=== PATIENT | female | born 1985 | race Caucasian/White ===

== ENCOUNTER 2018-11-08 02:02 | Emergency (ER) | payer OTHER, BC ==
[~2018-11-08] VITALS: Ht 152.4 cm; Wt 64.4 kg
[2018-11-08 02:11] VITALS: BP 127/94
--- NOTE | 2018-11-08 02:20 | NUR ---
PATIENT PRESENTS TO ED WITH C/O DIFFUSED ABD PAIN THAT RADIATES TO THE BACK X 5-6 DAYS WITH N/V/D. +CHILLS, NO FEVER. PT ALSO REPORTS HEADACHE, AND Hx: BRAIN CYST, ULCERS, AND COLITIS. SKIN IS PINK/WARM/DRY; AAOX4 WITH EVEN AND STEADY GAIT; LUNGS CLEAR BL; HR EVEN AND REGULAR; NO CP, SOB, OR COUGH AT THIS TIME; PATIENT STATES PAIN OF 8/10 AT THIS TIME; VSS; PATIENT POSITIONED FOR COMFORT; HOB ELEVATED; BEDRAILS UP X2; BED DOWN. ER MD MADE AWARE OF PT STATUS.
[2018-11-08] MEDS ORDERED: ONDANSETRON 4 MG/2 ML VIAL IVP ONE (02:35)
[2018-11-08] MEDS ORDERED: NACL 0.9% 1,000 ML IV ONE (02:35)
[2018-11-08] MEDS ORDERED: MORPHINE SULFATE 4 MG/ML SYR IVP ONE (02:35)
[2018-11-08 02:57] LABS: APPEARANCE,URINE CLEAR (CLEAR); BILIRUBIN,URINE NEGATIVE (NEGATIVE); BLOOD, URINE NEGATIVE (NEGATIVE); COLOR,URINE YELLOW (YELLOW); LEUKOCYTE ESTERASE ,URINE NEGATIVE (NEGATIVE); NITRITE, URINE NEGATIVE (NEGATIVE); UGLUCOSE NEGATIVE (NEGATIVE)
[2018-11-08 02:58] LABS: BASOPHILS % (AUTO) 0.1 % (0.0-2.0); EOSINOPHILS # (AUTO) 0.2 K/uL (0-0.4); EOSINOPHILS % (AUTO) 3.8 % (0.0-4.0); HEMATOCRIT 27.4 % (36-48); HEMOGLOBIN 8.7 g/dL (12.0-16.0); LYMPHOCYTES # (AUTO) 2.8 K/uL (2.5-16.5); MEAN CORPUSCULAR HEMOGLOBIN 24 pg (27-31); MEAN CORPUSCULAR HGB CONC 32 g/dL (33-37); MEAN CORPUSCULAR VOLUME 76.3 fL (80-94); MONOCYTES # (AUTO) 0.4 K/uL (0.8-1.0); MONOCYTES % (AUTO) 6.7 % (1.7-9.3); NEUTROPHILS # (AUTO) 2.7 K/uL (1.8-7.7); NEUTROPHILS % (AUTO) 44.4 % (42.2-75.2); PLATELET COUNT (AUTO) 443 K/uL (140-450); RED BLOOD CELL COUNT(AUTO) 3.59 MIL/uL (4.20-5.40); WHITE BLOOD COUNT (AUTO) 6.2 K/uL (4.8-10.8)
[2018-11-08 03:09] LABS: ANION GAP 12.5 (8-16); CARBON DIOXIDE 23.8 mmol/L (21-32); CREATININE 0.6 mg/dL (0.6-1.3); POTASSIUM 3.3 mmol/L (3.5-5.1)
[2018-11-08] MEDS ORDERED: POTASSIUM CHLORIDE 10 MEQ TABER PO ONE (03:15)
--- NOTE | 2018-11-08 03:15 | NUR ---
PATIENT BROUGHT BACK FROM CT AND IS NOW RESTING IN BED.
[2018-11-08 03:16] LABS: ALBUMIN 3.4 g/dL (3.4-5.0); TOTAL BILIRUBIN 0.2 mg/dL (0.0-1.0)
[2018-11-08 04:00] VITALS: BP 110/69
--- NOTE | 2018-11-08 04:00 | NUR ---
Patient discharged with v/s stable. Written and verbal after care instructions given and explained. Patient alert, oriented and verbalized understanding of instructions. Ambulatory with steady gait. All questions addressed prior to discharge. ID band removed. Patient advised to follow up with PMD. Rx of ZOFRAN 4MG, AND FERROUS SULFATE given. Patient educated on indication of medication including possible reaction and side effects. Opportunity to ask questions provided and answered.
== END 2018-11-08 04:00 | disposition home or self-care (01) ==
LOC: MED 02:02
DX: R19.7 Diarrhea, unspecified (principal); R11.2 Nausea with vomiting, unspecified; R10.84 Generalized abdominal pain; K59.00 Constipation, unspecified; E87.6 Hypokalemia; D64.9 Anemia, unspecified; Z90.49 Acquired absence of other specified parts of digestive tract; Z98.890 Other specified postprocedural states; Z88.8 Allergy status to other drugs, medicaments and biological substances; Z91.013 Allergy to seafood
CPT/HCPCS: 36415; 74176; 80053; 81003; 85025; 96361; 96374; 96375; 99284; J2270; J2405; J7030

== ENCOUNTER 2019-02-12 21:28 | Emergency (ER) | payer OTHER, BC ==
[~2019-02-12] VITALS: Ht 152.4 cm; Wt 64.0 kg
[2019-02-12 21:35] VITALS: BP 113/87
--- NOTE | 2019-02-12 21:45 | NUR ---
AMBULATED TO BED WITH FAMILY
--- NOTE | 2019-02-12 22:04 | NUR ---
ERMD AT BEDSIDE EVALUATING PATIENT.
--- NOTE | 2019-02-12 22:05 | NUR ---
34 Y/O FEMALE BIB SELF C/ODIFFUSE ABD PAIN RADIATING TO LOWER ABD, X1 DAY. REPORTS DIARRHEA X1 WEEK. A/OX4 FOLLOWS COMMANDS. BREATHING UNLABORE AND SYMMETRICAL. GI: STOMACH ROUND; BOWEL SOUNDS ACTIVE ON FOUR QUADRANTS. PATIENT STATES SHE HAS N/V; AND NOTICED CHANGES IN APPETITE. ERMD MADE AWARE OF STATUS. SIDE RAILSX1. HX BRAIN CYST, COLITIS, GASTRIC ULCER RX PEPCID, IRON, ANTI-DIARRHEA MED
[2019-02-12] MEDS ORDERED: NACL 0.9% 1,000 ML IV SCH (22:08)
[2019-02-12] MEDS ORDERED: ONDANSETRON 4 MG/2 ML VIAL IVP ONE (22:10)
[2019-02-12] MEDS ORDERED: MORPHINE SULFATE 2 MG/ML SYR IVP ONE (22:10)
[2019-02-12 22:49] LABS: HEMATOCRIT 29.8 % (36-48); HEMOGLOBIN 9.3 g/dL (12.0-16.0); MEAN CORPUSCULAR HEMOGLOBIN 24 pg (27-31); MEAN CORPUSCULAR HGB CONC 31 g/dL (33-37); MEAN CORPUSCULAR VOLUME 77.5 fL (80-94); PLATELET COUNT (AUTO) 313 K/uL (140-450); RED BLOOD CELL COUNT(AUTO) 3.85 MIL/uL (4.20-5.40); RED CELL DISTRIBUTION WIDTH 20.3 % (11.6-13.7); WHITE BLOOD COUNT (AUTO) 8.1 K/uL (4.8-10.8)
--- NOTE | 2019-02-12 22:50 | NUR ---
PT TAKEN TO CT VIA WC
[2019-02-12 22:55] LABS: APPEARANCE,URINE CLEAR (CLEAR); BILIRUBIN,URINE NEGATIVE (NEGATIVE); BLOOD, URINE NEGATIVE (NEGATIVE); COLOR,URINE YELLOW (YELLOW); LEUKOCYTE ESTERASE ,URINE NEGATIVE (NEGATIVE); NITRITE, URINE NEGATIVE (NEGATIVE); PH,URINE 5.5 (5.0-9.0); UGLUCOSE NEGATIVE (NEGATIVE)
[2019-02-12 23:04] LABS: ALBUMIN 3.7 g/dL (3.4-5.0); ANION GAP 12.1 (8-16); CARBON DIOXIDE 27.8 mmol/L (21-32); CREATININE 0.6 mg/dL (0.6-1.3); EOSINOPHILS % (MANUAL) 5 % (0-4); LYMPHOCYTES % (MANUAL) 27 % (20-46); MONOCYTES % (MANUAL) 6 % (5-12); TOTAL BILIRUBIN 0.2 mg/dL (0.0-1.0)
--- NOTE | 2019-02-12 23:05 | NUR ---
PT RETURNED FROM CT
[2019-02-12 23:08] LABS: POTASSIUM 2.9 mmol/L (3.5-5.1)
[2019-02-12 23:12] LABS: RBC,URINE 0-5 /HPF (0-5); WBC,URINE 0-5 /HPF (0-5)
[2019-02-12] MEDS ORDERED: POTASSIUM CHLORIDE 10 MEQ TABER PO ONE (23:15)
[2019-02-12 23:17] LABS: PROTHROMBIN TIME 9.2 secs (10.8-13.4)
--- NOTE | 2019-02-13 00:56 | NUR ---
PATIENT IS IN NO DISTRESS AND IS SLEEPING. WILL CONTINUE TO MONITOR.
[2019-02-13] MEDS ORDERED: MORPHINE SULFATE 2 MG/ML SYR IVP ONE ×2 (01:10→05:25)
[2019-02-13] MEDS ORDERED: metroNIDAZOLE 500 MG/NS PREMIX 100 ML IV ONE (01:40)
--- NOTE | 2019-02-13 02:58 | NUR ---
PATIENT IS IN NO DISTRESS AT THIS TIME AND IS SLEEPING. VSS. WILL CONTINUE TO MONITOR.
--- NOTE | 2019-02-13 04:08 | NUR ---
PATIENT IS IN NO DISTRESS AT THIS TIME AND IS SLEEPING AT THIS TIME. VSS.
--- NOTE | 2019-02-13 05:05 | NUR ---
ETA FOR FOR [facility] IS 1 HR.
--- NOTE | 2019-02-13 05:19 | NUR ---
REPORT GIVEN TO JULISA SALEEM FROM [facility].
--- NOTE | 2019-02-13 06:39 | NUR ---
NEW ETA FOR TRANSFER PER [facility], 3- TO 45 MINUTES. ER MD MADE AWARE OF STATUS.
--- NOTE | 2019-02-13 06:39 | NUR ---
VSS. PATIENT RATES PAIN OF 6/10. 2MG OF MORPHINE GIVEN PER DOCTOR'S ORDERS.
--- NOTE | 2019-02-13 07:07 | NUR ---
[facility] at bedside for transfer.
[2019-02-13 07:10] VITALS: BP 106/61
--- NOTE | 2019-02-13 07:10 | NUR ---
Patient to be transferred to [facility] . Is being transferred due to INSURANCE. Receiving facility has accepting physician and available space. ER physician has signed transfer form. Patient or responsible republican has agreed to transfer and signed form. Patient belongings inventoried and will be sent with patient. Copy of nursing notes, lab reports, EKG, Physicians Orders and X-rays to be sent with patient. Report called to STIVEN at receiving facility. ambulance service has been called for transfer. ETA is 0710.
== END 2019-02-13 07:10 | disposition short-term general hospital (02) ==
LOC: MED 21:28
DX: K83.8 Other specified diseases of biliary tract (principal); E87.6 Hypokalemia; R19.7 Diarrhea, unspecified; K21.9 Gastro-esophageal reflux disease without esophagitis; Z90.49 Acquired absence of other specified parts of digestive tract; Z98.890 Other specified postprocedural states; Z88.8 Allergy status to other drugs, medicaments and biological substances; Z88.6 Allergy status to analgesic agent; Z91.013 Allergy to seafood
CPT/HCPCS: 36415; 71045; 74176; 80053; 81001; 81025; 83605; 85025; 85610; 85730; 87040; 87086; 96361; 96365; 96375; 96376; 99285; J2270; J2405; J3490; J7030; Q0092

== ENCOUNTER 2019-02-27 06:43 | Emergency (ER) | payer OTHER, BC ==
[~2019-02-27] VITALS: Ht 152.4 cm; Wt 63.5 kg
[2019-02-27 06:45] VITALS: BP 127/85
--- NOTE | 2019-02-27 06:45 | NUR ---
to bed # 07 ambulatory
--- NOTE | 2019-02-27 07:12 | NUR ---
RECEIVED REPORT FROM JULISA WANG. ASSUMED CARE OF PATIENT.
--- NOTE | 2019-02-27 07:15 | NUR ---
34 Y/O FEMALE PRESENTS TO ED, C/O ABDOMINAL PAIN 02/10 X5 DAYS. PT STATES PAIN RADIATES TO FLANK. ABDOMEN IS SOFT AND TENDER; PAIN ON PALPATION. BS ACTIVE X4 QUADRANTS. PT C/O OF N/V/D. LAST EPISODE OF DIARRHEA WAS DURING ADMISSION. LAST EPISODE OF VOMITING WAS 1 HR OFFICE SUPPORT ASSISTANT. PT TAKES NORCO 5 FOR PAIN BUT INEFFECTIVE. PT UNABLE TO TOLERATE FOOD OR FLUIDS. PT VSS. ERMD AWARE. WILL CONTINUE TO MONITOR.
--- NOTE | 2019-02-27 07:30 | NUR ---
Dr. Caba evaluating patient at bedside.
[2019-02-27] MEDS ORDERED: NACL 0.9% 1,000 ML IV SCH (07:35)
[2019-02-27] MEDS ORDERED: GLYCOPYRROLATE 0.2 MG/ML VIAL IV ONE (07:35)
[2019-02-27] MEDS ORDERED: ONDANSETRON 4 MG/2 ML VIAL IVP ONE (07:35)
[2019-02-27] MEDS ORDERED: MORPHINE SULFATE 2 MG/ML SYR IVP ONE (07:35)
[2019-02-27] MEDS ORDERED: METOCLOPRAMIDE 10 MG/2 ML INJ VIAL IVP ONE (07:35)
[2019-02-27 08:02] LABS: BASOPHILS % (AUTO) 0.4 % (0.0-2.0); EOSINOPHILS # (AUTO) 0.4 K/uL (0-0.4); EOSINOPHILS % (AUTO) 3.3 % (0.0-4.0); HEMATOCRIT 31.2 % (36-48); HEMOGLOBIN 9.6 g/dL (12.0-16.0); LYMPHOCYTES # (AUTO) 0.8 K/uL (2.5-16.5); MEAN CORPUSCULAR HEMOGLOBIN 24 pg (27-31); MEAN CORPUSCULAR HGB CONC 31 g/dL (33-37); MEAN CORPUSCULAR VOLUME 76.8 fL (80-94); MONOCYTES # (AUTO) 0.5 K/uL (0.8-1.0); MONOCYTES % (AUTO) 4.8 % (1.7-9.3); PLATELET COUNT (AUTO) 524 K/uL (140-450); RED BLOOD CELL COUNT(AUTO) 4.06 MIL/uL (4.20-5.40); RED CELL DISTRIBUTION WIDTH 20.6 % (11.6-13.7); WHITE BLOOD COUNT (AUTO) 10.7 K/uL (4.8-10.8)
[2019-02-27 08:07] LABS: BILIRUBIN,URINE 1+ (NEGATIVE); BLOOD, URINE NEGATIVE (NEGATIVE); COLOR,URINE YELLOW (YELLOW); LEUKOCYTE ESTERASE ,URINE NEGATIVE (NEGATIVE); NITRITE, URINE NEGATIVE (NEGATIVE); PH,URINE 6.5 (5.0-9.0); UGLUCOSE NEGATIVE (NEGATIVE)
--- NOTE | 2019-02-27 08:11 | NUR ---
TURN DOWN WORKER AT BEDSIDE, PREPARING ORAL CONTRAST.
--- NOTE | 2019-02-27 08:13 | NUR ---
RADAR REPAIRER HAS INSTRUCTED TO DRINK MUCH OF ORAL CONTRAST POSSIBLE OVER THE NEXT 2 HOURS. WILL REMIND/ENCOURAGE PATIENT TO DRINK THE ORAL CONTRAST AT BEDSIDE.
[2019-02-27 08:16] LABS: ALBUMIN 3.2 g/dL (3.4-5.0); AMYLASE 85 U/L (25-115); ASPARTATE AMINOTRANSFERASE 21 U/L (15-37); CARBON DIOXIDE 27.7 mmol/L (21-32); CHLORIDE 102 mmol/L (98-107); CREATININE 0.5 mg/dL (0.6-1.3); GFR ARICAN-AMERICAN 183 mL/min (>90); GLUCOSE 111 mg/dL (74-106); LIPASE 72 U/L (73-393); MAGNESIUM 1.8 mg/dL (1.8-2.4); POTASSIUM 3.7 mmol/L (3.5-5.1); SODIUM SERUM 139 mmol/L (136-145); TOTAL BILIRUBIN 0.3 mg/dL (0.0-1.0); UREA NITROGEN, BLOOD 15 mg/dL (7-18)
--- NOTE | 2019-02-27 08:30 | NUR ---
PT STATES SHE WILL TRY TO DRINK MUCH ORAL CONTRAST POSSIBLE.
[2019-02-27 08:34] LABS: ACETONE, SERUM NEGATIVE (NEGATIVE)
[2019-02-27 08:35] LABS: APPEARANCE,URINE SLIGHTLY HAZY (CLEAR); RBC,URINE 0-5 /HPF (0-5); WBC,URINE NONE SEEN /HPF (0-5)
--- NOTE | 2019-02-27 08:36 | NUR ---
PT DRINKING THE ORAL CONTRAST AND HAS BEEN TOLERATING WELL.
[2019-02-27 08:42] LABS: LYMPHOCYTES % (AUTO) 7.5 % (20.5-51.1)
--- NOTE | 2019-02-27 08:42 | NUR ---
INFORMED GROUP ACCOUNT DIRECTOR MAO THAT PT DRANK MORE THAN HALF OF ORAL CONTRAST AND TOLERATING WELL. PER GROUP ACCOUNT DIRECTOR, PATIENT SHOULD DRINK THE REMAINING CONTRAST AT 0930. INSTRUCTED PT TO DO THIS; PT VERBALIZED UNDERSTANDING.
--- NOTE | 2019-02-27 09:26 | NUR ---
PATIENT INSTRUCTED TO DRINK THE REST OF THE ORAL CONTRAST NOW.
--- NOTE | 2019-02-27 10:02 | NUR ---
CALLED CT 4X TO NOTIFY THEM THAT PT READY TO GO TO CT SCAN BUT NO ANSWER.
--- NOTE | 2019-02-27 10:12 | NUR ---
NOTIFIED CT THAT PT READY TO GO FOR CT SCAN.
--- NOTE | 2019-02-27 10:41 | NUR ---
PER LAB REQUEST, PT PROVIDED NEW URINE SAMPLE. NOTIFIED SCHOOL COUNSELLOR TO COME CHEMICAL APPLICATOR SAMPLE.
--- NOTE | 2019-02-27 10:42 | NUR ---
PT TAKEN FOR CT SCAN.
--- NOTE | 2019-02-27 10:51 | NUR ---
PT BACK FROM CT SCAN.
[2019-02-27 11:14] LABS: BARBITURATE, URINE NEG. ng/ml (NEG <=200); BENZODIAZEPINE, URINE POS. ng/mL (NEG <=200); CANNABINOID, URINE NEG. ng/mL (NEG <=50); COCAINE, URINE NEG. ng/mL (NEG <=300); OPIATE, URINE POS. ng/mL (NEG <=2000); PHENCYCLIDINE SCREEN,URINE NEG. ng/mL (NEG <=25)
--- NOTE | 2019-02-27 11:16 | NUR ---
Dr. Caba re-evaluating patient at bedside.
[2019-02-27] MEDS ORDERED: LORazepam 2 MG/ML VIAL IVP ONE (11:20)
--- NOTE | 2019-02-27 12:37 | NUR ---
Patient discharged with v/s stable. Written and verbal after care instructions given and explained. Patient alert, oriented and verbalized understanding of instructions. Ambulatory with steady gait. All questions addressed prior to discharge. ID band removed. Patient advised to follow up with PMD. Rx of LIBRAX given. Patient educated on indication of medication including possible reaction and side effects. Opportunity to ask questions provided and answered.
[2019-02-27 12:38] VITALS: BP 102/53
== END 2019-02-27 12:37 | disposition home or self-care (01) ==
LOC: MED 06:43
DX: E86.0 Dehydration (principal); R19.7 Diarrhea, unspecified; R11.2 Nausea with vomiting, unspecified; R10.84 Generalized abdominal pain; K21.9 Gastro-esophageal reflux disease without esophagitis; Z90.89 Acquired absence of other organs; Z90.49 Acquired absence of other specified parts of digestive tract; Z98.890 Other specified postprocedural states; Z91.013 Allergy to seafood; Z88.6 Allergy status to analgesic agent; Z88.8 Allergy status to other drugs, medicaments and biological substances
CPT/HCPCS: 36415; 74176; 80053; 80305; 81001; 81025; 82009; 82150; 83690; 83735; 85025; 85610; 96361; 96374; 96375; 99284; J2060; J2270; J2405; J2765; J3490; J7030

== ENCOUNTER 2019-03-06 19:32 | Emergency (ER) | payer OTHER, BC ==
[~2019-03-06] VITALS: Ht 152.4 cm; Wt 63.0 kg
[2019-03-06 19:36] VITALS: BP 119/64
--- NOTE | 2019-03-06 19:43 | NUR ---
PT AMBULATED TO BED 12
--- NOTE | 2019-03-06 20:01 | NUR ---
34 Y/O FEMALE PRESENTS TO ED, C/O ABDOMINAL PAIN THAT RADIATES TO THE FLANK. PT HAS BEEN INTERMITTENT FOR THE PAST MONTH BUT WORSENED PAST COUPLE OF DAYS. PAIN IS 9/10. TOOK NORCO 5 THIS MORNING BUT INEFFECTIVE. PT C/O N/V. ABLE TO TOLERATE FLUIDS AND FOOD. BUT STABLE. ERMD AWARE. WILL CONTINUE TO MONITOR.
--- NOTE | 2019-03-06 21:08 | NUR ---
Dr. Howard examining patient.
[2019-03-06] MEDS ORDERED: MORPHINE SULFATE 4 MG/ML SYR IVP ONE (21:10)
--- NOTE | 2019-03-06 21:30 | NUR ---
PT TAKEN TO CT
--- NOTE | 2019-03-06 21:39 | NUR ---
PT RETURN TO BED 12
[2019-03-06 21:42] LABS: BASOPHILS % (AUTO) 0.3 % (0.0-2.0); EOSINOPHILS # (AUTO) 1.2 K/uL (0-0.4); EOSINOPHILS % (AUTO) 10.5 % (0.0-4.0); HEMATOCRIT 27.5 % (36-48); HEMOGLOBIN 8.5 g/dL (12.0-16.0); LYMPHOCYTES # (AUTO) 2.9 K/uL (2.5-16.5); LYMPHOCYTES % (AUTO) 24.7 % (20.5-51.1); MEAN CORPUSCULAR HEMOGLOBIN 24 pg (27-31); MEAN CORPUSCULAR HGB CONC 31 g/dL (33-37); MEAN CORPUSCULAR VOLUME 76.8 fL (80-94); MONOCYTES # (AUTO) 0.7 K/uL (0.8-1.0); MONOCYTES % (AUTO) 6.1 % (1.7-9.3); NEUTROPHILS # (AUTO) 6.8 K/uL (1.8-7.7); NEUTROPHILS % (AUTO) 58.4 % (42.2-75.2); PLATELET COUNT (AUTO) 444 K/uL (140-450); RED BLOOD CELL COUNT(AUTO) 3.59 MIL/uL (4.20-5.40); RED CELL DISTRIBUTION WIDTH 21.2 % (11.6-13.7); WHITE BLOOD COUNT (AUTO) 11.6 K/uL (4.8-10.8)
[2019-03-06 21:47] LABS: APPEARANCE,URINE HAZY (CLEAR); BILIRUBIN,URINE NEGATIVE (NEGATIVE); BLOOD, URINE NEGATIVE (NEGATIVE); COLOR,URINE YELLOW (YELLOW); LEUKOCYTE ESTERASE ,URINE TRACE (NEGATIVE); NITRITE, URINE NEGATIVE (NEGATIVE); PH,URINE 7.5 (5.0-9.0); UGLUCOSE NEGATIVE (NEGATIVE)
[2019-03-06 21:57] LABS: RBC,URINE NONE SEEN /HPF (0-5); WBC,URINE 0-5 /HPF (0-5)
[2019-03-06 23:38] LABS: POTASSIUM 3.7 mmol/L (3.5-5.1)
[2019-03-06 23:39] LABS: ANION GAP 9.3 (8-16); CARBON DIOXIDE 30.4 mmol/L (21-32); CREATININE 0.9 mg/dL (0.6-1.3); TOTAL BILIRUBIN 0.2 mg/dL (0.0-1.0)
[2019-03-06 23:40] LABS: ALBUMIN 3.2 g/dL (3.4-5.0)
[2019-03-06] MEDS ORDERED: LEVOFLOXACIN 500 MG/D5W PREMIX 100 ML IV ONE (23:50)
[2019-03-06] MEDS ORDERED: NACL 0.9% 1,000 ML IV ONE (23:50)
[2019-03-07 00:50] VITALS: BP 119/64
--- NOTE | 2019-03-07 00:50 | NUR ---
PT DISCHARGED PROVIDED WITH PAPERWORK. RX CIPROFLOXACIN. EDUCATED PT REGARDING MEDICATION AND S/E. EDUCATED PT REGARDING D/C DIAGNOSIS AND INSTRUCTIONS. PT VERBALIZED UNDERSTANDING OF TEACHING. TOLD PT TO FOLLOW UP WITH PCP AND WHEN TO RETURN TO ED. PT VSS. ALL QUESTIONS ANSWERED.
== END 2019-03-07 00:50 | disposition home or self-care (01) ==
LOC: MED 19:32
DX: K52.9 Noninfective gastroenteritis and colitis, unspecified (principal); K21.9 Gastro-esophageal reflux disease without esophagitis; Z90.49 Acquired absence of other specified parts of digestive tract; Z98.890 Other specified postprocedural states; Z88.8 Allergy status to other drugs, medicaments and biological substances
CPT/HCPCS: 36415; 74176; 80053; 81001; 81025; 82150; 83690; 85025; 87040; 96365; 96375; 99284; J1956; J2270; J7030

== ENCOUNTER 2019-03-12 15:30 | Emergency (ER) | payer OTHER, BC ==
[~2019-03-12] VITALS: Ht 152.4 cm; Wt 59.9 kg
[2019-03-12 15:36] VITALS: BP 106/73
[2019-03-12] MEDS: NACL 0.9% 1,000 ML IV SCH (16:17)
[2019-03-12] MEDS: ONDANSETRON 4 MG/2 ML VIAL IVP ONE (16:17)
[2019-03-12 16:28] LABS: BASOPHILS % (AUTO) 0.2 % (0.0-2.0); EOSINOPHILS # (AUTO) 0.3 K/uL (0-0.4); EOSINOPHILS % (AUTO) 3.8 % (0.0-4.0); HEMATOCRIT 26.2 % (36-48); HEMOGLOBIN 8.2 g/dL (12.0-16.0); LYMPHOCYTES # (AUTO) 0.5 K/uL (2.5-16.5); MEAN CORPUSCULAR HEMOGLOBIN 24 pg (27-31); MEAN CORPUSCULAR HGB CONC 31 g/dL (33-37); MEAN CORPUSCULAR VOLUME 77.1 fL (80-94); MONOCYTES # (AUTO) 0.5 K/uL (0.8-1.0); MONOCYTES % (AUTO) 6.7 % (1.7-9.3); NEUTROPHILS # (AUTO) 6.3 K/uL (1.8-7.7); NEUTROPHILS % (AUTO) 82.3 % (42.2-75.2); PLATELET COUNT (AUTO) 448 K/uL (140-450); RED CELL DISTRIBUTION WIDTH 20.9 % (11.6-13.7); WHITE BLOOD COUNT (AUTO) 7.6 K/uL (4.8-10.8)
[2019-03-12 16:32] LABS: ANION GAP 15.1 (8-16); CARBON DIOXIDE 24.7 mmol/L (21-32); CREATININE 0.6 mg/dL (0.6-1.3); POTASSIUM 3.8 mmol/L (3.5-5.1)
[2019-03-12 16:38] LABS: ALBUMIN 2.7 g/dL (3.4-5.0); TOTAL BILIRUBIN 0.2 mg/dL (0.0-1.0)
[2019-03-12] MEDS: IBUPROFEN 600 MG TAB PO ONE (17:30)
[2019-03-12] MEDS: MORPHINE SULFATE 4 MG/ML SYR IVP ONE ×2 (17:45→19:15)
[2019-03-12] MEDS: metroNIDAZOLE 500 MG/NS PREMIX 100 ML IV ONE (17:54)
[2019-03-12] MEDS ORDERED: MORPHINE SULFATE 4 MG/ML SYR IVP ONE (17:55)
[2019-03-12] MEDS ORDERED: FAMO-90 PO (18:11)
[2019-03-12] MEDS ORDERED: FERR325E14 PO (18:11)
[2019-03-12] MEDS ORDERED: ALPR0.5T2 PO (18:11)
[2019-03-12] MEDS ORDERED: BACL10TA4 PO (18:23)
[2019-03-12] MEDS ORDERED: FLUO10CA21 PO (18:23)
[2019-03-12] MEDS: LEVOFLOXACIN 500 MG/D5W PREMIX 100 ML IV ONE (19:11)
[2019-03-12 19:29] VITALS: BP 92/47
== END 2019-03-12 19:29 | disposition short-term general hospital (02) ==
LOC: MED 15:30
DX: A09 Infectious gastroenteritis and colitis, unspecified (principal); K21.9 Gastro-esophageal reflux disease without esophagitis; Z86.73 Personal history of transient ischemic attack (TIA), and cerebral infarction without residual deficits; Z90.49 Acquired absence of other specified parts of digestive tract; Z98.51 Tubal ligation status; Z79.899 Other long term (current) drug therapy; Z88.8 Allergy status to other drugs, medicaments and biological substances; Z88.6 Allergy status to analgesic agent; Z91.013 Allergy to seafood
CPT/HCPCS: 36415; 80053; 81002; 81025; 83690; 85025; 87040; 96361; 96365; 96367; 96375; 96376; 99285; J1956; J2270; J2405; J3490; J7030; 99283

== ENCOUNTER 2019-03-19 19:30 | Emergency (ER) | payer OTHER, BC ==
[~2019-03-19] VITALS: Ht 154.9 cm; Wt 61.2 kg
[~2019-03-19 19:30] MED LIST: ALPR0.5T2 PO; BACL10TA4 PO; FAMO-90 PO; FERR325E14 PO; FLUO10CA21 PO
[2019-03-19 19:47] VITALS: BP_SYST 108; BP_SYST 129; BP_DIAS 68; BP_DIAS 83
--- NOTE | 2019-03-19 20:05 | NUR ---
PT TAKEN TO BED 5
--- NOTE | 2019-03-19 20:13 | NUR ---
PT C/O ABD PAIN, N/V/D, CHILLS X6 WEEKS. PT DENIES BLOOD IN VOMITING/DIARRHEA. PT LEANING OVER BED GUARDING ABD. ABD SOFT, ROUND, TENDER TO PALPATION. BOWEL SOUNDS PRESENT THROUGHOUT. DENIES CHEST PAIN. RR EVEN AND UNLABORED. PT REPOSITIONING FREQUENTLY FOR COMFORT. 10/10 ABD PAIN. VSS. MEDHX: COLITIS ALLERGIES: IV CONTRAST, MYLANTA, TORADOL
--- NOTE | 2019-03-19 20:31 | NUR ---
Dr. Cooper examining patient.
[2019-03-19] MEDS ORDERED: NACL 0.9% 1,000 ML IV ONE (20:45)
[2019-03-19] MEDS ORDERED: MORPHINE SULFATE 2 MG/ML SYR IVP ONE (20:45)
[2019-03-19] MEDS ORDERED: ONDANSETRON 4 MG/2 ML VIAL IVP ONE (20:45)
--- NOTE | 2019-03-19 21:08 | NUR ---
LAB AT BEDSIDE.
--- NOTE | 2019-03-19 21:24 | NUR ---
PT TO CT VIA WHEELCHAIR.
--- NOTE | 2019-03-19 21:38 | NUR ---
PT RETURN FROM CT
[2019-03-19 21:39] LABS: BASOPHILS % (AUTO) 0.4 % (0.0-2.0); EOSINOPHILS # (AUTO) 0.8 K/uL (0-0.4); EOSINOPHILS % (AUTO) 9.6 % (0.0-4.0); HEMATOCRIT 35.6 % (36-48); HEMOGLOBIN 11.4 g/dL (12.0-16.0); LYMPHOCYTES # (AUTO) 1.5 K/uL (2.5-16.5); LYMPHOCYTES % (AUTO) 18.6 % (20.5-51.1); MEAN CORPUSCULAR HEMOGLOBIN 25 pg (27-31); MEAN CORPUSCULAR HGB CONC 32 g/dL (33-37); MEAN CORPUSCULAR VOLUME 79.4 fL (80-94); MONOCYTES # (AUTO) 0.4 K/uL (0.8-1.0); MONOCYTES % (AUTO) 4.8 % (1.7-9.3); NEUTROPHILS # (AUTO) 5.4 K/uL (1.8-7.7); NEUTROPHILS % (AUTO) 66.6 % (42.2-75.2); PLATELET COUNT (AUTO) 654 K/uL (140-450); RED BLOOD CELL COUNT(AUTO) 4.49 MIL/uL (4.20-5.40); RED CELL DISTRIBUTION WIDTH 19.4 % (11.6-13.7); WHITE BLOOD COUNT (AUTO) 8.1 K/uL (4.8-10.8)
--- NOTE | 2019-03-19 21:39 | NUR ---
PT STATES NO RELIEF OF PAIN. DR JACKMAN MADE AWARE. VSS, WILL CONTINUE TO MONITOR.
[2019-03-19 21:50] LABS: ANION GAP 10.5 (8-16); CARBON DIOXIDE 30.3 mmol/L (21-32); CREATININE 0.6 mg/dL (0.6-1.3); POTASSIUM 3.8 mmol/L (3.5-5.1)
[2019-03-19] MEDS ORDERED: fentaNYL 0.05 MG/ML VIAL IVP ONE (21:50)
[2019-03-19 21:52] LABS: BARBITURATE, URINE NEG. ng/ml (NEG <=200); BENZODIAZEPINE, URINE POS. ng/mL (NEG <=200); CANNABINOID, URINE NEG. ng/mL (NEG <=50); COCAINE, URINE NEG. ng/mL (NEG <=300); OPIATE, URINE POS. ng/mL (NEG <=2000); PHENCYCLIDINE SCREEN,URINE NEG. ng/mL (NEG <=25)
[2019-03-19 21:55] LABS: ALBUMIN 3.4 g/dL (3.4-5.0); TOTAL BILIRUBIN 0.2 mg/dL (0.0-1.0)
--- NOTE | 2019-03-19 22:03 | NUR ---
PT STATES RELIEF OF PAIN AT THIS TIME. PAIN WENT FROM 10/10 TO 3/10. PT RESTING IN BED IN COMFORTABLE POSITION. BED LOCKED AND IN LOW POSITION. VSS. WILL CONTINUE TO MONITOR.
[2019-03-19] MEDS ORDERED: HALOPERIDOL IM 5 MG/ML VIAL IM ONE (23:20)
[2019-03-19 23:47] VITALS: BP 111/59
--- NOTE | 2019-03-19 23:47 | NUR ---
Patient discharged with v/s stable. Written and verbal after care instructions given and explained. Patient alert, oriented and verbalized understanding of instructions. Ambulatory with steady gait. All questions addressed prior to discharge. ID band removed. Patient advised to follow up with PMD. Rx of ZOFRAN ODT given. Patient educated on indication of medication including possible reaction and side effects. Opportunity to ask questions provided and answered. PT STATES HER IS DRIVING HER HOME.
== END 2019-03-19 23:47 | disposition home or self-care (01) ==
LOC: MED 19:30
DX: R10.9 Unspecified abdominal pain (principal); G43.A0 Cyclical vomiting, in migraine, not intractable; K21.9 Gastro-esophageal reflux disease without esophagitis; R11.10 Vomiting, unspecified; Z86.73 Personal history of transient ischemic attack (TIA), and cerebral infarction without residual deficits; Z90.49 Acquired absence of other specified parts of digestive tract; Z98.890 Other specified postprocedural states; Z88.8 Allergy status to other drugs, medicaments and biological substances
CPT/HCPCS: 36415; 74176; 80053; 80305; 81002; 81025; 85025; 96361; 96372; 96374; 96375; 99284; J1630; J2270; J2405; J3010; J7030

== ENCOUNTER 2019-04-03 07:32 | Emergency (ER) | payer OTHER, BC ==
[~2019-04-03] VITALS: Ht 152.4 cm; Wt 63.5 kg
[2019-04-03 07:36] VITALS: BP 104/40
--- NOTE | 2019-04-03 07:39 | NUR ---
PT AMBULATED TO ER BED 07
--- NOTE | 2019-04-03 07:47 | NUR ---
LUQ PAIN RADIATING TO BREAST AND BACK WITH N/V/D X 4 DAY. SKIN IS PINK/WARM/DRY; AAOX4 WITH EVEN AND STEADY GAIT; LUNGS CLEAR BL; HR EVEN AND REGULAR; PT DENIES ANY FEVER, SOB, OR COUGH AT THIS TIME; PATIENT STATES PAIN OF 8/10 AT THIS TIME; VSS; PATIENT POSITIONED FOR COMFORT; HOB ELEVATED; BEDRAILS UP X2; BED DOWN. ER MD MADE AWARE OF PT STATUS. FAMILY AT BEDSIDE.
[2019-04-03] MEDS ORDERED: MORPHINE SULFATE 4 MG/ML SYR IVP ONE ×3 (07:55→11:25)
[2019-04-03] MEDS ORDERED: ONDANSETRON 4 MG/2 ML VIAL IVP ONE (07:55)
[2019-04-03] MEDS ORDERED: NACL 0.9% 1,000 ML IV ONE (07:55)
[2019-04-03] MEDS ORDERED: PANTOPRAZOLE 40 MG INJ VIAL IVP ONE (08:00)
[2019-04-03 08:16] LABS: BASOPHILS % (AUTO) 0.2 % (0.0-2.0); EOSINOPHILS # (AUTO) 0.7 K/uL (0-0.4); EOSINOPHILS % (AUTO) 7.5 % (0.0-4.0); HEMATOCRIT 27.3 % (36-48); HEMOGLOBIN 8.6 g/dL (12.0-16.0); LYMPHOCYTES # (AUTO) 1.8 K/uL (2.5-16.5); LYMPHOCYTES % (AUTO) 20.9 % (20.5-51.1); MEAN CORPUSCULAR HEMOGLOBIN 25 pg (27-31); MEAN CORPUSCULAR HGB CONC 32 g/dL (33-37); MEAN CORPUSCULAR VOLUME 79.7 fL (80-94); MONOCYTES # (AUTO) 0.7 K/uL (0.8-1.0); MONOCYTES % (AUTO) 7.6 % (1.7-9.3); NEUTROPHILS # (AUTO) 5.5 K/uL (1.8-7.7); NEUTROPHILS % (AUTO) 63.8 % (42.2-75.2); PLATELET COUNT (AUTO) 464 K/uL (140-450); RED BLOOD CELL COUNT(AUTO) 3.42 MIL/uL (4.20-5.40); RED CELL DISTRIBUTION WIDTH 18.9 % (11.6-13.7); WHITE BLOOD COUNT (AUTO) 8.6 K/uL (4.8-10.8)
--- NOTE | 2019-04-03 08:26 | NUR ---
PT LEFT FOR X-RAY VIA WHEELCHAIR PER TECH.
[2019-04-03 08:30] LABS: ANION GAP 15.7 (8-16); CREATININE 0.5 mg/dL (0.6-1.3); POTASSIUM 3.7 mmol/L (3.5-5.1)
[2019-04-03 08:34] LABS: APPEARANCE,URINE HAZY (CLEAR); BILIRUBIN,URINE 1+ (NEGATIVE); BLOOD, URINE NEGATIVE (NEGATIVE); COLOR,URINE YELLOW (YELLOW); LEUKOCYTE ESTERASE ,URINE NEGATIVE (NEGATIVE); NITRITE, URINE NEGATIVE (NEGATIVE); PH,URINE 5.5 (5.0-9.0); UGLUCOSE NEGATIVE (NEGATIVE)
[2019-04-03 08:37] LABS: ALBUMIN 2.9 g/dL (3.4-5.0); TOTAL BILIRUBIN 0.3 mg/dL (0.0-1.0)
[2019-04-03 09:24] LABS: RBC,URINE 0-5 /HPF (0-5); WBC,URINE 0-5 /HPF (0-5)
--- NOTE | 2019-04-03 12:11 | NUR ---
PT STATED PAIN RELIEVED AFTER THE THIRD TIME MORPHINE GIVEN.
--- NOTE | 2019-04-03 13:11 | NUR ---
[facility] AT BEDSIDE FOR TRANSFER.
--- NOTE | 2019-04-03 13:11 | NUR ---
NOTIFIED PT BP 90/59, MAP 68. PT DOES NOT HAVE ANY SYMPTOMS OR DISCOMFORT. MIKAELA BARRERA WAS PLANNING TO ORDER SOME FLUID. TRANSPORTATION ARRIVED TO UNIT.
--- NOTE | 2019-04-03 13:25 | NUR ---
PT LEFT UNIT IN STABLE CONDITION. PT AWAKE, ALERT. NO SOB. ABLE TO AMBULATE. REPORT GIVEN TO JAMAL JOHNSON. PT WILL GO TO ROOM 2150. Addendum: 04/03/19 at 1339 by PAT PT DENIES PAIN UPON TRANSFERRING.
[2019-04-03 13:30] VITALS: BP 90/56
== END 2019-04-03 13:25 | disposition short-term general hospital (02) ==
LOC: MED 07:32
DX: K92.2 Gastrointestinal hemorrhage, unspecified (principal); R11.2 Nausea with vomiting, unspecified; K21.9 Gastro-esophageal reflux disease without esophagitis; Z86.73 Personal history of transient ischemic attack (TIA), and cerebral infarction without residual deficits; Z79.899 Other long term (current) drug therapy; Z88.8 Allergy status to other drugs, medicaments and biological substances; Z88.6 Allergy status to analgesic agent; Z91.013 Allergy to seafood
CPT/HCPCS: 36415; 74022; 80053; 81001; 81025; 83690; 84484; 85025; 86886; 86900; 86901; 96361; 96374; 96375; 96376; 99285; C9113; J2270; J2405; J7030

== ENCOUNTER 2019-04-13 20:35 | Emergency (ER) | payer OTHER, BC ==
[~2019-04-13] VITALS: Ht 152.4 cm; Wt 59.6 kg
[2019-04-13 20:38] VITALS: BP 112/67
--- NOTE | 2019-04-13 20:50 | NUR ---
AMBULATES TO BED 09 IN SLOW, STEADY GAIT IN UPRIGHT POSITION. GUARDING LEFT SIDE ABD. URINE SAMPLE COLLECTED.
--- NOTE | 2019-04-13 21:07 | NUR ---
34 YEAR OLD FEMALE COMPLAINS OF SHARP UPPER ABDOMINAL PAIN 8/10 THAT RADIATES TO LEFT FLANK. PATIENT STATES NAUSEA, VOMITTING, AND DIARRHEA X 7 DAYS. BOWEL SOUNDS ACTIVE X4, NONTENDER. PATIENT STATES APPETITE CHANGES, LOST WEIGHT OVER DAYS. BED IN LOWEST POSITION, LOCKED, BED RAIL UPX1.
[2019-04-13] MEDS ORDERED: MORPHINE SULFATE 4 MG/ML SYR IM ONE ×2 (21:15→22:10)
[2019-04-13] MEDS ORDERED: ONDANSETRON 4 MG ODT PO ONE (21:15)
[2019-04-13 22:40] VITALS: BP 100/57
--- NOTE | 2019-04-13 22:40 | NUR ---
Patient discharged with v/s stable. Written and verbal after care instructions given and explained. Patient alert, oriented and verbalized understanding of instructions. Ambulatory with steady gait. All questions addressed prior to discharge. ID band removed. Patient advised to follow up with PMD. Rx of CIPRO, IMODIUM, ZOFRAN given. Patient educated on indication of medication including possible reaction and side effects. Opportunity to ask questions provided and answered.
== END 2019-04-13 22:40 | disposition home or self-care (01) ==
LOC: MED 20:35
DX: R10.9 Unspecified abdominal pain (principal); R11.2 Nausea with vomiting, unspecified; R19.7 Diarrhea, unspecified; K21.9 Gastro-esophageal reflux disease without esophagitis; Z79.899 Other long term (current) drug therapy; Z91.013 Allergy to seafood; Z88.1 Allergy status to other antibiotic agents; Z88.8 Allergy status to other drugs, medicaments and biological substances; Z90.49 Acquired absence of other specified parts of digestive tract; Z98.890 Other specified postprocedural states
CPT/HCPCS: 81002; 81025; 96372; 99283; J2270; Q0162

== ENCOUNTER 2019-04-14 22:56 | Emergency (ER) | payer OTHER, BC ==
[~2019-04-14] VITALS: Ht 152.4 cm; Wt 59.9 kg
[2019-04-14 23:33] VITALS: BP 129/73
--- NOTE | 2019-04-14 23:41 | NUR ---
PT AMBULATED TO LOBBY. PROVIDED WITH URINE SPECIMEN CUP AND PT UNABLE TO PROVIDE SAMPLE AT THIS TIME.
--- NOTE | 2019-04-15 00:29 | NUR ---
PT AMBULATED TO ER BED 9
--- NOTE | 2019-04-15 00:50 | NUR ---
34 YEAR OLD FEMALE COMPLAINS OF SHARP ABDOMINAL PAIN (02/10) THAT RADIATES TO THE BACK FOR THE PAST 6 DAYS. PATIENT GUARDING ABDOMEN. PATIENT STATES NAUSEA, VOMITTING, AND DIARRHEA X 6 DAYS. BOWEL SOUNDS ACTIVE X4. PATIENT ALERT AND ORIENTED, BREATHING EVEN AND UNLABORED. BED IN LOWEST POSITION, LOCKED, BED RAIL UPX1.
[2019-04-15] MEDS ORDERED: MORPHINE SULFATE 4 MG/ML SYR IM ONE (01:45)
[2019-04-15] MEDS ORDERED: diphenhydrAMINE 12.5 MG/5 ML UDC PO ONE (01:45)
--- NOTE | 2019-04-15 02:11 | NUR ---
MEDICATED WITH 4 MG IM MORPHINE AND 25 MG PO BENADRYL FOR 10/10 ABD PAIN. WILL REASSESS IN 30 MINS.
--- NOTE | 2019-04-15 02:40 | NUR ---
PT STATES HER PAIN IS UNCHANGED. REPORTS 10/10 PAIN. PT IS SITTING UP IN BED. SKIN PINK, WARM, DRY. BREATHING EVEN, UNLABORED. NO S/SX ACUTE PAIN VA DISTRESS AT THIS TIME.
--- NOTE | 2019-04-15 03:00 | NUR ---
DR. BERNABE MADE AWARE. PER ERMD, PT NEEDS TO FOLLOW UP WITH PMD FOR FURTHER EVAL AND PAIN MANAGEMENT.
[2019-04-15 03:05] VITALS: BP 124/76
--- NOTE | 2019-04-15 03:05 | NUR ---
Patient discharged with v/s stable. Pt states pain unrelieved. Dr informed pt to f/u with primary care provider and GI DR. Written and verbal after care instructions given and explained. Patient verbalized understanding. Ambulatory with steady gait. All questions addressed prior to discharge.
== END 2019-04-15 03:02 | disposition home or self-care (01) ==
LOC: MED 22:56
DX: R10.10 Upper abdominal pain, unspecified (principal); K21.9 Gastro-esophageal reflux disease without esophagitis; Z86.73 Personal history of transient ischemic attack (TIA), and cerebral infarction without residual deficits; Z79.899 Other long term (current) drug therapy; Z88.8 Allergy status to other drugs, medicaments and biological substances; Z91.013 Allergy to seafood
CPT/HCPCS: 81002; 81025; 96372; 99283; J2270; Q0163

== ENCOUNTER 2019-04-18 18:10 | Emergency (ER) | payer OTHER, BC ==
[~2019-04-18] VITALS: Ht 149.9 cm; Wt 73.9 kg
--- NOTE | 2019-04-18 18:10 | NUR ---
AMBULATES TO BED 07 WITH STEADY GAIT.
[2019-04-18 18:13] VITALS: BP 110/80
--- NOTE | 2019-04-18 18:31 | NUR ---
34 YO F BIB SELF PRESENTS TO ED C/O PERSISTENT NVD AND 9/10 EPIGASTRIC PAIN X 2 WEEKS. PT HAS BEEN SEEN HERE SEVERAL TIMES THIS WEEK FOR SIMILAR COMPLAINT. DENIES N/V AT THIS TIME, REPORTS PAIN. ABD SOFT, PLIABLE, NON-TENDER. BOWEL SOUNDS ACTIVE + 4. SKIN PINK, WARM, DRY. BREATHING EVEN, UNLABORED. APPEARS TO BE UNCOMFORTABLE. RUBBING ABD.
[2019-04-18] MEDS ORDERED: NACL 0.9% 1,000 ML IV ONE (18:40)
[2019-04-18] MEDS ORDERED: HALOPERIDOL IM 5 MG/ML VIAL IVP ONE (18:40)
[2019-04-18 19:05] LABS: BASOPHILS % (AUTO) 0.3 % (0.0-2.0); EOSINOPHILS # (AUTO) 0.3 K/uL (0-0.4); EOSINOPHILS % (AUTO) 4.1 % (0.0-4.0); HEMATOCRIT 28.4 % (36-48); HEMOGLOBIN 8.8 g/dL (12.0-16.0); LYMPHOCYTES # (AUTO) 1.3 K/uL (2.5-16.5); LYMPHOCYTES % (AUTO) 18.3 % (20.5-51.1); MEAN CORPUSCULAR HEMOGLOBIN 25 pg (27-31); MEAN CORPUSCULAR HGB CONC 31 g/dL (33-37); MEAN CORPUSCULAR VOLUME 80.1 fL (80-94); MONOCYTES # (AUTO) 0.5 K/uL (0.8-1.0); MONOCYTES % (AUTO) 7.7 % (1.7-9.3); NEUTROPHILS # (AUTO) 4.8 K/uL (1.8-7.7); NEUTROPHILS % (AUTO) 69.6 % (42.2-75.2); PLATELET COUNT (AUTO) 482 K/uL (140-450); RED BLOOD CELL COUNT(AUTO) 3.54 MIL/uL (4.20-5.40); RED CELL DISTRIBUTION WIDTH 17.8 % (11.6-13.7); WHITE BLOOD COUNT (AUTO) 6.9 K/uL (4.8-10.8)
--- NOTE | 2019-04-18 19:05 | NUR ---
MEDICATED WITH 5 MG IVP HALDOL FOR 9/10 ABD PAIN. WILL REASSESS.
--- NOTE | 2019-04-18 19:25 | NUR ---
REPORTS MINIMAL PAIN RELIEF; 11/10. PT STATES "IT STILL HURTS. I CAN STILL FEEL IT". VSS. DR. BERNABE MADE AWARE. PT INFORMED THAT ALL TESTS CAME BACK NORMAL WITHOUT CHANGE AND THAT SHE NEEDS TO FOLLOW UP WITH PMD AND GI SPECIALIST. PT VERBALIZES UNDERSTANDING.
[2019-04-18 19:44] LABS: CARBON DIOXIDE 28.9 mmol/L (21-32)
[2019-04-18 19:45] LABS: ANION GAP 13.5 (8-16); CREATININE 0.5 mg/dL (0.6-1.3); POTASSIUM 3.4 mmol/L (3.5-5.1)
[2019-04-18 19:49] LABS: TOTAL BILIRUBIN 0.2 mg/dL (0.0-1.0)
[2019-04-18 19:50] LABS: ALBUMIN 3.5 g/dL (3.4-5.0)
[2019-04-18 20:53] VITALS: BP 102/64
--- NOTE | 2019-04-18 20:53 | NUR ---
Discharge paper given to pt. Pt states relief with 6/10 tollerable pain. Written and verbal after care instructions given and explained. Patient alert, oriented and verbalized understanding of instructions. Ambulatory with steady gait. All questions addressed prior to discharge. ID band removed. Patient advised to follow up with PMD and when to return to ER. Rx of Percogesic given. Patient educated on indication of medication including possible reaction and side effects. Opportunity to ask questions provided and answered.
== END 2019-04-18 20:53 | disposition home or self-care (01) ==
LOC: MED 18:10
DX: K58.9 Irritable bowel syndrome, unspecified (principal); K21.9 Gastro-esophageal reflux disease without esophagitis; F41.9 Anxiety disorder, unspecified; Z86.73 Personal history of transient ischemic attack (TIA), and cerebral infarction without residual deficits; Z90.49 Acquired absence of other specified parts of digestive tract; Z98.890 Other specified postprocedural states; Z79.899 Other long term (current) drug therapy; Z88.8 Allergy status to other drugs, medicaments and biological substances; Z91.013 Allergy to seafood
CPT/HCPCS: 36415; 80053; 81002; 81025; 85025; 96361; 96374; 99283; J1630

== ENCOUNTER 2019-05-06 19:20 | Emergency (ER) | payer OTHER, BC ==
[~2019-05-06] VITALS: Ht 152.4 cm; Wt 61.2 kg
[2019-05-06 19:43] VITALS: BP 120/62
--- NOTE | 2019-05-06 19:46 | NUR ---
TO LOBBY A/W BED AMBULATORY
--- NOTE | 2019-05-06 20:00 | NUR ---
34/F PRESENTS TO ED, C/O INTERMITTENT VOMITING X5 DAYS, DENIES BLOOD IN EMESIS. REPORTS LOWER ABD PAIN RADIATING TO LOWER BACK, X4 DAYS. REPORTS DIARRHEA WHICH STARTED YESTERDAY. DENIES FEVER, REPORTS CHILLS. DENIES DYSURIA. PT AWAKE AND ALERT, SKIN NORMAL COLOR WARM AND DRY, RR EVEN AND UNLABORED. HX GASTRIC ULCER, GERD, "BRAIN CYST," CHOLECYSTECTOMY, APPENDECTOMY, HERNIA, DEPRESSION RX XANAX, BACLOFEN, FLUOXETINE, PANTOPRAZOLE, REMERON, SULCRAFATE
[2019-05-06] MEDS ORDERED: ACETAMINOPHEN EXTRA STRENGTH 500 MG TAB PO ONE (20:50)
[2019-05-06] MEDS ORDERED: DICYCLOMINE 20 MG/2 ML VIAL IM ONE (20:50)
[2019-05-06] MEDS ORDERED: ONDANSETRON 4 MG ODT PO ONE (20:50)
[2019-05-06 21:17] VITALS: BP 111/69
--- NOTE | 2019-05-06 21:17 | NUR ---
Patient discharged with v/s stable. Written and verbal after care instructions given and explained. Patient alert, oriented and verbalized understanding of instructions. Ambulatory with steady gait. All questions addressed prior to discharge. ID band removed. Patient advised to follow up with PMD. Rx of ZOFRAN, IBUPROFEN, KEFLEX given. Patient educated on indication of medication including possible reaction and side effects. Opportunity to ask questions provided and answered.
== END 2019-05-06 21:17 | disposition home or self-care (01) ==
LOC: MED 19:20
DX: N39.0 Urinary tract infection, site not specified (principal); A08.4 Viral intestinal infection, unspecified; K21.9 Gastro-esophageal reflux disease without esophagitis; Z90.49 Acquired absence of other specified parts of digestive tract; Z98.890 Other specified postprocedural states; Z79.899 Other long term (current) drug therapy; Z88.8 Allergy status to other drugs, medicaments and biological substances; Z91.013 Allergy to seafood
CPT/HCPCS: 81002; 81025; 96372; 99283; J0500; Q0162

== ENCOUNTER 2019-05-29 17:53 | Emergency (ER) | payer OTHER, BC ==
[~2019-05-29] VITALS: Ht 152.4 cm; Wt 61.2 kg
[2019-05-29 18:18] VITALS: BP 120/76
--- NOTE | 2019-05-29 18:23 | NUR ---
WAIT AT LOBBY.
--- NOTE | 2019-05-29 20:04 | NUR ---
pt ambulated to chair c
--- NOTE | 2019-05-29 20:22 | NUR ---
PATIENT PRESENTS TO ED WITH ABDOMINAL PAIN X 5 DAYS. PT DESCRIBES PAIN SHARP, 10/10 RADIATING TO LOWER BACK. ALSO WITH N/V/D; NO URINARY SYMPTOMS. LBM: 05/29/2019. LMP: 05/18/2019. ABDOMEN TENDER, WITH ACTIVE BOWEL SOUNDS ON ALL QUADRANTS. VSS; PATIENT SITTING ON CHAIR. ER MD MADE AWARE OF PT STATUS.
--- NOTE | 2019-05-29 20:39 | NUR ---
PA WALLACE WITH PT
[2019-05-29] MEDS ORDERED: MORPHINE SULFATE 4 MG/ML SYR IVP ONE ×2 (20:45→22:45)
[2019-05-29] MEDS ORDERED: NACL 0.9% 1,000 ML IV ONE (20:45)
[2019-05-29] MEDS ORDERED: ONDANSETRON 4 MG/2 ML VIAL IVP ONE (20:45)
--- NOTE | 2019-05-29 21:34 | NUR ---
LAB AT [facility].
[2019-05-29 21:52] LABS: BASOPHILS % (AUTO) 0.1 % (0.0-2.0); EOSINOPHILS # (AUTO) 0.5 K/uL (0-0.4); EOSINOPHILS % (AUTO) 5.2 % (0.0-4.0); HEMATOCRIT 28.5 % (36-48); HEMOGLOBIN 8.5 g/dL (12.0-16.0); LYMPHOCYTES # (AUTO) 1.7 K/uL (2.5-16.5); LYMPHOCYTES % (AUTO) 18.7 % (20.5-51.1); MEAN CORPUSCULAR HEMOGLOBIN 22 pg (27-31); MEAN CORPUSCULAR HGB CONC 30 g/dL (33-37); MEAN CORPUSCULAR VOLUME 73.5 fL (80-94); MONOCYTES # (AUTO) 0.6 K/uL (0.8-1.0); MONOCYTES % (AUTO) 6.3 % (1.7-9.3); NEUTROPHILS # (AUTO) 6.2 K/uL (1.8-7.7); NEUTROPHILS % (AUTO) 69.7 % (42.2-75.2); PLATELET COUNT (AUTO) 702 K/uL (140-450); RED BLOOD CELL COUNT(AUTO) 3.88 MIL/uL (4.20-5.40); RED CELL DISTRIBUTION WIDTH 18.5 % (11.6-13.7)
[2019-05-29 22:29] LABS: APPEARANCE,URINE SL CLOUDY (CLEAR); BILIRUBIN,URINE NEGATIVE (NEGATIVE); BLOOD, URINE NEGATIVE (NEGATIVE); COLOR,URINE YELLOW (YELLOW); LEUKOCYTE ESTERASE ,URINE 1+ (NEGATIVE); NITRITE, URINE NEGATIVE (NEGATIVE); UGLUCOSE NEGATIVE (NEGATIVE)
--- NOTE | 2019-05-29 22:30 | NUR ---
PATIENT RECEIVED FROM YUSRA EGAN. PATIENT STATES SHE HAS PAIN 8/10 IN ABDOMEN, DR NIELSEN MADE AWARE.
[2019-05-29 22:31] LABS: ANION GAP 12.2 (8-16); CARBON DIOXIDE 28.6 mmol/L (21-32); CREATININE 0.5 mg/dL (0.6-1.3); POTASSIUM 3.8 mmol/L (3.5-5.1)
[2019-05-29 22:36] LABS: ALBUMIN 3.6 g/dL (3.4-5.0); TOTAL BILIRUBIN 0.2 mg/dL (0.0-1.0)
[2019-05-29 23:49] LABS: RBC,URINE 0-5 /HPF (0-5)
[2019-05-29] MEDS ORDERED: cefTRIAXone 1,000 MG VIAL ONE (23:55)
[2019-05-29] MEDS ORDERED: LIDOCAINE MPF 1% 5 ML ONE (23:55)
[2019-05-29] MEDS ORDERED: LACTULOSE 20 GM/30 ML UDC PO ONE (23:55)
[2019-05-29] MEDS ORDERED: cefTRIAXone 1,000 MG in LIDOCAINE MPF 1% 2.1 ML IM ONE (23:55)
[2019-05-30 00:26] VITALS: BP 101/55
--- NOTE | 2019-05-30 00:27 | NUR ---
Patient discharged with v/s stable. Written and verbal after care instructions given and explained. Patient alert, oriented and verbalized understanding of instructions. Ambulatory with steady gait. All questions addressed prior to discharge. ID band removed. Patient advised to follow up with PMD. Rx of MIRALAX, CIPRO given. Patient educated on indication of medication including possible reaction and side effects. Opportunity to ask questions provided and answered.
== END 2019-05-30 00:27 | disposition home or self-care (01) ==
LOC: MED 17:53
DX: K59.00 Constipation, unspecified (principal); N39.0 Urinary tract infection, site not specified; K21.9 Gastro-esophageal reflux disease without esophagitis; Z86.73 Personal history of transient ischemic attack (TIA), and cerebral infarction without residual deficits; Z90.49 Acquired absence of other specified parts of digestive tract; Z79.899 Other long term (current) drug therapy; Z88.8 Allergy status to other drugs, medicaments and biological substances; Z88.6 Allergy status to analgesic agent; Z91.013 Allergy to seafood
CPT/HCPCS: 36415; 74176; 80053; 81001; 81025; 83690; 84703; 85025; 87086; 96372; 96374; 96375; 96376; 99284; J0696; J2001; J2270; J2405; J7030

== ENCOUNTER 2019-05-31 15:47 | Emergency (ER) | payer OTHER, BC ==
[~2019-05-31] VITALS: Ht 152.4 cm; Wt 61.2 kg
--- NOTE | 2019-05-31 15:55 | NUR ---
[facility]OR[facility] RE[facility] ALS TO ER BED 04
[2019-05-31 16:21] VITALS: BP 116/76
--- NOTE | 2019-05-31 16:26 | NUR ---
34 Y/O F BIB AMBULANCE FOR ABDOMINAL PAIN, N/V DIARRHEA X 2 DAYS. PT HAS AN IV RT HAND 20 G PLACED BY AMBULANCE, GIVEN ZOFRAN 4 MG FOR NAUSEA. PT ON MONITOR, VS STABLE. PT RESTING COMFORTABLY.
[2019-05-31] MEDS ORDERED: MORPHINE SULFATE 2 MG/ML SYR IVP ONE ×2 (16:45→18:55)
[2019-05-31] MEDS ORDERED: NACL 0.9% 1,000 ML IV ONE (16:45)
[2019-05-31] MEDS ORDERED: ONDANSETRON 4 MG/2 ML VIAL IVP ONE (16:45)
--- NOTE | 2019-05-31 16:49 | NUR ---
Patient taken to XRAY via wheelchair by tech.
--- NOTE | 2019-05-31 16:57 | NUR ---
PT T X-RAY BY WHEELCHAIR.
--- NOTE | 2019-05-31 17:03 | NUR ---
PT RETURNED BY WHEELCHAIR FROM X-RAY.
--- NOTE | 2019-05-31 17:25 | NUR ---
PT RESTING COMFORTABLY, VSS, AT BEDSIDE.
--- NOTE | 2019-05-31 17:25 | NUR ---
EMT AT BEDSIDE PERFORMING EKG.
[2019-05-31 17:26] LABS: BARBITURATE, URINE NEG. ng/ml (NEG <=200); BENZODIAZEPINE, URINE POS. ng/mL (NEG <=200); CANNABINOID, URINE NEG. ng/mL (NEG <=50); COCAINE, URINE NEG. ng/mL (NEG <=300); OPIATE, URINE POS. ng/mL (NEG <=2000); PHENCYCLIDINE SCREEN,URINE NEG. ng/mL (NEG <=25)
[2019-05-31 17:45] LABS: BASOPHILS # (AUTO) 0.1 K/uL (0.00-0.22); BASOPHILS % (AUTO) 0.8 % (0.0-2.0); EOSINOPHILS # (AUTO) 0.2 K/uL (0-0.4); EOSINOPHILS % (AUTO) 1.9 % (0.0-4.0); HEMOGLOBIN 7.5 g/dL (12.0-16.0); LYMPHOCYTES # (AUTO) 1.3 K/uL (2.5-16.5); LYMPHOCYTES % (AUTO) 13.5 % (20.5-51.1); MEAN CORPUSCULAR HEMOGLOBIN 22 pg (27-31); MEAN CORPUSCULAR HGB CONC 30 g/dL (33-37); MONOCYTES # (AUTO) 0.6 K/uL (0.8-1.0); MONOCYTES % (AUTO) 6.2 % (1.7-9.3); NEUTROPHILS # (AUTO) 7.4 K/uL (1.8-7.7); NEUTROPHILS % (AUTO) 77.6 % (42.2-75.2); PLATELET COUNT (AUTO) 643 K/uL (140-450); RED BLOOD CELL COUNT(AUTO) 3.42 MIL/uL (4.20-5.40); RED CELL DISTRIBUTION WIDTH 18.2 % (11.6-13.7); WHITE BLOOD COUNT (AUTO) 9.5 K/uL (4.8-10.8)
--- NOTE | 2019-05-31 17:49 | NUR ---
ULTRASOUND AT BEDSIDE PERFORMING ORDERED TEST.
[2019-05-31 18:25] LABS: ALBUMIN 3.5 g/dL (3.4-5.0); ANION GAP 13.5 (8-16); ASPARTATE AMINOTRANSFERASE 9 U/L (15-37); CARBON DIOXIDE 25.9 mmol/L (21-32); CHLORIDE 102 mmol/L (98-107); CREATININE 0.6 mg/dL (0.6-1.3); GFR ARICAN-AMERICAN 148 mL/min (>90); GLUCOSE 85 mg/dL (74-106); POTASSIUM 3.4 mmol/L (3.5-5.1); SODIUM SERUM 138 mmol/L (136-145); TOTAL BILIRUBIN 0.2 mg/dL (0.0-1.0); UREA NITROGEN, BLOOD 12 mg/dL (7-18)
[2019-05-31 18:28] LABS: ACETAMINOPHEN < 0.5 ug/ml (10-30); SALICYLATE < 2.8 mg/dL (2.8-20.0)
--- NOTE | 2019-05-31 19:15 | NUR ---
REPORT GIVEN TO JULISA MARIN FOR CHANGE OF SHIFT.
--- NOTE | 2019-05-31 19:16 | NUR ---
RECEIVED REPORT FROM JULISA EDUARDO. TRANSFER OF CARE AT THIS TIME. PT RESTING QUIETLY IN BED PLAYING ON PHONE. BREATHING EVEN, UNLABORED. VSS.
--- NOTE | 2019-05-31 19:22 | NUR ---
MEDICATED WITH 2 MG IVP MORPHINE FOR 8/10 ABD PAIN. WILL REASSESS.
--- NOTE | 2019-05-31 19:40 | NUR ---
PT REPORTS PAIN RELIEF; 5/10. RESTING ON SIDE WITH EYES CLOSED. VSS.
--- NOTE | 2019-05-31 20:00 | NUR ---
TRANSFER CONSENT FORM FOR TRANSPORT TO [facility] SIGNED.
--- NOTE | 2019-05-31 20:14 | NUR ---
Note megha in EDM - 05/31/19 at 2134 by [facility] AT BEDSIDE FOR TRANSPORT. REPORT GIVEN TO PETER DOMINGUEZ. PT AMBULATES TO [facility] WITH SLOW, STEADY GAIT.
--- NOTE | 2019-05-31 20:27 | NUR ---
Patient to be transferred to [facility]. Is being transferred due to insuarance request. Receiving facility has accepting physician and available space. ER physician has signed transfer form. Patient or responsible constitution party has agreed to transfer and signed form. Patient belongings inventoried and will be sent with patient. Copy of nursing notes, lab reports, EKG, Physicians Orders and X-rays to be sent with patient. Report called to JULISA Asencio at receiving facility. [facility] ambulance service has been called for transfer. ETA is 2100.
[2019-05-31 21:14] VITALS: BP 110/53
--- NOTE | 2019-05-31 21:14 | NUR ---
[facility] AT BEDSIDE FOR TRANSPORT. REPORT GIVEN TO PETER DOMINGUEZ. PT AMBULATES TO [facility] WITH SLOW, STEADY GAIT. Addendum: 05/31/19 at 2135 by [facility] VSS AT TIME OF TRANSFER.
--- NOTE | 2019-05-31 21:30 | NUR ---
PT LEAVES FACILITY ON [facility].
--- NOTE | 2019-06-01 11:39 | NUR ---
Late entry. Confirmed with RN that 0.9 NS IV completed at 1820
== END 2019-05-31 21:14 | disposition short-term general hospital (02) ==
LOC: MED 15:47
DX: R10.9 Unspecified abdominal pain (principal); D64.9 Anemia, unspecified; Z86.73 Personal history of transient ischemic attack (TIA), and cerebral infarction without residual deficits; K21.9 Gastro-esophageal reflux disease without esophagitis; K29.70 Gastritis, unspecified, without bleeding; Z91.013 Allergy to seafood; Z88.1 Allergy status to other antibiotic agents; Z88.8 Allergy status to other drugs, medicaments and biological substances; Z88.6 Allergy status to analgesic agent; Z91.09 Other allergy status, other than to drugs and biological substances; Z98.890 Other specified postprocedural states
CPT/HCPCS: 36415; 74022; 76700; 80053; 80305; 81002; 81025; 85025; 93005; 96361; 96374; 96375; 96376; 99285; G0480; G0482; J2270; J2405; J7030; Q0092

== ENCOUNTER 2019-09-12 00:50 | Emergency (ER) | payer OTHER, BC ==
[~2019-09-12] VITALS: Ht 154.9 cm; Wt 65.8 kg
--- NOTE | 2019-09-12 00:50 | NUR ---
BIBA TO BED 11
[2019-09-12 00:52] VITALS: BP 121/70
--- NOTE | 2019-09-12 01:06 | NUR ---
PATIENT PRESENTS TO ED WITH RLQ, RUQ ABD PAIN . PT STATES PAIN X 3 DAYS . DENIES DIARRHEA, +N/V; SKIN IS PINK/WARM/DRY; AAOX4 WITH EVEN AND STEADY GAIT; LUNGS CLEAR BL; HR EVEN AND REGULAR; PT DENIES ANY FEVER, CP, SOB, OR COUGH AT THIS TIME; PATIENT STATES PAIN OF 0/10 AT THIS TIME; VSS; PATIENT POSITIONED FOR COMFORT; HOB ELEVATED; BEDRAILS UP X2; BED DOWN. ER MD MADE AWARE OF PT STATUS.
--- NOTE | 2019-09-12 01:06 | NUR ---
DR CORRAL AT BEDSIDE EVALUATING PATIENT.
[2019-09-12] MEDS ORDERED: ONDANSETRON 4 MG/2 ML VIAL IVP ONE (01:15)
[2019-09-12] MEDS ORDERED: KETOROLAC 30 MG/ML VIAL IVP ONE (01:15)
[2019-09-12] MEDS ORDERED: DICYCLOMINE 10 MG CAP PO ONE (01:15)
[2019-09-12 01:26] LABS: BASOPHILS % (AUTO) 0.2 % (0.0-2.0); EOSINOPHILS # (AUTO) 0.2 K/uL (0-0.4); EOSINOPHILS % (AUTO) 2.8 % (0.0-4.0); HEMATOCRIT 27.8 % (36-48); HEMOGLOBIN 8.5 g/dL (12.0-16.0); LYMPHOCYTES # (AUTO) 2.4 K/uL (2.5-16.5); LYMPHOCYTES % (AUTO) 43.3 % (20.5-51.1); MEAN CORPUSCULAR HEMOGLOBIN 24 pg (27-31); MEAN CORPUSCULAR HGB CONC 31 g/dL (33-37); MEAN CORPUSCULAR VOLUME 76.8 fL (80-94); MONOCYTES # (AUTO) 0.6 K/uL (0.8-1.0); NEUTROPHILS # (AUTO) 2.4 K/uL (1.8-7.7); NEUTROPHILS % (AUTO) 43.7 % (42.2-75.2); PLATELET COUNT (AUTO) 335 K/uL (140-450); RED BLOOD CELL COUNT(AUTO) 3.62 MIL/uL (4.20-5.40); RED CELL DISTRIBUTION WIDTH 18.8 % (11.6-13.7); WHITE BLOOD COUNT (AUTO) 5.6 K/uL (4.8-10.8)
[2019-09-12 01:27] LABS: APPEARANCE,URINE CLOUDY (CLEAR); BILIRUBIN,URINE NEGATIVE (NEGATIVE); BLOOD, URINE 3+ (NEGATIVE); COLOR,URINE RED (YELLOW); LEUKOCYTE ESTERASE ,URINE TRACE (NEGATIVE); NITRITE, URINE NEGATIVE (NEGATIVE); PH,URINE 6.5 (5.0-9.0); UGLUCOSE NEGATIVE (NEGATIVE)
[2019-09-12 01:42] LABS: ALBUMIN 3.8 g/dL (3.4-5.0); AMYLASE 46 U/L (25-115); ANION GAP 13.3 (8-16); ASPARTATE AMINOTRANSFERASE 6 U/L (15-37); CARBON DIOXIDE 29.2 mmol/L (21-32); CHLORIDE 106 mmol/L (98-107); CREATININE 0.8 mg/dL (0.6-1.3); GFR ARICAN-AMERICAN 106 mL/min (>90); GLUCOSE 96 mg/dL (74-106); LIPASE 164 U/L (73-393); POTASSIUM 3.5 mmol/L (3.5-5.1); SODIUM SERUM 145 mmol/L (136-145); TOTAL BILIRUBIN 0.1 mg/dL (0.0-1.0); UREA NITROGEN, BLOOD 10 mg/dL (7-18)
--- NOTE | 2019-09-12 01:42 | NUR ---
PT STATING THAT SHE IS ALLERGIC TO TORADOL. INFORMED MD. STATES SHE WILL NOT BE RECEIVING NARCOTIC PAIN MEDICATION AT THIS TIME. PT MADE AWARE.
[2019-09-12 01:43] LABS: ACETAMINOPHEN < 0.5 ug/ml (10-30); SALICYLATE < 2.8 mg/dL (2.8-20.0)
[2019-09-12 01:46] LABS: BARBITURATE, URINE NEGATIVE ng/ml (NEG <=200); BENZODIAZEPINE, URINE POSITIVE ng/mL (NEG <=200); CANNABINOID, URINE NEGATIVE ng/mL (NEG <=50); COCAINE, URINE NEGATIVE ng/mL (NEG <=300); OPIATE, URINE NEGATIVE ng/mL (NEG <=2000); PHENCYCLIDINE SCREEN,URINE NEGATIVE ng/mL (NEG <=25)
[2019-09-12 01:47] LABS: RBC,URINE TOO NUMEROUS TO COUN /HPF (0-5)
--- NOTE | 2019-09-12 02:45 | NUR ---
PT DISCHARGED WITH VSS. WRISTBAND REMOVED AND SHREDDED. PT DID NOT AGREE WITH THE PRESCRIPTION AND DID NOT TAKE IT. PT AMBULATED OUT OF THE HOSPITAL WITH STEADY GAIT.
--- NOTE | 2019-09-12 03:11 | NUR ---
Marlen cleveland in ED - 09/12/19 at 0315 by [facility] PT DISCHARGED WITH VSS. WRISTBAND REMOVED AND SHREDDED. PT DID NOT AGREE WITH THE PRESCRIPTION AND DID NOT TAKE IT. PT AMBULATED OUT OF THE HOSPITAL WITH STEADY GAIT.
[2019-09-12 03:14] VITALS: BP 121/70
== END 2019-09-12 02:45 | disposition home or self-care (01) ==
LOC: MED 00:50
DX: N39.0 Urinary tract infection, site not specified (principal); R11.2 Nausea with vomiting, unspecified; K21.9 Gastro-esophageal reflux disease without esophagitis; Z88.8 Allergy status to other drugs, medicaments and biological substances; Z88.1 Allergy status to other antibiotic agents; Z91.013 Allergy to seafood; Z86.73 Personal history of transient ischemic attack (TIA), and cerebral infarction without residual deficits
CPT/HCPCS: 36415; 80053; 80305; 81001; 81025; 82150; 83690; 85025; 87086; 96374; 99283; G0480; G0482; J1885; J2405

== ENCOUNTER 2019-09-12 19:59 | Emergency (ER) | payer OTHER, BC ==
[~2019-09-12] VITALS: Ht 154.9 cm; Wt 65.8 kg
--- NOTE | 2019-09-12 20:03 | NUR ---
PT TAKEN BED 4
[2019-09-12 20:10] VITALS: BP 119/62
--- NOTE | 2019-09-12 20:17 | NUR ---
34 Y/O FEMALE PRESENTS TO THE ER, AFTER ELOPING THIS AM AT 0300 WITH SAME C/O ABDOMINAL PAIN. PT STATES SHE HAS HAD EPIGASTRIC PAIN THAT RADIATES TO BACK X 1 WEEK. HYPOACTIVE BOWEL SOUNDS IN X 4 QUADRANTS, ABDOMIN IS SOFT, AND ROUND. NON TTP. VOMITING X 2 WEEKS, DIARRHEA X 1 WEEK. DENIES SOB, COUGH R/R EQUAL AND UNLABORED. AFREBRILE. LMP 09/07/19. PMH: CHOLECYSECTOMY; TUBAL LIGATION; APPENDECTOMY ALLERGIES: IV CONTRAST; MYLANTA
--- NOTE | 2019-09-12 20:17 | NUR ---
Dr. Perez examining patient.
[2019-09-12] MEDS ORDERED: DICYCLOMINE 10 MG CAP PO ONE (20:20)
[2019-09-12] MEDS ORDERED: DIPHENOXYLATE /ATROPINE 2.5 MG TAB PO ONE (20:20)
[2019-09-12] MEDS ORDERED: FAMOTIDINE 20 MG TAB PO ONE (20:20)
[2019-09-12] MEDS ORDERED: ONDANSETRON 4 MG ODT PO ONE (20:20)
--- NOTE | 2019-09-12 20:54 | NUR ---
Patient discharged with v/s stable. Written and verbal after care instructions given and explained. Patient verbalized understanding. Ambulatory with steady gait. All questions addressed prior to discharge. Advised to follow up with PMD.
[2019-09-12 20:57] VITALS: BP 119/62
== END 2019-09-12 20:54 | disposition home or self-care (01) ==
LOC: MED 19:59
DX: R10.84 Generalized abdominal pain (principal); G89.29 Other chronic pain; N39.0 Urinary tract infection, site not specified; D50.9 Iron deficiency anemia, unspecified; D53.9 Nutritional anemia, unspecified; K21.9 Gastro-esophageal reflux disease without esophagitis; Z86.73 Personal history of transient ischemic attack (TIA), and cerebral infarction without residual deficits; Z79.899 Other long term (current) drug therapy; Z88.8 Allergy status to other drugs, medicaments and biological substances; Z91.013 Allergy to seafood
CPT/HCPCS: 81025; 99284; Q0162

== ENCOUNTER 2019-09-30 | Emergency (ER) | payer OTHER, BC ==
[~2019-09-30] VITALS: Ht 160 cm; Wt 63.5 kg
--- NOTE | 2019-09-30 00:03 | NUR ---
PT BIBA TO BED 06.
[2019-09-30 00:25] VITALS: BP 138/82
--- NOTE | 2019-09-30 00:30 | NUR ---
PT BIBA FROM HOME FOR C/C OF LLQ ABD PAIN AND VOMITING X3 DAYS WITH GOLDBERG. PT PRESENTS VERY LETHARGIC AND WEAK. PER [facility] PTS GLUCOSE WAS 119 IN ROUTE, AND WAS NEGATIVE FOR STROKE SYMPTOMS. PT WAS POSITIVE FOR ORTHOSTAIC HYPOTENSION. PT IS VERY SLUGGISH IN FOLLOWING COMMANDS. UPPER AND LOWER EXTREMETIES ARE 1 IN STRENGTH. 3MM PERRLA PRESENT WITH BRISK REACTION. UNABLE TO VERBALIZE WHAT PAIN LEVEL SHE IS EXPERIENCING. PT PLACED ON TERMITE TREATER. BED LOCKED AND IN LOWEST POSITION. SIDE RAILS X2. ALLERGIES IN CHART MED HX: ULCERS NO RX
--- NOTE | 2019-09-30 00:57 | NUR ---
PT TAKEN TO RR VIA WHEELCHAIR BY EMT
--- NOTE | 2019-09-30 01:06 | NUR ---
DR NIELSEN AT BEDSIDE EVALUATING PT
[2019-09-30] MEDS ORDERED: ONDANSETRON 4 MG/2 ML VIAL IVP ONE (01:10)
[2019-09-30] MEDS ORDERED: MORPHINE SULFATE 4 MG/ML SYR IVP ONE (01:10)
[2019-09-30] MEDS ORDERED: NACL 0.9% 1,000 ML IV ONE (01:10)
--- NOTE | 2019-09-30 01:20 | NUR ---
COVERING PRIMARY RN FOR LUNCH RELIEF -- MEDICATED ORDERED FOR PAIN. WILL REASSESS FOR EFFICACY.
[2019-09-30 01:22] LABS: EOSINOPHILS % (AUTO) 0.1 % (0.0-4.0); MONOCYTES # (AUTO) 0.5 K/uL (0.8-1.0); MONOCYTES % (AUTO) 8.5 % (1.7-9.3); NEUTROPHILS # (AUTO) 3.3 K/uL (1.8-7.7); PLATELET COUNT (AUTO) 420 K/uL (140-450); WHITE BLOOD COUNT (AUTO) 5.8 K/uL (4.8-10.8)
[2019-09-30 01:23] LABS: APPEARANCE,URINE SL CLOUDY (CLEAR); BILIRUBIN,URINE NEGATIVE (NEGATIVE); BLOOD, URINE NEGATIVE (NEGATIVE); COLOR,URINE YELLOW (YELLOW); LEUKOCYTE ESTERASE ,URINE NEGATIVE (NEGATIVE); NITRITE, URINE NEGATIVE (NEGATIVE); UGLUCOSE NEGATIVE (NEGATIVE)
[2019-09-30 01:26] LABS: BASOPHILS % (AUTO) 0.5 % (0.0-2.0); HEMATOCRIT 28.3 % (36-48); LYMPHOCYTES # (AUTO) 1.9 K/uL (2.5-16.5); LYMPHOCYTES % (AUTO) 33.3 % (20.5-51.1); MEAN CORPUSCULAR HEMOGLOBIN 23 pg (27-31); MEAN CORPUSCULAR HGB CONC 32 g/dL (33-37); MEAN CORPUSCULAR VOLUME 73.1 fL (80-94); NEUTROPHILS % (AUTO) 57.6 % (42.2-75.2); RED BLOOD CELL COUNT(AUTO) 3.87 MIL/uL (4.20-5.40); RED CELL DISTRIBUTION WIDTH 20.3 % (11.6-13.7)
[2019-09-30 01:36] LABS: ALBUMIN 4.5 g/dL (3.4-5.0); CREATININE 0.6 mg/dL (0.6-1.3); TOTAL BILIRUBIN 0.4 mg/dL (0.0-1.0)
--- NOTE | 2019-09-30 01:40 | NUR ---
XR AT BEDSIDE.
[2019-09-30 01:54] LABS: BARBITURATE, URINE NEGATIVE ng/ml (NEG <=200); BENZODIAZEPINE, URINE POSITIVE ng/mL (NEG <=200); CANNABINOID, URINE NEGATIVE ng/mL (NEG <=50); COCAINE, URINE NEGATIVE ng/mL (NEG <=300); OPIATE, URINE NEGATIVE ng/mL (NEG <=2000); PHENCYCLIDINE SCREEN,URINE NEGATIVE ng/mL (NEG <=25)
--- NOTE | 2019-09-30 02:12 | NUR ---
PT RESTING COMFORTABLY IN BED. EQUAL CHEST RISE AND FALL. PT STATES HER PAIN HAS DECREASED FROM 10/10 TO 5/10.
--- NOTE | 2019-09-30 02:18 | NUR ---
US AT BEDSIDE
[2019-09-30 03:15] VITALS: BP 128/79
== END 2019-09-30 03:15 | disposition home or self-care (01) ==
LOC: MED
DX: R10.31 Right lower quadrant pain (principal); R52 Pain, unspecified; R11.10 Vomiting, unspecified; K21.9 Gastro-esophageal reflux disease without esophagitis; F41.9 Anxiety disorder, unspecified; F32.9 Major depressive disorder, single episode, unspecified; Z90.49 Acquired absence of other specified parts of digestive tract; Z86.73 Personal history of transient ischemic attack (TIA), and cerebral infarction without residual deficits; Z88.8 Allergy status to other drugs, medicaments and biological substances
CPT/HCPCS: 36415; 71045; 76856; 80053; 80305; 81003; 83690; 85025; 93005; 96361; 96374; 96375; 99285; J2270; J2405; J7030; Q0092

== ENCOUNTER 2019-10-17 21:13 | Emergency (ER) | payer OTHER, MEDICAID ==
[~2019-10-17] VITALS: Ht 154.9 cm; Wt 63.0 kg
[2019-10-17 21:49] VITALS: BP 128/73
--- NOTE | 2019-10-17 21:56 | NUR ---
PT AMBULATED TO BED 02 WITH STEADY GAIT.
--- NOTE | 2019-10-17 22:25 | NUR ---
PT C/O ABD PAIN, FLANK PAIN AND BODY ACHES. ALSO STATES SHES HAD N/V/D X 2-3 DAYS. ABD PAIN IS TO LOWER ABD AREA. AFEBRILE, DENIES PAIN WITH URINATION, NO SOB, NO COUGH. PT HAS HX OF ULCER. RATES PAIN 9/ ALLERGIES - MYLANTA, TORADOL, IV CONTRAST
[2019-10-17] MEDS ORDERED: NACL 0.9% 1,000 ML IV ONE (22:40)
[2019-10-17] MEDS ORDERED: MORPHINE SULFATE 2 MG/ML SYR IVP ONE (22:40)
[2019-10-17] MEDS ORDERED: ONDANSETRON 4 MG/2 ML VIAL IVP ONE (22:40)
--- NOTE | 2019-10-17 22:45 | NUR ---
PT TAKEN TO X-RAY
--- NOTE | 2019-10-17 23:10 | NUR ---
IV LINE STARTED AND LABS DRAWN. LAB HERE TO CLINICAL ESTHETICIAN TUBES
[2019-10-17 23:21] LABS: BASOPHILS % (AUTO) 0.4 % (0.0-2.0); EOSINOPHILS # (AUTO) 0.1 K/uL (0-0.4); HEMATOCRIT 26.6 % (36-48); RED CELL DISTRIBUTION WIDTH 20.1 % (11.6-13.7); WHITE BLOOD COUNT (AUTO) 6.3 K/uL (4.8-10.8)
[2019-10-17 23:30] LABS: EOSINOPHILS % (AUTO) 1.4 % (0.0-4.0); LYMPHOCYTES # (AUTO) 2.5 K/uL (2.5-16.5); MEAN CORPUSCULAR HEMOGLOBIN 21 pg (27-31); MEAN CORPUSCULAR HGB CONC 30 g/dL (33-37); MEAN CORPUSCULAR VOLUME 71.3 fL (80-94); MONOCYTES # (AUTO) 0.5 K/uL (0.8-1.0); MONOCYTES % (AUTO) 8.2 % (1.7-9.3); NEUTROPHILS # (AUTO) 3.2 K/uL (1.8-7.7); PLATELET COUNT (AUTO) 378 K/uL (140-450); RED BLOOD CELL COUNT(AUTO) 3.73 MIL/uL (4.20-5.40)
[2019-10-17 23:41] LABS: ALBUMIN 4.1 g/dL (3.4-5.0); ANION GAP 14.9 (8-16); CARBON DIOXIDE 26.6 mmol/L (21-32); CREATININE 0.6 mg/dL (0.6-1.3); POTASSIUM 3.5 mmol/L (3.5-5.1); TOTAL BILIRUBIN 0.2 mg/dL (0.0-1.0)
--- NOTE | 2019-10-17 23:53 | NUR ---
PT RESTING COMFORTABLY AT THIS TIME, DENIES ANY PAIN OR NAUSEA
--- NOTE | 2019-10-18 00:15 | NUR ---
PT FOR D/C PER DR ALEC WHITE. PT HL D/C
--- NOTE | 2019-10-18 00:16 | NUR ---
Patient discharged with v/s stable. Written and verbal after care instructions given and explained. Patient alert, oriented and verbalized understanding of instructions. Ambulatory with steady gait. All questions addressed prior to discharge. ID band removed. Patient advised to follow up with PMD. Rx of TRAMADOL, MINERAL OIL, MIRALAX, ZOFRAN given. Patient educated on indication of medication including possible reaction and side effects. Opportunity to ask questions provided and answered.
[2019-10-18 00:26] VITALS: BP 104/60
== END 2019-10-18 00:13 | disposition home or self-care (01) ==
LOC: MED 21:13
DX: K59.00 Constipation, unspecified (principal); R10.13 Epigastric pain; R11.0 Nausea; R51 Headache; K21.9 Gastro-esophageal reflux disease without esophagitis; Z79.899 Other long term (current) drug therapy; Z90.49 Acquired absence of other specified parts of digestive tract; Z88.8 Allergy status to other drugs, medicaments and biological substances; Z88.2 Allergy status to sulfonamides; Z91.013 Allergy to seafood
CPT/HCPCS: 36415; 74022; 80053; 81002; 81025; 83690; 85025; 96361; 96374; 96375; 99284; J2270; J2405; J7030

== ENCOUNTER 2019-12-03 01:01 | Emergency (ER) | payer OTHER, MEDICAID ==
[~2019-12-03] VITALS: Ht 152.4 cm; Wt 72.6 kg
[2019-12-03 01:10] VITALS: BP 120/75
--- NOTE | 2019-12-03 01:10 | NUR ---
34 Y/O FEMALE BIBA BLS C/O ANXIETY STARTED TO FLARE UP 45 MINS AGO WHEN DAUGHTERS ARRIVED HOME INTOXICATED; PT ALSO REPORTS LRQ PAIN THAT RADIATES TO RIGHT FLANK X 3 DAYS;HEADACHE; PMH: STOMACH ULCERS/BRAIN CYSTS/OVARIAN CYSTS/ANXIETY ALLERGIES: TORADOL/MYLANTA/IV CONTRAST
--- NOTE | 2019-12-03 01:19 | NUR ---
PT CHATO COPPOLAS
[2019-12-03 02:44] VITALS: BP 120/75
== END 2019-12-03 02:44 | disposition home or self-care (01) ==
LOC: EDUNIT# 01:01 → MED 01:01
DX: F41.9 Anxiety disorder, unspecified (principal); E61.2 Magnesium deficiency; Z88.8 Allergy status to other drugs, medicaments and biological substances; Z88.6 Allergy status to analgesic agent; Z91.09 Other allergy status, other than to drugs and biological substances
CPT/HCPCS: 99283

== ENCOUNTER 2019-12-03 20:12 | Emergency (ER) | payer OTHER, MEDICAID, SELFPAY ==
[~2019-12-03] VITALS: Ht 154.9 cm; Wt 68.0 kg
[2019-12-03 20:30] VITALS: BP 99/76
--- NOTE | 2019-12-03 20:33 | NUR ---
DR. BERNABE IN [facility] FOR EVALUATION.
--- NOTE | 2019-12-03 20:40 | NUR ---
COVID SWAB COLLECTED AND SENT TO LAB.
[2019-12-03 21:20] VITALS: BP 99/76
--- NOTE | 2019-12-03 21:20 | NUR ---
Patient discharged with v/s stable. Written and verbal after care instructions given and explained. Patient alert, oriented and verbalized understanding of instructions. Ambulatory with steady gait. All questions addressed prior to discharge. ID band removed. Patient advised to follow up with PMD. Rx of ACETAMINOPHEN & ZOFRAN given. Patient educated on indication of medication including possible reaction and side effects. Opportunity to ask questions provided and answered.
== END 2019-12-03 21:20 | disposition home or self-care (01) ==
LOC: MED 20:12
DX: M79.10 Myalgia, unspecified site (principal); E61.2 Magnesium deficiency; I63.9 Cerebral infarction, unspecified; K21.9 Gastro-esophageal reflux disease without esophagitis; Z20.828 Contact with and (suspected) exposure to other viral communicable diseases; Z88.8 Allergy status to other drugs, medicaments and biological substances; Z88.6 Allergy status to analgesic agent; Z91.013 Allergy to seafood; Z91.09 Other allergy status, other than to drugs and biological substances; Z79.899 Other long term (current) drug therapy; Z90.49 Acquired absence of other specified parts of digestive tract
CPT/HCPCS: 99283; U0003

== ENCOUNTER 2019-12-12 13:55 | Emergency (ER) | payer OTHER, MEDICAID, SELFPAY ==
[~2019-12-12] VITALS: Ht 152.4 cm; Wt 68.0 kg
--- NOTE | 2019-12-12 13:55 | NUR ---
Patient BIBA BLS, transferred to bed 4. RN evaluating patient at bedside.
[2019-12-12 14:02] VITALS: BP 120/80
--- NOTE | 2019-12-12 14:30 | NUR ---
dr ocampo at bedside evaluating pt.
[2019-12-12] MEDS ORDERED: ACETAMINOPHEN 325 MG TAB PO ONE (14:40)
--- NOTE | 2019-12-12 14:49 | NUR ---
called spoke to eleazar .
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
[2019-12-12 15:05] VITALS: BP 120/80
== END 2019-12-12 15:07 | disposition home or self-care (01) ==
LOC: MED 13:55
DX: S00.83XA Contusion of other part of head, initial encounter (principal); S40.021A Contusion of right upper arm, initial encounter; S80.01XA Contusion of right knee, initial encounter; S40.022A Contusion of left upper arm, initial encounter; Z98.890 Other specified postprocedural states; K21.9 Gastro-esophageal reflux disease without esophagitis; Z90.49 Acquired absence of other specified parts of digestive tract; Z79.899 Other long term (current) drug therapy; Z88.8 Allergy status to other drugs, medicaments and biological substances; Z88.2 Allergy status to sulfonamides; Z91.013 Allergy to seafood; Y04.0XXA Assault by unarmed brawl or fight, initial encounter; Y92.89 Other specified places as the place of occurrence of the external cause; Y93.89 Activity, other specified; Y99.8 Other external cause status
CPT/HCPCS: 99283

== ENCOUNTER 2019-12-13 18:54 | Emergency (ER) | payer OTHER, MEDICAID, SELFPAY ==
[~2019-12-13] VITALS: Ht 154.9 cm; Wt 63.5 kg
[2019-12-13 19:14] VITALS: BP 120/72
[2019-12-13] MEDS ORDERED: ONDANSETRON 4 MG ODT PO ONE (19:25)
--- NOTE | 2019-12-13 19:25 | NUR ---
PT AMBULATED TO BED 9 WITH STEADY GAIT. PT PROVIDED UA AND AT BEDSIDE.
--- NOTE | 2019-12-13 19:30 | NUR ---
34 Y/O F PRESENTS TO ED C/O LOWER ABD PAIN RADIATING TO LOWER BACK 11/10 X 1 WEEK. PT ALSO ADMITS TO NAUSEA AND VOMITING, PT VOMITED 5X TODAY. ABD [id number]. PT ALSO C/O MINIMAL BLOODY DISCHARGE. AIRWAY INTACT, PT ABLE TO AMBULATE WITH STEADY GAIT. BED LOCKED AND IN LOWEST POSITION, SIDE RAIL UP X1. WILL CONTINUE TO MONITOR. MHX: ANEMIA, GASTRIC ULCER ALLERGIES: SEE ALLERGY CHART.
--- NOTE | 2019-12-13 19:34 | NUR ---
DR. BALTAZAR AT BEDSIDE EVALUATING PT.
[2019-12-13] MEDS ORDERED: MORPHINE SULFATE 4 MG/ML SYR IM ONE (19:35)
[2019-12-13 20:53] VITALS: BP 120/72
--- NOTE | 2019-12-13 20:54 | NUR ---
Patient discharged with v/s stable. Written and verbal after care instructions given and explained. Patient alert, oriented and verbalized understanding of instructions. Ambulatory with steady gait. All questions addressed prior to discharge. ID band removed. Patient advised to follow up with PMD. Rx of ZOFRAN, CIPRO, AND NORCO given. Patient educated on indication of medication including possible reaction and side effects. Opportunity to ask questions provided and answered.
== END 2019-12-13 20:53 | disposition home or self-care (01) ==
LOC: MED 18:54
DX: N39.0 Urinary tract infection, site not specified (principal); R11.2 Nausea with vomiting, unspecified; R19.7 Diarrhea, unspecified; K21.9 Gastro-esophageal reflux disease without esophagitis; Z90.49 Acquired absence of other specified parts of digestive tract; Z98.890 Other specified postprocedural states; Z86.73 Personal history of transient ischemic attack (TIA), and cerebral infarction without residual deficits; Z79.899 Other long term (current) drug therapy; Z88.8 Allergy status to other drugs, medicaments and biological substances; Z91.018 Allergy to other foods
CPT/HCPCS: 81002; 81025; 96372; 99283; J2270; Q0162

== ENCOUNTER 2020-03-20 02:30 | Emergency (ER) | payer OTHER, MEDICAID, SELFPAY ==
[~2020-03-20] VITALS: Ht 154.9 cm; Wt 65.3 kg
[2020-03-20 02:35] VITALS: BP 118/76
--- NOTE | 2020-03-20 02:35 | NUR ---
to bed # 12 ambulatory
--- NOTE | 2020-03-20 02:46 | NUR ---
PT IN RESTROOM PROVIDING UA SAMPLE.
--- NOTE | 2020-03-20 02:50 | NUR ---
35 Y/O FEMALE BIB SELF FOR C/O "SHARP" LOWER ABD PAIN 9/10 RADIATING TO THE BACK AND SECONDARY COMPLAINTS OF FLU LIKE SYMPTOMS BODYACHES, CHILLS, N/D/V X 3 DAYS. LUNG SOUNDS WERE CLEAR BILATERALY THROUGHOUT A&P. HER ABDOMEN WAS ROUND SOFT AND NON-DISTENDED. BOWEL SOUNDS WERE ACTIVE X 4 QUADRANTS. PT WAS PLACED ON PACKAGING ASSOCIATE. BED LOCKED AND IN LOWEST POSITION. PMHX: GASTRIC ULCER, & ANEMIA ALLERGIES: MYLANTA, TORADOL, IV CONTRAST, SHELLFISH
--- NOTE | 2020-03-20 02:54 | NUR ---
ANETA CORRALES AT BEDSIDE EVALUATING PT.
[2020-03-20] MEDS ORDERED: LIDOCAINE VISCOUS 2% 20 ML UDC PO ONE (03:00)
[2020-03-20] MEDS ORDERED: MORPHINE SULFATE 4 MG/ML SYR IVP ONE (03:00)
[2020-03-20] MEDS ORDERED: NACL 0.9% 1,000 ML IV SCH (03:00)
[2020-03-20] MEDS ORDERED: ONDANSETRON 4 MG/2 ML VIAL IVP ONE (03:00)
[2020-03-20] MEDS ORDERED: DICYCLOMINE 10 MG CAP PO ONE (03:00)
--- NOTE | 2020-03-20 03:12 | NUR ---
LABS AND UA COLLECTED BY INSURANCE ASSOCIATE MARIANA.
[2020-03-20 03:17] LABS: EOSINOPHILS # (AUTO) 0.2 K/uL (0-0.4)
[2020-03-20 03:19] LABS: BILIRUBIN,URINE 1+ (NEGATIVE); BLOOD, URINE 3+ (NEGATIVE); LEUKOCYTE ESTERASE ,URINE NEGATIVE (NEGATIVE); NITRITE, URINE NEGATIVE (NEGATIVE); PH,URINE 6.5 (5.0-9.0); UGLUCOSE NEGATIVE (NEGATIVE)
[2020-03-20 03:21] LABS: BASOPHILS % (AUTO) 0.5 % (0.0-2.0); HEMATOCRIT 25.8 % (36-48); HEMOGLOBIN 7.7 g/dL (12.0-16.0); LYMPHOCYTES # (AUTO) 2.3 K/uL (2.5-16.5); LYMPHOCYTES % (AUTO) 38.1 % (20.5-51.1); MEAN CORPUSCULAR HEMOGLOBIN 20 pg (27-31); MEAN CORPUSCULAR HGB CONC 30 g/dL (33-37); MEAN CORPUSCULAR VOLUME 68.3 fL (80-94); MONOCYTES # (AUTO) 0.4 K/uL (0.8-1.0); MONOCYTES % (AUTO) 7.2 % (1.7-9.3); NEUTROPHILS # (AUTO) 3.1 K/uL (1.8-7.7); NEUTROPHILS % (AUTO) 51.2 % (42.2-75.2); PLATELET COUNT (AUTO) 438 K/uL (140-450); RED BLOOD CELL COUNT(AUTO) 3.78 MIL/uL (4.20-5.40); RED CELL DISTRIBUTION WIDTH 19.4 % (11.6-13.7); WHITE BLOOD COUNT (AUTO) 6.1 K/uL (4.8-10.8)
[2020-03-20 03:30] LABS: ANION GAP 12.7 (8-16); CARBON DIOXIDE 25.8 mmol/L (21-32); CREATININE 0.5 mg/dL (0.6-1.3); POTASSIUM 3.5 mmol/L (3.5-5.1)
--- NOTE | 2020-03-20 03:40 | NUR ---
NOVEL PCR SWAB COLLECTED AND INFLUENZA A & B, SENT TO LABS AT THIS TIME.
--- NOTE | 2020-03-20 03:46 | NUR ---
PT TAKEN TO CT VIA W/C. PT WEARING A MASK.
[2020-03-20 03:49] LABS: TOTAL BILIRUBIN 0.1 mg/dL (0.0-1.0)
[2020-03-20 04:14] LABS: APPEARANCE,URINE BLOODY (CLEAR); COLOR,URINE BLOODY (YELLOW)
[2020-03-20 04:17] LABS: RBC,URINE TOO NUMEROUS TO COUN /HPF (0-5); WBC,URINE 0-5 /HPF (0-5)
[2020-03-20] MEDS ORDERED: fentaNYL citrate 0.05 MG/ML VIAL IVP ONE (04:45)
[2020-03-20] MEDS ORDERED: PROCHLORPERAZINE 10 MG/2 ML VIAL IVP ONE (04:45)
[2020-03-20] MEDS ORDERED: PANTOPRAZOLE 40 MG INJ VIAL IVP ONE (04:45)
--- NOTE | 2020-03-20 05:20 | NUR ---
LABS COLLECTED AND SHEEBA ANTIGEN COLLECTED, SENT TO LAB.
[2020-03-20 05:27] LABS: BARBITURATE, URINE NEGATIVE ng/ml (NEG <=200); BENZODIAZEPINE, URINE POSITIVE ng/mL (NEG <=200); CANNABINOID, URINE NEGATIVE ng/mL (NEG <=50); COCAINE, URINE NEGATIVE ng/mL (NEG <=300); PHENCYCLIDINE SCREEN,URINE NEGATIVE ng/mL (NEG <=25)
[2020-03-20 05:28] LABS: OPIATE, URINE POSITIVE ng/mL (NEG <=2000)
--- NOTE | 2020-03-20 05:41 | NUR ---
Patient appears to be resting comfortably in bed. Vital Signs within normal limits. Respirations even and unlabored. Denies having any pain at this time. Bed locked and in lowest position. Continues on cardiac rehab nurse.
--- NOTE | 2020-03-20 06:39 | NUR ---
EMERGENCY CONTACT: FAY () CALLED [phone] PER PT REQUEST TO UPDATE HER ON HER STATUS. DID NOT ANSWER AND UNABLE TO LEAVE VOICEMAIL.
--- NOTE | 2020-03-20 06:59 | NUR ---
PT AMBULATED TO THE BATHROOM WITH STEADY GAIT.
--- NOTE | 2020-03-20 07:10 | NUR ---
ENDORSED PT STATUS TO VICKY EGAN FOR CONTINUITY OF CARE.
--- NOTE | 2020-03-20 07:23 | NUR ---
Hemoglobin 7.0--critical value received from lab. Dr Sanchez made aware
--- NOTE | 2020-03-20 07:34 | NUR ---
REPORT BECERRA TO JULISA ZHU AT [facility].
--- NOTE | 2020-03-20 07:48 | NUR ---
PETER PICKED UP PT TO TX TO [facility]
[2020-03-20 07:49] VITALS: BP 118/76
--- NOTE | 2020-03-20 07:50 | NUR ---
Patient to be transferred to [facility]. Is being transferred due to INSURANCE REQUEST. Receiving facility has accepting physician and available space. ER physician has signed transfer form. Patient or responsible democrat has agreed to transfer and signed form. Patient belongings inventoried and will be sent with patient. Copy of nursing notes, lab reports, EKG, Physicians Orders and X-rays to be sent with patient. Report called to JULISA ZHU at receiving facility. [facility] ambulance service has been called for transfer.
== END 2020-03-20 07:50 | disposition short-term general hospital (02) ==
LOC: MED 02:30
DX: K92.2 Gastrointestinal hemorrhage, unspecified (principal); D64.9 Anemia, unspecified; R11.2 Nausea with vomiting, unspecified; K21.9 Gastro-esophageal reflux disease without esophagitis; Z90.49 Acquired absence of other specified parts of digestive tract; Z86.73 Personal history of transient ischemic attack (TIA), and cerebral infarction without residual deficits; Z79.899 Other long term (current) drug therapy; Z88.8 Allergy status to other drugs, medicaments and biological substances; Z91.013 Allergy to seafood
CPT/HCPCS: 36415; 74176; 80053; 80305; 81001; 81025; 83690; 85018; 85025; 86886; 86900; 86901; 87426; 87804; 96361; 96374; 96375; 99285; C9113; J0780; J2270; J2405; J3010; J7030; U0003

== ENCOUNTER 2020-03-30 01:15 | Emergency (ER) | payer OTHER, MEDICAID, SELFPAY ==
[~2020-03-30] VITALS: Ht 154.9 cm; Wt 56.7 kg
[2020-03-30 01:29] VITALS: BP 117/76
--- NOTE | 2020-03-30 01:29 | NUR ---
PT AMBULATED TO BED 8 WITH STEADY GAIT.
--- NOTE | 2020-03-30 01:30 | NUR ---
PATIENT PRESENTS TO ED VIA [facility] WITH C/O GENERAL WEAKNESS AND BODY PAIN X 5DAYS . DENIES N/V/D; SKIN IS PINK/WARM/DRY; AAOX4 WITH EVEN AND STEADY GAIT; LUNGS CLEAR BL; HR EVEN AND REGULAR; PT DENIES ANY FEVER, CP, SOB, OR COUGH AT THIS TIME; PATIENT STATES PAIN OF 8/10 AT THIS TIME; VSS; PATIENT POSITIONED FOR COMFORT; HOB ELEVATED; BEDRAILS UP X2; BED DOWN. ER MD MADE AWARE OF PT STATUS.
--- NOTE | 2020-03-30 01:35 | NUR ---
AMBULATED TO BR FOR UA
--- NOTE | 2020-03-30 02:40 | NUR ---
DR. RIVERA AT BEDSIDE FOR EXAM
[2020-03-30] MEDS ORDERED: ONDANSETRON 4 MG/2 ML VIAL IVP ONE (02:45)
[2020-03-30] MEDS ORDERED: ACETAMINOPHEN EXTRA STRENGTH 500 MG TAB PO ONE (02:45)
[2020-03-30] MEDS ORDERED: NACL 0.9% 1,000 ML IV ONE (02:45)
--- NOTE | 2020-03-30 02:50 | NUR ---
LAB AT BEDSIDE.
--- NOTE | 2020-03-30 02:56 | NUR ---
FLU & SHEEBA COVID SWAB COLLECTED BY JULISA FU AND HANDED TO MARIANA RECYCLE WORKER .
[2020-03-30 03:04] LABS: BASOPHILS % (AUTO) 0.6 % (0.0-2.0); EOSINOPHILS # (AUTO) 0.1 K/uL (0-0.4); EOSINOPHILS % (AUTO) 1.9 % (0.0-4.0); HEMATOCRIT 29.9 % (36-48); HEMOGLOBIN 9.2 g/dL (12.0-16.0); LYMPHOCYTES # (AUTO) 2.5 K/uL (2.5-16.5); LYMPHOCYTES % (AUTO) 41.1 % (20.5-51.1); MEAN CORPUSCULAR HEMOGLOBIN 22 pg (27-31); MEAN CORPUSCULAR HGB CONC 31 g/dL (33-37); MEAN CORPUSCULAR VOLUME 71.3 fL (80-94); MONOCYTES # (AUTO) 0.5 K/uL (0.8-1.0); MONOCYTES % (AUTO) 7.8 % (1.7-9.3); NEUTROPHILS % (AUTO) 48.6 % (42.2-75.2); PLATELET COUNT (AUTO) 445 K/uL (140-450); RED BLOOD CELL COUNT(AUTO) 4.19 MIL/uL (4.20-5.40); RED CELL DISTRIBUTION WIDTH 22.8 % (11.6-13.7); WHITE BLOOD COUNT (AUTO) 6.2 K/uL (4.8-10.8)
--- NOTE | 2020-03-30 03:04 | NUR ---
RT AC 18g IV initiated. flushable and patent. tolerated well.
[2020-03-30 03:18] LABS: ALBUMIN 4.3 g/dL (3.4-5.0); ANION GAP 13.9 (8-16); CREATININE 0.7 mg/dL (0.6-1.3); POTASSIUM 3.9 mmol/L (3.5-5.1); TOTAL BILIRUBIN 0.1 mg/dL (0.0-1.0)
--- NOTE | 2020-03-30 04:00 | NUR ---
IS RESTLESS ASKING FOR MORE PAIN MEDICATIONS. WILL NOT STAY IN ROOM. ENCOURAGED TO STAY IN ROOM. "I TOOK 2 NORCO BEFORE I CAME HERE AND THEY DIDNT WORK. I WANT SOMETHING STRONGER IN THE IV". DR. RIVERA AWARE
[2020-03-30 04:16] VITALS: BP 118/72
--- NOTE | 2020-03-30 04:16 | NUR ---
Patient discharged with v/s stable. Written and verbal after care instructions given and explained. Patient verbalized understanding. Ambulatory with steady gait. All questions addressed prior to discharge. Advised to follow up with PMD. Armband removed.
--- NOTE | 2020-04-02 05:53 | NUR ---
late entry---- s/w primary nurse, end times as follow; NS [id number]
== END 2020-03-30 04:16 | disposition home or self-care (01) ==
LOC: MED 01:15
DX: M79.10 Myalgia, unspecified site (principal); K21.9 Gastro-esophageal reflux disease without esophagitis; Z91.09 Other allergy status, other than to drugs and biological substances; Z88.6 Allergy status to analgesic agent; Z88.8 Allergy status to other drugs, medicaments and biological substances; Z71.6 Tobacco abuse counseling; Z79.899 Other long term (current) drug therapy; Z91.013 Allergy to seafood; Z20.828 Contact with and (suspected) exposure to other viral communicable diseases
CPT/HCPCS: 36415; 80053; 81002; 81025; 84702; 85025; 87426; 87804; 96361; 96374; 99283; J2405; J7030

== ENCOUNTER 2020-04-10 02:28 | Emergency (ER) | payer OTHER, MEDICAID, SELFPAY ==
[~2020-04-10] VITALS: Ht 154.9 cm; Wt 65.8 kg
[2020-04-10 02:30] VITALS: BP 125/81
--- NOTE | 2020-04-10 02:33 | NUR ---
PT CHATO BLS. TAKEN TO BED 2
--- NOTE | 2020-04-10 02:40 | NUR ---
35 Y/O FEMALE BIBA C/O 12/11 SHARP ABD PAIN WITH N/V AND DARK BLOODY DIARRHEA X 2 DAYS. ABD IS TENDER TO PALPATION, BOWEL SOUNDS HYPERACTIVEX4 QUADRANTS. NO VISIBLE MASSES TO THE ABD NOTED. PT DENIES TRAUMA OR INJURY TO THE AREA. PT CONNECTED TO THE PLANT ENGINEERING MANAGER. SAO2@97% ROOM AIR. BED IS LOCKED AND IN LOWEST POSITION. WILL CONTINUE TO MONITOR. PMH:STOMACH ULCERS, ANEMIA ALLX:MYLANTA, TORADOL, IV CONTRAST ---SEE PTS CHART
--- NOTE | 2020-04-10 03:10 | NUR ---
TIFFANIE PERAZA AT BEDSIDE FOR MED EVAL
[2020-04-10] MEDS ORDERED: NACL 0.9% 1,000 ML IV ONE (03:15)
[2020-04-10] MEDS ORDERED: METOCLOPRAMIDE 10 MG/2 ML INJ VIAL IVP ONE (03:15)
[2020-04-10] MEDS ORDERED: FAMOTIDINE 20 MG TAB PO ONE (03:15)
[2020-04-10] MEDS ORDERED: MORPHINE SULFATE 4 MG/ML SYR IVP ONE (03:15)
--- NOTE | 2020-04-10 03:30 | NUR ---
LAB AT BEDSIDE
[2020-04-10 03:38] LABS: BASOPHILS # (AUTO) 0.1 K/uL (0.00-0.22); BASOPHILS % (AUTO) 1.4 % (0.0-2.0); EOSINOPHILS # (AUTO) 0.1 K/uL (0-0.4); EOSINOPHILS % (AUTO) 2.4 % (0.0-4.0); HEMATOCRIT 29.5 % (36-48); LYMPHOCYTES # (AUTO) 2.6 K/uL (2.5-16.5); LYMPHOCYTES % (AUTO) 44.2 % (20.5-51.1); MEAN CORPUSCULAR HEMOGLOBIN 22 pg (27-31); MEAN CORPUSCULAR HGB CONC 31 g/dL (33-37); MEAN CORPUSCULAR VOLUME 71.9 fL (80-94); MONOCYTES # (AUTO) 0.5 K/uL (0.8-1.0); MONOCYTES % (AUTO) 8.1 % (1.7-9.3); NEUTROPHILS # (AUTO) 2.6 K/uL (1.8-7.7); NEUTROPHILS % (AUTO) 43.9 % (42.2-75.2); PLATELET COUNT (AUTO) 387 K/uL (140-450)
[2020-04-10 03:48] LABS: CARBON DIOXIDE 27.9 mmol/L (21-32); CREATININE 0.7 mg/dL (0.6-1.3); POTASSIUM 3.9 mmol/L (3.5-5.1)
[2020-04-10 03:59] LABS: ALBUMIN 4.3 g/dL (3.4-5.0); TOTAL BILIRUBIN 0.1 mg/dL (0.0-1.0)
--- NOTE | 2020-04-10 04:23 | NUR ---
PT STATES PAIN IS GONE. PT RESTING COMFORTABLY AT THIS TIME.
[2020-04-10 04:43] VITALS: BP 101/66
--- NOTE | 2020-04-10 04:44 | NUR ---
Patient discharged with v/s stable. Written and verbal after care instructions given and explained. Patient alert, oriented and verbalized understanding of instructions. Ambulatory with steady gait. All questions addressed prior to discharge. ID band removed. Patient advised to follow up with PMD. Rx of ZOFRAN AND REGLAN given. Patient educated on indication of medication including possible reaction and side effects. Opportunity to ask questions provided and answered.
== END 2020-04-10 04:44 | disposition home or self-care (01) ==
LOC: MED 02:28
DX: R10.13 Epigastric pain (principal); R11.2 Nausea with vomiting, unspecified; K21.9 Gastro-esophageal reflux disease without esophagitis; Z79.899 Other long term (current) drug therapy; Z88.8 Allergy status to other drugs, medicaments and biological substances; Z91.013 Allergy to seafood
CPT/HCPCS: 36415; 80053; 81025; 83690; 85025; 96361; 96374; 96375; 99284; J2270; J2765; J7030

== ENCOUNTER 2020-04-12 03:13 | Emergency (ER) | payer OTHER, MEDICAID, SELFPAY ==
[~2020-04-12] VITALS: Ht 152.4 cm; Wt 65.8 kg
[2020-04-12 03:22] VITALS: BP 109/60
--- NOTE | 2020-04-12 03:25 | NUR ---
TO LOBBY A/W BED AMBULATORY
--- NOTE | 2020-04-12 04:40 | NUR ---
seen and examined by obi with orders and carried out.
--- NOTE | 2020-04-12 05:10 | NUR ---
medicated as per ermds order, patient tolerated well.
[2020-04-12] MEDS: MORPHINE SULFATE 4 MG/ML SYR IM ONE (05:18)
[2020-04-12] MEDS: ONDANSETRON 4 MG/2 ML VIAL IM ONE (05:20)
--- NOTE | 2020-04-12 05:30 | NUR ---
Blood for labwork drawn from left hand . Patient tolerated well.
--- NOTE | 2020-04-12 05:45 | NUR ---
35 YO F BIB SELF WITH C/C OF 10/10 ABD PAIN RADIATING TO BACK. + OF N/V/D X2WKS. DENIED SOB, FEVER AND COUGH. PT SEEMED ANXIOUS DURING INTERVIEW, MOVING AROUND AND SHAKING LEG. UNABLE TO FULLY ANSWER QUESTIONS. PAIN TO ABD WHEN TOUCHED. HX: GASTRIC ULCERS RX: DENIES ALLERG: ALUMIN HYDROXIDE, CALCIUM CARBONATE, TORADOL, MAGNESIUM, SHELLFISH
[2020-04-12 06:33] LABS: HEMOGLOBIN 9.7 g/dL (12.0-16.0); MEAN CORPUSCULAR HEMOGLOBIN 22 pg (27-31); RED BLOOD CELL COUNT(AUTO) 4.36 MIL/uL (4.20-5.40); WHITE BLOOD COUNT (AUTO) 6.2 K/uL (4.8-10.8)
[2020-04-12 06:34] LABS: PLATELET COUNT (AUTO) 419 K/uL (140-450)
[2020-04-12 06:38] LABS: HEMATOCRIT 31.9 % (36-48); MEAN CORPUSCULAR HGB CONC 30 g/dL (33-37)
[2020-04-12 06:39] LABS: BASOPHILS % (AUTO) 0.4 % (0.0-2.0); EOSINOPHILS # (AUTO) 0.2 K/uL (0-0.4); EOSINOPHILS % (AUTO) 3.6 % (0.0-4.0); LYMPHOCYTES # (AUTO) 2.3 K/uL (2.5-16.5); LYMPHOCYTES % (AUTO) 36.4 % (20.5-51.1); MONOCYTES # (AUTO) 0.4 K/uL (0.8-1.0); MONOCYTES % (AUTO) 6.9 % (1.7-9.3); NEUTROPHILS # (AUTO) 3.3 K/uL (1.8-7.7); NEUTROPHILS % (AUTO) 52.7 % (42.2-75.2); RED CELL DISTRIBUTION WIDTH 23.3 % (11.6-13.7)
[2020-04-12 06:44] LABS: ANION GAP 11.7 (8-16); CARBON DIOXIDE 26.8 mmol/L (21-32); CREATININE 0.7 mg/dL (0.6-1.3); POTASSIUM 3.5 mmol/L (3.5-5.1)
[2020-04-12 06:45] LABS: TOTAL BILIRUBIN 0.3 mg/dL (0.0-1.0)
[2020-04-12 06:46] LABS: ALBUMIN 4.8 g/dL (3.4-5.0)
--- NOTE | 2020-04-12 07:05 | NUR ---
PT TAKEN TO CT VIA W/C.
--- NOTE | 2020-04-12 07:20 | NUR ---
PT BACK FROM CT, IN BED LOCKED IN LOWEST POSITION, SIDE RAILS X2.
[2020-04-12 07:29] LABS: APPEARANCE,URINE HAZY (CLEAR); BILIRUBIN,URINE NEGATIVE (NEGATIVE); BLOOD, URINE 3+ (NEGATIVE); COLOR,URINE RED (YELLOW); NITRITE, URINE POSITIVE (NEGATIVE); UGLUCOSE NEGATIVE (NEGATIVE)
--- NOTE | 2020-04-12 07:30 | NUR ---
REPORT GIVEN TO JULISA COOK. TRANSFER OF CARE AT THIS TIME.
--- NOTE | 2020-04-12 07:31 | NUR ---
REPORT RECEIVED FROM JULISA VELÁSQUEZ. TRANSFER OF CARE AT THIS TIME.
--- NOTE | 2020-04-12 07:40 | NUR ---
Pt is anxious, refusing to sit in [place], requesting pain medication. Dr. Kwon made aware.
[2020-04-12] MEDS: PANTOPRAZOLE 40 MG INJ VIAL IVP ONE (08:42)
[2020-04-12] MEDS: ONDANSETRON 4 MG ODT PO ONE (08:43)
[2020-04-12] MEDS: ACETAMINOPHEN EXTRA STRENGTH 500 MG TAB PO ONE (08:43)
[2020-04-12 08:52] VITALS: BP 128/74
--- NOTE | 2020-04-12 08:52 | NUR ---
Patient does not wish to proceed with medical care recommended by Dr. Kwon. Patient given information related to possible complications, up to and including , which could occur as a result of leaving hospital at this time. Patient verbalizes understanding of risks involved leaving against medical advice. Patient has signed AMA form.
[2020-04-12 09:13] LABS: RBC,URINE TOO NUMEROUS TO COUN /HPF (0-5)
[2020-04-12 09:14] LABS: LEUKOCYTE ESTERASE ,URINE 1+ (NEGATIVE)
== END 2020-04-12 08:52 | disposition left against medical advice (07) ==
LOC: MED 03:13
DX: R10.9 Unspecified abdominal pain (principal); K21.9 Gastro-esophageal reflux disease without esophagitis; Z88.1 Allergy status to other antibiotic agents; Z88.6 Allergy status to analgesic agent; Z88.9 Allergy status to unspecified drugs, medicaments and biological substances; Z91.013 Allergy to seafood; Z79.899 Other long term (current) drug therapy
CPT/HCPCS: 36415; 74176; 80053; 81001; 81025; 84702; 85025; 87086; 96372; 96374; 99284; C9113; J2270; J2405; Q0162

== ENCOUNTER 2020-04-19 02:44 | Emergency (ER) | payer OTHER, MEDICAID, SELFPAY ==
[~2020-04-19] VITALS: Ht 152.4 cm; Wt 65.8 kg
[2020-04-19 02:50] VITALS: BP 125/85
--- NOTE | 2020-04-19 02:53 | NUR ---
TO LOBBY A/W BED AMBULATORY
[2020-04-19] MEDS ORDERED: ONDANSETRON 4 MG ODT PO ONE (03:40)
[2020-04-19] MEDS ORDERED: MORPHINE SULFATE 4 MG/ML SYR IM ONE (03:40)
--- NOTE | 2020-04-19 03:40 | NUR ---
SEEN AND EXAMINED BY TIFFANIE WITH ORDERS AND CARRIED OUT
--- NOTE | 2020-04-19 03:55 | NUR ---
MEDICATED PER ERMDS ORDER, TOLERATED WELL
--- NOTE | 2020-04-19 03:56 | NUR ---
RESULTS BACK AND NOTED BY ERMD AND FOR D/C
[2020-04-19 04:30] VITALS: BP 125/85
--- NOTE | 2020-04-19 04:30 | NUR ---
Patient discharged with v/s stable. Written and verbal after care instructions given and explained. Patient alert, oriented and verbalized understanding of instructions. Ambulatory with steady gait. All questions addressed prior to discharge. ID band removed. Patient advised to follow up with PMD. Rx of NORCO,ZOFRAN,CIPRO given. Patient educated on indication of medication including possible reaction and side effects. Opportunity to ask questions provided and answered.
== END 2020-04-19 04:30 | disposition home or self-care (01) ==
LOC: MED 02:44
DX: R10.13 Epigastric pain (principal); R11.2 Nausea with vomiting, unspecified; R19.7 Diarrhea, unspecified; K21.9 Gastro-esophageal reflux disease without esophagitis; Z79.899 Other long term (current) drug therapy; Z90.49 Acquired absence of other specified parts of digestive tract; Z98.890 Other specified postprocedural states; Z91.013 Allergy to seafood; Z88.8 Allergy status to other drugs, medicaments and biological substances
CPT/HCPCS: 81002; 81025; 96372; 99283; J2270; Q0162

== ENCOUNTER 2020-04-22 02:45 | Emergency (ER) | payer OTHER, MEDICAID, SELFPAY ==
[~2020-04-22] VITALS: Ht 154.9 cm; Wt 65.8 kg
[2020-04-22 02:50] VITALS: BP 121/77
--- NOTE | 2020-04-22 02:53 | NUR ---
TO LOBBY A/W CHATO BAXTER
--- NOTE | 2020-04-22 03:50 | NUR ---
SEEN AND EXAMINED BY TIFFANIE WITH ORDERS, CARRIED OUT.
[2020-04-22] MEDS ORDERED: ONDANSETRON 4 MG ODT PO ONE (03:55)
--- NOTE | 2020-04-22 04:02 | NUR ---
MEDICATED PER ERMDS ORDER , TOLERATED WELL.
--- NOTE | 2020-04-22 04:20 | NUR ---
Blood for labwork drawn from [facility] . Patient tolerated WELL
[2020-04-22 04:46] LABS: EOSINOPHILS # (AUTO) 0.2 K/uL (0-0.4); MEAN CORPUSCULAR HGB CONC 31 g/dL (33-37); MONOCYTES # (AUTO) 0.3 K/uL (0.8-1.0); MONOCYTES % (AUTO) 3.6 % (1.7-9.3)
[2020-04-22 04:47] LABS: APPEARANCE,URINE CLEAR (CLEAR); BILIRUBIN,URINE NEGATIVE (NEGATIVE); BLOOD, URINE 1+ (NEGATIVE); COLOR,URINE YELLOW (YELLOW); LEUKOCYTE ESTERASE ,URINE NEGATIVE (NEGATIVE); NITRITE, URINE NEGATIVE (NEGATIVE); PH,URINE 5.5 (5.0-9.0); UGLUCOSE NEGATIVE (NEGATIVE)
[2020-04-22 04:52] LABS: BASOPHILS % (AUTO) 0.3 % (0.0-2.0); EOSINOPHILS % (AUTO) 2.4 % (0.0-4.0); HEMATOCRIT 34.4 % (36-48); HEMOGLOBIN 10.5 g/dL (12.0-16.0); LYMPHOCYTES # (AUTO) 2.6 K/uL (2.5-16.5); LYMPHOCYTES % (AUTO) 31.1 % (20.5-51.1); MEAN CORPUSCULAR HEMOGLOBIN 22 pg (27-31); NEUTROPHILS # (AUTO) 5.3 K/uL (1.8-7.7); NEUTROPHILS % (AUTO) 62.6 % (42.2-75.2); PLATELET COUNT (AUTO) 516 K/uL (140-450); WHITE BLOOD COUNT (AUTO) 8.4 K/uL (4.8-10.8)
[2020-04-22 05:01] LABS: ALBUMIN 5.4 g/dL (3.4-5.0); ANION GAP 15.2 (8-16); CARBON DIOXIDE 27.3 mmol/L (21-32); CREATININE 0.7 mg/dL (0.6-1.3); POTASSIUM 3.5 mmol/L (3.5-5.1); TOTAL BILIRUBIN 0.3 mg/dL (0.0-1.0)
[2020-04-22 05:15] LABS: RBC,URINE 0-5 /HPF (0-5); WBC,URINE 0-5 /HPF (0-5)
[2020-04-22] MEDS ORDERED: MORPHINE SULFATE 4 MG/ML SYR IVP ONE (05:20)
[2020-04-22] MEDS ORDERED: NACL 0.9% 1,000 ML IV ONE (05:55)
--- NOTE | 2020-04-22 06:20 | NUR ---
ALL RESULTS BACK AND NOTED BY ERMD AND FOR D/C
[2020-04-22 06:30] VITALS: BP 128/79
--- NOTE | 2020-04-22 06:30 | NUR ---
Patient discharged with v/s stable. Written and verbal after care instructions given and explained. Patient alert, oriented and verbalized understanding of instructions. Ambulatory with steady gait. All questions addressed prior to discharge. ID band removed. Patient advised to follow up with PMD. Rx of ZOFRAN 4MG given. Patient educated on indication of medication including possible reaction and side effects. Opportunity to ask questions provided and answered.
== END 2020-04-22 06:30 | disposition home or self-care (01) ==
LOC: MED 02:45
DX: R10.9 Unspecified abdominal pain (principal); G89.29 Other chronic pain; R11.2 Nausea with vomiting, unspecified; R19.7 Diarrhea, unspecified; K21.9 Gastro-esophageal reflux disease without esophagitis; Z79.899 Other long term (current) drug therapy; Z88.8 Allergy status to other drugs, medicaments and biological substances; Z88.6 Allergy status to analgesic agent; Z91.013 Allergy to seafood; Z91.041 Radiographic dye allergy status
CPT/HCPCS: 36415; 80053; 81001; 83690; 84702; 85025; 96361; 96374; 99283; J2270; J7030; Q0162

== ENCOUNTER 2020-04-27 06:33 | Emergency (ER) | payer OTHER, MEDICAID, SELFPAY ==
[~2020-04-27] VITALS: Ht 154.9 cm; Wt 68.0 kg
[2020-04-27 06:35] VITALS: BP 142/70
--- NOTE | 2020-04-27 06:37 | NUR ---
TO LOBBY A/W BED AMBULATORY
[2020-04-27] MEDS ORDERED: DICYCLOMINE HCL LIQUID 10 MG/5 ML UDC PO ONE (07:50)
[2020-04-27] MEDS ORDERED: ONDANSETRON 4 MG/2 ML VIAL IVP ONE (07:50)
[2020-04-27] MEDS ORDERED: LIDOCAINE VISCOUS 2% 20 ML UDC PO ONE (07:50)
[2020-04-27] MEDS ORDERED: NACL 0.9% 1,000 ML IV SCH (07:50)
[2020-04-27] MEDS ORDERED: MORPHINE SULFATE 4 MG/ML SYR IVP ONE (08:10)
[2020-04-27 09:00] LABS: BASOPHILS % (AUTO) 0.2 % (0.0-2.0); EOSINOPHILS # (AUTO) 0.3 K/uL (0-0.4); EOSINOPHILS % (AUTO) 4.7 % (0.0-4.0); HEMATOCRIT 31.4 % (36-48); HEMOGLOBIN 9.7 g/dL (12.0-16.0); LYMPHOCYTES # (AUTO) 2.4 K/uL (2.5-16.5); MEAN CORPUSCULAR HEMOGLOBIN 22 pg (27-31); MEAN CORPUSCULAR HGB CONC 31 g/dL (33-37); MEAN CORPUSCULAR VOLUME 72.6 fL (80-94); MONOCYTES # (AUTO) 0.5 K/uL (0.8-1.0); MONOCYTES % (AUTO) 8.5 % (1.7-9.3); NEUTROPHILS # (AUTO) 2.6 K/uL (1.8-7.7); NEUTROPHILS % (AUTO) 44.6 % (42.2-75.2); PLATELET COUNT (AUTO) 396 K/uL (140-450); RED BLOOD CELL COUNT(AUTO) 4.32 MIL/uL (4.20-5.40); RED CELL DISTRIBUTION WIDTH 23.7 % (11.6-13.7); WHITE BLOOD COUNT (AUTO) 5.8 K/uL (4.8-10.8)
[2020-04-27 09:38] LABS: ALBUMIN 5.1 g/dL (3.4-5.0); ANION GAP 15.7 (8-16); CARBON DIOXIDE 26.6 mmol/L (21-32); CREATININE 0.6 mg/dL (0.6-1.3); POTASSIUM 3.3 mmol/L (3.5-5.1); TOTAL BILIRUBIN 0.4 mg/dL (0.0-1.0)
--- NOTE | 2020-04-27 09:54 | NUR ---
IV discontinued, 2x2 gauze placed to IV site. Bleeding controlled.
[2020-04-27 09:55] VITALS: BP 142/70
== END 2020-04-27 09:55 | disposition home or self-care (01) ==
LOC: MED 06:33
DX: G89.29 Other chronic pain (principal); R10.9 Unspecified abdominal pain; R11.2 Nausea with vomiting, unspecified; K21.9 Gastro-esophageal reflux disease without esophagitis; Z88.8 Allergy status to other drugs, medicaments and biological substances; Z91.013 Allergy to seafood; Z88.6 Allergy status to analgesic agent; Z98.890 Other specified postprocedural states; Z79.899 Other long term (current) drug therapy
CPT/HCPCS: 36415; 80053; 81002; 81025; 83690; 85025; 96361; 96374; 96375; 99284; J2270; J2405; J7030; Q0163

== ENCOUNTER 2020-04-29 01:50 | Emergency (ER) | payer OTHER, MEDICAID ==
[~2020-04-29] VITALS: Ht 154.9 cm; Wt 68.0 kg
[2020-04-29 01:50] VITALS: BP 126/88
--- NOTE | 2020-04-29 01:53 | NUR ---
TO LOBBY A/W BED AMBULATORY
--- NOTE | 2020-04-29 02:30 | NUR ---
SEEN AND EXAMINED BY TIFFANIE WITH ORDERS AND CARRIED OUT
--- NOTE | 2020-04-29 02:35 | NUR ---
MEDICATED PER ERMDS ORDER, TOLERATED WELL.
[2020-04-29] MEDS ORDERED: ACETAMINOPHEN EXTRA STRENGTH 500 MG TAB PO SCH (02:40)
[2020-04-29 03:05] LABS: BASOPHILS % (AUTO) 0.6 % (0.0-2.0); EOSINOPHILS # (AUTO) 0.3 K/uL (0-0.4); EOSINOPHILS % (AUTO) 4.7 % (0.0-4.0); HEMATOCRIT 31.2 % (36-48); HEMOGLOBIN 9.6 g/dL (12.0-16.0); LYMPHOCYTES # (AUTO) 2.1 K/uL (2.5-16.5); LYMPHOCYTES % (AUTO) 36.6 % (20.5-51.1); MEAN CORPUSCULAR HEMOGLOBIN 23 pg (27-31); MEAN CORPUSCULAR HGB CONC 31 g/dL (33-37); MEAN CORPUSCULAR VOLUME 73.9 fL (80-94); MONOCYTES # (AUTO) 0.3 K/uL (0.8-1.0); MONOCYTES % (AUTO) 6.1 % (1.7-9.3); NEUTROPHILS # (AUTO) 2.9 K/uL (1.8-7.7); PLATELET COUNT (AUTO) 393 K/uL (140-450); RED BLOOD CELL COUNT(AUTO) 4.22 MIL/uL (4.20-5.40); RED CELL DISTRIBUTION WIDTH 23.8 % (11.6-13.7); WHITE BLOOD COUNT (AUTO) 5.7 K/uL (4.8-10.8)
[2020-04-29 03:28] LABS: ALBUMIN 4.7 g/dL (3.4-5.0); ANION GAP 14.9 (8-16); CREATININE 0.6 mg/dL (0.6-1.3); POTASSIUM 3.9 mmol/L (3.5-5.1); TOTAL BILIRUBIN 0.2 mg/dL (0.0-1.0)
[2020-04-29] MEDS ORDERED: SUCRALFATE 1 GM TAB PO STA (05:13)
[2020-04-29] MEDS ORDERED: FAMOTIDINE 20 MG TAB PO STA (05:13)
[2020-04-29] MEDS ORDERED: MORPHINE TAB ER 15 MG TABER PO STA (05:13)
[2020-04-29 05:25] VITALS: BP 126/88
== END 2020-04-29 05:32 | disposition home or self-care (01) ==
LOC: MED 01:50
DX: G89.29 Other chronic pain (principal); R10.12 Left upper quadrant pain; K21.9 Gastro-esophageal reflux disease without esophagitis; Z90.49 Acquired absence of other specified parts of digestive tract; Z98.890 Other specified postprocedural states; Z79.899 Other long term (current) drug therapy; Z88.8 Allergy status to other drugs, medicaments and biological substances; Z91.013 Allergy to seafood
CPT/HCPCS: 36415; 80053; 82150; 83690; 84703; 85025; 99284

== ENCOUNTER 2020-05-03 03:25 | Emergency (ER) | payer OTHER, MEDICAID ==
[~2020-05-03] VITALS: Ht 154.9 cm; Wt 60.3 kg
[2020-05-03 03:31] VITALS: BP 115/63
--- NOTE | 2020-05-03 03:31 | NUR ---
ERMD in triage for medical evaluation.
[2020-05-03 03:36] VITALS: BP 115/63
--- NOTE | 2020-05-03 03:36 | NUR ---
Patient discharged by Dr. Howard with v/s stable. Written and verbal after care instructions given and explained by Dr. Howard. Patient alert, oriented and verbalized understanding of instructions. Ambulatory with steady gait. All questions addressed prior to discharge. ID band removed. Patient advised to follow up with PMD. Rx of Zofran given. Patient educated on indication of medication including possible reaction and side effects. Opportunity to ask questions provided and answered.
--- NOTE | 2020-05-03 03:48 | NUR ---
Note undone in EDM - 05/03/20 at 0349 by CAROL Patient discharged by Dr. Howard with v/s stable. Written and verbal after care instructions given and explained by Dr. Hwoard. Patient alert, oriented and verbalized understanding of instructions. Ambulatory with steady gait. All questions addressed prior to discharge. ID band removed. Patient advised to follow up with PMD. Rx of Zofran given. Patient educated on indication of medication including possible reaction and side effects. Opportunity to ask questions provided and answered.
== END 2020-05-03 03:36 | disposition home or self-care (01) ==
LOC: MED 03:25
DX: R11.2 Nausea with vomiting, unspecified (principal); F41.9 Anxiety disorder, unspecified; R10.9 Unspecified abdominal pain; K21.9 Gastro-esophageal reflux disease without esophagitis; Z88.8 Allergy status to other drugs, medicaments and biological substances; Z91.013 Allergy to seafood; Z79.899 Other long term (current) drug therapy
CPT/HCPCS: 99283

== ENCOUNTER 2020-05-07 04:29 | Emergency (ER) | payer OTHER, MEDICAID ==
[~2020-05-07] VITALS: Ht 154.9 cm; Wt 68.0 kg
[2020-05-07 04:30] VITALS: BP 148/94
--- NOTE | 2020-05-07 04:32 | NUR ---
PT TO LOBBY TO A/W EVALUATION
--- NOTE | 2020-05-07 06:00 | NUR ---
SEEN AND EXAMINED BY TIFFANIE WITH ORDERS AND CARRIED OUT,
[2020-05-07] MEDS ORDERED: MORPHINE SULFATE 4 MG/ML SYR IM ONE (06:05)
[2020-05-07] MEDS ORDERED: ONDANSETRON 4 MG ODT PO ONE (06:05)
--- NOTE | 2020-05-07 06:05 | NUR ---
MEDICATED PER ERMDS ORDER, TOLERATED WELL.
[2020-05-07 06:39] LABS: BASOPHILS % (AUTO) 0.5 % (0.0-2.0); EOSINOPHILS # (AUTO) 0.2 K/uL (0-0.4); EOSINOPHILS % (AUTO) 3.5 % (0.0-4.0); HEMATOCRIT 28.7 % (36-48); LYMPHOCYTES # (AUTO) 2.4 K/uL (2.5-16.5); LYMPHOCYTES % (AUTO) 46.3 % (20.5-51.1); MEAN CORPUSCULAR HEMOGLOBIN 23 pg (27-31); MEAN CORPUSCULAR HGB CONC 31 g/dL (33-37); MEAN CORPUSCULAR VOLUME 74.3 fL (80-94); MONOCYTES # (AUTO) 0.4 K/uL (0.8-1.0); MONOCYTES % (AUTO) 8.2 % (1.7-9.3); NEUTROPHILS # (AUTO) 2.1 K/uL (1.8-7.7); NEUTROPHILS % (AUTO) 41.5 % (42.2-75.2); PLATELET COUNT (AUTO) 324 K/uL (140-450); RED BLOOD CELL COUNT(AUTO) 3.87 MIL/uL (4.20-5.40); RED CELL DISTRIBUTION WIDTH 23.9 % (11.6-13.7); WHITE BLOOD COUNT (AUTO) 5.1 K/uL (4.8-10.8)
[2020-05-07 07:31] VITALS: BP 148/94
--- NOTE | 2020-05-07 07:33 | NUR ---
Patient discharged with v/s stable. Written and verbal after care instructions given and explained. Patient alert, oriented and verbalized understanding of instructions. Ambulatory with steady gait. All questions addressed prior to discharge. ID band removed. Patient advised to follow up with PMD. Rx of Zofran 8mg and [place] 5mg-325mg given. Patient educated on indication of medication including possible reaction and side effects. Opportunity to ask questions provided and answered.
== END 2020-05-07 07:33 | disposition home or self-care (01) ==
LOC: MED 04:29
DX: R10.9 Unspecified abdominal pain (principal); R11.2 Nausea with vomiting, unspecified; K92.1 Melena; K21.9 Gastro-esophageal reflux disease without esophagitis; Z90.49 Acquired absence of other specified parts of digestive tract; Z98.890 Other specified postprocedural states; Z79.899 Other long term (current) drug therapy; Z88.8 Allergy status to other drugs, medicaments and biological substances; Z91.013 Allergy to seafood
CPT/HCPCS: 36415; 81002; 81025; 85025; 96372; 99283; J2270; Q0162

== ENCOUNTER 2020-05-10 23:14 | Emergency (ER) | payer OTHER, MEDICAID ==
[~2020-05-10] VITALS: Ht 152.4 cm; Wt 68.0 kg
[2020-05-10 23:15] VITALS: BP 109/72
--- NOTE | 2020-05-10 23:17 | NUR ---
TO LOBBY A/W BED AMBULATORY
--- NOTE | 2020-05-10 23:20 | NUR ---
PT AMBULATED TO [facility] WITH STEADY GAIT.
--- NOTE | 2020-05-10 23:25 | NUR ---
35 Y/O FEMALE BIB SELF FOR C/O RADIATING "SHARP" LLQ ABD PAIN STATES IT RADIATES TO THE BACK. REPORTS PAIN STARTED THIS MORNING AT 0800. VERBALIZES HAVING NAUSEA AND VOMITING NO EPISODES OF EMESIS AT THIS TIME. ABD WAS ROUND SOFT AND NON-TENDER TO TOUCH. REPORTS NO CHANGES IN BM. PMHX: BRAIN CYST, APPENDIX & GALLBLADDER SURGERIES, HERNIA AND TUBE LIGATION. ALLX: TORADOL, IV CONTRAST & MYLANTA.
--- NOTE | 2020-05-10 23:50 | NUR ---
PT BEING EVALUATED BY ANETA CORRALES.
[2020-05-10] MEDS ORDERED: NACL 0.9% 1,000 ML IV ONE (23:55)
[2020-05-10] MEDS ORDERED: MORPHINE SULFATE 2 MG/ML SYR IVP ONE (23:55)
[2020-05-10] MEDS ORDERED: ONDANSETRON 4 MG/2 ML VIAL IVP ONE (23:55)
--- NOTE | 2020-05-10 23:55 | NUR ---
22 G IV SITE ESTABLISHED TO R AC SITE WAS PATENT, FLUSHED WITH 10 ML OF 0.9% NS. NO SWELLING, REDNESS OR DISCOMFORT NOTED. BLOOD WAS COLLECTED THROUGH SITE.
[2020-05-11] MEDS ORDERED: MORPHINE SULFATE 2 MG/ML SYR ONE (00:01)
[2020-05-11] MEDS ORDERED: ONDANSETRON 4 MG/2 ML VIAL ONE (00:01)
[2020-05-11 00:32] LABS: APPEARANCE,URINE CLEAR (CLEAR); BILIRUBIN,URINE NEGATIVE (NEGATIVE); BLOOD, URINE NEGATIVE (NEGATIVE); COLOR,URINE YELLOW (YELLOW); LEUKOCYTE ESTERASE ,URINE NEGATIVE (NEGATIVE); NITRITE, URINE NEGATIVE (NEGATIVE); UGLUCOSE NEGATIVE (NEGATIVE)
[2020-05-11 00:46] LABS: BASOPHILS % (AUTO) 0.5 % (0.0-2.0); EOSINOPHILS # (AUTO) 0.2 K/uL (0-0.4); EOSINOPHILS % (AUTO) 6.2 % (0.0-4.0); HEMATOCRIT 23.9 % (36-48); HEMOGLOBIN 7.5 g/dL (12.0-16.0); LYMPHOCYTES # (AUTO) 1.5 K/uL (2.5-16.5); LYMPHOCYTES % (AUTO) 39.4 % (20.5-51.1); MEAN CORPUSCULAR HEMOGLOBIN 23 pg (27-31); MEAN CORPUSCULAR HGB CONC 31 g/dL (33-37); MEAN CORPUSCULAR VOLUME 74.2 fL (80-94); MONOCYTES # (AUTO) 0.3 K/uL (0.8-1.0); MONOCYTES % (AUTO) 6.6 % (1.7-9.3); NEUTROPHILS # (AUTO) 1.8 K/uL (1.8-7.7); NEUTROPHILS % (AUTO) 47.3 % (42.2-75.2); PLATELET COUNT (AUTO) 321 K/uL (140-450); RED BLOOD CELL COUNT(AUTO) 3.23 MIL/uL (4.20-5.40); WHITE BLOOD COUNT (AUTO) 3.9 K/uL (4.8-10.8)
--- NOTE | 2020-05-11 01:10 | NUR ---
PT AMBULATED TO BATHROOM WITH STEADY GAIT.
--- NOTE | 2020-05-11 01:30 | NUR ---
IN SERVICE EDUCATOR WITH PT FOR BLOOD DRAW.
--- NOTE | 2020-05-11 01:36 | NUR ---
ANETA CORRALES EVALUATING PT.
[2020-05-11 01:43] LABS: BASOPHILS % (AUTO) 0.6 % (0.0-2.0); EOSINOPHILS # (AUTO) 0.3 K/uL (0-0.4); EOSINOPHILS % (AUTO) 5.1 % (0.0-4.0); HEMOGLOBIN 8.2 g/dL (12.0-16.0); LYMPHOCYTES # (AUTO) 2.1 K/uL (2.5-16.5); LYMPHOCYTES % (AUTO) 36.2 % (20.5-51.1); MEAN CORPUSCULAR HEMOGLOBIN 23 pg (27-31); MEAN CORPUSCULAR HGB CONC 31 g/dL (33-37); MEAN CORPUSCULAR VOLUME 75.4 fL (80-94); MONOCYTES # (AUTO) 0.3 K/uL (0.8-1.0); MONOCYTES % (AUTO) 5.8 % (1.7-9.3); NEUTROPHILS # (AUTO) 3.1 K/uL (1.8-7.7); NEUTROPHILS % (AUTO) 52.3 % (42.2-75.2); PLATELET COUNT (AUTO) 366 K/uL (140-450); RED BLOOD CELL COUNT(AUTO) 3.58 MIL/uL (4.20-5.40); RED CELL DISTRIBUTION WIDTH 22.6 % (11.6-13.7); WHITE BLOOD COUNT (AUTO) 5.9 K/uL (4.8-10.8)
--- NOTE | 2020-05-11 02:18 | NUR ---
PT AMBULATED TO BATHROOM WITH STEADY GAIT.
--- NOTE | 2020-05-11 02:29 | NUR ---
PER DR. RENE D/C CT SCAN FOR PT.
[2020-05-11 02:49] LABS: ALBUMIN 4.4 g/dL (3.4-5.0); CARBON DIOXIDE 24.8 mmol/L (21-32); CREATININE 0.8 mg/dL (0.6-1.3); POTASSIUM 3.8 mmol/L (3.5-5.1); TOTAL BILIRUBIN 0.2 mg/dL (0.0-1.0)
[2020-05-11] MEDS: SUCRALFATE 1 GM TAB PO SCH ×2 (02:54→04:04)
[2020-05-11] MEDS ORDERED: MORPHINE SULFATE 2 MG/ML SYR IVP SCH (02:55)
--- NOTE | 2020-05-11 03:18 | NUR ---
PT AMBULATED TO THE BATHROOM WITH STEADY GAIT.
--- NOTE | 2020-05-11 03:57 | NUR ---
IV removed, catheter intact and site benign. Applied folded 4x4 gauze and tape to stop bleeding.
--- NOTE | 2020-05-11 03:57 | NUR ---
Patient discharged with v/s stable. Written and verbal after care instructions given and explained. Patient verbalized understanding. Ambulatory with steady gait. All questions addressed prior to discharge. Advised to follow up with PMD. Provided pt with copies of lab test and procedures done in ER visit.
[2020-05-11 04:02] VITALS: BP 106/78
== END 2020-05-11 03:57 | disposition home or self-care (01) ==
LOC: MED 23:14
DX: G89.29 Other chronic pain (principal); R10.9 Unspecified abdominal pain; K21.9 Gastro-esophageal reflux disease without esophagitis; Z88.8 Allergy status to other drugs, medicaments and biological substances; Z91.013 Allergy to seafood; Z98.51 Tubal ligation status
CPT/HCPCS: 36415; 80053; 81003; 82150; 83690; 84703; 85025; 96361; 96374; 96375; 96376; 99284; J2270; J2405

== ENCOUNTER 2020-05-20 07:04 | Emergency (ER) | payer OTHER, MEDICAID ==
[~2020-05-20] VITALS: Ht 154.9 cm; Wt 61.2 kg
[2020-05-20 07:16] VITALS: BP 128/72
--- NOTE | 2020-05-20 07:18 | NUR ---
TO LOBBY A/W BED AMBULATORY
[2020-05-20] MEDS ORDERED: diphenhydrAMINE 50 MG/ML VIAL IVP ONE (08:10)
[2020-05-20] MEDS ORDERED: NACL 0.9% 500 ML IV ONE (08:10)
[2020-05-20] MEDS ORDERED: ONDANSETRON 4 MG/2 ML VIAL IVP ONE (08:10)
--- NOTE | 2020-05-20 08:20 | NUR ---
Patient to bed 12. RN evaluating patient at bedside.
[2020-05-20 08:36] LABS: BASOPHILS % (AUTO) 0.4 % (0.0-2.0); EOSINOPHILS # (AUTO) 0.2 K/uL (0-0.4); EOSINOPHILS % (AUTO) 3.9 % (0.0-4.0); HEMATOCRIT 27.2 % (36-48); HEMOGLOBIN 8.2 g/dL (12.0-16.0); LYMPHOCYTES # (AUTO) 2.9 K/uL (2.5-16.5); MEAN CORPUSCULAR HEMOGLOBIN 23 pg (27-31); MEAN CORPUSCULAR HGB CONC 30 g/dL (33-37); MEAN CORPUSCULAR VOLUME 74.6 fL (80-94); MONOCYTES # (AUTO) 0.5 K/uL (0.8-1.0); MONOCYTES % (AUTO) 9.2 % (1.7-9.3); PLATELET COUNT (AUTO) 531 K/uL (140-450); RED BLOOD CELL COUNT(AUTO) 3.64 MIL/uL (4.20-5.40); RED CELL DISTRIBUTION WIDTH 22.4 % (11.6-13.7); WHITE BLOOD COUNT (AUTO) 5.7 K/uL (4.8-10.8)
--- NOTE | 2020-05-20 08:37 | NUR ---
Patient returned from CT scan. RN re-evaluating the patient at bedside.
[2020-05-20 09:02] LABS: ANION GAP 14.9 (8-16); CARBON DIOXIDE 24.2 mmol/L (21-32); CREATININE 0.7 mg/dL (0.6-1.3); POTASSIUM 3.1 mmol/L (3.5-5.1)
[2020-05-20 09:11] LABS: ALBUMIN 4.5 g/dL (3.4-5.0); TOTAL BILIRUBIN 0.7 mg/dL (0.0-1.0)
--- NOTE | 2020-05-20 09:19 | NUR ---
35 Y/O FEMALE BIB SELF C/O ABD PAIN X1 MONTH. PATIENT EXPERIENCING N/V/D X3 DAYS, NONE PRESENT AT THIS MOMENT. PAIN IS 9/10, PERIUMBILICAL ABD PAIN RADIATING TO BACK. PAIN IS SHARP IN CHARACTER. BOWEL SOUNDS ARE NORMOACTIVE IN ALL QUADRANTS, NO BLOATING NOTED AT THIS TIME. RESP EVEN AND UNLABORED, DENIES ANY COVID-LIKE SYMPTOMS. PMH: BRAIN CYST, ANEMIA AND ANXIETY
[2020-05-20] MEDS ORDERED: POTASSIUM CHLORIDE 10 MEQ TABER PO ONE (09:20)
[2020-05-20 10:10] VITALS: BP 132/69
[2020-05-20 10:13] LABS: LYMPHOCYTES % (AUTO) 51.4 % (20.5-51.1); NEUTROPHILS % (AUTO) 35.1 % (42.2-75.2)
--- NOTE | 2020-05-21 08:48 | NUR ---
LATE ENTRY -- NORMAL SLAINE INFUSION COMPELTED AT 0910 05/20/20
== END 2020-05-20 10:11 | disposition home or self-care (01) ==
LOC: MED 07:04
DX: R10.9 Unspecified abdominal pain (principal); R11.2 Nausea with vomiting, unspecified; D64.9 Anemia, unspecified; R19.7 Diarrhea, unspecified; K21.9 Gastro-esophageal reflux disease without esophagitis; Z88.8 Allergy status to other drugs, medicaments and biological substances; Z91.013 Allergy to seafood; Z88.2 Allergy status to sulfonamides; Z79.899 Other long term (current) drug therapy
CPT/HCPCS: 36415; 74176; 80053; 81002; 81025; 83690; 85025; 96361; 96374; 96375; 99284; J1200; J2405; J7030

== ENCOUNTER 2020-06-01 06:45 | Emergency (ER) | payer OTHER, MEDICAID ==
[~2020-06-01] VITALS: Ht 154.9 cm; Wt 54.4 kg
[2020-06-01 06:57] VITALS: BP 114/87
--- NOTE | 2020-06-01 06:57 | NUR ---
TO BED # 11 AMBULATORY
--- NOTE | 2020-06-01 07:12 | NUR ---
REPORT GIVEN TO DAJUAN EGAN FOR CONTINUITY OF CARE
[2020-06-01 07:50] VITALS: BP 116/85
--- NOTE | 2020-06-01 07:53 | NUR ---
cleared for d/c by Dr Olivera; d/c with prescription & instructions on Abdominal Pain; pt fully understands all materials given re c/c; has no further questions; aox4; VSS; ambulatory with steady gait; no signs of acute distress.
== END 2020-06-01 07:48 | disposition home or self-care (01) ==
LOC: MED 06:45
DX: G89.29 Other chronic pain (principal); R10.9 Unspecified abdominal pain; R11.2 Nausea with vomiting, unspecified; K21.9 Gastro-esophageal reflux disease without esophagitis; Z98.890 Other specified postprocedural states; Z88.8 Allergy status to other drugs, medicaments and biological substances; Z91.013 Allergy to seafood; Z88.2 Allergy status to sulfonamides; Z79.899 Other long term (current) drug therapy
CPT/HCPCS: 81002; 81025; 99283

== ENCOUNTER 2020-06-05 19:38 | Inpatient (IN) | payer OTHER, MEDICAID, SELFPAY ==
[~2020-06-05] VITALS: Ht 154.9 cm; Wt 59.0 kg
[2020-06-05 19:52] VITALS: BP 138/70
--- NOTE | 2020-06-05 21:30 | NUR ---
35 YR OLD FEMALE FOUND IN SEMI-FOWLERS IN BED FOR CC OF ABD PAIN. PT IS AOX4. PT STATES ABD PAIN IN UMBILICAL REGION AND LEFT FLANK 8/10 THAT STARTED APPROXIMATELY 5-6 DAYS AGO. PT STATES NAUSEA, STATES VOMIT WITH NOBLOOD, STATES BROWN/YELLOW DIARRHEA, AND STATES DIZZINESS. PT STATES DIFFICULTY TO URINATE. HISTORY- BRAIN CYST, ANEMIA, LOW POTASSIUM ALLERGIES- IV CONTRAST, IODINE, AND TORADOL
[2020-06-05] MEDS ORDERED: ONDANSETRON 4 MG/2 ML VIAL IVP ONE (22:15)
[2020-06-05] MEDS ORDERED: NACL 0.9% 1,000 ML IV SCH (22:15)
--- NOTE | 2020-06-05 22:25 | NUR ---
20G IV ESTABLISHED IN RT A/C , BLOOD LABS DRAWN FROM IV AND HANDED TO DEE PASTEURISER OPERATOR. IV FLUSHED W/ 10 CC NS . IV PATENT , NO PAIN , REDNESS OR SWELLING NOTED AT IV SITE.
[2020-06-05 22:26] LABS: APPEARANCE,URINE CLEAR (CLEAR); BILIRUBIN,URINE NEGATIVE (NEGATIVE); BLOOD, URINE NEGATIVE (NEGATIVE); COLOR,URINE YELLOW (YELLOW); LEUKOCYTE ESTERASE ,URINE NEGATIVE (NEGATIVE); NITRITE, URINE NEGATIVE (NEGATIVE); PH,URINE 6.5 (5.0-9.0); UGLUCOSE NEGATIVE (NEGATIVE)
--- NOTE | 2020-06-05 22:28 | NUR ---
PT C/O OF 02/10 ABD PAIN - ERMD MADE AWARE.
[2020-06-05] MEDS ORDERED: MORPHINE SULFATE 4 MG/ML SYR IVP ONE (22:30)
--- NOTE | 2020-06-05 22:46 | NUR ---
ULTRASOUND AT BEDSIDE.
[2020-06-05 22:49] LABS: BASOPHILS % (AUTO) 0.6 % (0.0-2.0); EOSINOPHILS % (AUTO) 1.5 % (0.0-4.0); HEMATOCRIT 27.6 % (36-48); HEMOGLOBIN 8.3 g/dL (12.0-16.0); LYMPHOCYTES # (AUTO) 1.5 K/uL (2.5-16.5); LYMPHOCYTES % (AUTO) 46.8 % (20.5-51.1); MEAN CORPUSCULAR HEMOGLOBIN 22 pg (27-31); MEAN CORPUSCULAR HGB CONC 30 g/dL (33-37); MEAN CORPUSCULAR VOLUME 74.1 fL (80-94); MONOCYTES # (AUTO) 0.2 K/uL (0.8-1.0); MONOCYTES % (AUTO) 7.5 % (1.7-9.3); NEUTROPHILS # (AUTO) 1.4 K/uL (1.8-7.7); NEUTROPHILS % (AUTO) 43.6 % (42.2-75.2); PLATELET COUNT (AUTO) 437 K/uL (140-450); RED BLOOD CELL COUNT(AUTO) 3.72 MIL/uL (4.20-5.40); RED CELL DISTRIBUTION WIDTH 19.4 % (11.6-13.7); WHITE BLOOD COUNT (AUTO) 3.2 K/uL (4.8-10.8)
[2020-06-05 23:14] LABS: ALBUMIN 4.7 g/dL (3.4-5.0); CARBON DIOXIDE 25.4 mmol/L (21-32); CREATININE 0.7 mg/dL (0.6-1.3); POTASSIUM 3.4 mmol/L (3.5-5.1); TOTAL BILIRUBIN 0.3 mg/dL (0.0-1.0)
--- NOTE | 2020-06-05 23:20 | NUR ---
PT TAKEN BY INSIDE SALES EXECUTIVE TO CT VIA W/C.
--- NOTE | 2020-06-05 23:22 | NUR ---
FLU AND COVID SHEEBA SWABS COLLECTED AND WALKED TO LAB.
--- NOTE | 2020-06-05 23:26 | NUR ---
PT FOUND AWAKE LYING ON LEFT SIDE IN BED. PT STATES 8/10 ABD PAIN. PT DENIES OTHER MEDICAL COMPLAINTS. BED LOCKED IN LOWEST POSITION WITH 2 SIDE RAILS UP FOR SAFETY. WILL CONTINUE TO MONITOR.
--- NOTE | 2020-06-05 23:26 | NUR ---
PT RETURN FROM RADIOLOGY
[2020-06-06] MEDS ORDERED: HYDROmorphone PFS 2 MG/ML SYR IVP ONE (00:20)
[2020-06-06] MEDS ORDERED: DICYCLOMINE 10 MG CAP PO ONE (00:20)
--- NOTE | 2020-06-06 00:42 | NUR ---
Female Taker Off [employer]rying [employer] accompanied female patient for Rectal Exam performed by TIFFANIE Sánchez.
[2020-06-06] MEDS ORDERED: FAMO-90 PO (00:52)
--- NOTE | 2020-06-06 01:08 | NUR ---
PT WAS PROVIDED A PILLOW.
--- NOTE | 2020-06-06 01:26 | NUR ---
SPOKE TO PT INSURANCE TO UPDATE PT STATUS.
--- NOTE | 2020-06-06 03:37 | NUR ---
NOVEL SWAB COLLECTED AND WALKED TO LAB.
[2020-06-06] MEDS ORDERED: ONDANSETRON 4 MG/2 ML VIAL IVP ONE (03:50)
--- NOTE | 2020-06-06 04:20 | NUR ---
SPOKE TO DR LEDESMA FOR PRN PAIN ORDER. PER DR LEDESMA, RECEIVED ORDER FOR TRAMADOL 50 MG Q4 PRN.
[2020-06-06] MEDS: traMADol 50 MG TAB PO PRN (04:34)
--- NOTE | 2020-06-06 05:22 | NUR ---
PT FOUND AWAKE SITTING ON BED. PT STATES 10/10 ABD PAIN AND HEADACHE 6/10. PT DENIES OTHER MEDICAL COMPLAINTS. BED LOCKED IN LOWEST POSITION WITH 2 SIDE RAILS UP FOR SAFETY.
--- NOTE | 2020-06-06 07:10 | NUR ---
TRANSFER OF CARE REPORT PROVIDED TO DAJUAN EGAN.
--- NOTE | 2020-06-06 08:25 | NUR ---
Patient will be admitted to care of Dr Ronquillo. Admited to M/S. Will go to room 124-A. Belongings list completed. Report to Valerie EGAN.
[2020-06-06 08:50] VITALS: BP 99/62
--- NOTE | 2020-06-06 09:49 | NUR ---
PATIENT HAS BEEN SCREENED AND CATEGORIZED HIGH NUTRITION RISK. PATIENT WILL BE SEEN WITHIN 1-2 DAYS OF ADMISSION. 06/06/20-06/07/[address]
[2020-06-06] MEDS ORDERED: IBUPROFEN 400 MG TAB PO PRN (10:15)
[2020-06-06] MEDS ORDERED: POTASSIUM CHLORIDE 10 MEQ TABER PO PRN (10:15)
[2020-06-06] MEDS ORDERED: ACETAMINOPHEN 325 MG TAB PO PRN (10:15)
[2020-06-06] MEDS ORDERED: HYDROcodone/APAP 5/325 MG 1 TAB TAB PO PRN (10:15)
[2020-06-06] MEDS ORDERED: ONDANSETRON 4 MG/2 ML VIAL IVP PRN (10:15)
[2020-06-06] MEDS ORDERED: KCL 20 MEQ/WATER INJ PREMIX 200 ML IV PRN (10:15)
[2020-06-06] MEDS ORDERED: MAGNESIUM OXIDE 400 MG TAB PO PRN (10:15)
[2020-06-06] MEDS ORDERED: MAG SULF 2000 MG/WATER PREMIX 50 ML IV PRN (10:15)
[2020-06-06] MEDS: MORPHINE SULFATE 2 MG/ML SYR IVP PRN ×3 (11:08→22:57)
--- NOTE | 2020-06-06 11:08 | NUR ---
MORPHINE GIVEN FOR ABD/FLANK PAIN 02/10. EDUCATION PROVIDED REGARDING NON PHARMACOLOGICAL PAIN MANAGEMENT SUCH POSITION CHANGE, RELAXATION TECHNIQUE. VERBALIZED UNDERSTANDING. PROVIDED 2 WARM BLANKET. SAFETY MEASURES IN PLACE, WILL CONTINUE TO MONITOR.
--- NOTE | 2020-06-06 14:41 | NUR ---
06/06/20 RD INITIAL ASSESSMENT COMPLETED PLEASE REFER TO NUTRITION ASSESSMENT UNDER CARE ACTIVITY FOR ESTIMATED NUTRITIONAL NEEDS. 1. CONTINUE REGULAR DIET TOLERATED 2. ENCOURAGE PO INTAKE OVER 75% 3. RD TO FOLLOW-UP 3-5 DAYS, MODERATE RISK NADREI AREVALO, RD
[2020-06-06 16:00] VITALS: BP 93/55
--- NOTE | 2020-06-06 16:21 | NUR ---
SOCIAL WORK NOTE: SW WAS UNABLE TO MEET PATIENT AT BEDSIDE. CASSANDRA CONTACTED EMERGENCY CONTACT [facility]I [facility] AND WAS UNABLE TO LEFT VM TO COMPLETE ASSESSMENT. CASSANDRA WILL FOLLOW UP.
--- NOTE | 2020-06-06 17:29 | NUR ---
MORPHINE GIVEN FOR ABD PAIN 01/11. BP CHECKED 102/69. SAFETY MEASURES IN PLACE, CALL LIGHT WITHIN REACH. WILL CONTINUE TO MONITOR.
--- NOTE | 2020-06-06 19:38 | NUR ---
ENDORSED PATIENT TO LAUNDRY WORKER RN FOR CONTINUITY OF CARE. PATIENT IN STABLE CONDITION.
--- NOTE | 2020-06-06 19:39 | NUR ---
RECD. RESTING IN BED, AWAKE, A/OX4. RESPIRATION EVEN AND UNLABORED. IV SALINE LOCK AT THE RIGHT AC G20. PATENT AND INTACT. AMBULATORY TO THE BATHROOM. MEDICATIONS AND CARE FOR THE SHIFT DISCUSSED. VERBALIZED UNDERSTANDING. DENIES PAIN 0/10.
--- NOTE | 2020-06-06 21:30 | NUR ---
INFORMED , VOLUNTEER SERVICES COORDINATOR FOR DR. TRINH. NORCO AND TRAMADOL NOT WORKING FOR ABDOMINAL PAIN PER PATIENT. REQUESTING MORPHINE TO BE CHANGED TO EVERY 4 HOURS. MD AGREED.
[2020-06-06] MEDS: NACL 0.9% 1,000 ML IV SCH (22:23)
[2020-06-06] MEDS: LORazepam 1 MG TAB PO PRN (22:24)
[2020-06-06] MEDS: ZOLPIDEM 5 MG TAB PO PRN (22:24)
--- NOTE | 2020-06-06 22:24 | NUR ---
WITH ANXIETY, UNABLE TO SLEEP. MEDICATED WITH ATIVAN PO AND AMBIEN PER MD ORDER.
[2020-06-06 22:55] VITALS: BP 114/57
--- NOTE | 2020-06-07 00:24 | NUR ---
Patient's Plan of Care was discussed and reviewed with BIOPROCESSING MANUFACTURING TECHNICIAN: MICHAEL MOSES
--- NOTE | 2020-06-07 00:30 | NUR ---
SLEEPING COMFORTABLY IN BED.
--- NOTE | 2020-06-07 02:00 | NUR ---
IN BED, STILL COMFORTABLY SLEEPING.
[2020-06-07 04:00] VITALS: BP 124/77
[2020-06-07] MEDS: MORPHINE SULFATE 2 MG/ML SYR IVP PRN ×5 (05:30→22:31)
--- NOTE | 2020-06-07 05:30 | NUR ---
COMPLAINT OF PAIN MEDICATION ATTENDED PROMPTLY, MEDICATED PER MD ORDER.
[2020-06-07 06:07] LABS: BASOPHILS % (AUTO) 0.5 % (0.0-2.0); EOSINOPHILS # (AUTO) 0.1 K/uL (0-0.4); HEMATOCRIT 24.3 % (36-48); HEMOGLOBIN 7.3 g/dL (12.0-16.0); LYMPHOCYTES # (AUTO) 2.1 K/uL (2.5-16.5); LYMPHOCYTES % (AUTO) 48.2 % (20.5-51.1); MEAN CORPUSCULAR HEMOGLOBIN 22 pg (27-31); MEAN CORPUSCULAR HGB CONC 30 g/dL (33-37); MEAN CORPUSCULAR VOLUME 74.2 fL (80-94); MONOCYTES # (AUTO) 0.4 K/uL (0.8-1.0); NEUTROPHILS # (AUTO) 1.7 K/uL (1.8-7.7); NEUTROPHILS % (AUTO) 39.3 % (42.2-75.2); PLATELET COUNT (AUTO) 373 K/uL (140-450); RED BLOOD CELL COUNT(AUTO) 3.27 MIL/uL (4.20-5.40); RED CELL DISTRIBUTION WIDTH 19.3 % (11.6-13.7); WHITE BLOOD COUNT (AUTO) 4.3 K/uL (4.8-10.8)
[2020-06-07 06:31] LABS: ALBUMIN 4.1 g/dL (3.4-5.0); ANION GAP 14.1 (8-16); CREATININE 0.7 mg/dL (0.6-1.3); POTASSIUM 3.9 mmol/L (3.5-5.1); TOTAL BILIRUBIN 0.3 mg/dL (0.0-1.0)
[2020-06-07 06:33] LABS: CHOL/HDL RATIO 5.4 (1-4.5); PHOSPHORUS 3.1 mg/dL (2.5-4.9)
[2020-06-07 07:19] LABS: CARBON DIOXIDE 26.3 mmol/L (21-32)
--- NOTE | 2020-06-07 07:20 | NUR ---
CONDITION REMAIN STABLE. ENDORSED TO AM SHIFT NURSE FOR CONTINUITY OF CARE.
--- NOTE | 2020-06-07 07:22 | NUR ---
RECEIVED PATIENT FROM NIGHT NURSE. PATIENT AWAKE AND ALERT. PATIENT AMBULATED TO THE BATHROOM WITHOUT ASSIST. RESP EVEN AND UNLABORED ON ROOM AIR. NO NOTED DISTRESS AT THIS TIME. RAC 20G INFUSING NS 75ML/HR. PLAN OF CARE DISCUSSED, PATIENT VERBALIZED UNDERSTANDING. CALL LIGHT WITHIN REACH. WILL CONTINUE TO MONITOR.
[2020-06-07 08:00] VITALS: BP 116/67
[2020-06-07] MEDS: DOCUSATE SODIUM 100 MG GELCAP PO SCH (08:16)
[2020-06-07] MEDS: ENOXAPARIN 40 MG/0.4 ML SYR SUBQ SCH (08:16)
--- NOTE | 2020-06-07 08:35 | NUR ---
PATIENT IN BED AWAKE AND ALERT. RESP EVEN AND UNLABORED ON ROOM AIR. C/O PAIN TO ABD. NO REPORTS OF DIARRHEA. DENIED OF NAUSEA OR VOMITING. WILL MEDICATE APPROPRIATELY. PATIENT ABLE TO FOLLOW COMMANDS AND MAKE NEEDS KNOWN. RAC 20G INFUSING NS 75ML/HR. PLAN OF CARE DISCUSSED, PATIENT VERBALIZED UNDERSTANDING. MORNING ROUTINE MEDICATIONS GIVEN, PATIENT TOLERATED WELL. CALL LIGHT WITHIN REACH. WILL CONTINUE TO MONITOR.
--- NOTE | 2020-06-07 11:10 | NUR ---
PATIENT IN BED SLEEPING, CHEST NOTED RISING. NO ACUTE S/S DISTRESS. WILL CONTINUE TO MONITOR.
[2020-06-07] MEDS: NACL 0.9% 1,000 ML IV SCH ×2 (11:29→21:50)
--- NOTE | 2020-06-07 14:00 | NUR ---
PATIENT IN BED AWAKE AND ALERT. RESP EVEN AND UNLABORED ON ROOM AIR. C/O PAIN TO ABD AND WAS GIVEN MORPHINE PRN ORDERED. NO REPORTS OF DIARRHEA OR N/V AT THIS TIME. PATIENT ABLE TO MAKE NEEDS KNOWN. CALL LIGHT WITHIN REACH. WILL CONTINUE TO MONITOR.
[2020-06-07] MEDS ORDERED: FLU VACCINE QS2020-21 0.5 ML SYR IMVAC PRN (15:55)
[2020-06-07 16:00] VITALS: BP 104/64
--- NOTE | 2020-06-07 16:51 | NUR ---
PATIENT IN BED SLEEPING, CHEST NOTED RISING. CALL LIGHT WITHIN REACH. WILL CONTINUE TO MONITOR.
--- NOTE | 2020-06-07 18:23 | NUR ---
MORPHINE GIVEN FOR C/O PAIN TO ABD ON 01/11. FLU VACC GIVEN TO LEFT DELTOID PER PATIENT REQUEST. PATIENT AWAKE AND ALERT. ABLE TO MAKE NEEDS KNOWN AND FOLLOW COMMANDS. NO RESP DISTRESS AT THIS TIME. CALL LIGHT WITHIN REACH. WILL CONTINUE TO MONITOR.
--- NOTE | 2020-06-07 19:20 | NUR ---
PATIENT SITTING BY BEDSIDE AWAKE AND ALERT. RESP EVEN AND UNLABORED ON ROOM AIR. ENDORSED PATIENT TO NIGHT NURSE.
[2020-06-07 20:00] VITALS: BP 117/64
[2020-06-07] MEDS: LORazepam 1 MG TAB PO PRN (20:33)
--- NOTE | 2020-06-07 22:31 | NUR ---
C/O ABDL. PAIN . - WILL MEDICATE . WILL CONT. TO MONITOR STILL FOR STOOL OB .
[2020-06-07] MEDS: ZOLPIDEM 5 MG TAB PO PRN (23:50)
--- NOTE | 2020-06-07 23:50 | NUR ---
C/O SLEEPLESSNESS . BP 110 /71 , ID [id number] , RR 20 , O2 SAT 100 % AMBIEN 5 MG /TAB GIVEN ORDERED .
--- NOTE | 2020-06-08 03:00 | NUR ---
C/O ABDL . PAIN - ABD. SOFT . NO VOMITING . - WILL MEDICATE . WILL CONT. TO MONITOR
[2020-06-08] MEDS: MORPHINE SULFATE 2 MG/ML SYR IVP PRN ×2 (03:16→08:06)
[2020-06-08 05:52] LABS: BASOPHILS % (AUTO) 0.4 % (0.0-2.0); EOSINOPHILS # (AUTO) 0.3 K/uL (0-0.4); EOSINOPHILS % (AUTO) 4.9 % (0.0-4.0); HEMATOCRIT 27.5 % (36-48); HEMOGLOBIN 8.3 g/dL (12.0-16.0); LYMPHOCYTES % (AUTO) 29.4 % (20.5-51.1); MEAN CORPUSCULAR HEMOGLOBIN 22 pg (27-31); MEAN CORPUSCULAR HGB CONC 30 g/dL (33-37); MEAN CORPUSCULAR VOLUME 73.8 fL (80-94); MONOCYTES # (AUTO) 0.4 K/uL (0.8-1.0); MONOCYTES % (AUTO) 5.6 % (1.7-9.3); NEUTROPHILS # (AUTO) 4.1 K/uL (1.8-7.7); NEUTROPHILS % (AUTO) 59.7 % (42.2-75.2); PLATELET COUNT (AUTO) 402 K/uL (140-450); RED BLOOD CELL COUNT(AUTO) 3.72 MIL/uL (4.20-5.40); RED CELL DISTRIBUTION WIDTH 19.5 % (11.6-13.7); WHITE BLOOD COUNT (AUTO) 6.8 K/uL (4.8-10.8)
[2020-06-08 06:02] LABS: ALBUMIN 4.7 g/dL (3.4-5.0); ANION GAP 12.9 (8-16); CARBON DIOXIDE 26.4 mmol/L (21-32); CREATININE 0.6 mg/dL (0.6-1.3); POTASSIUM 3.3 mmol/L (3.5-5.1); TOTAL BILIRUBIN 0.5 mg/dL (0.0-1.0)
[2020-06-08 06:17] LABS: PHOSPHORUS 2.9 mg/dL (2.5-4.9)
--- NOTE | 2020-06-08 07:09 | NUR ---
ENDORSED - PT - STABLE .
--- NOTE | 2020-06-08 07:15 | NUR ---
RECEIVED REPORT FROM NIGHTSHIFT NURSE. PT RESTING IN BED. ABLE TO MAKE NEEDS KNOWN. RESPIRATIONS EVEN AND UNLABORED WITH NO SOB OR RESPIRATORY DISTRESS. SKIN WARM AND DRY TO TOUCH. IV SITE IN R WRIST 24G IS CLEAN, DRY, AND INTACT. SAFETY MEASURES IN PLACE. WILL CONTINUE TO MONITOR
[2020-06-08] MEDS: ENOXAPARIN 40 MG/0.4 ML SYR SUBQ SCH (07:58)
[2020-06-08] MEDS: DOCUSATE SODIUM 100 MG GELCAP PO SCH (07:59)
[2020-06-08 08:00] VITALS: BP 104/62
[2020-06-08] MEDS: traMADol 50 MG TAB PO PRN (08:00)
--- NOTE | 2020-06-08 08:14 | NUR ---
PT COMPLAINED OF SEVERE PAIN. OBTAINED ULTRAM FOR PATIENT FOR PAIN BUT PT SAID SHE DOES NOT WANT PO PAIN MEDICATION. EDUCATED PT THAT SHE MIGHT BE DISCHARGED HOME AND THAT SHE WON'T BE ABLE TO HAVE IV MORPHINE. PT STILL REFUSED PO ULTRAM AND INSISTED SHE HAVE MORPHINE. ADMINISTERED PRN MORPHINE PRESCRIBED PER MD ORDER. PT LOW POTASSIUM. PRN POTASSIUM ADMINISTERED PRESCRIBED PER MD ORDER. MEDICATION EDUCATION PERFORMED. PT VERBALIZED UNDERSTANDING. SAFETY MEASURES IN PLACE. WILL CONTINUE TO MONITOR
--- NOTE | 2020-06-08 10:05 | NUR ---
PT RESTING IN BED. ABLE TO MAKE NEEDS KNOWN. RESPIRATIONS EVEN AND UNLABORED WITH NO SOB OR RESPIRATORY DISTRESS. SKIN WARM AND DRY TO TOUCH. SAFETY MEASURES IN PLACE. WILL CONTINUE TO MONITOR
[2020-06-08 11:19] VITALS: BP 104/62
--- NOTE | 2020-06-08 11:30 | NUR ---
PT AWARE OF DISCHARGE. PT SAID THAT HER GETS OFF WORK AT 5P AND WILL BE THE ONE TO PICK HER UP. CALLED JASVIR [phone] AND LINE IS DISCONNECTED. NOTIFIED PT AND SHE SAID THAT SHE WILL CALL HER . SAFETY MEASURES IN PLACE. WILL CONTINUE TO MONITOR
--- NOTE | 2020-06-08 11:42 | NUR ---
DHARA PAL: RECEIVED A PHONE CALL FROM CADY ADEN FROM [facility] SHE ASKED THAT WE FAX HER AN ORDER FOR HOME HEALTH FOR HOME SAFETY EVAL AND MEDICATION FOLLOW Addendum: 06/08/20 at 1158 by Greta Lema CM DHARA PAL: FAXED ORDER FOR HOME HEALTH TO [facility]. PER CADY ADEN [phone] SHE WILL ARRANGE HOME HEALTH FOR THIS PATIENT.
[2020-06-08] MEDS: NACL 0.9% 1,000 ML IV SCH (13:38)
--- NOTE | 2020-06-08 13:38 | NUR ---
ADMINISTERED SCHED MED PRESCRIBED PER MD ORDER. PT TOLERATED WELL. MEDICATION EDUCATION PERFORMED. PT VERBALIZED UNDERSTANDING. SAFETY MEASURES IN PLACE. WILL CONTINUE TO MONITOR
--- NOTE | 2020-06-08 14:50 | NUR ---
SOCIAL WORK NOTE: SW WAS UNABLE TO MEET PATIENT AT BEDSIDE. SW CONTACTED KWESI US [phone] TO COMPLETE ASSESSMENT. SW LEFT AND WILL FOLLOW UP.
[2020-06-08 16:00] VITALS: BP 105/65
--- NOTE | 2020-06-08 17:19 | NUR ---
PT STATED THAT WOULD BE HERE AT 1700. IS NOT HERE. TRIED CALLING ON PHONE NUMBER LISTED ON FACE SHEET [phone] AND NUMBER IS NOT IN SERVICE. OBTAINED PHONE NUMBER FROM SCHOLARSHIP COUNSELOR. JASVIR [phone] AND HE SAID HE WILL BE HERE AROUND 1830. SAFETY MEASURES IN PLACE. WILL CONTINUE TO MONITOR
--- NOTE | 2020-06-08 18:00 | NUR ---
WENT OVER DISCHARGE INSTRUCTIONS WITH PATIENT. PT SIGNED APPROPRIATE DOCUMENTS. INSTRUCTED PT TO VISIT ED FOR ANY SIGNS OF DISTRESS. PT VERBALIZED UNDERSTANDING. REMOVED INTACT IV CANNULA, ALLERGY BAND, AND BLOOD BANK ID. PT CHANGED INTO HER OWN CLOTHES AND GATHERED HER OWN BELONGINGS. PT STABLE TO GO HOME
== END 2020-06-08 18:00 | disposition home health service (06) | DRG 866 ==
LOC: MED 19:38 → MMU 06-06 03:08 → MTU 06-06 08:07
PROVIDERS: ADMIT Internal Medicine; ATTEND Internal Medicine
DX: B34.9 Viral infection, unspecified (principal); K92.0 Hematemesis; K21.9 Gastro-esophageal reflux disease without esophagitis; D64.9 Anemia, unspecified; Z20.822 Contact with and (suspected) exposure to COVID-19; Z88.8 Allergy status to other drugs, medicaments and biological substances; Z91.013 Allergy to seafood; Z79.899 Other long term (current) drug therapy; Z23 Encounter for immunization
CPT/HCPCS: 36415; 71045; 76856; 80053; 81003; 82150; 82728; 83036; 83540; 83690; 83735; 84100; 84443; 84703; 85025; 85651; 86140; 86886; 86900; 86901; 87081; 87804; 96361; 96374; 96375; 96376; 99285; J1170; J1650; J2270; J2405; J7030; J7060; U0003

== ENCOUNTER 2020-06-27 01:09 | Emergency (ER) | payer OTHER, MEDICAID ==
[~2020-06-27] VITALS: Ht 154.9 cm; Wt 59.9 kg
[2020-06-27 01:13] VITALS: BP 99/71
--- NOTE | 2020-06-27 01:19 | NUR ---
Pt ambulated to ER bed 3 w/ steady gait.
--- NOTE | 2020-06-27 01:20 | NUR ---
Pt provided w/ urine specimen cup. Pt ambulated to restroom w/ steady gait.
[2020-06-27] MEDS ORDERED: MORPHINE SULFATE 4 MG/ML SYR IVP ONE (01:45)
[2020-06-27] MEDS ORDERED: ONDANSETRON 4 MG/2 ML VIAL IVP ONE (01:45)
[2020-06-27] MEDS ORDERED: NACL 0.9% 1,000 ML IV SCH (01:45)
--- NOTE | 2020-06-27 01:50 | NUR ---
PT COMING IN WITH C/O ABD PAIN, N/V/D, NO APPETITE, INABILITY TO KEEP SOLIDS OR LIQUIDS DOWN, STATING SHE HAS LOST 30 LBS IN 1 MONTH. PAIN IS DIFFUSE TO ABD AND RADIATES INTO LOWER BACK, 10/10, ACHING/SHARP PAIN. PT HAVING WEAKNESS, LIGHTHEADEDNESS, AND DIZZINESS. DENIES SOB, AFEBRILE, SKIN WARM AND DRY. PT PLACED IN GOWN, BED IN LOWEST POSITION AND SIDERAIL UP X 1. SEE ALLERGY LIST HX - BRAIN CYST, ANEMIA
[2020-06-27 01:55] LABS: APPEARANCE,URINE CLEAR (CLEAR); BILIRUBIN,URINE NEGATIVE (NEGATIVE); BLOOD, URINE NEGATIVE (NEGATIVE); COLOR,URINE YELLOW (YELLOW); LEUKOCYTE ESTERASE ,URINE NEGATIVE (NEGATIVE); NITRITE, URINE NEGATIVE (NEGATIVE); PH,URINE 5.5 (5.0-9.0); UGLUCOSE NEGATIVE (NEGATIVE)
--- NOTE | 2020-06-27 01:57 | NUR ---
IV ESTABLISHED, LABS DRAWN AND GIVEN TO MARIANA IN LAB ALONG WITH UA COLLECTED EARLIER. PT MEDICATED ORDERED
[2020-06-27 02:00] LABS: BASOPHILS # (AUTO) 0.1 K/uL (0.00-0.22); BASOPHILS % (AUTO) 1.4 % (0.0-2.0); EOSINOPHILS # (AUTO) 0.8 K/uL (0-0.4); EOSINOPHILS % (AUTO) 10.8 % (0.0-4.0); HEMATOCRIT 24.9 % (36-48); HEMOGLOBIN 7.3 g/dL (12.0-16.0); LYMPHOCYTES # (AUTO) 2.1 K/uL (2.5-16.5); LYMPHOCYTES % (AUTO) 29.7 % (20.5-51.1); MEAN CORPUSCULAR HEMOGLOBIN 22 pg (27-31); MEAN CORPUSCULAR HGB CONC 30 g/dL (33-37); MEAN CORPUSCULAR VOLUME 72.9 fL (80-94); MONOCYTES # (AUTO) 0.3 K/uL (0.8-1.0); MONOCYTES % (AUTO) 4.5 % (1.7-9.3); NEUTROPHILS # (AUTO) 3.7 K/uL (1.8-7.7); NEUTROPHILS % (AUTO) 53.6 % (42.2-75.2); PLATELET COUNT (AUTO) 640 K/uL (140-450); RED BLOOD CELL COUNT(AUTO) 3.41 MIL/uL (4.20-5.40); RED CELL DISTRIBUTION WIDTH 18.2 % (11.6-13.7); WHITE BLOOD COUNT (AUTO) 6.9 K/uL (4.8-10.8)
--- NOTE | 2020-06-27 02:12 | NUR ---
PT STATES PAIN NOW 5/10. RESTING MORE COMFORTABLY.
[2020-06-27 02:13] LABS: ALBUMIN 3.9 g/dL (3.4-5.0); ANION GAP 11.8 (8-16); CARBON DIOXIDE 27.9 mmol/L (21-32); CREATININE 0.7 mg/dL (0.6-1.3); POTASSIUM 3.7 mmol/L (3.5-5.1); TOTAL BILIRUBIN 0.2 mg/dL (0.0-1.0)
[2020-06-27 02:41] VITALS: BP 99/71
--- NOTE | 2020-06-27 02:42 | NUR ---
Patient discharged with v/s stable. Written and verbal after care instructions given and explained. Patient alert, oriented and verbalized understanding of instructions. Ambulatory with steady gait. All questions addressed prior to discharge. ID band removed. Patient advised to follow up with PMD. Rx of PHENERGAN given. Patient educated on indication of medication including possible reaction and side effects. Opportunity to ask questions provided and answered.
== END 2020-06-27 02:41 | disposition home or self-care (01) ==
LOC: MED 01:09
DX: R10.13 Epigastric pain (principal); R11.2 Nausea with vomiting, unspecified; R19.7 Diarrhea, unspecified; K21.9 Gastro-esophageal reflux disease without esophagitis; Z90.49 Acquired absence of other specified parts of digestive tract; Z88.8 Allergy status to other drugs, medicaments and biological substances; Z91.013 Allergy to seafood; Z88.2 Allergy status to sulfonamides
CPT/HCPCS: 36415; 80053; 81003; 81025; 83690; 85025; 96361; 96374; 96375; 99284; J2270; J2405

== ENCOUNTER 2020-07-27 17:11 | Emergency (ER) | payer OTHER, MEDICAID ==
[~2020-07-27] VITALS: Ht 154.9 cm; Wt 61.7 kg
[2020-07-27 17:17] VITALS: BP 113/86
--- NOTE | 2020-07-27 17:33 | NUR ---
PT AMBULATED TO BED 01.
--- NOTE | 2020-07-27 17:38 | NUR ---
DR BOBO AT BEDSIDE
--- NOTE | 2020-07-27 17:39 | NUR ---
Rectal exam performed per DR. BOBO with FEMALE PIPE FITTER AMMONIA JOEY EGAN at bedside during procedure. Patient tolerated well.
--- NOTE | 2020-07-27 17:45 | NUR ---
35 Y/O FEMALE C/O RECTAL BLEEDING WITH PAIN 8/10 PAIN DESCRIBES PRESSURE X7DAYS. PT C/O ABD AND LOWER BACK PAIN THAT IS SHARP AND NONRADIATING. +N WITHOUT VOMITING OR DIARRHEA. PT STATES SHE WAS DISCHARGED [id number] AGO FROM [facility] AFTER RECEIVING BLOOD TRANSFUSION. PT STATED SHE WAS TOLD THAT SHE HAD BLOOD IN HER STOOL, HER GASTRIC ULCERS WERE BLEEDING, AND BLOOD LEVELS WERE LOW. ABD IS FLAT, SOFT, AND TENDER ON PALPATION WITH ACTIVE BOWEL SOUNDS X4 QUADS. PT STATED LBM IN HOSPITAL WITH BLACK STOOL. PT STATES "IT FEELS THE SAME WAY AFTER I HAD MY SURGERIES". PT AOX4, BREATHING EVEN AND UNLABORED, SKIN WARM AND DRY. BED IN LOWEST POSITION, LOCKED, BED RAIL UPX1. PMH: GASTRITIS, BRAIN CYSTS (2009) SX: APPENDIX AND GALLBLADDER REMOVED, HERNIA REPAIR, AND TUBES TIED ALLERGIES: MYLANTA, TORADOL
--- NOTE | 2020-07-27 18:12 | NUR ---
LAB AT BEDSIDE
[2020-07-27 18:25] LABS: BASOPHILS % (AUTO) 0.4 % (0.0-2.0); HEMATOCRIT 29.7 % (36-48); LYMPHOCYTES # (AUTO) 0.5 K/uL (2.5-16.5); LYMPHOCYTES % (AUTO) 10.5 % (20.5-51.1); MEAN CORPUSCULAR HEMOGLOBIN 22 pg (27-31); MEAN CORPUSCULAR HGB CONC 31 g/dL (33-37); MEAN CORPUSCULAR VOLUME 71.5 fL (80-94); MONOCYTES # (AUTO) 0.1 K/uL (0.8-1.0); NEUTROPHILS # (AUTO) 4.4 K/uL (1.8-7.7); NEUTROPHILS % (AUTO) 87.1 % (42.2-75.2); PLATELET COUNT (AUTO) 445 K/uL (140-450); RED BLOOD CELL COUNT(AUTO) 4.15 MIL/uL (4.20-5.40); RED CELL DISTRIBUTION WIDTH 19.3 % (11.6-13.7)
--- NOTE | 2020-07-27 19:11 | NUR ---
REPORT GIVEN TO SARA EGAN. TRANSFER OF CARE AT THIS TIME.
--- NOTE | 2020-07-27 19:12 | NUR ---
RECEIVED REPORT FROM JULISA BURGESS FOR CONTINUITY OF CARE
[2020-07-27 19:20] VITALS: BP 113/86
== END 2020-07-27 19:20 | disposition home or self-care (01) ==
LOC: MED 17:11
DX: K92.1 Melena (principal); D64.9 Anemia, unspecified; G93.0 Cerebral cysts; Z90.49 Acquired absence of other specified parts of digestive tract
CPT/HCPCS: 36415; 81002; 81025; 85025; 99283

== ENCOUNTER 2020-12-01 06:17 | Emergency (ER) | payer OTHER, MEDICAID ==
[~2020-12-01] VITALS: Ht 154.9 cm; Wt 61.2 kg
[2020-12-01 06:19] VITALS: BP 115/57
--- NOTE | 2020-12-01 06:24 | NUR ---
BIBA TO TRIAGE. TO LOBBY FOLLOWING TRIAGE
[2020-12-01] MEDS ORDERED: PANTOPRAZOLE 40 MG TABEC PO ONE (07:00)
[2020-12-01] MEDS ORDERED: METOCLOPRAMIDE 10 MG TAB PO ONE (07:00)
[2020-12-01] MEDS ORDERED: ONDANSETRON 4 MG ODT PO ONE (07:00)
--- NOTE | 2020-12-01 07:18 | NUR ---
PT MEDICATED AND AMBULATED TO LOBBY WITH EVEN AND STEADY GAIT.
--- NOTE | 2020-12-01 09:04 | NUR ---
PT LEFT/ELOPED FACILITY WITHOUT DISCHARGE INSTRUCTIONS.
== END 2020-12-01 09:00 | disposition left against medical advice (07) ==
LOC: MED 06:17
DX: R10.13 Epigastric pain (principal); Z88.2 Allergy status to sulfonamides
CPT/HCPCS: 81025; 99284; J8597; Q0162

== ENCOUNTER 2021-11-14 16:47 | Emergency (ER) | payer OTHER, MEDICAID ==
[~2021-11-14] VITALS: Ht 152.4 cm; Wt 50.8 kg
[2021-11-14 17:28] VITALS: BP 105/59
[2021-11-14 18:37] LABS: HEMATOCRIT 35.4 % (36-48); HEMOGLOBIN 10.9 g/dL (12.0-16.0); MEAN CORPUSCULAR HEMOGLOBIN 23 pg (27-31); MEAN CORPUSCULAR HGB CONC 31 g/dL (33-37); MEAN CORPUSCULAR VOLUME 73.8 fL (80-94); PLATELET COUNT (AUTO) 448 K/uL (140-450); RED CELL DISTRIBUTION WIDTH 23.1 % (11.6-13.7); WHITE BLOOD COUNT (AUTO) 11.2 K/uL (4.8-10.8)
[2021-11-14 19:05] LABS: PLATELET COUNT,MANUAL 448 K/uL (150-450)
[2021-11-14 19:06] LABS: BASOPHILS % (AUTO) 0.3 % (0.0-2.0); EOSINOPHILS # (AUTO) 0.2 K/uL (0-0.4); EOSINOPHILS % (AUTO) 1.7 % (0.0-4.0); LYMPHOCYTES # (AUTO) 0.8 K/uL (2.5-16.5); LYMPHOCYTES % (AUTO) 7.3 % (20.5-51.1); LYMPHOCYTES % (MANUAL) 9 % (20-46); MONOCYTES # (AUTO) 0.4 K/uL (0.8-1.0); MONOCYTES % (AUTO) 3.5 % (1.7-9.3); NEUTROPHILS # (AUTO) 9.7 K/uL (1.8-7.7); NEUTROPHILS % (AUTO) 87.2 % (42.2-75.2)
[2021-11-14 19:07] LABS: EOSINOPHILS % (MANUAL) 2 % (0-4); MONOCYTES % (MANUAL) 3 % (5-12)
[2021-11-14] MEDS: NACL 0.9% 1,000 ML IV SCH (19:10)
[2021-11-14 19:15] LABS: APPEARANCE,URINE CLEAR (CLEAR); BILIRUBIN,URINE 1+ (NEGATIVE); BLOOD, URINE NEGATIVE (NEGATIVE); COLOR,URINE BROWN (YELLOW); LEUKOCYTE ESTERASE ,URINE 1+ (NEGATIVE); NITRITE, URINE NEGATIVE (NEGATIVE); UGLUCOSE TRACE (NEGATIVE)
[2021-11-14 19:16] LABS: ALBUMIN 3.1 g/dL (3.4-5.0); ANION GAP 8.5 (8-16); CARBON DIOXIDE 37.2 mmol/L (21-32); CREATININE 0.9 mg/dL (0.6-1.3); TOTAL BILIRUBIN 0.5 mg/dL (0.0-1.0)
[2021-11-14 19:20] LABS: POTASSIUM 2.7 mmol/L (3.5-5.1)
--- NOTE | 2021-11-14 19:30 | NUR ---
RECIEVED REPORT FROM FANTA.
--- NOTE | 2021-11-14 19:31 | NUR ---
36YR OLD FEMALE BIB SELF FOR VOMITNG ABD PAIN X2 WEEKS 10/10 PAIN. CRAMPING PAIN TO ABD PAIN. DENIES ANY DIAHRREA, CP OR SOB. A&OX4, SKIN INTACT, VITALS WNL, AND STEADY GAIT.
[2021-11-14 19:32] LABS: RBC,URINE 0-5 /HPF (0-5); WBC,URINE 0-5 /HPF (0-5)
[2021-11-14 19:33] LABS: OTHER CASTS, URINE None Seen /LPF (None Seen)
[2021-11-14] MEDS ORDERED: diphenhydrAMINE 50 MG/ML VIAL ONE (19:46)
[2021-11-14] MEDS ORDERED: METOCLOPRAMIDE 10 MG/2 ML INJ VIAL ONE (19:46)
[2021-11-14] MEDS: POTASSIUM CHLORIDE 10 MEQ TABER PO ONE (19:52)
[2021-11-14] MEDS: METOCLOPRAMIDE 10 MG/2 ML INJ VIAL IVP ONE (19:53)
[2021-11-14] MEDS: diphenhydrAMINE 50 MG/ML VIAL IVP ONE (19:54)
--- NOTE | 2021-11-14 19:55 | NUR ---
PT RESTING IN BED. GAVE BENADRYL, REGLAN AND POTASSIUM. PT COMPLAINING OF SOME PAIN; NOTIFIES ERMD. ALL PT NEEDS MEET AT THIS TIME
[2021-11-14] MEDS ORDERED: ACET-8386 PO (20:30)
[2021-11-14] MEDS ORDERED: METO-486 PO (20:30)
[2021-11-14] MEDS: MORPHINE SULFATE 4 MG/ML SYR IVP ONE (20:30)
--- NOTE | 2021-11-14 20:38 | NUR ---
GAVE PT MORPHINE FOR PTS PAIN. ALL NEEDS MEET AT THIS TIME.
[2021-11-14 21:16] VITALS: BP 105/59
--- NOTE | 2021-11-14 21:16 | NUR ---
Patient discharged with v/s stable. Written and verbal after care instructions given and explained. Patient alert, oriented and verbalized understanding of instructions. Ambulatory with steady gait. All questions addressed prior to discharge. ID band removed. Patient advised to follow up with PMD. Rx of REGLAN AND HYDROCODON-ACETAMINOPHEN 5-325 given. Patient educated on indication of medication including possible reaction and side effects. Opportunity to ask questions provided and answered.
== END 2021-11-14 21:03 | disposition home or self-care (01) ==
LOC: MED 16:47
DX: R10.9 Unspecified abdominal pain (principal); R11.2 Nausea with vomiting, unspecified; Z90.49 Acquired absence of other specified parts of digestive tract; Z98.890 Other specified postprocedural states
CPT/HCPCS: 36415; 80053; 81001; 81025; 83690; 85025; 87086; 96361; 96374; 96375; 99284; J1200; J2270; J2765; J7030

== ENCOUNTER 2021-11-20 22:25 | Emergency (ER) | payer OTHER, MEDICAID ==
[~2021-11-20] VITALS: Ht 154.9 cm; Wt 46.9 kg
[~2021-11-20 22:25] MED LIST changes: +ACET-8386 PO; +METO-486 PO
[2021-11-20 22:33] VITALS: BP 98/74
--- NOTE | 2021-11-20 22:33 | NUR ---
TO BED VIA WHEELCHAIR
--- NOTE | 2021-11-20 22:41 | NUR ---
Patient BIB by family from home. C/O vomiting x months. Patient reported, had nausea, vomiting since October, Hx Ulcer. A/O, x4, nausea, vomiting and abdominal pain.
--- NOTE | 2021-11-20 23:23 | NUR ---
DR. STOVALL AT BEDSIDE EXAMINING PT.
[2021-11-20] MEDS ORDERED: HALOPERIDOL IM 5 MG/ML VIAL IM ONE (23:30)
[2021-11-20 23:47] LABS: HEMATOCRIT 28.4 % (36-48); HEMOGLOBIN 8.8 g/dL (12.0-16.0); MEAN CORPUSCULAR HEMOGLOBIN 24 pg (27-31); MEAN CORPUSCULAR HGB CONC 31 g/dL (33-37); MEAN CORPUSCULAR VOLUME 75.7 fL (80-94); PLATELET COUNT (AUTO) 724 K/uL (140-450); RED BLOOD CELL COUNT(AUTO) 3.76 MIL/uL (4.20-5.40); RED CELL DISTRIBUTION WIDTH 23.6 % (11.6-13.7)
[2021-11-20 23:48] LABS: BASOPHILS % (AUTO) 0.4 % (0.0-2.0); LYMPHOCYTES # (AUTO) 1.4 K/uL (2.5-16.5); LYMPHOCYTES % (AUTO) 23.6 % (20.5-51.1); MONOCYTES # (AUTO) 0.6 K/uL (0.8-1.0); MONOCYTES % (AUTO) 9.5 % (1.7-9.3); NEUTROPHILS % (AUTO) 66.5 % (42.2-75.2)
[2021-11-21 00:22] LABS: BARBITURATE, URINE NEGATIVE ng/ml (NEG <=200)
[2021-11-21 00:23] LABS: BENZODIAZEPINE, URINE POSITIVE ng/mL (NEG <=200); CANNABINOID, URINE NEGATIVE ng/mL (NEG <=50); COCAINE, URINE NEGATIVE ng/mL (NEG <=300); OPIATE, URINE POSITIVE ng/mL (NEG <=2000); PHENCYCLIDINE SCREEN,URINE NEGATIVE ng/mL (NEG <=25)
[2021-11-21 00:33] LABS: ANION GAP 9.3 (8-16); POTASSIUM 2.3 mmol/L (3.5-5.1); TOTAL BILIRUBIN 0.4 mg/dL (0.0-1.0)
[2021-11-21 00:34] LABS: ALBUMIN 3.2 g/dL (3.4-5.0)
[2021-11-21] MEDS ORDERED: POTASSIUM CHL 20MEQ/D5-NS 1,000 ML IV ONE (00:40)
--- NOTE | 2021-11-21 00:45 | NUR ---
COVID-19 swabs collected and sent to lab.
[2021-11-21] MEDS ORDERED: MORPHINE SULFATE 4 MG/ML SYR ONE (00:48)
[2021-11-21] MEDS ORDERED: ONDANSETRON 4 MG/2 ML VIAL ONE (00:48)
[2021-11-21] MEDS ORDERED: MORPHINE SULFATE 4 MG/ML SYR IVP ONE ×2 (00:50→05:20)
[2021-11-21] MEDS ORDERED: ONDANSETRON 4 MG/2 ML VIAL IVP ONE ×2 (00:50→03:25)
[2021-11-21] MEDS ORDERED: CLON1TAB PO (01:41)
--- NOTE | 2021-11-21 01:41 | NUR ---
Med-Rec reviewed.
--- NOTE | 2021-11-21 02:04 | NUR ---
Patient appears to be resting comfortably in bed. Vital Signs within normal limits. Respirations even and unlabored.
[2021-11-21] MEDS ORDERED: PANTOPRAZOLE 40 MG INJ VIAL IVP SCH (02:45)
--- NOTE | 2021-11-21 03:14 | NUR ---
Patient reported, nausea- Dr. Townsend notified.
[2021-11-21] MEDS ORDERED: KCL 20 MEQ/WATER INJ PREMIX 200 ML IV SCH (03:25)
--- NOTE | 2021-11-21 05:12 | NUR ---
Patient reported, abdominal pain, Dr. Townsend notified.
--- NOTE | 2021-11-21 06:21 | NUR ---
Patient to be transferred to [facility]. Is being transferred due to insurance. Receiving facility has accepting physician and available space. ER physician has signed transfer form. Patient or responsible democrat has agreed to transfer and signed form. Patient belongings inventoried and will be sent with patient. Copy of nursing notes, lab reports, EKG, Physicians Orders and X-rays to be sent with patient. Report called to JULISA Rico at receiving facility. S ambulance service has been called for transfer. ETA is 40 minutes.
--- NOTE | 2021-11-21 07:17 | NUR ---
RECIEVED REPORT FROM MAY
--- NOTE | 2021-11-21 07:23 | NUR ---
[facility] AT BEDSIDE REPORT GIVEN.
[2021-11-21 07:28] VITALS: BP 106/67
== END 2021-11-21 07:23 | disposition short-term general hospital (02) ==
LOC: MED 22:25
DX: E87.3 Alkalosis (principal); Z20.822 Contact with and (suspected) exposure to COVID-19; R11.10 Vomiting, unspecified; D50.9 Iron deficiency anemia, unspecified; R10.13 Epigastric pain; E87.6 Hypokalemia; E87.8 Other disorders of electrolyte and fluid balance, not elsewhere classified; Z88.8 Allergy status to other drugs, medicaments and biological substances; Z91.013 Allergy to seafood; Z79.899 Other long term (current) drug therapy; Z90.49 Acquired absence of other specified parts of digestive tract; Z98.890 Other specified postprocedural states
CPT/HCPCS: 36415; 71045; 80053; 80305; 81025; 83690; 85025; 87426; 96365; 96366; 96372; 96375; 96376; 99285; C9113; J2270; J2405; Q0092; 96374

== ENCOUNTER 2021-12-03 18:27 | Emergency (ER) | payer OTHER, MEDICAID ==
[~2021-12-03] VITALS: Ht 157.5 cm; Wt 47.2 kg
[~2021-12-03 18:27] MED LIST changes: -ALPR0.5T2 PO; -BACL10TA4 PO; +CLON1TAB PO; -FERR325E14 PO; -FLUO10CA21 PO
[2021-12-03 18:42] VITALS: BP 123/92
--- NOTE | 2021-12-03 21:05 | NUR ---
Dr. Jeronimo examining patient.
[2021-12-03] MEDS ORDERED: NACL 0.9% 1,000 ML IV SCH (21:40)
[2021-12-03] MEDS ORDERED: MORPHINE SULFATE 4 MG/ML SYR IVP ONE (21:40)
[2021-12-03] MEDS ORDERED: ONDANSETRON 4 MG/2 ML VIAL IVP ONE (21:40)
--- NOTE | 2021-12-03 21:59 | NUR ---
LAB WITH PATIENT
--- NOTE | 2021-12-03 22:04 | NUR ---
Blood for labwork drawn from right arm per automotive shop foreman. Patient tolerated well.
--- NOTE | 2021-12-03 22:15 | NUR ---
Patient ambulated to bed 9.
[2021-12-03 22:25] LABS: BASOPHILS % (AUTO) 0.3 % (0.0-2.0); EOSINOPHILS # (AUTO) 0.2 K/uL (0-0.4); EOSINOPHILS % (AUTO) 2.4 % (0.0-4.0); HEMATOCRIT 41.5 % (36-48); HEMOGLOBIN 13.2 g/dL (12.0-16.0); LYMPHOCYTES # (AUTO) 1.2 K/uL (2.5-16.5); LYMPHOCYTES % (AUTO) 16.1 % (20.5-51.1); MEAN CORPUSCULAR HEMOGLOBIN 27 pg (27-31); MEAN CORPUSCULAR HGB CONC 32 g/dL (33-37); MEAN CORPUSCULAR VOLUME 83.8 fL (80-94); MONOCYTES # (AUTO) 0.4 K/uL (0.8-1.0); MONOCYTES % (AUTO) 5.8 % (1.7-9.3); NEUTROPHILS # (AUTO) 5.6 K/uL (1.8-7.7); NEUTROPHILS % (AUTO) 75.4 % (42.2-75.2); PLATELET COUNT (AUTO) 534 K/uL (140-450); RED BLOOD CELL COUNT(AUTO) 4.95 MIL/uL (4.20-5.40); RED CELL DISTRIBUTION WIDTH 19.6 % (11.6-13.7); WHITE BLOOD COUNT (AUTO) 7.5 K/uL (4.8-10.8)
[2021-12-03 22:42] LABS: ALBUMIN 3.1 g/dL (3.4-5.0); ANION GAP 14.7 (8-16); CARBON DIOXIDE 26.5 mmol/L (21-32); CREATININE 0.6 mg/dL (0.6-1.3); POTASSIUM 4.2 mmol/L (3.5-5.1); TOTAL BILIRUBIN 0.3 mg/dL (0.0-1.0)
--- NOTE | 2021-12-03 23:24 | NUR ---
36 YO F BIB SELF WITH C/C OF 02/10 ABD PAIN (PRIOR TO BEING MEDICATED) X4DAYS. REPORTS N/V. PT HAD AN ABD SURGERY FOR A RUPTURED ULCER ON THE 11/24. PT HAS A VERTICAL SURGICAL INCISION WITH 17 STABLES, SITE APPEARS CLEAN AND INTACT. PT WAS INSTRUCTED BY PCPTO RETURN TO ER IF N/V CONTINUED. ALLERGY:MYLANTA, TORADOL, ADN IV CONTRAST Addendum: 12/03/21 at 5510 by [facility] LAST BM:11/30
[2021-12-03 23:26] LABS: PROTHROMBIN TIME 35.6 secs (10.8-13.4)
--- NOTE | 2021-12-04 00:09 | NUR ---
URINE COLLECTED AND TAKEN TO LAB.
[2021-12-04 00:27] LABS: APPEARANCE,URINE CLEAR (CLEAR); BILIRUBIN,URINE NEGATIVE (NEGATIVE); BLOOD, URINE NEGATIVE (NEGATIVE); COLOR,URINE YELLOW (YELLOW); LEUKOCYTE ESTERASE ,URINE NEGATIVE (NEGATIVE); NITRITE, URINE NEGATIVE (NEGATIVE); PH,URINE 6.5 (5.0-9.0); UGLUCOSE NEGATIVE (NEGATIVE)
--- NOTE | 2021-12-04 02:11 | NUR ---
pt reports 9/10 abd pain. obi boswell gave verbal order to give morphine 4mg im for pain.
[2021-12-04] MEDS ORDERED: MORPHINE SULFATE 4 MG/ML SYR IM ONE (02:15)
[2021-12-04] MEDS ORDERED: MORPHINE SULFATE 4 MG/ML SYR ONE (02:17)
[2021-12-04] MEDS ORDERED: PANT40EC PO (03:05)
--- NOTE | 2021-12-04 03:08 | NUR ---
Patient called for a ride home.
[2021-12-04 03:12] VITALS: BP 110/73
--- NOTE | 2021-12-04 03:12 | NUR ---
Patient discharged with v/s stable. Written and verbal after care instructions given and explained. Patient alert, oriented and verbalized understanding of instructions. Ambulatory with steady gait. All questions addressed prior to discharge. ID band removed. Patient advised to follow up with PMD. Rx of Protonix given. Patient educated on indication of medication including possible reaction and side effects. Opportunity to ask questions provided and answered.
== END 2021-12-04 03:12 | disposition home or self-care (01) ==
LOC: MED 18:27
DX: R10.84 Generalized abdominal pain (principal); Z90.49 Acquired absence of other specified parts of digestive tract; Z98.890 Other specified postprocedural states; Z91.013 Allergy to seafood; Z79.1 Long term (current) use of non-steroidal anti-inflammatories (NSAID)
CPT/HCPCS: 36415; 74176; 80053; 81003; 81025; 83690; 85025; 85610; 85730; 96361; 96372; 96374; 96375; 99285; J2270; J2405; J7030; 81002

== ENCOUNTER 2021-12-04 22:43 | Emergency (ER) | payer OTHER, MEDICAID ==
[~2021-12-04] VITALS: Ht 154.9 cm; Wt 59.0 kg
[~2021-12-04 22:43] MED LIST changes: +PANT40EC PO
[2021-12-04 22:45] VITALS: BP 104/89
--- NOTE | 2021-12-04 22:45 | NUR ---
to bed ambulatory
--- NOTE | 2021-12-04 23:02 | NUR ---
Pt walked in c/o nausea and abdominal pain. Pt reports having surgery to correct a gastric ulcer at [facility] on 11/24/21. Pt was seen here today for the same and Rx'd Protonix. Pt states she has nausea medicine at home and neither were helping.
--- NOTE | 2021-12-04 23:22 | NUR ---
Marlen cleveland in [facility] - 12/04/21 at [address] Olivera examining patient.
--- NOTE | 2021-12-04 23:22 | NUR ---
ermd examining pt
[2021-12-04] MEDS ORDERED: ONDANSETRON 4 MG/2 ML VIAL IVP ONE (23:30)
[2021-12-04] MEDS ORDERED: NACL 0.9% 1,000 ML IV SCH (23:30)
[2021-12-04] MEDS ORDERED: MORPHINE SULFATE 4 MG/ML SYR IVP ONE (23:30)
[2021-12-04 23:43] LABS: BASOPHILS % (AUTO) 0.6 % (0.0-2.0); EOSINOPHILS # (AUTO) 0.2 K/uL (0-0.4); EOSINOPHILS % (AUTO) 3.4 % (0.0-4.0); HEMATOCRIT 39.6 % (36-48); HEMOGLOBIN 12.9 g/dL (12.0-16.0); LYMPHOCYTES # (AUTO) 1.3 K/uL (2.5-16.5); LYMPHOCYTES % (AUTO) 22.2 % (20.5-51.1); MEAN CORPUSCULAR HEMOGLOBIN 27 pg (27-31); MEAN CORPUSCULAR HGB CONC 33 g/dL (33-37); MEAN CORPUSCULAR VOLUME 82.1 fL (80-94); MONOCYTES # (AUTO) 0.3 K/uL (0.8-1.0); MONOCYTES % (AUTO) 5.3 % (1.7-9.3); NEUTROPHILS % (AUTO) 68.5 % (42.2-75.2); PLATELET COUNT (AUTO) 499 K/uL (140-450); RED BLOOD CELL COUNT(AUTO) 4.83 MIL/uL (4.20-5.40); RED CELL DISTRIBUTION WIDTH 19.5 % (11.6-13.7); WHITE BLOOD COUNT (AUTO) 5.8 K/uL (4.8-10.8)
[2021-12-04 23:56] LABS: ANION GAP 12.9 (8-16); CARBON DIOXIDE 27.9 mmol/L (21-32); CREATININE 0.7 mg/dL (0.6-1.3); POTASSIUM 3.8 mmol/L (3.5-5.1); TOTAL BILIRUBIN 0.3 mg/dL (0.0-1.0)
[2021-12-05] MEDS ORDERED: fentaNYL citrate 0.05 MG/ML VIAL IVP ONE ×2 (00:55→03:45)
--- NOTE | 2021-12-05 01:05 | NUR ---
Pt ambulated to the restroom with a steady gait.
--- NOTE | 2021-12-05 02:28 | NUR ---
Patient appears to be resting comfortably in bed. VSS. Respirations even and unlabored.
--- NOTE | 2021-12-05 03:40 | NUR ---
Dr. Olivera examining patient.
--- NOTE | 2021-12-05 05:00 | NUR ---
Patient appears to be resting comfortably in bed. VSS. Respirations even and unlabored, NAD.
--- NOTE | 2021-12-05 05:50 | NUR ---
Pt swabbed for Covid 19 ad sent to lab
--- NOTE | 2021-12-05 07:21 | NUR ---
report given to Winifred EGAN
--- NOTE | 2021-12-05 07:30 | NUR ---
RECIEVED REPORT FROM JULISA PLASCENCIA
[2021-12-05] MEDS ORDERED: MORPHINE SULFATE 2 MG/ML SYR IVP STA (07:31)
[2021-12-05] MEDS ORDERED: FAMOTIDINE 20 MG/2 ML VIAL IVP ONE (07:35)
--- NOTE | 2021-12-05 10:40 | NUR ---
PT ASKED IF SHE COULD HAVE SOMETHING FOR PAIN. INFORMED PT I WOULD ASK ALL PT NEEDS MEET AT THIS TIME.
[2021-12-05] MEDS ORDERED: DICYCLOMINE 20 MG/2 ML VIAL IM ONE (10:45)
[2021-12-05 14:40] VITALS: BP 99/62
== END 2021-12-05 14:40 | disposition home or self-care (01) ==
LOC: MED 22:43
DX: R10.9 Unspecified abdominal pain (principal); Z20.822 Contact with and (suspected) exposure to COVID-19; Z91.013 Allergy to seafood; Z79.1 Long term (current) use of non-steroidal anti-inflammatories (NSAID); Z90.49 Acquired absence of other specified parts of digestive tract; Z98.890 Other specified postprocedural states
CPT/HCPCS: 36415; 74176; 80053; 81002; 81025; 83690; 85025; 87426; 96372; 96374; 96375; 96376; 99285; J0500; J2270; J2405; J3010; J3490; J7030

== ENCOUNTER 2021-12-12 23:20 | Emergency (ER) | payer OTHER, MEDICAID ==
[~2021-12-12] VITALS: Ht 154.9 cm; Wt 59.0 kg
[~2021-12-12 23:20] MED LIST changes: -FAMO-90 PO; -METO-486 PO
[2021-12-12 23:44] VITALS: BP 128/77
--- NOTE | 2021-12-13 03:52 | NUR ---
PT TAKEN TO BED 5
--- NOTE | 2021-12-13 04:11 | NUR ---
36 Y/O F BIB SELF FOR ABDOMNINAL PAIN R/T STOMACH ULCER SURGERY ON THE 11/24/21 SINCE THEN AFTER EATING PT THROWS UP. BACK PAIN ON RT SIDE. PT STATES PAIN WITH NO RELIEF. PT STATES SHE HAD BEEN THROWING UP AND HASNT BEEN ABLE TO HOLD ANYTHING . PT HAS HAD FEVER , NAUSEA ,VOMITING. HX: GALLBLADDER, APPENDIX REMOVAL, HERNIA REPAIR
--- NOTE | 2021-12-13 04:13 | NUR ---
Dr. Amaral examining patient.
[2021-12-13] MEDS ORDERED: diphenhydrAMINE 50 MG/ML VIAL IVP ONE (04:20)
[2021-12-13] MEDS ORDERED: NACL 0.9% 1,000 ML IV ONE (04:20)
[2021-12-13] MEDS ORDERED: HALOPERIDOL IM 5 MG/ML VIAL IM ONE (04:20)
[2021-12-13] MEDS ORDERED: MAG-27 PO (04:55)
[2021-12-13 06:30] VITALS: BP 130/78
--- NOTE | 2021-12-13 06:30 | NUR ---
Patient discharged with v/s stable. Written and verbal after care instructions given and explained. Patient alert, oriented and verbalized understanding of instructions. Ambulatory with steady gait. All questions addressed prior to discharge. ID band removed. Patient advised to follow up with PMD. Rx of MYLANTA given. Opportunity to ask questions provided and answered.
== END 2021-12-13 06:30 | disposition home or self-care (01) ==
LOC: MED 23:20
DX: R11.2 Nausea with vomiting, unspecified (principal); Z91.013 Allergy to seafood; Z79.1 Long term (current) use of non-steroidal anti-inflammatories (NSAID); Z90.49 Acquired absence of other specified parts of digestive tract
CPT/HCPCS: 96361; 96372; 96374; 99285; J1200; J1630; J7030

== ENCOUNTER 2022-01-07 23:19 | Emergency (ER) | payer OTHER, MEDICAID ==
[~2022-01-07] VITALS: Ht 154.9 cm; Wt 59.0 kg
[~2022-01-07 23:19] MED LIST changes: +MAG-27 PO
[2022-01-08 00:32] VITALS: BP 110/69
--- NOTE | 2022-01-08 04:15 | NUR ---
PT CALLED TO BED, NO ANSWER, LWBS
--- NOTE | 2022-01-08 06:03 | NUR ---
PT WAS MOVED TO BED 05
--- NOTE | 2022-01-08 06:38 | NUR ---
36YR OLD FEMALE BIB SELF C/O ABD PAIN V/D. PT STATES ABD PAIN HAS BEEN SINCE OCTOBER. VOMITING AND DIARRHEA STARTED A WEEK AGO. PT IS A&OX4 SKIN WARM AND DRY AND INTACT. RESP EVEN AND UNLABORED. NO DISTRESS NOTED. BED RAILS DOWN X2 BED POSITION AT LOWEST LEVEL. NKDA ULCERS OF THE STOMACH
--- NOTE | 2022-01-08 06:38 | NUR ---
DR LOVE AT BEDSIDE
[2022-01-08] MEDS ORDERED: diphenhydrAMINE 50 MG/ML VIAL IM ONE (06:45)
[2022-01-08] MEDS ORDERED: MORPHINE SULFATE 4 MG/ML SYR IM ONE (06:45)
[2022-01-08] MEDS ORDERED: PROCHLORPERAZINE 10 MG/2 ML VIAL IM ONE (06:45)
[2022-01-08] MEDS ORDERED: PROM25TA27 PO (07:08)
[2022-01-08] MEDS ORDERED: CIPR500T4 PO (07:08)
[2022-01-08] MEDS ORDERED: LOPE-289 PO (07:08)
== END 2022-01-08 07:16 | disposition home or self-care (01) ==
LOC: MED 23:19
DX: R10.13 Epigastric pain (principal); R11.2 Nausea with vomiting, unspecified; R19.7 Diarrhea, unspecified; Z90.49 Acquired absence of other specified parts of digestive tract; Z98.890 Other specified postprocedural states; Z79.899 Other long term (current) drug therapy; Z91.013 Allergy to seafood; Z88.8 Allergy status to other drugs, medicaments and biological substances
CPT/HCPCS: 96372; 99284; J0780; J1200; J2270

== ENCOUNTER 2022-05-01 20:35 | Inpatient (IN) | payer OTHER, MEDICAID ==
[~2022-05-01] VITALS: Ht 154.9 cm; Wt 54.4 kg
[~2022-05-01 20:35] MED LIST changes: -ACET-8386 PO; +ACET-8905 PO; +CIPR500T4 PO; +LOPE-289 PO; +PROM25TA27 PO
[2022-05-01 21:14] VITALS: BP 111/60
--- NOTE | 2022-05-01 21:18 | NUR ---
TO LOBBY A/W BED AMBULATORY
--- NOTE | 2022-05-01 21:52 | NUR ---
URINE COLLECTED AND SENT TO LAB, RECEIVED BY LYNDA.
[2022-05-01 22:01] LABS: APPEARANCE,URINE CLEAR (CLEAR); BILIRUBIN,URINE NEGATIVE (NEGATIVE); BLOOD, URINE NEGATIVE (NEGATIVE); COLOR,URINE YELLOW (YELLOW); LEUKOCYTE ESTERASE ,URINE NEGATIVE (NEGATIVE); NITRITE, URINE NEGATIVE (NEGATIVE); UGLUCOSE NEGATIVE (NEGATIVE)
--- NOTE | 2022-05-01 23:47 | NUR ---
PT TAKEN TO BED 9
--- NOTE | 2022-05-02 00:08 | NUR ---
Pt bib self for bloody stool. pt is pale, has generalized body weakness, sob when walking long distances. Per pt this has been going on for months but per patient feels different. patient looks pale and jaundiced like. pt has had poor appetite and lost 50lbs in the last couple of months. pain of 10/10. denies any n/v and denies any c/p.
[2022-05-02] MEDS ORDERED: NACL 0.9% 1,000 ML IV ONE (01:10)
[2022-05-02] MEDS ORDERED: MORPHINE SULFATE 4 MG/ML SYR IVP ONE (01:10)
[2022-05-02] MEDS ORDERED: ONDANSETRON 4 MG/2 ML VIAL IVP ONE (01:10)
[2022-05-02 01:20] LABS: BASOPHILS % (AUTO) 0.3 % (0.0-2.0); EOSINOPHILS % (AUTO) 0.5 % (0.0-4.0); LYMPHOCYTES # (AUTO) 2.3 K/uL (2.5-16.5); MEAN CORPUSCULAR HEMOGLOBIN 16 pg (27-31); MEAN CORPUSCULAR HGB CONC 27 g/dL (33-37); MEAN CORPUSCULAR VOLUME 59.7 fL (80-94); MONOCYTES # (AUTO) 0.6 K/uL (0.8-1.0); MONOCYTES % (AUTO) 7.3 % (1.7-9.3); NEUTROPHILS # (AUTO) 5.4 K/uL (1.8-7.7); NEUTROPHILS % (AUTO) 63.9 % (42.2-75.2); PLATELET COUNT (AUTO) 565 K/uL (140-450); RED CELL DISTRIBUTION WIDTH 19.7 % (11.6-13.7); WHITE BLOOD COUNT (AUTO) 8.4 K/uL (4.8-10.8)
[2022-05-02 01:21] LABS: ANION GAP 10.6 (8-16); CARBON DIOXIDE 31.1 mmol/L (21-32); CREATININE 0.6 mg/dL (0.6-1.3); POTASSIUM 3.7 mmol/L (3.5-5.1)
[2022-05-02 01:24] LABS: HEMATOCRIT 14.9 % (36-48)
[2022-05-02 01:27] LABS: ALBUMIN 2.9 g/dL (3.4-5.0); TOTAL BILIRUBIN 0.2 mg/dL (0.0-1.0)
--- NOTE | 2022-05-02 01:47 | NUR ---
Dr. Amaral examining patient.
[2022-05-02] MEDS ORDERED: PANTOPRAZOLE 40 MG INJ VIAL IVP ONE (02:20)
--- NOTE | 2022-05-02 02:29 | NUR ---
attempted to call . is not answering.
[2022-05-02] MEDS: PANTOPRAZOLE 80 MG in NACL 0.9% 100 ML IVP SCH ×3 (02:40→23:06)
[2022-05-02] MEDS ORDERED: OMEP20EC11 PO (03:04)
[2022-05-02] MEDS ORDERED: FAMO-90 PO (03:04)
--- NOTE | 2022-05-02 03:09 | NUR ---
Dr. Amaral examining patient.
--- NOTE | 2022-05-02 03:48 | NUR ---
ER MD notified of burning abdominal pain- will provide medication per MD
[2022-05-02] MEDS ORDERED: DICYCLOMINE HCL LIQUID 20 MG, ALUMINUM HYD/MAG/SIMETHICONE 30 ML, LIDOCAINE VISCOUS 2% ... PO ONE ×3 (03:50)
[2022-05-02] MEDS ORDERED: DICYCLOMINE HCL LIQUID 10 MG/5 ML UDC ONE (04:03)
[2022-05-02] MEDS ORDERED: ALUMINUM HYD/MAG/SIMETHICONE 30 ML UDC ONE (04:03)
--- NOTE | 2022-05-02 05:00 | NUR ---
Consent signed per Aidee Ruggiero agreeing to administration of blood. Blood has been type and crossmatched. Blood sent from blood bank. Information on unit of blood checked against patient wristband at bedside by two nurses. All information matches. Patient or responsible republican informed of potential complications associated with blood transfusion. Informed of possible transfusion reaction symptoms. Aware of need to notify nurse at once of itching, shortness of breath, flushing, feeling of impending doom, or other symptoms not previously present. Vital signs taken within 5 minutes prior to initiation of transfusion. RN will remain with patient for first 15 minutes of transfusion at which time vital signs will be re-assessed.
--- NOTE | 2022-05-02 05:57 | NUR ---
02:58- attempted to call for patient for updates. 02:59- attempted to call mother for patient and able to update family member per patient's request.
[2022-05-02] MEDS ORDERED: POTASSIUM CHLORIDE 10 MEQ TABER PO PRN (06:55)
[2022-05-02] MEDS ORDERED: ONDANSETRON 4 MG/2 ML VIAL IVP PRN (06:55)
[2022-05-02] MEDS ORDERED: MAGNESIUM OXIDE 400 MG TAB PO PRN (06:55)
[2022-05-02] MEDS ORDERED: ACETAMINOPHEN 325 MG TAB PO PRN (06:55)
[2022-05-02] MEDS ORDERED: HYDROcodone/APAP 5/325 MG 1 TAB TAB PO PRN (06:55)
[2022-05-02] MEDS ORDERED: MAG SULF 2000 MG/WATER PREMIX 50 ML IV PRN (06:55)
[2022-05-02] MEDS ORDERED: KCL 20 MEQ/WATER INJ PREMIX 200 ML IV PRN (06:55)
--- NOTE | 2022-05-02 07:11 | NUR ---
PT RECEIVED, CARE ASSUMED. PT LAYING IN BED BED CALM, RELAXED. INTRODUCED MYSELF. UPDATED ALL TESTS AND PROCEDURES. WILL CONTINUE TO MONITOR
--- NOTE | 2022-05-02 07:13 | NUR ---
Pt report given to Soto EGAN. Transfer of care at this time.
--- NOTE | 2022-05-02 08:49 | NUR ---
STARTED PRBC TRANSFUSION. V/S WNL. WILL CONTINUE TO MONITOR
[2022-05-02] MEDS: NACL 0.9% 1,000 ML IV SCH ×2 (08:53→22:07)
[2022-05-02] MEDS: MORPHINE SULFATE 4 MG/ML SYR IVP PRN ×4 (08:53→22:55)
--- NOTE | 2022-05-02 09:04 | NUR ---
TRANSFUSION RUNNING WELL. NO SIGNS OF REACTION. WILL CONTINUE TO MONITOR
--- NOTE | 2022-05-02 11:50 | NUR ---
BLOOD TRANSFUSION FINISHED. NO ADVERESE REACTION. V/S STABLE.
--- NOTE | 2022-05-02 15:00 | NUR ---
3RD PRBC FINISHED. NO ADVERSE REACTIONS NOTED. V/S NOTED. WILL CONTINUE TO MONITOR
--- NOTE | 2022-05-02 16:01 | NUR ---
PATIENT HAS BEEN SCREENED AND CATEGORIZED MODERATE NUTRITION RISK. PATIENT WILL BE SEEN WITHIN 3-5 DAYS OF ADMISSION. REVIEWED BY JOAQUÍN YU RD
--- NOTE | 2022-05-02 17:50 | NUR ---
PT C/O ABDO PAIN 5/10. NO SIGNS OF BLEEDING. WILL MEDICATED PRN PAIN MEDS
--- NOTE | 2022-05-02 19:54 | NUR ---
Assisted patient to restroom.
--- NOTE | 2022-05-02 20:05 | NUR ---
Dr. Vega examining patient.
--- NOTE | 2022-05-02 20:08 | NUR ---
Dr. Vega at bedside placing in and out NG tube for patient to check for GI bleeding. No bleeding was noted from the NG tube. Bile was present. Pt tolerated procedure well. No s/s distress.
--- NOTE | 2022-05-02 20:19 | NUR ---
Dr. Vega recommended - started Full liquid diet and no upper GI bleeding, recommended to send home. if her vital sign stable and patient can discharge home.
--- NOTE | 2022-05-02 20:51 | NUR ---
Provided orange juice as request.
[2022-05-02] MEDS: clonazePAM 0.5 MG TAB PO SCH (21:14)
--- NOTE | 2022-05-02 22:08 | NUR ---
Paged Dr. James regarding Dr. Simms recommendation. Awaiting response.
--- NOTE | 2022-05-02 22:25 | NUR ---
Spoke with Dr. James to relay Dr. Davenport recommendations of the patient being okay to discharge due to no bleeding found when NG tube was placed. Per Dr. James, patient will stay overnight due to c/o abdominal pain, vomiting, and low HgB levels. Repeat CBC in AM and received orders for occult stool.
--- NOTE | 2022-05-02 22:55 | NUR ---
Pt c/o 9/10 abdominal pain. Morphine given as per ordered. Tolerated well.
--- NOTE | 2022-05-02 23:10 | NUR ---
Pt assisted to restroom. Gait steady.
--- NOTE | 2022-05-03 00:32 | NUR ---
Pt appears to be resting comfortably at this time. VSS
[2022-05-03] MEDS: MORPHINE SULFATE 4 MG/ML SYR IVP PRN ×2 (04:08→09:29)
--- NOTE | 2022-05-03 04:08 | NUR ---
Pt c/o / abd pain. Morphine given as ordered. Pt tolerated well
--- NOTE | 2022-05-03 05:07 | NUR ---
Pt left wrist 20g IV noted infiltrated, with mild swelling and removed. No c/o pain. 22g IV placed on right arm, flushes well, blood return. Pt tolerated well.
--- NOTE | 2022-05-03 06:00 | NUR ---
Pt resting comfortably. No s/s discomfort.
[2022-05-03 06:30] LABS: BASOPHILS % (AUTO) 0.3 % (0.0-2.0); EOSINOPHILS # (AUTO) 0.1 K/uL (0-0.4); EOSINOPHILS % (AUTO) 1.4 % (0.0-4.0); HEMATOCRIT 24.7 % (36-48); HEMOGLOBIN 7.6 g/dL (12.0-16.0); LYMPHOCYTES # (AUTO) 2.2 K/uL (2.5-16.5); LYMPHOCYTES % (AUTO) 33.7 % (20.5-51.1); MEAN CORPUSCULAR HEMOGLOBIN 22 pg (27-31); MEAN CORPUSCULAR HGB CONC 31 g/dL (33-37); MEAN CORPUSCULAR VOLUME 72.4 fL (80-94); MONOCYTES # (AUTO) 0.6 K/uL (0.8-1.0); MONOCYTES % (AUTO) 9.4 % (1.7-9.3); NEUTROPHILS # (AUTO) 3.6 K/uL (1.8-7.7); NEUTROPHILS % (AUTO) 55.2 % (42.2-75.2); PLATELET COUNT (AUTO) 372 K/uL (140-450); RED CELL DISTRIBUTION WIDTH 27.2 % (11.6-13.7); WHITE BLOOD COUNT (AUTO) 6.6 K/uL (4.8-10.8)
[2022-05-03 06:57] LABS: ALBUMIN 2.2 g/dL (3.4-5.0); ANION GAP 9.9 (8-16); CREATININE 0.4 mg/dL (0.6-1.3); MAGNESIUM 1.9 mg/dL (1.8-2.4); POTASSIUM 3.9 mmol/L (3.5-5.1); TOTAL BILIRUBIN 0.5 mg/dL (0.0-1.0)
--- NOTE | 2022-05-03 07:21 | NUR ---
Report given for transfer of care to Josemanuel EGAN
--- NOTE | 2022-05-03 07:24 | NUR ---
Report recieved from JULISA Zaldivar for transfer of care.
--- NOTE | 2022-05-03 07:24 | NUR ---
PT TRANSFERRED TO BED 8
[2022-05-03] MEDS: NACL 0.9% 1,000 ML IV SCH (08:07)
--- NOTE | 2022-05-03 08:22 | NUR ---
Patient was offered breakfast tray. Patient is sitting up eating breakfast.
[2022-05-03] MEDS: PANTOPRAZOLE 80 MG in NACL 0.9% 100 ML IVP SCH (08:28)
[2022-05-03] MEDS: clonazePAM 0.5 MG TAB PO SCH (09:07)
--- NOTE | 2022-05-03 09:51 | NUR ---
Dr. James, admitting doctor, admitting doctor, evaluating patient at bedside.
--- NOTE | 2022-05-03 11:50 | NUR ---
Offered patient lunch tray. Left tray at bedside, patient is asleep.
--- NOTE | 2022-05-03 12:45 | NUR ---
SPOKE TO DR KILLIAN INFORMED OF PT LABS AND CONDITION, PER STATED TO DC FROM GI AND THAT HE WILL CALL DR CORBETT FOR PT DC. STATED THAT HE WOULD SCOPE PT OUTPATIENT
[2022-05-03] MEDS ORDERED: SUCR1TAB35 PO (13:35)
[2022-05-03 14:23] VITALS: BP 103/69
[2022-05-03 14:50] VITALS: BP 103/69
--- NOTE | 2022-05-03 14:50 | NUR ---
Patient discharged with v/s stable. Written and verbal after care instructions given. Patient verbalized understanding. Ambulatory with steady gait. All questions addressed prior to discharge. Advised to follow up with PMD. Patient was discharged by Dr. James, admitting doctor.
--- NOTE | 2022-05-03 15:09 | NUR ---
Marlen cleveland in ED - 05/03/[address] Olivera evaluating patient at bedside.
== END 2022-05-03 14:50 | disposition home or self-care (01) | DRG 378 ==
LOC: MED 20:35 → MTU 05-02 07:00
PROVIDERS: ADMIT Hospitalist; ATTEND Hospitalist
PROC: 30233N1 Transfusion of Nonautologous Red Blood Cells into Peripheral Vein, Percutaneous Approach (ICD-10-PCS; principal; 2022-05-02)
PROC: 0D9670Z Drainage of Stomach with Drainage Device, Via Natural or Artificial Opening (ICD-10-PCS; 2022-05-02)
DX: K25.4 Chronic or unspecified gastric ulcer with hemorrhage (principal); D62 Acute posthemorrhagic anemia; Z20.822 Contact with and (suspected) exposure to COVID-19; Z88.8 Allergy status to other drugs, medicaments and biological substances; Z91.013 Allergy to seafood; Z79.899 Other long term (current) drug therapy
CPT/HCPCS: 36415; 36430; 80053; 81003; 83690; 83735; 85025; 86886; 86900; 86901; 86920; 96361; 96374; 96375; 99291; C9113; J2270; J2405; J7030; P9016

== ENCOUNTER 2022-08-15 02:11 | Inpatient (IN) | payer OTHER ==
[~2022-08-15] VITALS: Ht 152.4 cm; Wt 45.4 kg
[~2022-08-15 02:11] MED LIST changes: -CIPR500T4 PO; +FAMO-90 PO; +SUCR1TAB35 PO
[2022-08-15 02:31] VITALS: BP 92/59
--- NOTE | 2022-08-15 02:42 | NUR ---
LABS BEING DRAWN
[2022-08-15 02:57] LABS: APPEARANCE,URINE CLEAR (CLEAR); BILIRUBIN,URINE NEGATIVE (NEGATIVE); BLOOD, URINE NEGATIVE (NEGATIVE); COLOR,URINE YELLOW (YELLOW); LEUKOCYTE ESTERASE ,URINE 1+ (NEGATIVE); NITRITE, URINE NEGATIVE (NEGATIVE); PH,URINE >=9.0 (5.0-9.0); UGLUCOSE NEGATIVE (NEGATIVE)
[2022-08-15 03:14] LABS: RBC,URINE 0-5 /HPF (0-5)
[2022-08-15 03:28] LABS: BASOPHILS % (AUTO) 0.8 % (0.0-2.0); EOSINOPHILS # (AUTO) 0.1 K/uL (0-0.4); EOSINOPHILS % (AUTO) 1.7 % (0.0-4.0); LYMPHOCYTES # (AUTO) 1.6 K/uL (2.5-16.5); LYMPHOCYTES % (AUTO) 50.6 % (20.5-51.1); MEAN CORPUSCULAR HEMOGLOBIN 17 pg (27-31); MEAN CORPUSCULAR HGB CONC 27 g/dL (33-37); MEAN CORPUSCULAR VOLUME 62.3 fL (80-94); MONOCYTES # (AUTO) 0.2 K/uL (0.8-1.0); MONOCYTES % (AUTO) 7.9 % (1.7-9.3); NEUTROPHILS # (AUTO) 1.2 K/uL (1.8-7.7); PLATELET COUNT (AUTO) 377 K/uL (140-450); RED BLOOD CELL COUNT(AUTO) 2.56 MIL/uL (4.20-5.40); RED CELL DISTRIBUTION WIDTH 23.4 % (11.6-13.7); WHITE BLOOD COUNT (AUTO) 3.1 K/uL (4.8-10.8)
[2022-08-15 03:30] LABS: HEMATOCRIT 15.9 % (36-48); HEMOGLOBIN 4.3 g/dL (12.0-16.0)
[2022-08-15 03:47] LABS: ALBUMIN 2.4 g/dL (3.4-5.0); ANION GAP 12.9 (8-16); CARBON DIOXIDE 25.2 mmol/L (21-32); CREATININE 0.8 mg/dL (0.6-1.3); POTASSIUM 3.1 mmol/L (3.5-5.1); TOTAL BILIRUBIN 0.1 mg/dL (0.0-1.0)
[2022-08-15] MEDS ORDERED: PANTOPRAZOLE 80 MG in NACL 0.9% 100 ML IVP SCH (03:55)
[2022-08-15] MEDS ORDERED: PANTOPRAZOLE 40 MG INJ VIAL IVP ONE (03:55)
[2022-08-15] MEDS ORDERED: METOCLOPRAMIDE 10 MG/2 ML INJ VIAL IVP ONE (04:00)
[2022-08-15] MEDS ORDERED: diphenhydrAMINE 50 MG/ML VIAL IVP ONE (04:00)
--- NOTE | 2022-08-15 04:49 | NUR ---
spoke with patient regarding having minors go home d/t being unable to go to the room with patient. per pt understands and finding for her children to go back home.
[2022-08-15] MEDS ORDERED: CALCIUM GLUC 1 GM/50 mL NS BAG 50 ML IV ONE (04:50)
--- NOTE | 2022-08-15 05:00 | NUR ---
pt speaking with the doctor regarding POC for patient. pt understands and no further questions asked.
[2022-08-15] MEDS ORDERED: POTASSIUM CHLORIDE 10 MEQ TABER PO PRN (05:25)
[2022-08-15] MEDS ORDERED: MAGNESIUM OXIDE 400 MG TAB PO PRN (05:25)
[2022-08-15] MEDS ORDERED: HYDROcodone/APAP 5/325 MG 1 TAB TAB PO PRN (05:25)
[2022-08-15] MEDS ORDERED: MAG SULF 2000 MG/WATER PREMIX 50 ML IV PRN (05:25)
[2022-08-15] MEDS ORDERED: ACETAMINOPHEN 325 MG TAB PO PRN (05:25)
[2022-08-15] MEDS ORDERED: KCL 20 MEQ IN 100 mL PREMIX 200 ML IV PRN (05:25)
--- NOTE | 2022-08-15 07:27 | NUR ---
Pt report given to Erna EGAN. Transfer of care at this time.
--- NOTE | 2022-08-15 07:48 | NUR ---
Patient will be admitted to care of . Admited to TELE. Will go to room 105B. Belongings list completed. Report to MARIAM EGAN.
[2022-08-15] MEDS ORDERED: PANTOPRAZOLE 40 MG INJ VIAL IVP SCH (09:00)
[2022-08-15] MEDS: DOCUSATE SODIUM 100 MG GELCAP PO SCH (11:49)
--- NOTE | 2022-08-15 13:05 | NUR ---
DC PLANNING A 37 YEAR OLD FEMALE PATIENT WITH COMPLAINTS OF ABDOMINAL PAIN, VOMITING AND BLOODY STOOL.HX OF GASTRIC ULCER AND BACK SURGERY IN THE PAST.WAS ADMITTED HERE IN NOVEMBER FOR THE SAME PROBLEM.HBG 4.3..WILL TRANSFUSE 3 UNITS BLOOD .K-3.1 AND GETTING K REPLACEMENT.TALKED TO LYNDA AT [facility] AND UPDATED OF PATIENT'S STATUS.CLINICALS FAXED TO .AUTH TO BE GIVEN AFTER CLINICALS WAS RECEIVED BY SAME.CM TO FOLLOW. 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 FAXED TO [facility] CM TO FOLLOW Addendum: 08/18/22 at 1119 by Mable Marks RN DC PLANNING: CALLED [place] [phone] SPOKE WITH WM LAZAR NOTIFIED HER THE HIGHER LEVEL OF CARE ,PER WM WILL REVIEW AND SUBMIT TO [facility] [employer]ZARD[employer] WASTE MANAGEMENT SPECIALIST. CM TO FOLLOW Addendum: 08/18/22 at 1550 by Mable Marks RN DC PLANNING: STILL AWAITING FROM [facility] GOT TRANSFER. CALLED [facility] [phone] [phone] LEFT A MESSAGE REGARDING HLOC TRANSFER. CM TO FOLLOW Addendum: 08/19/22 at 1105 by REBECA LIND CM DC PLANNING LEFT A VOICE MESSAGE TO LYNDA ABOUT THE PLAN FOR HLOC.LATEST HBG 9.2.ON TPN. CM TO FOLLOW. Addendum: 08/19/22 at 1115 by Mable Marks RN DC PLANNING: RECEIVED A CALL FROM [facility] [phone] SPOKE WITH WM LAZAR STATED [facility] [employer] WASTE MANAGEMENT SPECIALIST WILL CALL DR PEREZ THE ATTENDING BUT CM INSIST TO CALL TIMO JOSHUA AND PROVIDE DR JOSHUA'S NUMBER. CM TO FOLLOW. Addendum: 08/20/22 at 1423 by REBECA LIND CM DC PLANNING HOME HEALTH FOR TPN ARRANGED BY AYLA LAZAR.CLINICALS FAXED TO [facility] .LYNDA TO CALL BACK ONCE TPN IS ARRANGED.DC- HOME TODAY .TO FOLLOW WITH TIMO CORRALES (DR MENA) 08/26 AT 3PM.. Addendum: 08/20/22 at 1647 by REBECA LIND CM DC PLANNING ADDENDUM: [facility] BACKED OUT FOR HOME TPN..LYNDA TO CALL AND HE CLEARED PATIENT FOR DISCHARGE MISSING THE TPN DOSE FOR THE NIGHT.PATIENT ON FULL LIQUIDS. NURSE ARMIN INFORMED PATIENT CAN GO HOME.
[2022-08-15] MEDS ORDERED: fentaNYL citrate 0.05 MG/ML VIAL ONE (13:27)
[2022-08-15] MEDS ORDERED: MIDAZOLAM 5 MG/5 ML VIAL ONE (13:28)
[2022-08-15] MEDS ORDERED: FLUMAZENIL 0.5 MG/5 ML VIAL IVP ONE (13:31)
[2022-08-15] MEDS ORDERED: NALOXONE 0.4 MG/ML VIAL ONE (13:32)
[2022-08-15] MEDS ORDERED: PROPOFOL 200 MG/20 ML VIAL IV ONE ×2 (14:29)
[2022-08-15] MEDS ORDERED: TPN PER PHARMACY MC PRN (14:50)
[2022-08-15 16:00] VITALS: BP 114/69
[2022-08-15] MEDS: DEXT 5% /NACL 0.9% 1,000 ML IV SCH (17:55)
[2022-08-15] MEDS: ERYTHROMYCIN 100 MG in NACL 0.9% 100 ML IV SCH (19:40)
--- NOTE | 2022-08-15 20:40 | NUR ---
PATIENT AWAKE ALERT WELL RESTED VERBALLY RESPONSIVE. IVF NS INFUSING WELL. SKIN WARM AND DRY TO THE TOUCH. NO COMPLAINTS OF PAIN AT THIS TIME. CALL LIGHT WITHIN REACH. ASSISTED PATIENT TO RESTROOM AND BACK TO BED. WILL CONTINUE TO MONITOR.
[2022-08-15] MEDS: SODIUM FERRIC GLUCONATE 125 MG in NACL 0.9% 100 ML IV SCH (21:18)
--- NOTE | 2022-08-15 21:18 | NUR ---
ADMINISTERED SCHEDULED MEDICATION ORDERED.
[2022-08-15] MEDS: AMITRIPTYLINE 25 MG TAB PO SCH (21:19)
--- NOTE | 2022-08-15 21:51 | NUR ---
11566/: RECEIVED REPORT FROM AMBER EGAN. PT RESTING IN BED EYES CLOSED. NO GUARDING OR GRIMACING. NO ACUTE DISTRESS NOTED AT THIS TIME. PT PALE. [id number].
--- NOTE | 2022-08-15 21:54 | NUR ---
0750: REPORT OFF TO MORTEZA EGAN. PT RESTING IN BED. TOLERATED UNITS OF BLOOD WELL. NO ACUTE DISTRESS NOTED AT THIS TIME. [id number].
--- NOTE | 2022-08-15 22:15 | NUR ---
PATIENT COMPLAINED OF SEVERE PAIN. NOTIFIED DR. ORDONEZ HISTOLOGY TECH WITH ORDERS , CARRIED OUT.
[2022-08-15 22:58] LABS: HEMATOCRIT 30.4 % (36-48); HEMOGLOBIN 9.5 g/dL (12.0-16.0)
[2022-08-15] MEDS: MORPHINE SULFATE 2 MG/ML SYR IVP PRN (23:20)
[2022-08-16] VITALS: BP 101/58
[2022-08-16] MEDS: ERYTHROMYCIN 100 MG in NACL 0.9% 100 ML IV SCH ×5 (00:42→23:39)
--- NOTE | 2022-08-16 00:42 | NUR ---
DUE MEDICATIONS GIVEN.
[2022-08-16] MEDS: DEXT 5% /NACL 0.9% 1,000 ML IV SCH (04:08)
[2022-08-16] MEDS: MORPHINE SULFATE 2 MG/ML SYR IVP PRN ×4 (06:10→21:55)
[2022-08-16 06:18] LABS: BASOPHILS % (AUTO) 0.5 % (0.0-2.0); EOSINOPHILS % (AUTO) 0.6 % (0.0-4.0); HEMOGLOBIN 9.2 g/dL (12.0-16.0); LYMPHOCYTES # (AUTO) 1.6 K/uL (2.5-16.5); LYMPHOCYTES % (AUTO) 33.3 % (20.5-51.1); MEAN CORPUSCULAR HEMOGLOBIN 23 pg (27-31); MEAN CORPUSCULAR HGB CONC 32 g/dL (33-37); MONOCYTES # (AUTO) 0.5 K/uL (0.8-1.0); MONOCYTES % (AUTO) 10.5 % (1.7-9.3); NEUTROPHILS # (AUTO) 2.6 K/uL (1.8-7.7); NEUTROPHILS % (AUTO) 55.1 % (42.2-75.2); PLATELET COUNT (AUTO) 277 K/uL (140-450); RED BLOOD CELL COUNT(AUTO) 3.97 MIL/uL (4.20-5.40); RED CELL DISTRIBUTION WIDTH 26.6 % (11.6-13.7); WHITE BLOOD COUNT (AUTO) 4.7 K/uL (4.8-10.8)
[2022-08-16 06:41] LABS: ANION GAP 9.6 (8-16); CARBON DIOXIDE 25.2 mmol/L (21-32); CREATININE 0.5 mg/dL (0.6-1.3); MAGNESIUM 1.9 mg/dL (1.8-2.4); POTASSIUM 3.8 mmol/L (3.5-5.1); TOTAL BILIRUBIN 0.5 mg/dL (0.0-1.0)
[2022-08-16 06:45] LABS: PHOSPHORUS 2.7 mg/dL (2.5-4.9)
[2022-08-16 08:00] VITALS: BP 101/67
--- NOTE | 2022-08-16 11:04 | NUR ---
DR MARQUISE JOSHUA NOTIFIED THAT UGI CANNOT BE DONE ON WEEK ENDS D/T NO RADIOLOGIST AVAILABLE. UGI ON WEEK END CAN BE DONE IF UGI ORDERED "STAT" AND NURSING STOVE MOUNTER APPROVES PROCEDURE. ADDITIONALLY, SMALL BOWEL CAN BE DONE (RADIOLOGIST NOT NEEDED) DURING WEEK ENDS. DR MARQUISE JOSHUA REPORTED BACK THAT THE UGI CAN BE PLANNED FOR THURSDAY.
[2022-08-16] MEDS: SODIUM FERRIC GLUCONATE 125 MG in NACL 0.9% 100 ML IV SCH ×2 (11:33→21:16)
[2022-08-16] MEDS: DOCUSATE SODIUM 100 MG GELCAP PO SCH (11:34)
[2022-08-16 16:00] VITALS: BP 111/66
[2022-08-16] MEDS: ONDANSETRON 4 MG/2 ML VIAL IVP PRN (16:29)
--- NOTE | 2022-08-16 19:30 | NUR ---
RECEIVED PATIENT WATCHING TV. NO SOB NOTED. NO COMPLAINTS OF PAIN. IVF INFUSING WELL. CALL LIGHT WITHIN REACH. SKIN WARM AND DRY TO THE TOUCH. SAFETY MEASURES ARE IN PLACE.
[2022-08-16] MEDS: AMINO ACIDS IV SCH ×4 (20:50)
[2022-08-16] MEDS: [UNRECOGNIZED DRUG - OTHER] IV SCH ×4 (20:50)
[2022-08-16] MEDS: DEXTROSE IV SCH ×4 (20:50)
[2022-08-16] MEDS: MULTIVITAMIN IV SCH ×4 (20:50)
[2022-08-16] MEDS ORDERED: INSULIN LISPRO SLIDING SCALE 100 UNITS/ML VIAL SUBQ PRN (21:00)
[2022-08-16] MEDS: BLOOD GLUCOSE MONITORING 1 DEV DEV MC SCH (21:18)
[2022-08-16] MEDS: AMITRIPTYLINE 25 MG TAB PO SCH (21:19)
[2022-08-17] VITALS: BP 108/66
[2022-08-17] MEDS: BLOOD GLUCOSE MONITORING 1 DEV DEV MC SCH ×5 (00:54→23:28)
[2022-08-17] MEDS: ERYTHROMYCIN 100 MG in NACL 0.9% 100 ML IV SCH ×4 (05:13→23:04)
[2022-08-17] MEDS: MORPHINE SULFATE 2 MG/ML SYR IVP PRN ×4 (05:48→21:08)
[2022-08-17 06:23] LABS: HEMATOCRIT 26.4 % (36-48); HEMOGLOBIN 8.1 g/dL (12.0-16.0); MEAN CORPUSCULAR HEMOGLOBIN 23 pg (27-31); MEAN CORPUSCULAR HGB CONC 31 g/dL (33-37); PLATELET COUNT (AUTO) 228 K/uL (140-450); RED BLOOD CELL COUNT(AUTO) 3.52 MIL/uL (4.20-5.40); RED CELL DISTRIBUTION WIDTH 26.8 % (11.6-13.7); WHITE BLOOD COUNT (AUTO) 3.5 K/uL (4.8-10.8)
[2022-08-17 07:01] LABS: ALBUMIN 1.7 g/dL (3.4-5.0); ANION GAP 11.1 (8-16); CARBON DIOXIDE 23.7 mmol/L (21-32); CREATININE 0.5 mg/dL (0.6-1.3); MAGNESIUM 1.7 mg/dL (1.8-2.4); POTASSIUM 3.8 mmol/L (3.5-5.1); TOTAL BILIRUBIN 0.1 mg/dL (0.0-1.0)
[2022-08-17 07:51] LABS: EOSINOPHILS % (MANUAL) 3 % (0-4); LYMPHOCYTES % (MANUAL) 32 % (20-46); MONOCYTES % (MANUAL) 12 % (5-12)
[2022-08-17 08:00] VITALS: BP 104/69
--- NOTE | 2022-08-17 09:13 | NUR ---
PATIENT HAS BEEN SCREENED AND CATEGORIZED MODERATE NUTRITION RISK. PATIENT WILL BE SEEN WITHIN 3-5 DAYS OF ADMISSION. 08/15/22-08/20/[address]
[2022-08-17] MEDS: DOCUSATE SODIUM 100 MG GELCAP PO SCH (09:14)
[2022-08-17] MEDS: SODIUM FERRIC GLUCONATE 125 MG in NACL 0.9% 100 ML IV SCH ×2 (09:16→21:00)
--- NOTE | 2022-08-17 15:50 | NUR ---
PENDING UPPER GI X-RAY RESULT TO REVIEW THE CAUSE OF BLEEDING. PATIENT BELOW TO [facility] AND [facility]ANCHISE MANAGER CALLED TO CLARIFY THAT PATIENT'S STATUS FOR POSSIBLE TRANSFER TO HIGHER LEVEL OF CARE. WILL CONTINUE TO MONITOR & FOLLOW UP THE CASE STATUS. Addendum: 08/17/22 at 1555 by Teresita Cote RN Amended: Links added.
[2022-08-17 16:00] VITALS: BP 107/66
[2022-08-17] MEDS: AMINO ACIDS IV SCH ×4 (20:00)
[2022-08-17] MEDS: [UNRECOGNIZED DRUG - OTHER] IV SCH ×4 (20:00)
[2022-08-17] MEDS: MULTIVITAMIN IV SCH ×4 (20:00)
[2022-08-17] MEDS: DEXTROSE IV SCH ×4 (20:00)
[2022-08-17] MEDS: MULTIVITAMIN-12 10 ML in DEXTROSE 50% 600 ML, AMINO ACIDS 8.5% 500 ML, FAT EMULSION 20%... IV SCH ×4 (20:44)
--- NOTE | 2022-08-17 20:44 | NUR ---
ALL 2100 SCHEDULED DUE MEDICATIONS ADMINISTERED. PATIENT AWAKE ALERT ORIENTED. ON ROOM AIR. NO RESPIRATORY DISTRESS NOTED. AFEBRILE. NO COMPLAINTS OF PAIN AT THIS TIME. ABLE TO AMBULATE TO THE RESTROOM. ALL NEEDS ATTENDED. CALL LIGHT WITHIN REACH.
[2022-08-17] MEDS: AMITRIPTYLINE 25 MG TAB PO SCH (21:01)
[2022-08-18] VITALS: BP 101/68
[2022-08-18] MEDS: MORPHINE SULFATE 2 MG/ML SYR IVP PRN ×4 (02:22→21:17)
--- NOTE | 2022-08-18 02:22 | NUR ---
PATIENT COMPLAINED OF SEVERE ABDOMINAL PAIN, MEDICATED.
[2022-08-18] MEDS: ERYTHROMYCIN 100 MG in NACL 0.9% 100 ML IV SCH ×4 (05:23→23:48)
[2022-08-18] MEDS: BLOOD GLUCOSE MONITORING 1 DEV DEV MC SCH ×4 (06:18→23:48)
[2022-08-18 07:01] LABS: BASOPHILS % (AUTO) 0.8 % (0.0-2.0); EOSINOPHILS # (AUTO) 0.1 K/uL (0-0.4); EOSINOPHILS % (AUTO) 1.5 % (0.0-4.0); HEMATOCRIT 29.7 % (36-48); HEMOGLOBIN 9.4 g/dL (12.0-16.0); LYMPHOCYTES # (AUTO) 2.2 K/uL (2.5-16.5); LYMPHOCYTES % (AUTO) 48.6 % (20.5-51.1); MEAN CORPUSCULAR HEMOGLOBIN 23 pg (27-31); MEAN CORPUSCULAR HGB CONC 32 g/dL (33-37); MEAN CORPUSCULAR VOLUME 74.3 fL (80-94); MONOCYTES # (AUTO) 0.4 K/uL (0.8-1.0); MONOCYTES % (AUTO) 9.7 % (1.7-9.3); NEUTROPHILS # (AUTO) 1.8 K/uL (1.8-7.7); NEUTROPHILS % (AUTO) 39.4 % (42.2-75.2); PLATELET COUNT (AUTO) 256 K/uL (140-450); RED CELL DISTRIBUTION WIDTH 27.4 % (11.6-13.7); WHITE BLOOD COUNT (AUTO) 4.5 K/uL (4.8-10.8)
--- NOTE | 2022-08-18 07:29 | NUR ---
GAVE REPORT TO MORNING SHIFT NURSE FOR CONTINUITY OF CARE.
[2022-08-18 07:31] LABS: ALBUMIN 1.9 g/dL (3.4-5.0); ANION GAP 8.4 (8-16); CARBON DIOXIDE 25.9 mmol/L (21-32); CREATININE 0.4 mg/dL (0.6-1.3); MAGNESIUM 1.8 mg/dL (1.8-2.4); POTASSIUM 3.3 mmol/L (3.5-5.1); TOTAL BILIRUBIN 0.1 mg/dL (0.0-1.0)
[2022-08-18 08:00] VITALS: BP 103/69
[2022-08-18] MEDS: SODIUM FERRIC GLUCONATE 125 MG in NACL 0.9% 100 ML IV SCH ×2 (09:06→21:03)
[2022-08-18] MEDS: DOCUSATE SODIUM 100 MG GELCAP PO SCH (09:06)
--- NOTE | 2022-08-18 13:55 | NUR ---
08/18/22 RD INITIAL ASSESSMENT COMPLETED PLEASE REFER TO NUTRITION ASSESSMENT UNDER CARE ACTIVITY FOR ESTIMATED NUTRITIONAL NEEDS. 1. CONTINUE FULL LIQUID DIET TOLERATED 2. RECOMMEND ENSURE ENLIVE BID -PROVIDES 700 KCAL, 40G PROTEIN DAILY 3. RECOMMEND REGULAR DIET WHEN/IF MEDICALLY APPROPRIATE 4. RD TO FOLLOW-UP 7 DAYS, LOW RISK REVIEWED BY JOAQUÍN YU RD Addendum: 08/18/22 at [address] PATIENT ON TPN AND RECEIVING 600ML DEXTROSE 50%, 500ML AMINO ACIDS 8.5%, 100ML FAT EMULSION 20% -PROVIDES 472 TOTAL KCAL AND 42.5 GM PROTEIN, GIR= 1.56
[2022-08-18 16:00] VITALS: BP 101/65
[2022-08-18] MEDS: MULTIVITAMIN-12 10 ML in DEXTROSE 50% 600 ML, AMINO ACIDS 8.5% 500 ML, FAT EMULSION 20%... IV SCH ×4 (19:58)
--- NOTE | 2022-08-18 19:58 | NUR ---
HANGED A NEW BAG OF TPN TO RIGHT UPPER ARM PICC LINE. PATIENT AWAKE IN NO ACUTE DISTRESS NOTED. NO COMPLAINTS OF PAIN AT THIS TIME. BED WHEELS LOCK IN LOWEST POSITION. CALL LIGHT WITHIN REACH. AMBULATORY.
--- NOTE | 2022-08-18 20:11 | NUR ---
ENDORSE PATIENT IN STABLE CONDITION TO PM SHIFT NURSE WHILE TPN INFUSING AT 5OML/HR. DAY SHIFT NURSE CORRECT PATIENT'S POTASSIUM 3.3 W/ K-RIDE. UPPER GI X-RAY COMPLETE AND DR. JOSHUA & DR. PEREZ INFORMED.
--- NOTE | 2022-08-18 21:03 | NUR ---
ADMINISTERED SCHEDULED MEDICATIONS.
[2022-08-18] MEDS: AMITRIPTYLINE 25 MG TAB PO SCH (21:09)
--- NOTE | 2022-08-18 21:17 | NUR ---
PATIENT COMPLAINED OF SEVERE ABDOMINAL PAIN, MEDICATED.
--- NOTE | 2022-08-18 23:58 | NUR ---
BLOOD SUGAR CHECKED WAS 127. NO INSULIN COVERAGE NEEDED.
[2022-08-19] VITALS: BP 110/69
[2022-08-19] MEDS: MORPHINE SULFATE 2 MG/ML SYR IVP PRN ×4 (01:38→21:11)
[2022-08-19] MEDS: ERYTHROMYCIN 100 MG in NACL 0.9% 100 ML IV SCH ×4 (05:34→23:52)
[2022-08-19] MEDS: BLOOD GLUCOSE MONITORING 1 DEV DEV MC SCH ×3 (05:40→17:51)
--- NOTE | 2022-08-19 07:25 | NUR ---
RECEIVED REPORT FROM MILLER DISTILLERY LINDA CONTINUITY OF CARE. ASLEEP AT THIS TIME. INITIAL ASSESSMENT DONE. IV INFUSING WELL. PICC LINE INTACT TO NETTIE. NOT IN ANY DISTRESS NOTED. CALL LIGHT KEPT WITHIN REACH. WILL CONTINUE TO MONITOR.
[2022-08-19 07:27] LABS: BASOPHILS % (AUTO) 0.3 % (0.0-2.0); EOSINOPHILS # (AUTO) 0.1 K/uL (0-0.4); EOSINOPHILS % (AUTO) 1.6 % (0.0-4.0); HEMATOCRIT 29.3 % (36-48); HEMOGLOBIN 9.2 g/dL (12.0-16.0); LYMPHOCYTES % (AUTO) 33.2 % (20.5-51.1); MEAN CORPUSCULAR HEMOGLOBIN 24 pg (27-31); MEAN CORPUSCULAR HGB CONC 32 g/dL (33-37); MEAN CORPUSCULAR VOLUME 74.4 fL (80-94); MONOCYTES # (AUTO) 0.8 K/uL (0.8-1.0); MONOCYTES % (AUTO) 12.8 % (1.7-9.3); NEUTROPHILS # (AUTO) 3.1 K/uL (1.8-7.7); NEUTROPHILS % (AUTO) 52.1 % (42.2-75.2); PLATELET COUNT (AUTO) 271 K/uL (140-450); RED BLOOD CELL COUNT(AUTO) 3.93 MIL/uL (4.20-5.40); RED CELL DISTRIBUTION WIDTH 28.1 % (11.6-13.7)
--- NOTE | 2022-08-19 07:27 | NUR ---
GAVE REPORT TO AM NURSE FOR CONTINUITY OF CARE.
[2022-08-19 08:00] VITALS: BP 120/65
[2022-08-19 08:12] LABS: ALBUMIN 2.2 g/dL (3.4-5.0); CARBON DIOXIDE 25.6 mmol/L (21-32); CREATININE 0.4 mg/dL (0.6-1.3); MAGNESIUM 1.7 mg/dL (1.8-2.4); POTASSIUM 3.6 mmol/L (3.5-5.1); TOTAL BILIRUBIN 0.1 mg/dL (0.0-1.0)
[2022-08-19] MEDS: SODIUM FERRIC GLUCONATE 125 MG in NACL 0.9% 100 ML IV SCH ×2 (08:42→21:04)
--- NOTE | 2022-08-19 08:42 | NUR ---
SCHEDULED IV MEDICATION AND PRN MORPHINE FOR PAIN MANAGEMENT GIVEN BY LORRAINE EGAN. TOLERATED WELL.
[2022-08-19] MEDS: DOCUSATE SODIUM 100 MG GELCAP PO SCH (08:45)
--- NOTE | 2022-08-19 08:45 | NUR ---
ADMINISTERED SCHEDULED MEDICATION. TOLERATING WELL.
--- NOTE | 2022-08-19 11:51 | NUR ---
BS CHECKED 98. NO COVERAGE NEEDED.
--- NOTE | 2022-08-19 13:09 | NUR ---
RECEIVED ORDER FOR HOME HEALTH FOR HOME TPN. FAXED ALL PAPERWORK TO [facility]. JULES INJECTION MOLDING OPERATOR TO FOLLOW UP.
[2022-08-19] MEDS ORDERED: PANT40EC PO (13:41)
[2022-08-19 16:00] VITALS: BP 107/65
--- NOTE | 2022-08-19 17:42 | NUR ---
IV MEDICATION GIVEN BY LORRAINE EGAN. TOLERATED WELL.
--- NOTE | 2022-08-19 17:51 | NUR ---
BS CHECKED 113. NO COVERAGE NEEDED.
--- NOTE | 2022-08-19 18:32 | NUR ---
PRN NORCO WAS GIVEN FOR PAIN MANAGEMENT. TOLERATED WELL.
--- NOTE | 2022-08-19 18:56 | NUR ---
PT REQUESTED KLONOPIN FOR ANXIETY. DR. PEREZ NOTIFIED, AGREED AND GIVE ORDER. KLONOPIN 0.5 MG BID. NOTED AND CARRIED OUT.
--- NOTE | 2022-08-19 19:25 | NUR ---
ENDORSED TO TOOL SHARPENER FOR CONTINUITY OF CARE. REMAINS STABLE.
[2022-08-19] MEDS: MULTIVITAMIN IV SCH ×8 (20:00→20:26)
[2022-08-19] MEDS: AMINO ACIDS IV SCH ×8 (20:00→20:26)
[2022-08-19] MEDS: DEXTROSE IV SCH ×8 (20:00→20:26)
[2022-08-19] MEDS: [UNRECOGNIZED DRUG - OTHER] IV SCH ×8 (20:00→20:26)
--- NOTE | 2022-08-19 20:05 | NUR ---
PATIENT AWAKE ALERT ORIENTED SITTING IN BED ON ROOM AIR. NO SOB NOTED. TPN ONGOING. NO COMPLAINTS OF PAIN AT THIS TIME. NO FEVER. AMBULATORY. CALL LIGHT WITHIN REACH. SAFETY MEASURES IN PLACE.
[2022-08-19] MEDS: MULTIVITAMIN-12 10 ML in DEXTROSE 50% 600 ML, AMINO ACIDS 8.5% 500 ML, FAT EMULSION 20%... IV SCH ×4 (20:38)
[2022-08-19] MEDS: AMITRIPTYLINE 25 MG TAB PO SCH (21:04)
[2022-08-19] MEDS: clonazePAM 0.5 MG TAB PO SCH (21:04)
--- NOTE | 2022-08-19 21:04 | NUR ---
SCHEDULED MEDICATIONS ADMINISTERED.
[2022-08-20] VITALS: BP 100/66
[2022-08-20] MEDS: BLOOD GLUCOSE MONITORING 1 DEV DEV MC SCH ×3 (00:12→12:07)
--- NOTE | 2022-08-20 00:12 | NUR ---
CHECKED BLOOD SUGAR WAS 111. NO INSULIN COVERAGE NEEDED.
[2022-08-20] MEDS: ERYTHROMYCIN 100 MG in NACL 0.9% 100 ML IV SCH (05:15)
[2022-08-20] MEDS: MORPHINE SULFATE 2 MG/ML SYR IVP PRN ×2 (05:28→11:18)
[2022-08-20 06:45] LABS: BASOPHILS % (AUTO) 0.5 % (0.0-2.0); EOSINOPHILS # (AUTO) 0.1 K/uL (0-0.4); EOSINOPHILS % (AUTO) 1.9 % (0.0-4.0); HEMATOCRIT 34.4 % (36-48); HEMOGLOBIN 10.7 g/dL (12.0-16.0); LYMPHOCYTES # (AUTO) 1.8 K/uL (2.5-16.5); LYMPHOCYTES % (AUTO) 35.6 % (20.5-51.1); MEAN CORPUSCULAR HEMOGLOBIN 24 pg (27-31); MEAN CORPUSCULAR HGB CONC 31 g/dL (33-37); MONOCYTES # (AUTO) 0.5 K/uL (0.8-1.0); MONOCYTES % (AUTO) 9.7 % (1.7-9.3); NEUTROPHILS # (AUTO) 2.6 K/uL (1.8-7.7); NEUTROPHILS % (AUTO) 52.3 % (42.2-75.2); PLATELET COUNT (AUTO) 268 K/uL (140-450); RED BLOOD CELL COUNT(AUTO) 4.53 MIL/uL (4.20-5.40); RED CELL DISTRIBUTION WIDTH 29.2 % (11.6-13.7)
[2022-08-20 07:19] LABS: ALBUMIN 2.6 g/dL (3.4-5.0); ANION GAP 9.6 (8-16); CARBON DIOXIDE 28.2 mmol/L (21-32); CREATININE 0.5 mg/dL (0.6-1.3); MAGNESIUM 1.9 mg/dL (1.8-2.4); POTASSIUM 3.8 mmol/L (3.5-5.1); TOTAL BILIRUBIN 0.2 mg/dL (0.0-1.0)
--- NOTE | 2022-08-20 07:36 | NUR ---
ENDORSED PATIENT TO DAY SHIFT NURSE FOR CONTINUITY OF CARE.
[2022-08-20 08:00] VITALS: BP_SYST 103; BP_SYST 97; BP_DIAS 59; BP_DIAS 68
[2022-08-20] MEDS: DOCUSATE SODIUM 100 MG GELCAP PO SCH (09:05)
[2022-08-20] MEDS: SODIUM FERRIC GLUCONATE 125 MG in NACL 0.9% 100 ML IV SCH (09:05)
[2022-08-20] MEDS: clonazePAM 0.5 MG TAB PO SCH (09:07)
[2022-08-20] MEDS ORDERED: METO-486 PO (11:35)
[2022-08-20 15:43] VITALS: BP 103/68
[2022-08-20] MEDS: ONDANSETRON 4 MG/2 ML VIAL IVP PRN (15:46)
[2022-08-20 16:00] VITALS: BP 95/68
--- NOTE | 2022-08-20 16:46 | NUR ---
DISCHARGE PATIENT IN STABLE CONDITION HOME AFTER HOME HEALTH COMPANY CALLED PATIENT BEFORE NURSE WHEEL HER OUT [facility]. PATIENT IS ON FULL LIQUID DIET. WAITING FOR HOME HEALTH RESTART TPN IN HOME. DISCHARGE INSTRUCTION & PICC PRECAUTION GIVEN, WRIST BAND REMOVE, DISCHARGE CONSENT SIGN.
== END 2022-08-20 16:35 | disposition home health service (06) | DRG 381 ==
LOC: MED 02:11 → MTU 05:49
PROVIDERS: ADMIT Student in an Organized Health Care Education/Training Program; ATTEND Student in an Organized Health Care Education/Training Program
PROC: 30233N1 Transfusion of Nonautologous Red Blood Cells into Peripheral Vein, Percutaneous Approach (ICD-10-PCS; 2022-08-15)
PROC: 0DB88ZX Excision of Small Intestine, Via Natural or Artificial Opening Endoscopic, Diagnostic (ICD-10-PCS; principal; 2022-08-15 17:40)
PROC: 02HV33Z Insertion of Infusion Device into Superior Vena Cava, Percutaneous Approach (ICD-10-PCS; 2022-08-16)
DX: K31.1 Adult hypertrophic pyloric stenosis (principal); D62 Acute posthemorrhagic anemia; Z68.1 Body mass index [BMI] 19.9 or less, adult; K92.0 Hematemesis; E44.0 Moderate protein-calorie malnutrition; R19.09 Other intra-abdominal and pelvic swelling, mass and lump; Z20.822 Contact with and (suspected) exposure to COVID-19; F41.9 Anxiety disorder, unspecified; G89.4 Chronic pain syndrome; Z88.8 Allergy status to other drugs, medicaments and biological substances; Z91.041 Radiographic dye allergy status; Z91.013 Allergy to seafood; Z87.11 Personal history of peptic ulcer disease
CPT/HCPCS: 36415; 36430; 43245; 71045; 80053; 81001; 82948; 83690; 83735; 84100; 85018; 85025; 86886; 86900; 86901; 86920; 87081; 87086; 88305; 96374; 96375; 99291; A9153; C9113; J0610; J0696; J1200; J1364; J1815; J2250; J2270; J2310; J2405; J2704; J2765; J2916; J3010; J3480; J3490; J7060; P9016; Q0092

== ENCOUNTER 2022-09-10 19:37 | Emergency (ER) | payer OTHER ==
[~2022-09-10] VITALS: Ht 152.4 cm; Wt 44.0 kg
[~2022-09-10 19:37] MED LIST changes: -FAMO-90 PO; -LOPE-289 PO; +METO-486 PO; -SUCR1TAB35 PO
[2022-09-10 19:43] VITALS: BP 118/73
--- NOTE | 2022-09-10 19:46 | NUR ---
PT OFFLOADED TO ERIC WILKINS
[2022-09-10] MEDS ORDERED: HYDROcodone/APAP 5/325 MG 1 TAB TAB PO ONE (21:00)
--- NOTE | 2022-09-10 21:12 | NUR ---
MALENA GALLARDO CONFIRMED THEY WERE ON SCENE FOR THIS INCIDENT.
[2022-09-10] MEDS ORDERED: ACET-10509 PO (21:23)
[2022-09-10] MEDS ORDERED: LID5T TP (21:23)
[2022-09-10] MEDS ORDERED: ACET-9527 PO (21:23)
--- NOTE | 2022-09-10 21:53 | NUR ---
REPORT #[id number] PER FABIANAIR GALLARDO
[2022-09-10 22:00] VITALS: BP 118/73
--- NOTE | 2022-09-10 22:00 | NUR ---
Patient discharged with v/s stable. Written and verbal after care instructions given and explained. Patient alert, oriented and verbalized understanding of instructions. Ambulatory with steady gait. All questions addressed prior to discharge. ID band removed. Patient advised to follow up with PMD. Rx of TYLENOL, NORCO, LIDODERM given. Patient educated on indication of medication including possible reaction and side effects. Opportunity to ask questions provided and answered.
== END 2022-09-10 22:00 | disposition home or self-care (01) ==
LOC: MED 19:37
DX: M54.50 Low back pain, unspecified (principal); Z79.899 Other long term (current) drug therapy; W18.30XA Fall on same level, unspecified, initial encounter; Y93.89 Activity, other specified; Y92.89 Other specified places as the place of occurrence of the external cause; Y99.8 Other external cause status
CPT/HCPCS: 71045; 99283; Q0092

== ENCOUNTER 2022-11-06 23:08 | Inpatient (IN) | payer OTHER ==
[~2022-11-06] VITALS: Ht 154.9 cm; Wt 59.0 kg
[~2022-11-06 23:08] MED LIST changes: +ACET-10509 PO; +ACET-9527 PO; +LID5T TP
[2022-11-06 23:26] VITALS: BP 96/52; PULSE 107; RESP 16; TEMP 98.2; O2SAT 100
--- NOTE | 2022-11-06 23:36 | NUR ---
TO LOBBY FOLLOWING TRIAGE
[2022-11-07 01:29] LABS: BASOPHILS # (AUTO) 0.1 K/uL (0.00-0.22); BASOPHILS % (AUTO) 0.3 % (0.0-2.0); EOSINOPHILS # (AUTO) 0.2 K/uL (0-0.4); LYMPHOCYTES # (AUTO) 0.7 K/uL (2.5-16.5); LYMPHOCYTES % (AUTO) 4.5 % (20.5-51.1); MEAN CORPUSCULAR HEMOGLOBIN 20 pg (27-31); MEAN CORPUSCULAR HGB CONC 28 g/dL (33-37); MEAN CORPUSCULAR VOLUME 71.1 fL (80-94); MONOCYTES # (AUTO) 0.3 K/uL (0.8-1.0); MONOCYTES % (AUTO) 2.2 % (1.7-9.3); NEUTROPHILS # (AUTO) 13.7 K/uL (1.8-7.7); PLATELET COUNT (AUTO) 398 K/uL (140-450); RED BLOOD CELL COUNT(AUTO) 2.19 MIL/uL (4.20-5.40); RED CELL DISTRIBUTION WIDTH 22.9 % (11.6-13.7); WHITE BLOOD COUNT (AUTO) 14.9 K/uL (4.8-10.8)
[2022-11-07 01:40] LABS: APPEARANCE,URINE CLEAR (CLEAR); BILIRUBIN,URINE NEGATIVE (NEGATIVE); BLOOD, URINE NEGATIVE (NEGATIVE); COLOR,URINE YELLOW (YELLOW); LEUKOCYTE ESTERASE ,URINE 2+ (NEGATIVE); NITRITE, URINE NEGATIVE (NEGATIVE); PH,URINE 6.5 (5.0-9.0); UGLUCOSE NEGATIVE (NEGATIVE)
[2022-11-07 01:50] LABS: HEMOGLOBIN 4.3 g/dL (12.0-16.0)
[2022-11-07 01:51] LABS: HEMATOCRIT 15.5 % (36-48)
--- NOTE | 2022-11-07 02:06 | NUR ---
PT. TO BED 04
[2022-11-07] MEDS ORDERED: NACL 0.9% 1,000 ML IV SCH (02:25)
[2022-11-07 02:28] LABS: RBC,URINE 0-5 /HPF (0-5)
[2022-11-07 02:30] LABS: ALBUMIN 3.3 g/dL (3.4-5.0); CARBON DIOXIDE 21.7 mmol/L (21-32); CREATININE 0.6 mg/dL (0.6-1.3); POTASSIUM 3.7 mmol/L (3.5-5.1); TOTAL BILIRUBIN 0.2 mg/dL (0.0-1.0)
[2022-11-07] MEDS ORDERED: PANTOPRAZOLE 40 MG INJ VIAL IVP ONE (02:30)
--- NOTE | 2022-11-07 02:30 | NUR ---
37 YO F BIB SELF C/O ABDOMINAL PAIN THAT RADIATES TO FLANK. PT STATES ABD PAIN IS CONSTANT AND STATES IT "COMES AND GOES" OVER THE LAST FEW MONTHS. PT STATES PAIN 12/11. AXO4. ON BEDSIDE LABEL DESIGNER. VSS. CALL LIGHT WITHIN REACH. ALLERGIES: KETOROLAC, IV CONTRAST MED HX: PEPTIC ULCER DISEASE, PYLORIC STRICTURE
--- NOTE | 2022-11-07 02:48 | NUR ---
PT. BEING TAKEN TO CT.
[2022-11-07] MEDS ORDERED: cefTRIAXone 1,000 MG VIAL ONE ×2 (02:49→21:46)
--- NOTE | 2022-11-07 03:52 | NUR ---
PT ON BEDSIDE MONITOR WITH HOB ELEVATED. PENDING ADMISSION ORDERS. PT WILL BE TRANSFUSED 3 UNITS OF PACK RBCS.
[2022-11-07] MEDS ORDERED: fentaNYL citrate 0.05 MG/ML VIAL IVP ONE (04:05)
--- NOTE | 2022-11-07 04:09 | NUR ---
PT STATES HAVING PAIN 8/10 MID ABD TO LOWER BACK. SHARP/BURNING. PT AWARE OF PENDING ADMISSION AND BLOOD TRANSFUSION. CONSTENT SIGNED
[2022-11-07] MEDS ORDERED: NACL 0.9% 1,000 ML IV ONE ×2 (04:20→06:40)
--- NOTE | 2022-11-07 05:02 | NUR ---
MED RECONCILE COMPLETED
--- NOTE | 2022-11-07 06:15 | NUR ---
BLOOD TRANSFUSION INFUSING. VS WNL.
[2022-11-07 06:21] VITALS: O2SAT 100
[2022-11-07] MEDS ORDERED: POTASSIUM CHLORIDE 10 MEQ TABER PO PRN (06:55)
[2022-11-07] MEDS ORDERED: ACETAMINOPHEN 325 MG TAB PO PRN (06:55)
[2022-11-07] MEDS: NACL 0.9% 1,000 ML IV SCH ×2 (06:55→14:36)
[2022-11-07] MEDS ORDERED: MAG SULF 2000 MG/WATER PREMIX 50 ML IV PRN (06:55)
[2022-11-07] MEDS ORDERED: MAGNESIUM OXIDE 400 MG TAB PO PRN (06:55)
[2022-11-07] MEDS ORDERED: ONDANSETRON 4 MG/2 ML VIAL IVP PRN (06:55)
[2022-11-07] MEDS ORDERED: KCL 20 MEQ IN 100 mL PREMIX 200 ML IV PRN (06:55)
[2022-11-07] MEDS ORDERED: HYDROcodone/APAP 5/325 MG 1 TAB TAB PO PRN (06:55)
[2022-11-07] MEDS: MORPHINE SULFATE 4 MG/ML SYR IVP PRN ×3 (08:15→16:59)
--- NOTE | 2022-11-07 08:32 | NUR ---
DR. THOMASON AT BS. DR STATED, PT IS SAFE TO GO TO TELE WITH CURRENT H&H AND VS.
--- NOTE | 2022-11-07 08:40 | NUR ---
CURRENTLY ASSISTING PT'S SHAKA MONTALVO. REPORT CALLED TO ORTEGA. PT TO GO TO ROOM 106 A. FULL DETAILED REPORT GIVEN. TELE CHARGE NURSE ASKING TO HOLD TRANSFER UNTIL AFTER SHE VERIFIES THAT SHE CAN ACCEPT THE TRANSFER.
--- NOTE | 2022-11-07 08:56 | NUR ---
CHARGE NURSE SYMONE VERIFIED WITH CORPORATION LAWYER THAT THE PT IS SAFE FOR TRANSFER TO THE FLOOR. PT GOING TO ROOM 106 A. PT TAKEN BY VANESAS WITH ACLS PERCAUTIONS IN PLACE.
--- NOTE | 2022-11-07 09:01 | NUR ---
H/H 4.[address] THOMASON WAS THE BS HE IS AWARE OH THR CRITICAL LAB RESULT, PT VS. HR 114. MD IS OK TO ADMIT PT TO DENIZ NELSON RN HOUSE AND AMBER EGAN , NARRATIVE WRITER CLIN SUP MADE AWARE
--- NOTE | 2022-11-07 09:06 | NUR ---
PATIENT HAS BEEN SCREENED AND CATEGORIZED HIGH NUTRITION RISK. PATIENT WILL BE SEEN WITHIN 1-2 DAYS OF ADMISSION. 11/08/22-11/09/[address]
--- NOTE | 2022-11-07 09:10 | NUR ---
RECEIVED REPORT FROM ER NURSE JONO FOR CONTINUITY OF CARE. PT ARRIVED IN THE UNIT WITH BLOOD TRANSFUSION THAT'S ALMOST COMPLETE. ARRIVED IN A GURNEY BUT WALKED TO THE BED WITH ASSIST. AT 0920 I STOPPED TRANSFUSION AND TOOK VS T:100 HR: 110 RR:22 BP: 102/60 AND O2:100. ORIENTED PT TO THE NEW ENVIRONMENT, BED MECHANICS, BATHROOM, CALL LIGHT AND TV. PT STATES THAT SHE FEELS FINE, NO NAUSEA, , SOB.
--- NOTE | 2022-11-07 10:00 | NUR ---
PROVIDED COOLING MEASURES TO THE PT.
[2022-11-07] MEDS ORDERED: diphenhydrAMINE 50 MG/ML VIAL IVP SCH ×2 (11:08→23:35)
--- NOTE | 2022-11-07 11:20 | NUR ---
PT FEBRILE AT100.3, GAVE TYLENOL AND BENADRYL.
--- NOTE | 2022-11-07 12:20 | NUR ---
PT IS STILL AT 100.1 PROVIDED COOLING MEASURES.
--- NOTE | 2022-11-07 16:18 | NUR ---
11/07/22 RD INITIAL ASSESSMENT COMPLETED PLEASE REFER TO NUTRITION ASSESSMENT UNDER CARE ACTIVITY FOR ESTIMATED NUTRITIONAL NEEDS. 1. CONTINUE NPO DIET TOLERATED, ONCE MEDICALLY APPROPRIATE PATIENT CAN ADVANCE TO CLEAR LIQUID DIET TOLERATED. IF TPN IS NEEDED FOR PATIENT PLEASE FOLLOW UP WITH PHARMACY. 2. RD WILL CONTINUE TO MONITOR WEIGHT, GI ISSUES, PO INTAKE, NUTRITION RELATED LAB VALUES. 3. RD TO FOLLOW-UP 2-3 DAYS, HIGH RISK ALEXANDER FOY RD
--- NOTE | 2022-11-07 17:00 | NUR ---
STARTED THE SECOND UNIT OF BLOOD FOR TRANSFUSION FOR PT. VS ARE STABLE, NO SIGNS OF ADVERSE REACTION.
[2022-11-07 17:56] VITALS: RESP 22; O2SAT 99
--- NOTE | 2022-11-07 19:20 | NUR ---
GAVE BEDSIDE REPORT TO BAR PILOT NURSE FOR CONTINUITY OF CARE. PT IS AWAKE WITH BLOOD TRANSFUSING, NO SIGNS OF DISTRESS. VS STABLE, NO ADVERSE REACTION TO BLOOD TRANSFUSION. CALL LIGHT WITHIN REACH.
[2022-11-07 19:52] VITALS: PULSE 84
[2022-11-07 20:00] VITALS: PULSE 75; RESP 18; O2SAT 100
[2022-11-07 20:15] VITALS: BP 99/60; PULSE 75; RESP 18; TEMP 98.2; O2SAT 100
--- NOTE | 2022-11-07 20:16 | NUR ---
2016 - FOUND PT W/ ONGOING TPN THRU PICC PICC LINE - WILL INFORM THE CHARGE NURSE , WILL INFORM AP . Addendum: 11/07/22 at 2030 by Inga Griffin RN DARBY THOMASON .
[2022-11-07] MEDS ORDERED: MORPHINE SULFATE 4 MG/ML SYR IVP PRN (20:40)
[2022-11-07 20:41] LABS: BASOPHILS # (AUTO) 0.1 K/uL (0.00-0.22); BASOPHILS % (AUTO) 0.6 % (0.0-2.0); EOSINOPHILS # (AUTO) 0.1 K/uL (0-0.4); EOSINOPHILS % (AUTO) 1.1 % (0.0-4.0); HEMATOCRIT 22.1 % (36-48); LYMPHOCYTES # (AUTO) 2.1 K/uL (2.5-16.5); LYMPHOCYTES % (AUTO) 22.6 % (20.5-51.1); MEAN CORPUSCULAR HEMOGLOBIN 24 pg (27-31); MEAN CORPUSCULAR HGB CONC 31 g/dL (33-37); MEAN CORPUSCULAR VOLUME 76.5 fL (80-94); MONOCYTES # (AUTO) 0.7 K/uL (0.8-1.0); MONOCYTES % (AUTO) 7.2 % (1.7-9.3); NEUTROPHILS # (AUTO) 6.2 K/uL (1.8-7.7); NEUTROPHILS % (AUTO) 68.5 % (42.2-75.2); PLATELET COUNT (AUTO) 295 K/uL (140-450); RED BLOOD CELL COUNT(AUTO) 2.89 MIL/uL (4.20-5.40); RED CELL DISTRIBUTION WIDTH 24.8 % (11.6-13.7); WHITE BLOOD COUNT (AUTO) 9.1 K/uL (4.8-10.8)
[2022-11-07 21:07] LABS: HEMOGLOBIN 6.9 g/dL (12.0-16.0)
--- NOTE | 2022-11-07 21:18 | NUR ---
RELAYED RPT HGB . POST BT 6.9 , HCT 22.1 - PROCEED #3 PRBC - PER DR Yaya THOMASON .
[2022-11-07] MEDS: DEXT 5% /NACL 0.9% 1,000 ML IV SCH (21:48)
[2022-11-07] MEDS: HYDROmorphone 1 MG/ML AMP IVP PRN (21:49)
--- NOTE | 2022-11-07 23:29 | NUR ---
c/o sleeplessness - per pt she usually taking benadryl , referred to dr. concepcion - made new order - will carry out
[2022-11-07 23:50] VITALS: PULSE 78
[2022-11-08] VITALS (7 sets, daily range): BP systolic 90–114; BP diastolic 56–63; PULSE 70–80; RESP 18; TEMP 97.2–98.1; O2SAT 99–100
--- NOTE | 2022-11-08 00:30 | NUR ---
bt on going , no s/sx of bt rxn - will increase the rate gradually , will cont. to monitor
--- NOTE | 2022-11-08 00:35 | NUR ---
BT STARTED , NO S/SX OF BT REACTION NOTED AT THIS TIME , WILL CONT. TO MONITOR , CALL LIGHT WITHIN REACH .
--- NOTE | 2022-11-08 02:00 | NUR ---
no s/sx of bt rxn , c/o pain - just medicated - will re assess
--- NOTE | 2022-11-08 02:20 | NUR ---
HIT THE CALL LIGHT , PT C/O ABDL PAIN , NON RADIATING , SHE RATES THE PAIN 8/10 , BP 108 / 60 , HR 77 , RR 18 , O2 SAT 100 % - WILL MEDICATE
[2022-11-08] MEDS: HYDROmorphone 1 MG/ML AMP IVP PRN ×5 (02:23→21:32)
--- NOTE | 2022-11-08 03:30 | NUR ---
3RD U OF PRBC COMPLETED - NO S/SX OF BT REACTION NOTED
--- NOTE | 2022-11-08 04:00 | NUR ---
rounds , no s/sx of acute distress noted
--- NOTE | 2022-11-08 06:00 | NUR ---
awake c/o pain - will medicate , bp 110 / 60 , hr 75 , rr 18 , o2 sat 100 % ,call light within reach , denies blood on the stool , clear u. o , will cont. to monitor .
[2022-11-08 06:34] LABS: BASOPHILS % (AUTO) 0.4 % (0.0-2.0); EOSINOPHILS # (AUTO) 0.3 K/uL (0-0.4); EOSINOPHILS % (AUTO) 5.1 % (0.0-4.0); HEMATOCRIT 24.8 % (36-48); HEMOGLOBIN 7.8 g/dL (12.0-16.0); LYMPHOCYTES % (AUTO) 35.7 % (20.5-51.1); MEAN CORPUSCULAR HEMOGLOBIN 24 pg (27-31); MEAN CORPUSCULAR HGB CONC 31 g/dL (33-37); MEAN CORPUSCULAR VOLUME 77.6 fL (80-94); MONOCYTES # (AUTO) 0.7 K/uL (0.8-1.0); MONOCYTES % (AUTO) 12.1 % (1.7-9.3); NEUTROPHILS # (AUTO) 2.6 K/uL (1.8-7.7); NEUTROPHILS % (AUTO) 46.7 % (42.2-75.2); PLATELET COUNT (AUTO) 288 K/uL (140-450); RED CELL DISTRIBUTION WIDTH 23.7 % (11.6-13.7); WHITE BLOOD COUNT (AUTO) 5.6 K/uL (4.8-10.8)
[2022-11-08] MEDS: DEXT 5% /NACL 0.9% 1,000 ML IV SCH ×2 (06:50→18:45)
--- NOTE | 2022-11-08 07:40 | NUR ---
endorsed pt for cont. of care .
--- NOTE | 2022-11-08 07:41 | NUR ---
RECEIVED BEDSIDE REPORT FROM MANAGER PERSONAL NURSE FOR CONTINUITY OF CARE. PT IS AWAKE, NO SIGN OF DISTRESS. CALL LIGHT WITHIN REACH.
[2022-11-08] MEDS ORDERED: clonazePAM 0.5 MG TAB PO PRN (08:45)
[2022-11-08] MEDS: clonazePAM 0.5 MG TAB PO PRN ×2 (11:34→21:33)
--- NOTE | 2022-11-08 16:35 | NUR ---
PT'S FAMILY AT BEDSIDE, PT IS STABLE AND NO SIGN OF DISTRESS. CALL LIGHT WITHIN REACH.
[2022-11-08] MEDS ORDERED: TPN PER PHARMACY MC SCH (18:40)
[2022-11-08] MEDS: PANTOPRAZOLE 40 MG INJ VIAL IVP SCH ×2 (18:47→21:06)
--- NOTE | 2022-11-08 19:30 | NUR ---
GAVE BEDSIDE REPORT FROM GOLD LEAF LABORER NURSE FOR CONTINUITY OF CARE. PT IS AWAKE AND ALERT, NO SIGN OF DISTRESS. CALL LIGHT WITHIN REACH.
--- NOTE | 2022-11-08 19:30 | NUR ---
RECEIVED REPORT FROM DAY SHIFT NURSE ORTEGA FOR CONTINUITY OF CARE. PATIENT IS A&O X4. PATIENT IS ON ROOM AIR BREATHING IS NORMAL WITH SYMMETRICAL RISE AND FALL OF CHEST. IV IS A 20G RFA, AND A PICCLINE NETTIE RUNNING D5 NS 100. PATIENT IS SITTING IN SEMI-FOWLERS POSITION. BED IS IN LOWEST POSITION, WHEELS LOCKED, CALL LIGHT IN PLACE. WILL CONTINUE TO OBSERVE PATIENT.
--- NOTE | 2022-11-08 22:45 | NUR ---
PATIENT CALLED FOR PAIN MEDICATION FOR 8/10 ABDOMINAL PAIN RADIATING TO BACK. CHECKED VITALS AND CHART; DILAUDID WAS APPROPRIATE TO ADMINISTER. MEDICATION ADMINISTERED AT 2132 SUCCESSFULLY WITHOUT ANY ISSUE WITH IV. REASSESSED PATIENT AT 2245; PATIENT WAS SLEEPING. BREATHING WAS NORMAL WITH SYMMETRICAL RISE AND FALL OF CHEST. WILL CONTINUE TO OBSERVE PATIENT.
[2022-11-09] VITALS: BP 114/51; PULSE 69; PULSE 74; RESP 18; TEMP 96.7; O2SAT 100
[2022-11-09] MEDS: HYDROmorphone 1 MG/ML AMP IVP PRN ×5 (01:40→20:23)
[2022-11-09] MEDS: DEXT 5% /NACL 0.9% 1,000 ML IV SCH ×3 (02:50→21:51)
--- NOTE | 2022-11-09 03:00 | NUR ---
PATIENT CALLED AND REQUESTED PAIN MEDICATION. CHECKED PATIENT'S VITALS AND CHART; DILAUDID WAS APPROPRIATE TO ADMINISTER. MEDICATION WAS ADMINISTERED SUCCESSFULLY AT 0140 WITHOUT ANY ISSUES WITH IV. REASSESSED PATIENT AT 0250; PATIENT WAS SLEEPING. BREATHING WAS NORMAL WITH SYMMETRICAL RISE AND FALL OF CHEST. WILL CONTINUE TO OBSERVE PATIENT.
[2022-11-09 04:00] VITALS: BP 96/55; PULSE 81; PULSE 85; RESP 18; TEMP 96.9; O2SAT 98
--- NOTE | 2022-11-09 07:05 | NUR ---
PATIENT CALLED REQUESTING DILAUDID FOR PAIN. CHECKED VITALS (BP 111/62 HR 77), AND CHART. DILAUDID WAS APPROPRIATE TO ADMINISTER. ADMINISTRATION WAS SUCCESSFUL WITHOUT ANY ISSUES WITH IV. WILL ENDORSE REASSESSMENT TO DAY SHIFT NURSE.
--- NOTE | 2022-11-09 07:12 | NUR ---
ENDORSED PATIENT TO DAY SHIFT NURSE ORTEGA FOR CONTINUITY OF CARE. PATIENT IS STABLE.
--- NOTE | 2022-11-09 07:13 | NUR ---
RECEIVED BEDSIDE REPORT FROM PSYCHIATRIC NURSE PRACTITIONER NURSE FOR CONTINUITY OF CARE. PT IS AWAKE, NO SIGNS OF DISTRESS. CALL LIGHT WITHIN REACH.
[2022-11-09 08:00] VITALS: BP 111/62; PULSE 70; PULSE 77; RESP 18; TEMP 97; O2SAT 100
[2022-11-09] MEDS: PANTOPRAZOLE 40 MG INJ VIAL IVP SCH (09:27)
[2022-11-09 10:48] LABS: ANION GAP 11.8 (8-16); CARBON DIOXIDE 21.9 mmol/L (21-32); CREATININE 0.6 mg/dL (0.6-1.3); POTASSIUM 3.7 mmol/L (3.5-5.1)
[2022-11-09 12:00] VITALS: BP 109/59; PULSE 71; PULSE 85; RESP 18; TEMP 96.9; O2SAT 100
[2022-11-09] MEDS ORDERED: SODIUM FERRIC GLUCONATE 125 MG in NACL 0.9% 100 ML IV SCH (15:00)
[2022-11-09 16:00] VITALS: BP 112/63; PULSE 74; RESP 18; TEMP 98; O2SAT 98
--- NOTE | 2022-11-09 16:00 | NUR ---
CHANGED PICC LINE DRESSING IN A STERILE TECHNIQUE , PICC LINE IS INTACT, NO SIGNS OF INFECTION.
--- NOTE | 2022-11-09 16:08 | NUR ---
11/09/22 RD FOLLOW UP COMPLETED.PLEASE REFER TO NUTRITION ASSESSMENT UNDER CARE ACTIVITY FOR ESTIMATED NUTRITIONAL NEEDS. 1.RECOMMEND CLEAR LIQUID DIET, GRADUALLY ADVANCING TO REGULAR DIET TOLERATED. IF TPN IS NEEDED FOR PATIENT PLEASE FOLLOW UP WITH PHARMACY. 2. RD WILL CONTINUE TO MONITOR WEIGHT, GI ISSUES, PO INTAKE, NUTRITION RELATED LAB VALUES. 3. RD TO FOLLOW-UP IN 2-3 DAYS PATIENT IS HIGH RISK. AP TILLMAN RD
[2022-11-09] MEDS: PANTOPRAZOLE 80 MG in NACL 0.9% 100 ML IVP SCH (16:56)
[2022-11-09] MEDS: ERYTHROMYCIN 100 MG in NACL 0.9% 100 ML IV SCH (19:13)
--- NOTE | 2022-11-09 19:40 | NUR ---
ENDORSED PT TO FACULTY NEUROPSYCHOLOGIST NURSE FOR CONTINUITY OF CARE. PT IS STABLE, FAMILY AT BEDSIDE. CALL LIGHT WITHIN REACH.
--- NOTE | 2022-11-09 19:55 | NUR ---
PER JULISA KLINE SHE HEARD THE CONVERSATION BETWEEN DR. JOSHUA AND THE PT THAT THE DR. JOSHUA 'S PLAN IS PT IS FOR EGD WIL Javier WILL INFROM ABOUT THE DISPOSITION ABOUT TPN . Addendum: 11/09/22 at 2012 by Inga Griffin RN INFORM DR. MOONEY PT IS FOR [facility] . PER DR. MOONEY HOLD THE TPN FOR AWHILE THEN REMAIN THE PRESENT IVF W/ D5 - WILL ENDORSE .
[2022-11-09 20:00] VITALS: BP 125/75; PULSE 75; PULSE 76; RESP 18; TEMP 98.6; O2SAT 100; O2SAT 98
[2022-11-09] MEDS ORDERED: INSULIN LISPRO SLIDING SCALE 100 UNITS/ML VIAL SUBQ PRN (20:00)
[2022-11-09] MEDS: MULTIVITAMIN-12 10 ML in DEXTROSE 50% 600 ML, AMINO ACIDS 8.5% 500 ML, FAT EMULSION 20%... IV SCH ×4 (20:00)
--- NOTE | 2022-11-09 20:00 | NUR ---
HIT THE CALL LIGHT , C/O PAIN SHE RATES 8/ 10 , BP 125 / 75 , ND 75 , RR 18 M O2 SAT 100 % - WILL MEDICATE
[2022-11-09] MEDS: BLOOD GLUCOSE MONITORING 1 DEV DEV MC SCH (22:04)
--- NOTE | 2022-11-09 23:48 | NUR ---
PER PHARMACIST MELIDA IT IS OK TO GIVE THE ERTHROMYCIN TIV AT 12MN . Addendum: 11/09/22 at 2351 by Inga Griffin RN PER CHEPE MONTEZ IF TOO CLOSE THE TIME INTERVAL OF PROTONIX AND THE PREVIOUSLY PROTONIX STILL ON GOING , JUST REMOVE IT AND DISREGARD IT AND HOOK THE PROTONIX SCHEDULED AT 0000
[2022-11-10] VITALS: PULSE 78
[2022-11-10] MEDS: ERYTHROMYCIN 100 MG in NACL 0.9% 100 ML IV SCH ×6 (00:15→23:32)
[2022-11-10] MEDS: BLOOD GLUCOSE MONITORING 1 DEV DEV MC SCH ×5 (00:26→23:52)
[2022-11-10 00:30] VITALS: BP 110/62; PULSE 76; RESP 18; TEMP 98.5; O2SAT 98
[2022-11-10] MEDS: PANTOPRAZOLE 80 MG in NACL 0.9% 100 ML IVP SCH ×3 (00:30→20:17)
--- NOTE | 2022-11-10 00:30 | NUR ---
C/O PAIN BP 110 / 62 , HR 76 , RR 18 , O2 SAT 98 % - WILL MEDICATE
[2022-11-10] MEDS: HYDROmorphone 1 MG/ML AMP IVP PRN ×6 (00:37→23:32)
--- NOTE | 2022-11-10 02:00 | NUR ---
ROUNDS , PER PT THE PAIN NOW IS REDUCED.
[2022-11-10 04:00] VITALS: BP 105/62; PULSE 63; PULSE 72; RESP 18; TEMP 98.8; O2SAT 98
--- NOTE | 2022-11-10 05:00 | NUR ---
rounds , c/o pain , pain med just given by alex sheriff will cont. to monitor
[2022-11-10 05:34] LABS: ANION GAP 13.8 (8-16); BASOPHILS % (AUTO) 0.4 % (0.0-2.0); CARBON DIOXIDE 22.7 mmol/L (21-32); CREATININE 0.6 mg/dL (0.6-1.3); EOSINOPHILS # (AUTO) 0.3 K/uL (0-0.4); EOSINOPHILS % (AUTO) 4.8 % (0.0-4.0); HEMATOCRIT 27.2 % (36-48); HEMOGLOBIN 8.7 g/dL (12.0-16.0); LYMPHOCYTES # (AUTO) 1.4 K/uL (2.5-16.5); LYMPHOCYTES % (AUTO) 18.8 % (20.5-51.1); MEAN CORPUSCULAR HEMOGLOBIN 24 pg (27-31); MEAN CORPUSCULAR HGB CONC 32 g/dL (33-37); MEAN CORPUSCULAR VOLUME 75.8 fL (80-94); MONOCYTES # (AUTO) 0.5 K/uL (0.8-1.0); MONOCYTES % (AUTO) 6.3 % (1.7-9.3); NEUTROPHILS % (AUTO) 69.7 % (42.2-75.2); PLATELET COUNT (AUTO) 343 K/uL (140-450); POTASSIUM 3.5 mmol/L (3.5-5.1); RED BLOOD CELL COUNT(AUTO) 3.59 MIL/uL (4.20-5.40); RED CELL DISTRIBUTION WIDTH 23.4 % (11.6-13.7); WHITE BLOOD COUNT (AUTO) 7.2 K/uL (4.8-10.8)
[2022-11-10 05:38] LABS: MAGNESIUM 1.8 mg/dL (1.8-2.4); PHOSPHORUS 3.8 mg/dL (2.5-4.9)
--- NOTE | 2022-11-10 06:00 | NUR ---
sleeping , but easily arousable , will cont. to monitor . reminds npo
--- NOTE | 2022-11-10 07:24 | NUR ---
endorsed pt for cont. of care .
[2022-11-10 08:00] VITALS: BP 109/62; PULSE 64; PULSE 70; PULSE 78; RESP 17; RESP 18; TEMP 97.2; O2SAT 100; O2SAT 98
--- NOTE | 2022-11-10 08:30 | NUR ---
Patient's Plan of Care was discussed and reviewed with RESIDENTIAL AIDE: JOSSUE
[2022-11-10] MEDS: SODIUM FERRIC GLUCONATE 125 MG in NACL 0.9% 100 ML IV SCH ×2 (09:31→20:18)
[2022-11-10] MEDS: DEXT 5% /NACL 0.9% 1,000 ML IV SCH (09:50)
[2022-11-10] MEDS: MULTIVITAMIN-12 10 ML in DEXTROSE 50% 600 ML, AMINO ACIDS 8.5% 500 ML, FAT EMULSION 20%... IV SCH ×4 (14:13)
--- NOTE | 2022-11-10 15:11 | NUR ---
PT TAKEN TO OR.
[2022-11-10 16:00] VITALS: BP 112/66; PULSE 66; RESP 18; TEMP 97.6; O2SAT 99
--- NOTE | 2022-11-10 16:25 | NUR ---
DC PLANN[age] YRS OLD FEMALE PATIENT WAS ADMITTED FROM HOME WITH A DX OF SEVER ANEMIA UTI. PATIENT HAS A HX OF PUD, PERFORATION STATUS POST GASTRIC SURGERY. CT ABD SHOWED DISTENDED STOMACH NO EVIDENCE OF BOWEL BOWEL OBSTRUCTION. ADMINISTERED IVF , IV FERREIN ,IV ERYTHROMYCIN AND ROCEPHIN. CONSULTED WITH GI AND SURGEON . DC PLAN TO GO HOME WHEN STABLE . CM TO FOLLOW Addendum: 11/12/22 at 1129 by Mable Marks RN DC PLANNING: PER DR JOSHUA'S RECOMMENDATION, DR HOYT ORDERED PATIENT TO BE TRANSFERRED TO HIGHER LEVEL OF CARE FOR EGD + GASTRECTOMY VS GASTROJEJUNOSTOMY. FAXED TO [facility]. CM TO FOLLOW Addendum: 11/13/22 at 1156 by Mable Marks RN LATE ENTRY 11/12/22 AT 1330 CALLED [facility] [phone] SPOKE WITH SHARON ADMINISTRATIVE OFFICE MANAGER STATED RECEIVED THE HIGHER LEVEL OF CARE AND THE CM WILL BE ROGER AND SENT HER MESSAGE TO RETURN THE CALL. CM TO FOLLOW Addendum: 11/13/22 at 1157 by Mable Marks RN DC PLANNING: CALLED AYLA DURAN [phone] LEFT A MESSAGE REGARDING HIGHER LEVEL OF CARE. CM TO FOLLOW
--- NOTE | 2022-11-10 18:00 | NUR ---
BLOOD SUGAR CHECK DONE- 90. NO COVERAGE NEEDED.
--- NOTE | 2022-11-10 19:15 | NUR ---
RECEIVED PT IN BED AWAKE, ALERT AND ORIENTED X4. DENIES PAIN AT THIS TIME. NO ACUTE RESPIRATORY DISTRESS. SKIN WARM AND DRY TO TOUCH. SAFETY PRECAUTIONS IN PLACE, CALL LIGHT WITHIN REACH.
--- NOTE | 2022-11-10 19:29 | NUR ---
ENDORSED PT TO GYM TEACHER NURSE FOR CONTINUITY OF CARE. PT IS STABLE.
[2022-11-10 20:00] VITALS: BP 119/60; PULSE 75; PULSE 78; RESP 18; TEMP 98; O2SAT 100
--- NOTE | 2022-11-11 | NUR ---
BS-93 MG/DL, NO S/SX OF HYPO/HYPERGYCEMIA. TRN INFUSING ORDERED. CURRENTLY PT NPO.
--- NOTE | 2022-11-11 02:48 | NUR ---
PATIENT IS ASLEEP. BREATHING EVEN AND UNLABORED. CALL LIGHT WITHIN REACH.
[2022-11-11] MEDS: HYDROmorphone 1 MG/ML AMP IVP PRN ×3 (03:34→12:52)
[2022-11-11 04:00] VITALS: BP 114/64; PULSE 74; RESP 18; TEMP 98.2; O2SAT 100
[2022-11-11] MEDS: ERYTHROMYCIN 100 MG in NACL 0.9% 100 ML IV SCH ×3 (05:24→18:07)
[2022-11-11] MEDS: PANTOPRAZOLE 80 MG in NACL 0.9% 100 ML IVP SCH ×2 (05:24→16:43)
[2022-11-11] MEDS: BLOOD GLUCOSE MONITORING 1 DEV DEV MC SCH ×3 (05:25→18:12)
[2022-11-11 05:37] LABS: BASOPHILS % (AUTO) 0.5 % (0.0-2.0); EOSINOPHILS # (AUTO) 0.4 K/uL (0-0.4); EOSINOPHILS % (AUTO) 4.9 % (0.0-4.0); HEMATOCRIT 28.7 % (36-48); HEMOGLOBIN 9.2 g/dL (12.0-16.0); LYMPHOCYTES # (AUTO) 1.2 K/uL (2.5-16.5); LYMPHOCYTES % (AUTO) 15.7 % (20.5-51.1); MEAN CORPUSCULAR HEMOGLOBIN 24 pg (27-31); MEAN CORPUSCULAR HGB CONC 32 g/dL (33-37); MONOCYTES # (AUTO) 0.5 K/uL (0.8-1.0); MONOCYTES % (AUTO) 6.9 % (1.7-9.3); NEUTROPHILS # (AUTO) 5.6 K/uL (1.8-7.7); PLATELET COUNT (AUTO) 357 K/uL (140-450); RED BLOOD CELL COUNT(AUTO) 3.82 MIL/uL (4.20-5.40); RED CELL DISTRIBUTION WIDTH 24.5 % (11.6-13.7); WHITE BLOOD COUNT (AUTO) 7.8 K/uL (4.8-10.8)
[2022-11-11 05:53] LABS: ANION GAP 14.3 (8-16); CARBON DIOXIDE 23.2 mmol/L (21-32); CREATININE 0.6 mg/dL (0.6-1.3); POTASSIUM 3.5 mmol/L (3.5-5.1)
[2022-11-11 06:06] LABS: MAGNESIUM 1.8 mg/dL (1.8-2.4); PHOSPHORUS 4.7 mg/dL (2.5-4.9)
--- NOTE | 2022-11-11 06:38 | NUR ---
PATIENT IS ASLEEP. NO DISTRESS NOTED. ALL NEEDS ATTENDED TO. SAFETY PRECAUTIONS MAINTAINED DURING THE SHIFT. CALL LIGHT REMAINS WITHIN REACH.
--- NOTE | 2022-11-11 07:15 | NUR ---
RECEIVED PT FROM DIGITAL MARKETING STRATEGIST NURSE FOR CONTINUITY OF CARE. PT IS AWAKE, AOX4. ABLE TO VERBALIZE NEEDS. RESPIRATIONS EVEN AND UNLABORED ON RA. CALL LIGHT WITHIN REACH. ALL SAFETY PRECAUTIONS IN PLACE.
[2022-11-11 08:00] VITALS: BP 103/54; PULSE 79; PULSE 95; RESP 18; TEMP 97.7; O2SAT 96; O2SAT 99
[2022-11-11] MEDS: SODIUM FERRIC GLUCONATE 125 MG in NACL 0.9% 100 ML IV SCH ×2 (10:47→21:27)
--- NOTE | 2022-11-11 13:41 | NUR ---
Hammer Mill Operator BEEF GRADER conducted a discharge planning assessment.
--- NOTE | 2022-11-11 13:53 | NUR ---
11/11/22 RD FOLLOW UP COMPLETED PLEASE REFER TO NUTRITION ASSESSMENT UNDER CARE ACTIVITY FOR ESTIMATED NUTRITIONAL NEEDS. 1. CONTINUE NPO TOLERATED AND ONCE MEDICALLY APPROPRIATE ADVANCE TO FULL LIQUID DIET. 2. CONTINUE TPN RATE PER PHARMACY FOR NOW. 3. RD WILL CONTINUE TO MONITOR TPN RATE, WEIGHTS, PO INTAKE, GI ISSUES AND NUTRITION RELATED LABS. 4. RD TO FOLLOW-UP 2-3 DAYS, HIGH RISK ALEXANDER FOY RD
[2022-11-11 16:00] VITALS: BP 104/52; PULSE 100; RESP 18; TEMP 98.5; O2SAT 99
--- NOTE | 2022-11-11 16:41 | NUR ---
Patient's Plan of Care was discussed and reviewed with GENERAL LEDGER BOOKKEEPER: JOSSUE
--- NOTE | 2022-11-11 17:27 | NUR ---
PATIENT IS NOT CLEARED FOR DISCHARGE FROM GI STANDPOINT PER DR JOSHUA.
--- NOTE | 2022-11-11 18:34 | NUR ---
PAIN REASSESSMENT DONE. PT STATES NORCO DOESN'T WORK FOR HER PAIN. INFORMED DR JOSHUA. AWAITING RESPONSE.
--- NOTE | 2022-11-11 19:11 | NUR ---
ENDORSED PT TO FURNITURE DECALS INSPECTOR NURSE FOR CONTINUITY OF CARE. PT IS STABLE.
--- NOTE | 2022-11-11 19:30 | NUR ---
RECEIVED REPORT FROM DAY SHIFT NURSE JOSSUE FOR CONTINUITY OF CARE. PATIENT IS A&O X4. PATIENT IS ON ROOM AIR; BREATHING IS NORMAL WITH SYMMETRICAL RISE AND FALL OF CHEST. PATIENT'S IV IS A PICC LINE IN THE RIGHT ARM AND A 22G R WRIST WITH TPN RUNNING 48.4 ML/HR. PATIENT IS AWAKE, LYING SEMI-FOWLERS IN BED. BREATHING IS NORMAL WITH SYMMETRICAL RISE AND FALL OF CHEST. WILL CONTINUE TO OBSERVE PATIENT.
[2022-11-11 20:00] VITALS: BP 99/44; PULSE 108; RESP 18; TEMP 98.9; O2SAT 99
[2022-11-11] MEDS: MULTIVITAMIN-12 10 ML in DEXTROSE 50% 600 ML, AMINO ACIDS 8.5% 500 ML, FAT EMULSION 20%... IV SCH ×4 (20:31)
[2022-11-11] MEDS: SERTRALINE 50 MG TAB PO SCH (21:24)
[2022-11-11] MEDS: MORPHINE SULFATE 4 MG/ML SYR IVP PRN (21:42)
--- NOTE | 2022-11-11 23:00 | NUR ---
PATIENT CALLED AND REQUESTED PAIN MEDICATION FOR 10/10 PAIN. OFFERED PATIENT THE NORCO; PATIENT STATED THAT NORCO WAS GIVEN EARLIER AND IT DID NOT HELP; PATIENT STATED THAT DAY SHIFT NURSE WAS WAITING FOR RESPONSE FROM PHYSICIAN FOR DIFFERENT PAIN MEDICATION. CHECKED DOCTOR PHONE; NO RESPONSE ON MEDICATION. MESSAGED DINING CAR SERVER PHYSICIAN DR. GUTIÉRREZ FOR PAIN MEDICATION INFORMING THAT DILAUDID HAD BEEN DISCONTINUED AND PATIENT IS STATING THAT NORCO WASN'T HELPING. DR. GUTIÉRREZ AUTHORIZED MORPHINE 4MG Q 4HOURS. CHECKED PATIENT'S VITALS: BP 115/80, HR 105; MEDICATION WAS APPROPRIATE TO ADMINISTER. MEDICATION ADMINISTERED SUCCESSFULLY WITHOUT ANY ISSUES WITH IV. REASSESSED PATIENT AT 2242; PATIENT WAS SLEEPING, BREATHING WAS NORMAL WITH SYMMETRICAL RISE AND FALL OF CHEST.
[2022-11-12] MEDS: ERYTHROMYCIN 100 MG in NACL 0.9% 100 ML IV SCH ×5 (00:50→23:46)
[2022-11-12] MEDS: BLOOD GLUCOSE MONITORING 1 DEV DEV MC SCH ×4 (00:59→17:28)
--- NOTE | 2022-11-12 01:00 | NUR ---
ADMINISTERED ERYTHRO IVPB TO PATIENT. MEDICATION BARCODE WOULD NOT SCAN. MEDICATION WAS VERIFIED WITH CHARGE NURSE ROSALBA FOR ACCURACY.
[2022-11-12] MEDS: PANTOPRAZOLE 80 MG in NACL 0.9% 100 ML IVP SCH ×3 (02:39→22:36)
--- NOTE | 2022-11-12 02:43 | NUR ---
ADMINISTERED PROTONIX IV TO PATIENT. BARCODE ON MEDICATION BAG WOULD NOT SCAN. VERIFIED MEDICATION WITH CHARGE NURSE ROSALBA FOR ACCURACY.
[2022-11-12 04:00] VITALS: BP 110/60; PULSE 105; RESP 18; TEMP 97.7; O2SAT 98
[2022-11-12] MEDS: MORPHINE SULFATE 4 MG/ML SYR IVP PRN ×4 (05:01→18:42)
[2022-11-12 05:50] LABS: ANION GAP 14.7 (8-16); CARBON DIOXIDE 23.6 mmol/L (21-32); CREATININE 0.9 mg/dL (0.6-1.3); POTASSIUM 3.3 mmol/L (3.5-5.1)
[2022-11-12 06:02] LABS: MAGNESIUM 1.7 mg/dL (1.8-2.4)
--- NOTE | 2022-11-12 06:15 | NUR ---
PATIENT REQUESTED PAIN MEDICATION FOR ABDOMINAL PAIN. ASSESSED VITALS, BP AND HR WERE WITHIN NORMAL RANGE. CHECKED CHART, MORPHINE WAS APPROPRIATE. MEDICATION WAS ADMINISTERED SUCCESSFULLY. REASSESSED PATIENT AT 0601; PATIENT WAS SLEEPING. WILL CONTINUE TO OBSERVE PATIENT.
--- NOTE | 2022-11-12 07:50 | NUR ---
ENDORSED TO DAY SHIFT NURSE DEBBY FOR CONTINUITY OF CARE. PATIENT IS STABLE.
[2022-11-12 08:00] VITALS: BP 138/85; PULSE 99; RESP 18; TEMP 97.9; O2SAT 98
[2022-11-12] MEDS: SODIUM FERRIC GLUCONATE 125 MG in NACL 0.9% 100 ML IV SCH ×2 (09:50→20:41)
[2022-11-12] MEDS: KCL 20 MEQ IN 100 mL PREMIX 200 ML IV SCH ×2 (11:47→13:23)
[2022-11-12] MEDS: GABAPENTIN 300 MG CAP PO SCH ×2 (13:16→17:27)
--- NOTE | 2022-11-12 15:51 | NUR ---
EARLY THIS MORNING, NURSE RECEIVE [employer] SHANEKA CONNELLY ([phone]) WHO WORKS FOR [employer], CALLED FOR UPDATE PATIENT'S DISCHARGE PLAN. NURSE INFORM GODWIN THAT GI SPECIALIST RECOMMENDATION IS TRANSFER PATIENT TL UPPER LEVEL CARE. THIS AFTERNOON, NURSE UPDATE PATIENT'S STATUS AFTER SOCIAL SERVICE FOR TRANSFER PATIENT TO HIGH LEVEL CARE ORDER WAS PLACE AND INFORM GODWIN THAT PATIENT IS NOT GOING TO DISCHARGE HOME TODAY. Addendum: 11/12/22 at 1934 by Teresita Cote RN ENDORSE PATIENT TO PM SHIFT NURSE IN STABLE CONDITION AND INFORM NURSE THAT PATIENT JUST HAVE 4MG MORPHINE FOR 8/10 PAIN, WHICH NEED F/U. ADDITIONAL, NURSE INFORM PM SHIFT NURSE THAT MAGNESIUM=1.7 AND POTASSIUM=3.3 ISSUE CORRECTED DURING DAY
[2022-11-12 16:00] VITALS: BP 110/53; PULSE 87; RESP 18; TEMP 98; O2SAT 100
--- NOTE | 2022-11-12 19:20 | NUR ---
RECD REPORT FROM JULISA FUNEZ. PATIENT RESTING IN BED, AWAKE, A/OX4, RESPIRATION EVEN AND UNLABORED. IVPB ERYTHROCIN INFUSING AT 100 ML/HR, PROTONIX 80 MG IVPB INFUSING AT 10 ML/HR., TPN AT 48.4 ML/HR , WITH RIGHT UPPER ARM PICC LINE DOUBLE LUMEN. AMBULATORY TO THE BR. TOLERATING WELL FULL LIQUID DIET. PAIN IN THE ABDOMEN 07/11, WAS GIVEN MORPHINE BY AM NURSE AT 1842. INSTRUCTED TO CALL NURSE IF GETTING OUT OF BED. VERBALIZED UNDERSTANDING.
[2022-11-12 20:00] VITALS: PULSE 112; RESP 18; TEMP 97.5; O2SAT 97
[2022-11-12] MEDS: MULTIVITAMIN-12 10 ML in DEXTROSE 50% 600 ML, AMINO ACIDS 8.5% 500 ML, FAT EMULSION 20%... IV SCH ×4 (20:35)
--- NOTE | 2022-11-12 21:00 | NUR ---
Patient's Plan of Care was discussed and reviewed with MAINTENANCE TECHNICIAN: AURELIA RODRIGUEZ
[2022-11-12] MEDS: SERTRALINE 50 MG TAB PO SCH (21:14)
--- NOTE | 2022-11-13 | NUR ---
SLEEPING COMFORTABLY IN BED, RESPIRATION EVEN AND UNLABORED.
[2022-11-13] MEDS: clonazePAM 0.5 MG TAB PO PRN (00:25)
[2022-11-13 00:28] VITALS: BP 115/52; PULSE 112; RESP 18; TEMP 97.5; O2SAT 98
[2022-11-13] MEDS: MORPHINE SULFATE 4 MG/ML SYR IVP PRN (00:33)
--- NOTE | 2022-11-13 02:00 | NUR ---
AMBULATED TO THE BR TO VOID, BACK TO BED AFTER VOIDING. SAFETY MAINTAINED.
--- NOTE | 2022-11-13 05:30 | NUR ---
WANTS PAIN MEDICATION, VERBALIZED 12/11. BP - 91/46, HR -100. EXPLAINED HER BP IS TOO LOW FOR THE MORPHINE TO BE GIVEN. REFUSED NORCO. WANTS TO WALK, WILL CHECK BP AGAIN.
[2022-11-13 05:39] LABS: ANION GAP 10.2 (8-16); CARBON DIOXIDE 24.9 mmol/L (21-32); CREATININE 0.7 mg/dL (0.6-1.3); POTASSIUM 4.1 mmol/L (3.5-5.1)
[2022-11-13] MEDS: ERYTHROMYCIN 100 MG in NACL 0.9% 100 ML IV SCH ×2 (05:42→13:54)
[2022-11-13 05:49] LABS: MAGNESIUM 2.3 mg/dL (1.8-2.4); PHOSPHORUS 2.3 mg/dL (2.5-4.9)
[2022-11-13] MEDS: BLOOD GLUCOSE MONITORING 1 DEV DEV MC SCH ×3 (06:00→13:00)
--- NOTE | 2022-11-13 07:20 | NUR ---
ENDORSED TO AM SHIFT NURSE FOR CONTINUITY OF CARE.
[2022-11-13 08:00] VITALS: BP 90/45; PULSE 94; RESP 18; TEMP 96.7; O2SAT 100
[2022-11-13] MEDS: SODIUM FERRIC GLUCONATE 125 MG in NACL 0.9% 100 ML IV SCH (09:08)
[2022-11-13] MEDS: PANTOPRAZOLE 80 MG in NACL 0.9% 100 ML IVP SCH (09:08)
[2022-11-13] MEDS: GABAPENTIN 300 MG CAP PO SCH ×2 (09:08→13:53)
--- NOTE | 2022-11-13 12:54 | NUR ---
11/13/22 RD FOLLOW UP COMPLETED PLEASE REFER TO NUTRITION ASSESSMENT UNDER CARE ACTIVITY FOR ESTIMATED NUTRITIONAL NEEDS. 1. CONTINUE ON WITH TPN RATE PER PHARMACY RECOMMENDATION. IF PATIENT CONTINUES ON CURRENT TPN RATE AND HAS 50% OF HER FULL LIQUID DIET AT EACH MEAL, SHE WILL MEET HER ESTIMATED NUTRITIONAL NEEDS FOR THE DAY. 2. CONTINUE ON FULL LIQUID DIET TOLERATED. 3. RD WILL CONTINUE TO MONITOR GI ISSUES, WEIGHTS, PO INTAKE AND TPN RATE. 4. RD TO FOLLOW-UP 2-3 DAYS, HIGH RISK ALEXANDER FOY RD
[2022-11-13 16:41] VITALS: BP 90/45; PULSE 94; RESP 18; TEMP 97.1
--- NOTE | 2022-11-13 18:20 | NUR ---
PT INFORMED OF DC. DC INSTRUCTIONS PROVIDED. ID BAND REMOVED. PAPERWORK SIGNED. PT LEFT UNIT WITH FAMILY, STABLE UPON DC, NO SIGNS OF DISTRESS.
== END 2022-11-13 18:15 | disposition home or self-care (01) | DRG 871 ==
LOC: MED 23:08 → MTU 11-07 07:01
PROVIDERS: ADMIT Internal Medicine; ATTEND Internal Medicine
PROC: 30233N1 Transfusion of Nonautologous Red Blood Cells into Peripheral Vein, Percutaneous Approach (ICD-10-PCS; principal; 2022-11-07)
DX: A41.9 Sepsis, unspecified organism (principal); K28.4 Chronic or unspecified gastrojejunal ulcer with hemorrhage; N39.0 Urinary tract infection, site not specified; E44.0 Moderate protein-calorie malnutrition; K31.1 Adult hypertrophic pyloric stenosis; K31.5 Obstruction of duodenum; K50.00 Crohn's disease of small intestine without complications; D62 Acute posthemorrhagic anemia; G89.29 Other chronic pain; D50.9 Iron deficiency anemia, unspecified; Z91.199 Patient's noncompliance with other medical treatment and regimen due to unspecified reason; Z90.3 Acquired absence of stomach [part of]; Z88.8 Allergy status to other drugs, medicaments and biological substances; Z91.013 Allergy to seafood; Z79.899 Other long term (current) drug therapy; Z79.1 Long term (current) use of non-steroidal anti-inflammatories (NSAID); Z68.24 Body mass index [BMI] 24.0-24.9, adult; Z87.11 Personal history of peptic ulcer disease
CPT/HCPCS: 36415; 36430; 80048; 80053; 81001; 82728; 82948; 83540; 83605; 83690; 83735; 84100; 84478; 84484; 85025; 85610; 85730; 86886; 86900; 86901; 86920; 87040; 87081; 87086; 96361; 96365; 96375; 99291; A9153; C9113; J0696; J1170; J1200; J1364; J1815; J2270; J2405; J2916; J3010; J3480; J7060; P9016

== ENCOUNTER 2022-12-18 23:45 | Inpatient (IN) | payer OTHER ==
[~2022-12-18] VITALS: Ht 162.6 cm; Wt 57.2 kg
[2022-12-18 23:45] VITALS: BP 96/66; PULSE 138; RESP 28; TEMP 98; O2SAT 98
[~2022-12-18 23:45] MED LIST changes: -ACET-10509 PO; -ACET-8905 PO; -LID5T TP; -MAG-27 PO
[2022-12-19] VITALS (16 sets, daily range): BP systolic 91–130; BP diastolic 42–93; PULSE 111–170; RESP 13–23; TEMP 96.9–100.6; O2SAT 94–100
[2022-12-19] MEDS ORDERED: fentaNYL citrate 0.05 MG/ML VIAL IVP ONE (00:10)
[2022-12-19] MEDS ORDERED: NACL 0.9% 1,000 ML IV ONE ×3 (00:10→23:10)
[2022-12-19 00:25] LABS: APPEARANCE,URINE CLEAR (CLEAR); BILIRUBIN,URINE 2+ (NEGATIVE); BLOOD, URINE 3+ (NEGATIVE); COLOR,URINE YELLOW (YELLOW); LEUKOCYTE ESTERASE ,URINE TRACE (NEGATIVE); NITRITE, URINE NEGATIVE (NEGATIVE); PH,URINE 5.5 (5.0-9.0); PROTEIN,URINE 3+ (NEGATIVE); UGLUCOSE NEGATIVE (NEGATIVE)
[2022-12-19 00:36] LABS: BASOPHILS % (AUTO) 0.9 % (0.0-2.0); EOSINOPHILS # (AUTO) 0.1 K/uL (0-0.4); EOSINOPHILS % (AUTO) 5.3 % (0.0-4.0); HEMATOCRIT 26.7 % (36-48); HEMOGLOBIN 8.7 g/dL (12.0-16.0); LYMPHOCYTES # (AUTO) 0.5 K/uL (2.5-16.5); LYMPHOCYTES % (AUTO) 20.4 % (20.5-51.1); MEAN CORPUSCULAR HEMOGLOBIN 27 pg (27-31); MEAN CORPUSCULAR HGB CONC 33 g/dL (33-37); MEAN CORPUSCULAR VOLUME 82.5 fL (80-94); NEUTROPHILS # (AUTO) 1.8 K/uL (1.8-7.7); NEUTROPHILS % (AUTO) 72.4 % (42.2-75.2); RED BLOOD CELL COUNT(AUTO) 3.24 MIL/uL (4.20-5.40); RED CELL DISTRIBUTION WIDTH 22.9 % (11.6-13.7); WHITE BLOOD COUNT (AUTO) 2.5 K/uL (4.8-10.8)
[2022-12-19 00:38] LABS: PLATELET COUNT (AUTO) 19 K/uL (140-450)
[2022-12-19 00:48] LABS: ICTOTEST POSITIVE (NEGATIVE)
[2022-12-19 00:49] LABS: BACTERIA,URINE >30 (MANY) /HPF (None Seen); MUCUS,URINE 1+ /LPF (None Seen); RBC,URINE TOO NUMEROUS TO COUN /HPF (0-5); SQUAMOUS EPITHELIAL CELL,UR 0-3 (FEW) /LPF (0-3 (FEW))
[2022-12-19 00:54] LABS: INR 0.99 (0.8-1.2); PARTIAL THROMBOPLASTIN TIME 27.1 secs (22-35.6); PROTHROMBIN TIME 10.4 secs (10.8-13.4)
[2022-12-19 01:01] LABS: ALANINE AMINOTRANSFERASE 30 U/L (12-78); ALKALINE PHOSPHATASE 673 U/L (50-136); ANION GAP 17.4 (8-16); ASPARTATE AMINOTRANSFERASE 36 U/L (15-37); CALCIUM 8.3 mg/dL (8.5-10.1); CARBON DIOXIDE 18.4 mmol/L (21-32); CHLORIDE 104 mmol/L (98-107); CREATININE 1.4 mg/dL (0.6-1.3); GFR ARICAN-AMERICAN 55 mL/min (>90); GFR NON ARICAN-AMERICAN 45 mL/min (>90); GLUCOSE 108 mg/dL (74-106); LIPASE 133 U/L (73-393); SODIUM SERUM 137 mmol/L (136-145); TOTAL BILIRUBIN 1.2 mg/dL (0.0-1.0); TOTAL PROTEIN, SERUM 6.3 g/dL (6.4-8.2); UREA NITROGEN, BLOOD 27 mg/dL (7-18)
[2022-12-19 01:04] LABS: POTASSIUM 2.8 mmol/L (3.5-5.1)
[2022-12-19 01:08] LABS: AMPHETAMINE, URINE NEGATIVE ng/ml (NEG <=1000); BARBITURATE, URINE NEGATIVE ng/ml (NEG <=200); BENZODIAZEPINE, URINE POSITIVE ng/mL (NEG <=200); CANNABINOID, URINE NEGATIVE ng/mL (NEG <=50); COCAINE, URINE NEGATIVE ng/mL (NEG <=300); OPIATE, URINE NEGATIVE ng/mL (NEG <=2000); PHENCYCLIDINE SCREEN,URINE NEGATIVE ng/mL (NEG <=25)
[2022-12-19 01:11] LABS: LACTIC ACID 5.2 mmol/L (0.4-2.0)
[2022-12-19] MEDS ORDERED: KCL 20 MEQ IN 100 mL PREMIX 100 ML IV ONE (01:15)
[2022-12-19] MEDS ORDERED: cefTRIAXone 1,000 MG VIAL ONE (01:38)
[2022-12-19 02:25] LABS: BLOOD GAS PCO2 20.4 mmHg (35-45); BLOOD GAS PH 7.389 (7.35-7.45); BLOOD GAS PO2 88.7 mmHg (75-100)
[2022-12-19 02:26] LABS: BLOOD GAS BASE EXCESS -11.6 mmol/L (-2.0-2.0)
[2022-12-19 02:27] LABS: BLOOD GAS O2 SAT% 96.9 % (92.0-98.5)
[2022-12-19] MEDS ORDERED: MORPHINE SULFATE 4 MG/ML SYR IVP ONE (05:30)
[2022-12-19] MEDS ORDERED: NACL 0.9% 500 ML IV ONE (05:55)
[2022-12-19] MEDS ORDERED: NOREPINEPHRINE 8 MG in DEXTROSE 5% 250 ML IV PRN (06:00)
[2022-12-19] MEDS ORDERED: NOREPINEPHRINE 4 MG/4 ML VIAL IV ONE (06:08)
[2022-12-19] MEDS ORDERED: ONDANSETRON 4 MG/2 ML VIAL IVP PRN (06:45)
[2022-12-19] MEDS ORDERED: ACETAMINOPHEN 325 MG TAB PO PRN (06:45)
[2022-12-19] MEDS ORDERED: HYDROcodone/APAP 5/325 MG 1 TAB TAB PO PRN (06:45)
[2022-12-19] MEDS ORDERED: LORazepam 2 MG/ML VIAL IVP PRN (06:45)
[2022-12-19] MEDS ORDERED: METO-485 PO (07:29)
[2022-12-19] MEDS ORDERED: ONDA-188 SL (07:29)
[2022-12-19] MEDS ORDERED: FAMO-90 PO (07:30)
[2022-12-19] MEDS ORDERED: HYDR-5080 PO (07:30)
[2022-12-19] MEDS ORDERED: DOCU-299 PO (07:30)
[2022-12-19 08:58] LABS: MEAN CORPUSCULAR HEMOGLOBIN 28 pg (27-31); MEAN CORPUSCULAR HGB CONC 32 g/dL (33-37); MEAN CORPUSCULAR VOLUME 85.2 fL (80-94); RED BLOOD CELL COUNT(AUTO) 2.02 MIL/uL (4.20-5.40); RED CELL DISTRIBUTION WIDTH 23.1 % (11.6-13.7)
[2022-12-19 09:11] LABS: HEMATOCRIT 17.2 % (36-48); HEMOGLOBIN 5.6 g/dL (12.0-16.0); PLATELET COUNT (AUTO) 18 K/uL (140-450)
[2022-12-19 09:15] LABS: ANION GAP 17.5 (8-16); CALCIUM 7.2 mg/dL (8.5-10.1); CARBON DIOXIDE 14.2 mmol/L (21-32); CREATININE 1.6 mg/dL (0.6-1.3); POTASSIUM 3.7 mmol/L (3.5-5.1)
[2022-12-19] MEDS: NACL 0.9% 1,000 ML IV SCH ×2 (09:55→19:55)
[2022-12-19 10:07] LABS: BASOPHILS % (MANUAL) 0 % (0-2); BLASTS, MANUAL % 0 % (0-0); EOSINOPHILS % (MANUAL) 0 % (0-4); LYMPHOCYTES % (MANUAL) 8 % (20-46); METAMYELOCYTES % 0 % (0-0); MONOCYTES % (MANUAL) 5 % (5-12); MYELOCYTES % 0 % (0-0); OTHER CELLS,MANUAL % 0 (0-0); PLASMA CELLS 0; PROMYELOCYTES % 0 % (0-0); SMUDGE CELLS 0
[2022-12-19 10:08] LABS: ANISOCYTOSIS 3+; OVALOCYTES 1+; PLATELET ESTIMATE DECREASED; SCHISTOCYTES 1+; TEAR DROP CELLS 1+
[2022-12-19] MEDS: MORPHINE SULFATE 4 MG/ML SYR IVP PRN ×3 (11:30→19:13)
[2022-12-19] MEDS: PANTOPRAZOLE 80 MG in NACL 0.9% 100 ML IVP SCH ×2 (11:34→19:20)
[2022-12-19] MEDS: METOCLOPRAMIDE 10 MG/2 ML INJ VIAL IVP SCH ×2 (12:26→18:03)
[2022-12-19] MEDS: PIPERACILLIN/TAZOBACTAM 3.375 GM in DEXTROSE 5% 50 ML IV SCH ×2 (12:26→21:37)
[2022-12-19] MEDS ORDERED: TPN PER PHARMACY MC PRN (13:05)
[2022-12-19 14:05] LABS: PHOSPHORUS 1.7 mg/dL (2.5-4.9)
[2022-12-19] MEDS ORDERED: SODIUM PHOSPHATE 30 MMOLE in NACL 0.9% 500 ML IV SCH (15:30)
[2022-12-19] MEDS ORDERED: INSULIN LISPRO SLIDING SCALE 100 UNITS/ML VIAL SUBQ PRN (18:00)
[2022-12-19] MEDS: BLOOD GLUCOSE MONITORING 1 DEV DEV MC SCH (18:03)
[2022-12-19 19:13] LABS: HEMATOCRIT 30.8 % (36-48); HEMOGLOBIN 10.3 g/dL (12.0-16.0)
[2022-12-19] MEDS ORDERED: MULTIVITAMIN IV SCH ×4 (20:00)
[2022-12-19] MEDS ORDERED: [UNRECOGNIZED DRUG - OTHER] IV SCH ×4 (20:00)
[2022-12-19] MEDS ORDERED: AMINO ACIDS IV SCH ×4 (20:00)
[2022-12-19] MEDS ORDERED: DEXTROSE IV SCH ×4 (20:00)
[2022-12-19] MEDS ORDERED: METOPROLOL 5 MG/5 ML VIAL IV SCH (20:05)
[2022-12-19] MEDS ORDERED: ADENOSINE 6 MG/2 ML VIAL IVP ONE (20:05)
[2022-12-19] MEDS ORDERED: METOPROLOL 5 MG/5 ML VIAL ONE (20:09)
[2022-12-19] MEDS ORDERED: ACETAMINOPHEN 325 MG SUPP RC PRN (20:25)
[2022-12-19] MEDS ORDERED: ACETAMINOPHEN 650 MG SUPP RC ONE ×2 (20:27→21:46)
[2022-12-19] MEDS ORDERED: VANCOMYCIN PER PHARMACY MC PRN (23:00)
[2022-12-19] MEDS ORDERED: MORPHINE SULFATE 2 MG/ML SYR IVP STA (23:09)
[2022-12-19 23:28] LABS: BASOPHILS % (AUTO) 0.1 % (0.0-2.0); EOSINOPHILS # (AUTO) 0.1 K/uL (0-0.4); EOSINOPHILS % (AUTO) 0.7 % (0.0-4.0); HEMATOCRIT 28.1 % (36-48); HEMOGLOBIN 9.4 g/dL (12.0-16.0); LYMPHOCYTES # (AUTO) 0.9 K/uL (2.5-16.5); LYMPHOCYTES % (AUTO) 6.4 % (20.5-51.1); MEAN CORPUSCULAR HEMOGLOBIN 28 pg (27-31); MEAN CORPUSCULAR HGB CONC 34 g/dL (33-37); MEAN CORPUSCULAR VOLUME 84.1 fL (80-94); MONOCYTES # (AUTO) 0.1 K/uL (0.8-1.0); MONOCYTES % (AUTO) 0.7 % (1.7-9.3); NEUTROPHILS # (AUTO) 13.4 K/uL (1.8-7.7); NEUTROPHILS % (AUTO) 92.1 % (42.2-75.2); PLATELET COUNT (AUTO) 43 K/uL (140-450); RED BLOOD CELL COUNT(AUTO) 3.34 MIL/uL (4.20-5.40); RED CELL DISTRIBUTION WIDTH 16.9 % (11.6-13.7); WHITE BLOOD COUNT (AUTO) 14.6 K/uL (4.8-10.8)
[2022-12-19 23:43] LABS: CALCIUM 7.1 mg/dL (8.5-10.1); CARBON DIOXIDE 15.1 mmol/L (21-32); CREATININE 1.6 mg/dL (0.6-1.3); POTASSIUM 3.1 mmol/L (3.5-5.1)
[2022-12-20] VITALS (22 sets, daily range): BP systolic 91–135; BP diastolic 44–87; PULSE 90–135; RESP 14–33; TEMP 96.2–99.8; O2SAT 94–100
[2022-12-20] MEDS: BLOOD GLUCOSE MONITORING 1 DEV DEV MC SCH ×2 (00:19→05:39)
[2022-12-20] MEDS ORDERED: VANCOMYCIN 1,000 MG VIAL ONE (01:57)
[2022-12-20] MEDS ORDERED: VANCOMYCIN 1GM/DEXT 5% PREMIX 200 ML IV ONE (02:00)
[2022-12-20] MEDS ORDERED: KCL 20 MEQ IN 100 mL PREMIX 200 ML IV ONE (03:00)
[2022-12-20] MEDS: MORPHINE SULFATE 4 MG/ML SYR IVP PRN ×3 (03:53→23:07)
[2022-12-20] MEDS: PIPERACILLIN/TAZOBACTAM 3.375 GM in DEXTROSE 5% 50 ML IV SCH ×3 (04:40→20:48)
[2022-12-20] MEDS: PANTOPRAZOLE 80 MG in NACL 0.9% 100 ML IVP SCH ×2 (05:26→16:23)
[2022-12-20] MEDS: METOCLOPRAMIDE 10 MG/2 ML INJ VIAL IVP SCH ×2 (05:29)
[2022-12-20] MEDS: NACL 0.9% 1,000 ML IV SCH (05:41)
[2022-12-20 06:18] LABS: BASOPHILS % (AUTO) 0.1 % (0.0-2.0); EOSINOPHILS # (AUTO) 0.1 K/uL (0-0.4); EOSINOPHILS % (AUTO) 0.6 % (0.0-4.0); HEMATOCRIT 22.7 % (36-48); HEMOGLOBIN 7.7 g/dL (12.0-16.0); LYMPHOCYTES # (AUTO) 1.3 K/uL (2.5-16.5); LYMPHOCYTES % (AUTO) 7.2 % (20.5-51.1); MEAN CORPUSCULAR HEMOGLOBIN 28 pg (27-31); MEAN CORPUSCULAR HGB CONC 34 g/dL (33-37); MEAN CORPUSCULAR VOLUME 83.6 fL (80-94); MONOCYTES # (AUTO) 0.7 K/uL (0.8-1.0); MONOCYTES % (AUTO) 3.8 % (1.7-9.3); NEUTROPHILS # (AUTO) 16.3 K/uL (1.8-7.7); NEUTROPHILS % (AUTO) 88.3 % (42.2-75.2); PLATELET COUNT (AUTO) 27 K/uL (140-450); RED BLOOD CELL COUNT(AUTO) 2.72 MIL/uL (4.20-5.40); RED CELL DISTRIBUTION WIDTH 17.1 % (11.6-13.7); WHITE BLOOD COUNT (AUTO) 18.4 K/uL (4.8-10.8)
[2022-12-20 07:20] LABS: ANION GAP 17.9 (8-16); CALCIUM 6.7 mg/dL (8.5-10.1); CARBON DIOXIDE 15.5 mmol/L (21-32); CREATININE 1.2 mg/dL (0.6-1.3); POTASSIUM 3.4 mmol/L (3.5-5.1)
[2022-12-20 07:23] LABS: MAGNESIUM 1.7 mg/dL (1.8-2.4); PHOSPHORUS 3.3 mg/dL (2.5-4.9)
[2022-12-20] MEDS ORDERED: ALBUMIN HUMAN 25% 100 ML IV SCH (09:00)
[2022-12-20] MEDS: POTASSIUM CHL 20MEQ/D5-NS 1,000 ML IV SCH ×2 (10:50→22:38)
[2022-12-20] MEDS ORDERED: MAG SULF 2000 MG/WATER PREMIX 50 ML IV ONE ×2 (12:10→18:37)
[2022-12-20] MEDS: ERYTHROMYCIN 100 MG in NACL 0.9% 100 ML IV SCH ×3 (13:44→23:35)
[2022-12-20] MEDS ORDERED: FUROSEMIDE 20 MG/2 ML VIAL IVP SCH (16:00)
[2022-12-20] MEDS: VANCOMYCIN 750 MG in DEXTROSE 5% 250 ML IV SCH (20:46)
[2022-12-21] VITALS (24 sets, daily range): BP systolic 89–130; BP diastolic 46–81; PULSE 73–92; RESP 12–29; TEMP 96.4–98.7; O2SAT 93–100
[2022-12-21 00:44] LABS: BASOPHILS # (AUTO) 0.1 K/uL (0.00-0.22); BASOPHILS % (AUTO) 0.4 % (0.0-2.0); EOSINOPHILS # (AUTO) 0.1 K/uL (0-0.4); EOSINOPHILS % (AUTO) 0.9 % (0.0-4.0); LYMPHOCYTES % (AUTO) 12.4 % (20.5-51.1); MEAN CORPUSCULAR HEMOGLOBIN 28 pg (27-31); MEAN CORPUSCULAR HGB CONC 33 g/dL (33-37); MEAN CORPUSCULAR VOLUME 83.6 fL (80-94); MONOCYTES # (AUTO) 0.7 K/uL (0.8-1.0); MONOCYTES % (AUTO) 4.2 % (1.7-9.3); NEUTROPHILS # (AUTO) 13.1 K/uL (1.8-7.7); NEUTROPHILS % (AUTO) 82.1 % (42.2-75.2); PLATELET COUNT (AUTO) 21 K/uL (140-450); RED BLOOD CELL COUNT(AUTO) 2.47 MIL/uL (4.20-5.40); RED CELL DISTRIBUTION WIDTH 17.5 % (11.6-13.7); WHITE BLOOD COUNT (AUTO) 15.9 K/uL (4.8-10.8)
[2022-12-21 01:00] LABS: HEMOGLOBIN 6.9 g/dL (12.0-16.0)
[2022-12-21 01:01] LABS: HEMATOCRIT 20.7 % (36-48)
[2022-12-21] MEDS: PANTOPRAZOLE 80 MG in NACL 0.9% 100 ML IVP SCH ×2 (03:05→14:21)
[2022-12-21] MEDS: MORPHINE SULFATE 4 MG/ML SYR IVP PRN ×4 (03:36→20:35)
[2022-12-21] MEDS: PIPERACILLIN/TAZOBACTAM 3.375 GM in DEXTROSE 5% 50 ML IV SCH ×3 (04:30→20:35)
[2022-12-21] MEDS: ERYTHROMYCIN 100 MG in NACL 0.9% 100 ML IV SCH ×3 (05:11→17:53)
[2022-12-21] MEDS: POTASSIUM CHL 20MEQ/D5-NS 1,000 ML IV SCH (07:26)
[2022-12-21 07:39] LABS: ANION GAP 10.9 (8-16); CALCIUM 6.7 mg/dL (8.5-10.1); CARBON DIOXIDE 21.5 mmol/L (21-32); CREATININE 0.8 mg/dL (0.6-1.3); POTASSIUM 3.4 mmol/L (3.5-5.1)
[2022-12-21 07:43] LABS: MAGNESIUM 2.9 mg/dL (1.8-2.4); PHOSPHORUS 2.1 mg/dL (2.5-4.9)
[2022-12-21 08:34] LABS: BASOPHILS % (AUTO) 0.4 % (0.0-2.0); EOSINOPHILS # (AUTO) 0.1 K/uL (0-0.4); EOSINOPHILS % (AUTO) 0.6 % (0.0-4.0); HEMATOCRIT 26.5 % (36-48); HEMOGLOBIN 8.8 g/dL (12.0-16.0); LYMPHOCYTES # (AUTO) 1.9 K/uL (2.5-16.5); LYMPHOCYTES % (AUTO) 16.7 % (20.5-51.1); MEAN CORPUSCULAR HEMOGLOBIN 28 pg (27-31); MEAN CORPUSCULAR HGB CONC 33 g/dL (33-37); MEAN CORPUSCULAR VOLUME 85.2 fL (80-94); MONOCYTES # (AUTO) 0.5 K/uL (0.8-1.0); MONOCYTES % (AUTO) 4.1 % (1.7-9.3); NEUTROPHILS # (AUTO) 8.7 K/uL (1.8-7.7); NEUTROPHILS % (AUTO) 78.2 % (42.2-75.2); PLATELET COUNT (AUTO) 20 K/uL (140-450); RED BLOOD CELL COUNT(AUTO) 3.11 MIL/uL (4.20-5.40); RED CELL DISTRIBUTION WIDTH 16.1 % (11.6-13.7); WHITE BLOOD COUNT (AUTO) 11.2 K/uL (4.8-10.8)
[2022-12-21] MEDS ORDERED: POTASSIUM CHLORIDE 20% 40 MEQ/15 ML UDC GT SCH (13:30)
[2022-12-21] MEDS ORDERED: ALBUMIN HUMAN 25% 100 ML IV SCH (13:30)
[2022-12-21] MEDS ORDERED: POTASSIUM PHOSPHATE 30 MM in NACL 0.9% 500 ML IV SCH (14:15)
[2022-12-21] MEDS: VANCOMYCIN 750 MG in DEXTROSE 5% 250 ML IV SCH (15:23)
[2022-12-21] MEDS: SODIUM FERRIC GLUCONATE 125 MG in NACL 0.9% 100 ML IV SCH (20:35)
[2022-12-21] MEDS ORDERED: FUROSEMIDE 20 MG/2 ML VIAL IVP SCH (21:00)
[2022-12-22] VITALS (25 sets, daily range): BP systolic 100–141; BP diastolic 67–86; PULSE 63–94; RESP 10–21; TEMP 96.2–98.2; O2SAT 92–100
[2022-12-22] MEDS: ERYTHROMYCIN 100 MG in NACL 0.9% 100 ML IV SCH ×4 (00:07→18:34)
[2022-12-22] MEDS: PANTOPRAZOLE 80 MG in NACL 0.9% 100 ML IVP SCH ×3 (00:07→18:43)
[2022-12-22] MEDS: MORPHINE SULFATE 4 MG/ML SYR IVP PRN ×4 (00:39→18:32)
[2022-12-22] MEDS: PIPERACILLIN/TAZOBACTAM 3.375 GM in DEXTROSE 5% 50 ML IV SCH ×3 (05:23→20:15)
[2022-12-22 07:26] LABS: BASOPHILS % (AUTO) 0.3 % (0.0-2.0); EOSINOPHILS # (AUTO) 0.2 K/uL (0-0.4); EOSINOPHILS % (AUTO) 2.6 % (0.0-4.0); HEMATOCRIT 25.5 % (36-48); HEMOGLOBIN 8.7 g/dL (12.0-16.0); LYMPHOCYTES # (AUTO) 1.6 K/uL (2.5-16.5); LYMPHOCYTES % (AUTO) 27.7 % (20.5-51.1); MEAN CORPUSCULAR HEMOGLOBIN 28 pg (27-31); MEAN CORPUSCULAR HGB CONC 34 g/dL (33-37); MEAN CORPUSCULAR VOLUME 83.6 fL (80-94); MONOCYTES # (AUTO) 0.2 K/uL (0.8-1.0); MONOCYTES % (AUTO) 4.2 % (1.7-9.3); NEUTROPHILS # (AUTO) 3.8 K/uL (1.8-7.7); NEUTROPHILS % (AUTO) 65.2 % (42.2-75.2); PLATELET COUNT (AUTO) 49 K/uL (140-450); RED BLOOD CELL COUNT(AUTO) 3.05 MIL/uL (4.20-5.40); RED CELL DISTRIBUTION WIDTH 15.7 % (11.6-13.7); WHITE BLOOD COUNT (AUTO) 5.8 K/uL (4.8-10.8)
[2022-12-22 07:36] LABS: ANION GAP 12.4 (8-16); CALCIUM 7.2 mg/dL (8.5-10.1); CREATININE 0.6 mg/dL (0.6-1.3); POTASSIUM 3.4 mmol/L (3.5-5.1)
[2022-12-22 08:04] LABS: MAGNESIUM 2.2 mg/dL (1.8-2.4); PHOSPHORUS 2.9 mg/dL (2.5-4.9)
[2022-12-22] MEDS: VANCOMYCIN 750 MG in DEXTROSE 5% 250 ML IV SCH (08:25)
[2022-12-22 09:23] LABS: INR 0.92 (0.8-1.2); PROTHROMBIN TIME 9.7 secs (10.8-13.4)
[2022-12-22] MEDS: SODIUM FERRIC GLUCONATE 125 MG in NACL 0.9% 100 ML IV SCH ×2 (09:54→20:54)
[2022-12-22] MEDS: POTASSIUM CHL 20MEQ/D5-NS 1,000 ML IV SCH (13:33)
[2022-12-22] MEDS ORDERED: POTASSIUM CHLORIDE 20% 40 MEQ/15 ML UDC GT SCH (15:29)
[2022-12-22] MEDS: KCL 20 MEQ IN 100 mL PREMIX 100 ML IV SCH ×2 (15:58→17:59)
[2022-12-22] MEDS ORDERED: VANCOMYCIN 750 MG in DEXTROSE 5% 250 ML IV SCH (20:00)
[2022-12-22] MEDS ORDERED: AMITRIPTYLINE 25 MG TAB PO SCH (21:00)
[2022-12-23] VITALS (15 sets, daily range): BP systolic 100–126; BP diastolic 54–79; PULSE 62–92; RESP 14–18; TEMP 97.1–98.1; O2SAT 94–100
[2022-12-23] MEDS: ERYTHROMYCIN 100 MG in NACL 0.9% 100 ML IV SCH ×4 (00:22→17:15)
[2022-12-23] MEDS: MORPHINE SULFATE 4 MG/ML SYR IVP PRN ×3 (00:26→09:35)
[2022-12-23] MEDS: POTASSIUM CHL 20MEQ/D5-NS 1,000 ML IV SCH (00:52)
[2022-12-23] MEDS: PIPERACILLIN/TAZOBACTAM 3.375 GM in DEXTROSE 5% 50 ML IV SCH ×2 (04:53→13:47)
[2022-12-23] MEDS: PANTOPRAZOLE 80 MG in NACL 0.9% 100 ML IVP SCH (04:56)
[2022-12-23 05:48] LABS: BASOPHILS % (AUTO) 0.3 % (0.0-2.0); EOSINOPHILS # (AUTO) 0.3 K/uL (0-0.4); HEMATOCRIT 27.6 % (36-48); HEMOGLOBIN 9.3 g/dL (12.0-16.0); LYMPHOCYTES # (AUTO) 1.9 K/uL (2.5-16.5); LYMPHOCYTES % (AUTO) 14.3 % (20.5-51.1); MEAN CORPUSCULAR HEMOGLOBIN 28 pg (27-31); MEAN CORPUSCULAR HGB CONC 34 g/dL (33-37); MEAN CORPUSCULAR VOLUME 84.5 fL (80-94); MONOCYTES # (AUTO) 0.6 K/uL (0.8-1.0); MONOCYTES % (AUTO) 4.3 % (1.7-9.3); NEUTROPHILS # (AUTO) 10.8 K/uL (1.8-7.7); NEUTROPHILS % (AUTO) 79.1 % (42.2-75.2); PLATELET COUNT (AUTO) 84 K/uL (140-450); RED BLOOD CELL COUNT(AUTO) 3.27 MIL/uL (4.20-5.40); RED CELL DISTRIBUTION WIDTH 15.6 % (11.6-13.7); WHITE BLOOD COUNT (AUTO) 13.6 K/uL (4.8-10.8)
[2022-12-23 08:38] LABS: ANION GAP 12.1 (8-16); CALCIUM 8.1 mg/dL (8.5-10.1); CARBON DIOXIDE 21.9 mmol/L (21-32); CREATININE 0.6 mg/dL (0.6-1.3)
[2022-12-23 08:56] LABS: MAGNESIUM 1.9 mg/dL (1.8-2.4)
[2022-12-23] MEDS: SODIUM FERRIC GLUCONATE 125 MG in NACL 0.9% 100 ML IV SCH (09:59)
[2022-12-23] MEDS ORDERED: PROPOFOL 200 MG/20 ML VIAL IV ONE ×3 (14:54)
[2022-12-23] MEDS ORDERED: LORazepam 2 MG/ML VIAL IVP PRN (16:00)
[2022-12-23] MEDS ORDERED: MAG SULF 2000 MG/WATER PREMIX 50 ML IV SCH (16:00)
[2022-12-23] MEDS ORDERED: MORPHINE SULFATE 2 MG/ML SYR IVP PRN (16:10)
[2022-12-23] MEDS ORDERED: PANTOPRAZOLE 40 MG INJ VIAL IVP SCH (21:00)
== END 2022-12-23 21:55 | disposition short-term general hospital (02) | DRG 314 ==
LOC: MED 23:45 → MMU 12-19 06:50 → MIC 12-19 10:29 → MTU 12-23 15:24
PROVIDERS: ADMIT Internal Medicine; ATTEND Internal Medicine
PROC: 30233N1 Transfusion of Nonautologous Red Blood Cells into Peripheral Vein, Percutaneous Approach (ICD-10-PCS; 2022-12-19)
PROC: 0DB98ZX Excision of Duodenum, Via Natural or Artificial Opening Endoscopic, Diagnostic (ICD-10-PCS; 2022-12-23)
PROC: 0D798ZZ Dilation of Duodenum, Via Natural or Artificial Opening Endoscopic (ICD-10-PCS; 2022-12-23)
PROC: 0DC68ZZ Extirpation of Matter from Stomach, Via Natural or Artificial Opening Endoscopic (ICD-10-PCS; principal; 2022-12-23 14:30)
DX: T80.211A Bloodstream infection due to central venous catheter, initial encounter (principal); A41.59 Other Gram-negative sepsis; N17.0 Acute kidney failure with tubular necrosis; R57.8 Other shock; R65.21 Severe sepsis with septic shock; N39.0 Urinary tract infection, site not specified; K92.2 Gastrointestinal hemorrhage, unspecified; K31.1 Adult hypertrophic pyloric stenosis; K31.5 Obstruction of duodenum; E44.0 Moderate protein-calorie malnutrition; D62 Acute posthemorrhagic anemia; J98.11 Atelectasis; D69.6 Thrombocytopenia, unspecified; R16.0 Hepatomegaly, not elsewhere classified; Z20.822 Contact with and (suspected) exposure to COVID-19; T18.2XXA Foreign body in stomach, initial encounter; G89.29 Other chronic pain; E83.42 Hypomagnesemia; K31.84 Gastroparesis; E87.6 Hypokalemia; Y84.8 Other medical procedures as the cause of abnormal reaction of the patient, or of later complication, without mention of misadventure at the time of the procedure; Y92.89 Other specified places as the place of occurrence of the external cause; Z90.49 Acquired absence of other specified parts of digestive tract; Z91.041 Radiographic dye allergy status; Z91.013 Allergy to seafood; Z88.6 Allergy status to analgesic agent; Z87.11 Personal history of peptic ulcer disease; Z68.21 Body mass index [BMI] 21.0-21.9, adult; Z79.899 Other long term (current) drug therapy; Z83.3 Family history of diabetes mellitus
CPT/HCPCS: 36415; 36430; 36600; 71045; 76705; 80048; 80053; 80202; 80305; 81001; 82803; 82948; 83605; 83690; 83735; 84100; 84478; 84484; 85018; 85025; 85384; 85610; 85730; 86886; 86900; 86901; 86920; 87040; 87081; 87086; 93005; 94010; 96361; 96365; 96367; 96375; 99291; A9153; C9113; J0696; J1364; J1815; J1940; J2060; J2270; J2405; J2543; J2704; J2765; J2916; J3010; J3370; J3475; J3480; J3490; J7030; J7060; J7120; P9016; P9035; P9046; Q0092

== ENCOUNTER 2023-05-09 15:34 | Inpatient (IN) | payer OTHER ==
[~2023-05-09] VITALS: Ht 157.5 cm; Wt 45.6 kg
[~2023-05-09 15:34] MED LIST changes: +DOCU-299 PO; +FAMO-90 PO; +FERR-15 PO; +HYDR-5080 PO; +METO-485 PO; +ONDA-188 SL; +PANT40EC56 PO; +SUCR1TAB35 PO
[2023-05-09 15:57] VITALS: BP 81/68; PULSE 123; RESP 22; TEMP 97.1; O2SAT 97
[2023-05-09 16:56] LABS: BASOPHILS # (AUTO) 0.1 K/uL (0.00-0.22); BASOPHILS % (AUTO) 0.6 % (0.0-2.0); EOSINOPHILS # (AUTO) 0.3 K/uL (0-0.4); EOSINOPHILS % (AUTO) 1.6 % (0.0-4.0); HEMATOCRIT 36.8 % (36-48); HEMOGLOBIN 11.9 g/dL (12.0-16.0); LYMPHOCYTES # (AUTO) 1.6 K/uL (2.5-16.5); LYMPHOCYTES % (AUTO) 9.5 % (20.5-51.1); MEAN CORPUSCULAR HEMOGLOBIN 24 pg (27-31); MEAN CORPUSCULAR HGB CONC 32 g/dL (33-37); MEAN CORPUSCULAR VOLUME 72.5 fL (80-94); MONOCYTES # (AUTO) 0.7 K/uL (0.8-1.0); MONOCYTES % (AUTO) 4.5 % (1.7-9.3); NEUTROPHILS % (AUTO) 83.8 % (42.2-75.2); PLATELET COUNT (AUTO) 457 K/uL (140-450); RED BLOOD CELL COUNT(AUTO) 5.07 MIL/uL (4.20-5.40); RED CELL DISTRIBUTION WIDTH 26.4 % (11.6-13.7); WHITE BLOOD COUNT (AUTO) 16.7 K/uL (4.8-10.8)
[2023-05-09 17:05] LABS: ANION GAP 10.4 (8-16); CALCIUM 8.8 mg/dL (8.5-10.1); CARBON DIOXIDE 40.1 mmol/L (21-32); CREATININE 2.2 mg/dL (0.6-1.3)
[2023-05-09] MEDS ORDERED: MORPHINE SULFATE 2 MG/ML SYR IVP ONE ×2 (17:05→19:00)
[2023-05-09] MEDS ORDERED: ONDANSETRON 4 MG/2 ML VIAL IVP ONE (17:05)
[2023-05-09 17:08] LABS: POTASSIUM 2.5 mmol/L (3.5-5.1)
[2023-05-09 17:15] LABS: APPEARANCE,URINE CLOUDY (CLEAR); BILIRUBIN,URINE 1+ (NEGATIVE); BLOOD, URINE NEGATIVE (NEGATIVE); COLOR,URINE YELLOW (YELLOW); LEUKOCYTE ESTERASE ,URINE TRACE (NEGATIVE); NITRITE, URINE NEGATIVE (NEGATIVE); PROTEIN,URINE 2+ (NEGATIVE); UGLUCOSE NEGATIVE (NEGATIVE); UROBILINOGEN,URINE 0.2 EU/dL (0.2 - 1)
[2023-05-09 17:16] LABS: INR 0.94 (0.8-1.2); PROTHROMBIN TIME 9.9 secs (10.8-13.4)
[2023-05-09 17:21] LABS: ICTOTEST NEGATIVE (NEGATIVE); RBC,URINE 0 /HPF (0-5); WBC,URINE 0-5 /HPF (0-5)
[2023-05-09 17:22] LABS: BACTERIA,URINE 1+ /HPF (None Seen); MUCUS,URINE None Seen /LPF (None Seen); SQUAMOUS EPITHELIAL CELL,UR 4-10 (MOD) /LPF (0-3 (FEW))
[2023-05-09 17:24] LABS: LACTIC ACID 1.2 mmol/L (0.4-2.0)
[2023-05-09 17:31] LABS: MAGNESIUM 2.2 mg/dL (1.8-2.4); PHOSPHORUS 7.6 mg/dL (2.5-4.9)
[2023-05-09 17:46] LABS: ALANINE AMINOTRANSFERASE 35 U/L (12-78); ALKALINE PHOSPHATASE 510 U/L (50-136); ASPARTATE AMINOTRANSFERASE 34 U/L (15-37); BILIRUBIN,DIRECT 0.2 mg/dL (0.0-0.3); LIPASE 18 U/L (16-77); TOTAL BILIRUBIN 1.1 mg/dL (0.0-1.0); TOTAL PROTEIN, SERUM 8.4 g/dL (6.4-8.2)
[2023-05-09 18:06] LABS: FLU A ANTIGEN negative (NEGATIVE); FLU B ANTIGEN NEGATIVE (NEGATIVE)
[2023-05-09] MEDS ORDERED: NACL 0.9% 1,000 ML IV ONE (18:35)
[2023-05-09] MEDS ORDERED: KCL 20 MEQ IN 100 mL PREMIX 200 ML IV ONE (18:35)
[2023-05-09] MEDS ORDERED: ACETAMINOPHEN 325 MG TAB PO PRN (21:00)
[2023-05-09] MEDS ORDERED: NACL 0.9% 1,000 ML IV SCH (21:00)
[2023-05-09 22:15] VITALS: O2SAT 96
[2023-05-09] MEDS: MORPHINE SULFATE 2 MG/ML SYR IVP PRN (23:25)
[2023-05-10 02:45] VITALS: O2SAT 96
[2023-05-10 06:37] LABS: HEMATOCRIT 27.9 % (36-48); HEMOGLOBIN 8.9 g/dL (12.0-16.0); MEAN CORPUSCULAR HEMOGLOBIN 23 pg (27-31); MEAN CORPUSCULAR HGB CONC 32 g/dL (33-37); MEAN CORPUSCULAR VOLUME 72.2 fL (80-94); PLATELET COUNT (AUTO) 334 K/uL (140-450); RED BLOOD CELL COUNT(AUTO) 3.86 MIL/uL (4.20-5.40); RED CELL DISTRIBUTION WIDTH 26.1 % (11.6-13.7)
[2023-05-10 06:53] VITALS: O2SAT 96
[2023-05-10 07:29] LABS: ALBUMIN 1.4 g/dL (3.4-5.0); CALCIUM 7.6 mg/dL (8.5-10.1); CARBON DIOXIDE 36.4 mmol/L (21-32); MAGNESIUM 2.2 mg/dL (1.8-2.4); TOTAL BILIRUBIN 0.3 mg/dL (0.0-1.0); TOTAL PROTEIN, SERUM 5.9 g/dL (6.4-8.2)
[2023-05-10 07:38] LABS: ANION GAP 6.8 (8-16)
[2023-05-10 07:40] LABS: POTASSIUM 2.2 mmol/L (3.5-5.1)
[2023-05-10 07:45] LABS: EOSINOPHILS % (MANUAL) 11 % (0-4); LYMPHOCYTES % (MANUAL) 23 % (20-46); MONOCYTES % (MANUAL) 10 % (5-12)
[2023-05-10] MEDS ORDERED: KCL 20 MEQ IN 100 mL PREMIX 200 ML IV SCH (08:15)
[2023-05-10] MEDS: ENOXAPARIN 40 MG/0.4 ML SYR SUBQ SCH (09:00)
[2023-05-10] MEDS ORDERED: PANTOPRAZOLE 40 MG INJ VIAL IVP SCH (09:00)
[2023-05-10] MEDS ORDERED: KCL 20 MEQ IN 100 mL PREMIX 200 ML IV PRN (10:40)
[2023-05-10] MEDS ORDERED: POTASSIUM CHLORIDE 10 MEQ TABER PO PRN (10:40)
[2023-05-10] MEDS ORDERED: MAG SULF 2000 MG/WATER PREMIX 50 ML IV PRN (10:40)
[2023-05-10] MEDS ORDERED: MAGNESIUM OXIDE 400 MG TAB PO PRN (10:40)
[2023-05-10] MEDS: MORPHINE SULFATE 2 MG/ML SYR IVP PRN ×2 (11:00→15:05)
[2023-05-10 13:00] VITALS: RESP 19; O2SAT 95
[2023-05-10] MEDS: POTASSIUM CHL 20 MEQ/NACL 0.9% 1,000 ML IV SCH ×2 (13:00→21:05)
[2023-05-10] MEDS: SUCRALFATE 1 GM TAB PO SCH ×3 (15:04→21:00)
[2023-05-10 15:48] LABS: ANION GAP 4.4 (8-16); CALCIUM 7.8 mg/dL (8.5-10.1); CARBON DIOXIDE 39.2 mmol/L (21-32); CREATININE 0.8 mg/dL (0.6-1.3)
[2023-05-10 16:00] LABS: POTASSIUM 2.6 mmol/L (3.5-5.1)
[2023-05-10 20:00] VITALS: BP 136/82; PULSE 106; PULSE 17; RESP 17; RESP 18; RESP 19; O2SAT 95
[2023-05-10] MEDS: PANTOPRAZOLE 40 MG INJ VIAL IVP SCH (21:00)
[2023-05-10] MEDS ORDERED: POTASSIUM CHLORIDE 10 MEQ in NACL 0.9% 1,000 ML IV SCH (21:00)
[2023-05-11 05:20] LABS: BASOPHILS % (AUTO) 0.2 % (0.0-2.0); EOSINOPHILS # (AUTO) 0.8 K/uL (0-0.4); EOSINOPHILS % (AUTO) 10.8 % (0.0-4.0); HEMATOCRIT 30.5 % (36-48); HEMOGLOBIN 9.7 g/dL (12.0-16.0); LYMPHOCYTES % (AUTO) 27.7 % (20.5-51.1); MEAN CORPUSCULAR HEMOGLOBIN 23 pg (27-31); MEAN CORPUSCULAR HGB CONC 32 g/dL (33-37); MONOCYTES # (AUTO) 0.6 K/uL (0.8-1.0); MONOCYTES % (AUTO) 8.9 % (1.7-9.3); NEUTROPHILS # (AUTO) 3.8 K/uL (1.8-7.7); NEUTROPHILS % (AUTO) 52.4 % (42.2-75.2); PLATELET COUNT (AUTO) 378 K/uL (140-450); RED BLOOD CELL COUNT(AUTO) 4.24 MIL/uL (4.20-5.40); RED CELL DISTRIBUTION WIDTH 25.3 % (11.6-13.7); WHITE BLOOD COUNT (AUTO) 7.2 K/uL (4.8-10.8)
[2023-05-11] MEDS: LORazepam 2 MG/ML VIAL IVP PRN (05:43)
[2023-05-11] MEDS: HYDROmorphone 1 MG/ML AMP IVP PRN ×2 (05:45→11:58)
[2023-05-11 06:10] LABS: ALBUMIN 1.7 g/dL (3.4-5.0); ANION GAP 6.3 (8-16); CALCIUM 8.1 mg/dL (8.5-10.1); CREATININE 0.9 mg/dL (0.6-1.3); MAGNESIUM 2.2 mg/dL (1.8-2.4); TOTAL BILIRUBIN 0.4 mg/dL (0.0-1.0); TOTAL PROTEIN, SERUM 7.1 g/dL (6.4-8.2)
[2023-05-11 06:33] LABS: POTASSIUM 2.3 mmol/L (3.5-5.1)
[2023-05-11] MEDS: POTASSIUM CHL 20 MEQ/NACL 0.9% 1,000 ML IV SCH ×2 (07:05→17:50)
[2023-05-11] MEDS: FERROUS SULFATE 325 MG TABEC PO SCH (08:27)
[2023-05-11] MEDS: ENOXAPARIN 40 MG/0.4 ML SYR SUBQ SCH (08:27)
[2023-05-11] MEDS: PANTOPRAZOLE 40 MG INJ VIAL IVP SCH ×2 (08:27→22:23)
[2023-05-11] MEDS: HYDROcodone/APAP 5/325 MG 1 TAB TAB PO PRN (08:28)
[2023-05-11] MEDS: SUCRALFATE 1 GM TAB PO SCH ×4 (08:28→22:25)
[2023-05-11 10:01] VITALS: BP 104/57; PULSE 17; RESP 17; TEMP 97.8; O2SAT 99
[2023-05-11 10:02] VITALS: PULSE 73
[2023-05-11 10:05] VITALS: PULSE 17; RESP 17
[2023-05-11] MEDS: ONDANSETRON 4 MG/2 ML VIAL IVP PRN (15:21)
[2023-05-11 16:00] VITALS: BP 101/55; PULSE 78; PULSE 80; RESP 18; TEMP 99.9; O2SAT 99
[2023-05-11] MEDS: POTASSIUM CHLORIDE 10 MEQ TABER PO SCH ×2 (16:40→22:22)
[2023-05-11] MEDS: MORPHINE SULFATE 4 MG/ML SYR IVP PRN ×2 (17:51→22:27)
[2023-05-11 20:00] VITALS: BP 99/56; PULSE 125; PULSE 17; PULSE 96; RESP 18; TEMP 96.9; O2SAT 98
[2023-05-11 20:01] VITALS: PULSE 81
[2023-05-12] VITALS (7 sets, daily range): BP systolic 98–106; BP diastolic 49–68; PULSE 18–99; RESP 18; TEMP 97.3–98.5; O2SAT 86–100
[2023-05-12] MEDS: POTASSIUM CHLORIDE 10 MEQ TABER PO SCH (02:02)
[2023-05-12] MEDS: MORPHINE SULFATE 4 MG/ML SYR IVP PRN ×5 (02:24→16:37)
[2023-05-12] MEDS: POTASSIUM CHL 20 MEQ/NACL 0.9% 1,000 ML IV SCH ×2 (03:48→14:18)
[2023-05-12 05:29] LABS: BASOPHILS % (AUTO) 0.4 % (0.0-2.0); EOSINOPHILS # (AUTO) 0.6 K/uL (0-0.4); EOSINOPHILS % (AUTO) 9.9 % (0.0-4.0); HEMATOCRIT 22.8 % (36-48); HEMOGLOBIN 7.2 g/dL (12.0-16.0); LYMPHOCYTES # (AUTO) 1.6 K/uL (2.5-16.5); LYMPHOCYTES % (AUTO) 26.1 % (20.5-51.1); MEAN CORPUSCULAR HEMOGLOBIN 23 pg (27-31); MEAN CORPUSCULAR HGB CONC 32 g/dL (33-37); MEAN CORPUSCULAR VOLUME 73.4 fL (80-94); MONOCYTES # (AUTO) 0.5 K/uL (0.8-1.0); MONOCYTES % (AUTO) 7.7 % (1.7-9.3); NEUTROPHILS # (AUTO) 3.5 K/uL (1.8-7.7); NEUTROPHILS % (AUTO) 55.9 % (42.2-75.2); PLATELET COUNT (AUTO) 365 K/uL (140-450); RED BLOOD CELL COUNT(AUTO) 3.11 MIL/uL (4.20-5.40); RED CELL DISTRIBUTION WIDTH 24.3 % (11.6-13.7); WHITE BLOOD COUNT (AUTO) 6.3 K/uL (4.8-10.8)
[2023-05-12 08:00] LABS: ALBUMIN 1.2 g/dL (3.4-5.0); ANION GAP 9.8 (8-16); CALCIUM 7.2 mg/dL (8.5-10.1); CARBON DIOXIDE 28.9 mmol/L (21-32); CREATININE 0.6 mg/dL (0.6-1.3); MAGNESIUM 1.9 mg/dL (1.8-2.4); POTASSIUM 4.7 mmol/L (3.5-5.1); TOTAL BILIRUBIN 0.2 mg/dL (0.0-1.0); TOTAL PROTEIN, SERUM 5.1 g/dL (6.4-8.2)
[2023-05-12] MEDS: SUCRALFATE 1 GM TAB PO SCH ×4 (09:12→21:28)
[2023-05-12] MEDS: PANTOPRAZOLE 40 MG INJ VIAL IVP SCH ×2 (09:13→21:27)
[2023-05-12] MEDS: FERROUS SULFATE 325 MG TABEC PO SCH (09:14)
[2023-05-12] MEDS: ENOXAPARIN 40 MG/0.4 ML SYR SUBQ SCH (09:14)
[2023-05-12] MEDS: LORazepam 2 MG/ML VIAL IVP PRN (21:28)
[2023-05-13] VITALS (7 sets, daily range): BP systolic 85–120; BP diastolic 47–58; PULSE 18–91; RESP 16–19; TEMP 96.9–97.9; O2SAT 98–100
[2023-05-13] MEDS: POTASSIUM CHL 20 MEQ/NACL 0.9% 1,000 ML IV SCH ×3 (02:07→22:59)
[2023-05-13] MEDS: MORPHINE SULFATE 4 MG/ML SYR IVP PRN ×4 (02:12→15:34)
[2023-05-13 05:29] LABS: BASOPHILS % (AUTO) 0.5 % (0.0-2.0); EOSINOPHILS # (AUTO) 0.4 K/uL (0-0.4); EOSINOPHILS % (AUTO) 6.3 % (0.0-4.0); HEMATOCRIT 25.2 % (36-48); HEMOGLOBIN 7.9 g/dL (12.0-16.0); LYMPHOCYTES # (AUTO) 1.8 K/uL (2.5-16.5); MEAN CORPUSCULAR HEMOGLOBIN 23 pg (27-31); MEAN CORPUSCULAR HGB CONC 31 g/dL (33-37); MEAN CORPUSCULAR VOLUME 73.2 fL (80-94); MONOCYTES # (AUTO) 0.4 K/uL (0.8-1.0); MONOCYTES % (AUTO) 5.5 % (1.7-9.3); NEUTROPHILS # (AUTO) 4.3 K/uL (1.8-7.7); NEUTROPHILS % (AUTO) 61.7 % (42.2-75.2); PLATELET COUNT (AUTO) 416 K/uL (140-450); RED BLOOD CELL COUNT(AUTO) 3.45 MIL/uL (4.20-5.40); RED CELL DISTRIBUTION WIDTH 24.9 % (11.6-13.7); WHITE BLOOD COUNT (AUTO) 6.9 K/uL (4.8-10.8)
[2023-05-13 07:51] LABS: ANION GAP 9.4 (8-16); CARBON DIOXIDE 24.2 mmol/L (21-32); CREATININE 0.4 mg/dL (0.6-1.3); POTASSIUM 4.6 mmol/L (3.5-5.1)
[2023-05-13 07:57] LABS: ALBUMIN 1.3 g/dL (3.4-5.0); MAGNESIUM 1.7 mg/dL (1.8-2.4); TOTAL BILIRUBIN 0.1 mg/dL (0.0-1.0)
[2023-05-13] MEDS: FERROUS SULFATE 325 MG TABEC PO SCH (08:44)
[2023-05-13] MEDS: ENOXAPARIN 40 MG/0.4 ML SYR SUBQ SCH (08:44)
[2023-05-13] MEDS: PANTOPRAZOLE 40 MG INJ VIAL IVP SCH ×2 (08:44→22:44)
[2023-05-13] MEDS: SUCRALFATE 1 GM TAB PO SCH ×4 (08:45→22:43)
[2023-05-13] MEDS: HYDROmorphone 1 MG/ML AMP IVP PRN ×2 (18:46→23:23)
[2023-05-14] VITALS: BP 128/64; PULSE 88; RESP 19; TEMP 96.8; O2SAT 100
[2023-05-14] MEDS: HYDROmorphone 1 MG/ML AMP IVP PRN ×5 (02:48→21:23)
[2023-05-14 04:00] VITALS: BP 114/77; PULSE 88; RESP 21; TEMP 96.8; O2SAT 99
[2023-05-14] MEDS: POTASSIUM CHL 20 MEQ/NACL 0.9% 1,000 ML IV SCH ×2 (05:05→11:40)
[2023-05-14 06:07] LABS: BASOPHILS % (AUTO) 0.6 % (0.0-2.0); EOSINOPHILS # (AUTO) 0.4 K/uL (0-0.4); EOSINOPHILS % (AUTO) 5.9 % (0.0-4.0); HEMATOCRIT 26.1 % (36-48); HEMOGLOBIN 8.2 g/dL (12.0-16.0); LYMPHOCYTES % (AUTO) 30.5 % (20.5-51.1); MEAN CORPUSCULAR HEMOGLOBIN 23 pg (27-31); MEAN CORPUSCULAR HGB CONC 32 g/dL (33-37); MEAN CORPUSCULAR VOLUME 72.8 fL (80-94); MONOCYTES # (AUTO) 0.5 K/uL (0.8-1.0); MONOCYTES % (AUTO) 6.8 % (1.7-9.3); NEUTROPHILS # (AUTO) 3.7 K/uL (1.8-7.7); NEUTROPHILS % (AUTO) 56.2 % (42.2-75.2); PLATELET COUNT (AUTO) 487 K/uL (140-450); RED BLOOD CELL COUNT(AUTO) 3.59 MIL/uL (4.20-5.40); RED CELL DISTRIBUTION WIDTH 24.1 % (11.6-13.7); WHITE BLOOD COUNT (AUTO) 6.6 K/uL (4.8-10.8)
[2023-05-14 06:34] LABS: ALBUMIN 1.3 g/dL (3.4-5.0); ANION GAP 10.5 (8-16); CALCIUM 7.8 mg/dL (8.5-10.1); CARBON DIOXIDE 24.9 mmol/L (21-32); CREATININE 0.6 mg/dL (0.6-1.3); MAGNESIUM 1.5 mg/dL (1.8-2.4); POTASSIUM 4.4 mmol/L (3.5-5.1); TOTAL BILIRUBIN 0.1 mg/dL (0.0-1.0); TOTAL PROTEIN, SERUM 5.5 g/dL (6.4-8.2)
[2023-05-14 08:00] VITALS: BP 102/51; PULSE 86; RESP 18; TEMP 97.3; O2SAT 100
[2023-05-14] MEDS: PANTOPRAZOLE 40 MG INJ VIAL IVP SCH ×2 (08:30→21:20)
[2023-05-14] MEDS: ENOXAPARIN 40 MG/0.4 ML SYR SUBQ SCH (09:34)
[2023-05-14] MEDS: HYDROcodone/APAP 5/325 MG 1 TAB TAB PO PRN ×2 (09:35→14:11)
[2023-05-14] MEDS: FERROUS SULFATE 325 MG TABEC PO SCH (09:35)
[2023-05-14] MEDS: SUCRALFATE 1 GM TAB PO SCH ×4 (09:35→21:20)
[2023-05-14] MEDS: ONDANSETRON 4 MG/2 ML VIAL IVP PRN (11:40)
[2023-05-14 16:00] VITALS: BP 119/56; PULSE 97; RESP 18; TEMP 97.9; O2SAT 100
[2023-05-14 20:00] VITALS: BP 128/62; PULSE 82; RESP 18; TEMP 96.8
[2023-05-15] VITALS: BP 118/72; PULSE 82; RESP 17; TEMP 96.8; O2SAT 100
[2023-05-15] MEDS: HYDROmorphone 1 MG/ML AMP IVP PRN ×5 (02:10→21:59)
[2023-05-15] MEDS: POTASSIUM CHL 20 MEQ/NACL 0.9% 1,000 ML IV SCH ×3 (02:11→23:45)
[2023-05-15 06:20] LABS: BASOPHILS % (AUTO) 0.5 % (0.0-2.0); EOSINOPHILS # (AUTO) 0.3 K/uL (0-0.4); EOSINOPHILS % (AUTO) 4.4 % (0.0-4.0); HEMATOCRIT 25.4 % (36-48); HEMOGLOBIN 7.9 g/dL (12.0-16.0); LYMPHOCYTES # (AUTO) 1.9 K/uL (2.5-16.5); LYMPHOCYTES % (AUTO) 28.5 % (20.5-51.1); MEAN CORPUSCULAR HEMOGLOBIN 23 pg (27-31); MEAN CORPUSCULAR HGB CONC 31 g/dL (33-37); MEAN CORPUSCULAR VOLUME 72.9 fL (80-94); MONOCYTES # (AUTO) 0.5 K/uL (0.8-1.0); MONOCYTES % (AUTO) 8.4 % (1.7-9.3); NEUTROPHILS # (AUTO) 3.8 K/uL (1.8-7.7); NEUTROPHILS % (AUTO) 58.2 % (42.2-75.2); PLATELET COUNT (AUTO) 495 K/uL (140-450); RED BLOOD CELL COUNT(AUTO) 3.49 MIL/uL (4.20-5.40); RED CELL DISTRIBUTION WIDTH 24.2 % (11.6-13.7); WHITE BLOOD COUNT (AUTO) 6.5 K/uL (4.8-10.8)
[2023-05-15 06:42] LABS: ALBUMIN 1.3 g/dL (3.4-5.0); ANION GAP 10.8 (8-16); CALCIUM 7.7 mg/dL (8.5-10.1); CARBON DIOXIDE 24.5 mmol/L (21-32); CREATININE 0.6 mg/dL (0.6-1.3); MAGNESIUM 1.7 mg/dL (1.8-2.4); POTASSIUM 4.3 mmol/L (3.5-5.1); TOTAL BILIRUBIN 0.1 mg/dL (0.0-1.0); TOTAL PROTEIN, SERUM 5.1 g/dL (6.4-8.2)
[2023-05-15 08:00] VITALS: PULSE 82; RESP 18
[2023-05-15] MEDS: PANTOPRAZOLE 40 MG INJ VIAL IVP SCH ×2 (09:26→20:16)
[2023-05-15] MEDS: SUCRALFATE 1 GM TAB PO SCH ×4 (09:26→20:16)
[2023-05-15] MEDS: FERROUS SULFATE 325 MG TABEC PO SCH (09:27)
[2023-05-15] MEDS: ENOXAPARIN 40 MG/0.4 ML SYR SUBQ SCH (09:30)
[2023-05-15 10:51] VITALS: BP 106/66; PULSE 82; RESP 16; TEMP 96.7; O2SAT 97
[2023-05-15 16:00] VITALS: BP 117/67; PULSE 86; RESP 19; TEMP 98.1; O2SAT 99
[2023-05-15 17:36] LABS: BASOPHILS % (AUTO) 0.3 % (0.0-2.0); EOSINOPHILS # (AUTO) 0.2 K/uL (0-0.4); EOSINOPHILS % (AUTO) 2.3 % (0.0-4.0); HEMOGLOBIN 7.9 g/dL (12.0-16.0); LYMPHOCYTES # (AUTO) 1.6 K/uL (2.5-16.5); LYMPHOCYTES % (AUTO) 18.7 % (20.5-51.1); MEAN CORPUSCULAR HEMOGLOBIN 23 pg (27-31); MEAN CORPUSCULAR HGB CONC 32 g/dL (33-37); MEAN CORPUSCULAR VOLUME 72.3 fL (80-94); MONOCYTES # (AUTO) 0.4 K/uL (0.8-1.0); NEUTROPHILS # (AUTO) 6.3 K/uL (1.8-7.7); NEUTROPHILS % (AUTO) 73.7 % (42.2-75.2); PLATELET COUNT (AUTO) 534 K/uL (140-450); RED BLOOD CELL COUNT(AUTO) 3.46 MIL/uL (4.20-5.40); WHITE BLOOD COUNT (AUTO) 8.5 K/uL (4.8-10.8)
[2023-05-15] MEDS: ONDANSETRON 4 MG/2 ML VIAL IVP PRN (17:44)
[2023-05-15 20:00] VITALS: PULSE 86; RESP 18; O2SAT 99
[2023-05-16] MEDS: HYDROmorphone 1 MG/ML AMP IVP PRN ×5 (01:59→22:14)
[2023-05-16 06:56] LABS: BASOPHILS % (AUTO) 0.2 % (0.0-2.0); EOSINOPHILS # (AUTO) 0.4 K/uL (0-0.4); EOSINOPHILS % (AUTO) 4.8 % (0.0-4.0); HEMATOCRIT 25.6 % (36-48); HEMOGLOBIN 8.2 g/dL (12.0-16.0); LYMPHOCYTES % (AUTO) 25.5 % (20.5-51.1); MEAN CORPUSCULAR HEMOGLOBIN 23 pg (27-31); MEAN CORPUSCULAR HGB CONC 32 g/dL (33-37); MEAN CORPUSCULAR VOLUME 72.2 fL (80-94); MONOCYTES # (AUTO) 0.6 K/uL (0.8-1.0); MONOCYTES % (AUTO) 7.5 % (1.7-9.3); PLATELET COUNT (AUTO) 552 K/uL (140-450); RED BLOOD CELL COUNT(AUTO) 3.54 MIL/uL (4.20-5.40); RED CELL DISTRIBUTION WIDTH 24.7 % (11.6-13.7)
[2023-05-16] MEDS: POTASSIUM CHL 20 MEQ/NACL 0.9% 1,000 ML IV SCH ×5 (07:05→21:10)
[2023-05-16 07:41] LABS: ALBUMIN 1.4 g/dL (3.4-5.0); ANION GAP 9.6 (8-16); CALCIUM 7.9 mg/dL (8.5-10.1); CARBON DIOXIDE 24.3 mmol/L (21-32); CREATININE 0.5 mg/dL (0.6-1.3); POTASSIUM 3.9 mmol/L (3.5-5.1); TOTAL BILIRUBIN 0.1 mg/dL (0.0-1.0); TOTAL PROTEIN, SERUM 5.3 g/dL (6.4-8.2)
[2023-05-16 08:00] VITALS: BP 139/57; PULSE 71; PULSE 85; RESP 18; RESP 19; TEMP 97.6; O2SAT 100; O2SAT 99
[2023-05-16] MEDS: FERROUS SULFATE 325 MG TABEC PO SCH (09:04)
[2023-05-16] MEDS: SUCRALFATE 1 GM TAB PO SCH ×4 (09:04→20:55)
[2023-05-16] MEDS: ENOXAPARIN 40 MG/0.4 ML SYR SUBQ SCH (09:09)
[2023-05-16] MEDS: PANTOPRAZOLE 40 MG INJ VIAL IVP SCH ×2 (10:07→20:55)
[2023-05-16 12:00] VITALS: BP 137/76; PULSE 91; RESP 18; TEMP 98.8; O2SAT 99
[2023-05-16] MEDS: ONDANSETRON 4 MG/2 ML VIAL IVP PRN ×2 (15:26→20:55)
[2023-05-16 20:00] VITALS: PULSE 83; RESP 18; O2SAT 99
[2023-05-17] VITALS: BP 135/78; PULSE 83; RESP 18; TEMP 97.4; O2SAT 99
[2023-05-17] MEDS: HYDROmorphone 1 MG/ML AMP IVP PRN ×5 (02:28→22:41)
[2023-05-17] MEDS: ONDANSETRON 4 MG/2 ML VIAL IVP PRN (02:28)
[2023-05-17 05:57] LABS: BASOPHILS # (AUTO) 0.1 K/uL (0.00-0.22); BASOPHILS % (AUTO) 0.5 % (0.0-2.0); EOSINOPHILS # (AUTO) 0.5 K/uL (0-0.4); EOSINOPHILS % (AUTO) 4.5 % (0.0-4.0); HEMATOCRIT 24.7 % (36-48); HEMOGLOBIN 7.4 g/dL (12.0-16.0); LYMPHOCYTES # (AUTO) 1.4 K/uL (2.5-16.5); LYMPHOCYTES % (AUTO) 11.9 % (20.5-51.1); MEAN CORPUSCULAR HEMOGLOBIN 22 pg (27-31); MEAN CORPUSCULAR HGB CONC 30 g/dL (33-37); MEAN CORPUSCULAR VOLUME 73.1 fL (80-94); MONOCYTES # (AUTO) 0.6 K/uL (0.8-1.0); NEUTROPHILS # (AUTO) 9.3 K/uL (1.8-7.7); NEUTROPHILS % (AUTO) 78.1 % (42.2-75.2); PLATELET COUNT (AUTO) 536 K/uL (140-450); RED BLOOD CELL COUNT(AUTO) 3.37 MIL/uL (4.20-5.40); RED CELL DISTRIBUTION WIDTH 25.1 % (11.6-13.7); WHITE BLOOD COUNT (AUTO) 11.9 K/uL (4.8-10.8)
[2023-05-17 06:59] LABS: ALBUMIN 1.5 g/dL (3.4-5.0); ANION GAP 7.6 (8-16); CALCIUM 7.7 mg/dL (8.5-10.1); CARBON DIOXIDE 27.1 mmol/L (21-32); CREATININE 0.6 mg/dL (0.6-1.3); POTASSIUM 3.7 mmol/L (3.5-5.1); TOTAL BILIRUBIN 0.5 mg/dL (0.0-1.0); TOTAL PROTEIN, SERUM 5.3 g/dL (6.4-8.2)
[2023-05-17 08:00] VITALS: BP 106/51; PULSE 83; PULSE 86; RESP 17; RESP 18; TEMP 98.8; O2SAT 100; O2SAT 99
[2023-05-17] MEDS: POTASSIUM CHL 20 MEQ/NACL 0.9% 1,000 ML IV SCH ×2 (08:33→19:26)
[2023-05-17] MEDS: PANTOPRAZOLE 40 MG INJ VIAL IVP SCH ×2 (08:34→20:44)
[2023-05-17] MEDS: ENOXAPARIN 40 MG/0.4 ML SYR SUBQ SCH (09:00)
[2023-05-17] MEDS: FERROUS SULFATE 325 MG TABEC PO SCH (09:09)
[2023-05-17] MEDS: SUCRALFATE 1 GM TAB PO SCH ×4 (09:09→20:44)
[2023-05-17 16:00] VITALS: BP 114/62; PULSE 81; RESP 18; TEMP 98.9; O2SAT 99
[2023-05-17 20:00] VITALS: PULSE 71; RESP 18; O2SAT 98
[2023-05-18] VITALS: BP 120/70; PULSE 71; RESP 18; TEMP 97.4; O2SAT 98
[2023-05-18] MEDS: HYDROmorphone 1 MG/ML AMP IVP PRN ×3 (03:00→13:14)
[2023-05-18] MEDS: ONDANSETRON 4 MG/2 ML VIAL IVP PRN ×3 (03:01→13:13)
[2023-05-18] MEDS: POTASSIUM CHL 20 MEQ/NACL 0.9% 1,000 ML IV SCH (06:02)
[2023-05-18 06:35] LABS: ALBUMIN 1.3 g/dL (3.4-5.0); CALCIUM 7.4 mg/dL (8.5-10.1); CREATININE 0.5 mg/dL (0.6-1.3); TOTAL BILIRUBIN 0.3 mg/dL (0.0-1.0)
[2023-05-18 08:00] VITALS: BP 146/75; PULSE 78; RESP 18; TEMP 97.5; O2SAT 98
[2023-05-18 08:55] LABS: BASOPHILS % (AUTO) 0.3 % (0.0-2.0); EOSINOPHILS # (AUTO) 0.8 K/uL (0-0.4); HEMATOCRIT 24.6 % (36-48); HEMOGLOBIN 7.4 g/dL (12.0-16.0); LYMPHOCYTES # (AUTO) 1.1 K/uL (2.5-16.5); LYMPHOCYTES % (AUTO) 19.4 % (20.5-51.1); MEAN CORPUSCULAR HEMOGLOBIN 22 pg (27-31); MEAN CORPUSCULAR HGB CONC 30 g/dL (33-37); MEAN CORPUSCULAR VOLUME 73.7 fL (80-94); MONOCYTES # (AUTO) 0.4 K/uL (0.8-1.0); MONOCYTES % (AUTO) 7.6 % (1.7-9.3); NEUTROPHILS # (AUTO) 3.3 K/uL (1.8-7.7); NEUTROPHILS % (AUTO) 58.7 % (42.2-75.2); PLATELET COUNT (AUTO) 452 K/uL (140-450); RED BLOOD CELL COUNT(AUTO) 3.33 MIL/uL (4.20-5.40); RED CELL DISTRIBUTION WIDTH 24.6 % (11.6-13.7); WHITE BLOOD COUNT (AUTO) 5.7 K/uL (4.8-10.8)
[2023-05-18] MEDS: PANTOPRAZOLE 40 MG INJ VIAL IVP SCH (08:56)
[2023-05-18] MEDS: SUCRALFATE 1 GM TAB PO SCH ×2 (08:56→12:43)
[2023-05-18] MEDS: FERROUS SULFATE 325 MG TABEC PO SCH (08:56)
[2023-05-18] MEDS: ENOXAPARIN 40 MG/0.4 ML SYR SUBQ SCH (08:57)
[2023-05-18] MEDS ORDERED: HYDROcodone/APAP 5/325 MG 1 TAB TAB PO PRN (14:20)
[2023-05-18 16:00] VITALS: BP 132/76; PULSE 78; RESP 18; TEMP 97.5; O2SAT 98
[2023-05-18 16:06] VITALS: O2SAT 100
== END 2023-05-18 17:50 | disposition home or self-care (01) | DRG 380 ==
LOC: MED 15:34 → MERGE 20:58 → OBSVTOIN 20:58 → MTU 20:58 → MMU 05-10 08:11
PROVIDERS: ADMIT Internal Medicine; ATTEND Internal Medicine
DX: K31.5 Obstruction of duodenum (principal); E43 Unspecified severe protein-calorie malnutrition; Z68.1 Body mass index [BMI] 19.9 or less, adult; E87.3 Alkalosis; K29.70 Gastritis, unspecified, without bleeding; Z20.822 Contact with and (suspected) exposure to COVID-19; E87.6 Hypokalemia; R11.10 Vomiting, unspecified; E86.0 Dehydration; Z88.8 Allergy status to other drugs, medicaments and biological substances
CPT/HCPCS: 36415; 74022; 80048; 80053; 80076; 81001; 83605; 83690; 83735; 84100; 84484; 85025; 85610; 86886; 86900; 86901; 87040; 87081; 93005; 96361; 96365; 96366; 96375; 96376; 99285; C9113; J1170; J1650; J2060; J2270; J2405; J3480; J7030

== ENCOUNTER 2023-08-20 17:55 | Inpatient (IN) | payer OTHER ==
[~2023-08-20] VITALS: Ht 154.9 cm; Wt 48.5 kg
[2023-08-20] MEDS: LACTATED RINGERS 1,000 ML IV ONE (03:15)
[~2023-08-20 17:55] MED LIST changes: +CLON-1202 PO; -CLON1TAB PO; +SUCR-34 PO; -SUCR1TAB35 PO
[2023-08-20 18:02] VITALS: BP 89/58; PULSE 103; RESP 18; TEMP 97.3; O2SAT 100
[2023-08-20 19:30] LABS: BASOPHILS % (AUTO) 0.4 % (0.0-2.0); EOSINOPHILS # (AUTO) 0.6 K/uL (0-0.4); EOSINOPHILS % (AUTO) 10.3 % (0.0-4.0); LYMPHOCYTES # (AUTO) 1.1 K/uL (2.5-16.5); LYMPHOCYTES % (AUTO) 19.2 % (20.5-51.1); MEAN CORPUSCULAR HEMOGLOBIN 21 pg (27-31); MEAN CORPUSCULAR HGB CONC 29 g/dL (33-37); MEAN CORPUSCULAR VOLUME 71.1 fL (80-94); MONOCYTES # (AUTO) 0.4 K/uL (0.8-1.0); MONOCYTES % (AUTO) 7.7 % (1.7-9.3); NEUTROPHILS # (AUTO) 3.6 K/uL (1.8-7.7); NEUTROPHILS % (AUTO) 62.4 % (42.2-75.2); PLATELET COUNT (AUTO) 408 K/uL (140-450); RED BLOOD CELL COUNT(AUTO) 2.26 MIL/uL (4.20-5.40); RED CELL DISTRIBUTION WIDTH 20.5 % (11.6-13.7); WHITE BLOOD COUNT (AUTO) 5.7 K/uL (4.8-10.8)
[2023-08-20 19:43] LABS: HEMATOCRIT 16.1 % (36-48); HEMOGLOBIN 4.6 g/dL (12.0-16.0)
[2023-08-20 19:54] LABS: ALANINE AMINOTRANSFERASE 18 U/L (12-78); ALBUMIN 2.6 g/dL (3.4-5.0); ALKALINE PHOSPHATASE 61 U/L (50-136); ANION GAP 13.5 (8-16); ASPARTATE AMINOTRANSFERASE 19 U/L (15-37); CARBON DIOXIDE 26.2 mmol/L (21-32); CHLORIDE 105 mmol/L (98-107); CREATININE 0.4 mg/dL (0.6-1.3); GFR ARICAN-AMERICAN 231 mL/min (>90); GFR NON ARICAN-AMERICAN 191 mL/min (>90); GLUCOSE 92 mg/dL (74-106); LIPASE 37 U/L (16-77); POTASSIUM 3.7 mmol/L (3.5-5.1); SODIUM SERUM 141 mmol/L (136-145); TOTAL BILIRUBIN 0.1 mg/dL (0.0-1.0); TOTAL PROTEIN, SERUM 5.6 g/dL (6.4-8.2); UREA NITROGEN, BLOOD 19 mg/dL (7-18)
[2023-08-20 19:59] LABS: LACTIC ACID 2.3 mmol/L (0.4-2.0)
[2023-08-20] MEDS: PANTOPRAZOLE 80 MG in NACL 0.9% 100 ML IV SCH (20:00)
[2023-08-20] MEDS: ONDANSETRON 4 MG/2 ML VIAL IVP ONE (20:00)
[2023-08-20] MEDS ORDERED: MORPHINE SULFATE 4 MG/ML SYR IVP ONE (20:00)
[2023-08-20 20:24] LABS: APPEARANCE,URINE CLEAR (CLEAR); BILIRUBIN,URINE NEGATIVE (NEGATIVE); BLOOD, URINE NEGATIVE (NEGATIVE); COLOR,URINE YELLOW (YELLOW); LEUKOCYTE ESTERASE ,URINE NEGATIVE (NEGATIVE); NITRITE, URINE NEGATIVE (NEGATIVE); PROTEIN,URINE NEGATIVE (NEGATIVE); UGLUCOSE NEGATIVE (NEGATIVE); UROBILINOGEN,URINE 0.2 EU/dL (0.2 - 1)
[2023-08-20 20:39] LABS: INR 0.93 (0.8-1.2); PROTHROMBIN TIME 9.8 secs (10.8-13.4)
[2023-08-20] MEDS: NACL 0.9% 1,000 ML IV ONE (20:50)
[2023-08-20] MEDS: fentaNYL citrate 0.05 MG/ML VIAL IVP ONE (21:40)
[2023-08-20 23:25] VITALS: O2SAT 100
[2023-08-21] MEDS: MORPHINE SULFATE 2 MG/ML SYR IVP PRN (00:59)
[2023-08-21 01:42] VITALS: O2SAT 100
[2023-08-21] MEDS: PANTOPRAZOLE 40 MG INJ VIAL IVP ONE (01:47)
[2023-08-21] MEDS: PANTOPRAZOLE 40 MG INJ VIAL ONE (01:48)
[2023-08-21 04:33] VITALS: O2SAT 100
[2023-08-21] MEDS: ONDANSETRON 4 MG/2 ML VIAL IVP PRN (05:14)
[2023-08-21] MEDS ORDERED: PANTOPRAZOLE 40 MG INJ VIAL ONE (06:29)
[2023-08-21 06:52] LABS: BASOPHILS % (AUTO) 0.2 % (0.0-2.0); EOSINOPHILS # (AUTO) 0.6 K/uL (0-0.4); EOSINOPHILS % (AUTO) 10.9 % (0.0-4.0); HEMATOCRIT 21.3 % (36-48); LYMPHOCYTES # (AUTO) 1.6 K/uL (2.5-16.5); LYMPHOCYTES % (AUTO) 29.4 % (20.5-51.1); MEAN CORPUSCULAR HEMOGLOBIN 25 pg (27-31); MEAN CORPUSCULAR HGB CONC 32 g/dL (33-37); MEAN CORPUSCULAR VOLUME 78.4 fL (80-94); MONOCYTES # (AUTO) 0.5 K/uL (0.8-1.0); MONOCYTES % (AUTO) 9.9 % (1.7-9.3); NEUTROPHILS # (AUTO) 2.8 K/uL (1.8-7.7); NEUTROPHILS % (AUTO) 49.6 % (42.2-75.2); PLATELET COUNT (AUTO) 278 K/uL (140-450); RED BLOOD CELL COUNT(AUTO) 2.71 MIL/uL (4.20-5.40); RED CELL DISTRIBUTION WIDTH 22.1 % (11.6-13.7); WHITE BLOOD COUNT (AUTO) 5.5 K/uL (4.8-10.8)
[2023-08-21 06:59] VITALS: O2SAT 100
[2023-08-21 07:05] LABS: HEMOGLOBIN 6.8 g/dL (12.0-16.0)
[2023-08-21] MEDS: PANTOPRAZOLE 80 MG in NACL 0.9% 100 ML IV SCH ×2 (07:07→15:13)
[2023-08-21] MEDS: SODIUM FERRIC GLUCONATE 125 MG in NACL 0.9% 100 ML IV SCH (10:05)
[2023-08-21] MEDS ORDERED: clonazePAM 0.5 MG TAB PO PRN (11:10)
[2023-08-21 12:00] VITALS: BP 101/62; PULSE 75; PULSE 85; RESP 17; TEMP 97.6; O2SAT 99
[2023-08-21 12:40] LABS: HEMATOCRIT 21.5 % (36-48)
[2023-08-21 16:00] VITALS: BP 104/63; PULSE 74; PULSE 81; RESP 19; TEMP 97.4; O2SAT 99
[2023-08-21 18:06] LABS: HEMOGLOBIN 9.5 g/dL (12.0-16.0)
[2023-08-21 18:27] LABS: ANION GAP 10.7 (8-16); CALCIUM 7.8 mg/dL (8.5-10.1); CREATININE 0.5 mg/dL (0.6-1.3); POTASSIUM 3.7 mmol/L (3.5-5.1)
[2023-08-21 20:00] VITALS: BP 116/59; PULSE 74; PULSE 79; RESP 19; TEMP 97.7; O2SAT 96; O2SAT 99
[2023-08-21] MEDS: clonazePAM 0.5 MG TAB PO SCH (20:15)
[2023-08-21] MEDS: LACTULOSE 20 GM/30 ML UDC PO SCH (20:16)
[2023-08-21 22:57] LABS: BASOPHILS % (AUTO) 0.4 % (0.0-2.0); EOSINOPHILS # (AUTO) 0.7 K/uL (0-0.4); EOSINOPHILS % (AUTO) 9.9 % (0.0-4.0); HEMATOCRIT 28.1 % (36-48); HEMOGLOBIN 9.2 g/dL (12.0-16.0); LYMPHOCYTES # (AUTO) 1.3 K/uL (2.5-16.5); LYMPHOCYTES % (AUTO) 17.7 % (20.5-51.1); MEAN CORPUSCULAR HEMOGLOBIN 26 pg (27-31); MEAN CORPUSCULAR HGB CONC 33 g/dL (33-37); MEAN CORPUSCULAR VOLUME 80.2 fL (80-94); MONOCYTES # (AUTO) 0.5 K/uL (0.8-1.0); MONOCYTES % (AUTO) 7.1 % (1.7-9.3); NEUTROPHILS # (AUTO) 4.7 K/uL (1.8-7.7); NEUTROPHILS % (AUTO) 64.9 % (42.2-75.2); PLATELET COUNT (AUTO) 283 K/uL (140-450); WHITE BLOOD COUNT (AUTO) 7.3 K/uL (4.8-10.8)
[2023-08-21] MEDS ORDERED: SODIUM FERRIC GLUCONATE 12.5 MG/ML AMP IV ONE (23:32)
[2023-08-22] VITALS (8 sets, daily range): BP systolic 94–111; BP diastolic 52–68; PULSE 71–97; RESP 18; TEMP 97.2–98.1; O2SAT 95–99
[2023-08-22] MEDS: POTASSIUM CHL 20 MEQ/ 1/2 NS 1,000 ML IV SCH
[2023-08-22 07:23] LABS: HEMATOCRIT 26.1 % (36-48); HEMOGLOBIN 8.5 g/dL (12.0-16.0); MEAN CORPUSCULAR HEMOGLOBIN 26 pg (27-31); MEAN CORPUSCULAR HGB CONC 33 g/dL (33-37); PLATELET COUNT (AUTO) 275 K/uL (140-450); RED BLOOD CELL COUNT(AUTO) 3.26 MIL/uL (4.20-5.40); RED CELL DISTRIBUTION WIDTH 20.9 % (11.6-13.7); WHITE BLOOD COUNT (AUTO) 8.8 K/uL (4.8-10.8)
[2023-08-22 08:04] LABS: ANION GAP 11.6 (8-16); CARBON DIOXIDE 22.8 mmol/L (21-32); CREATININE 0.4 mg/dL (0.6-1.3); POTASSIUM 5.4 mmol/L (3.5-5.1)
[2023-08-22 09:20] LABS: BASOPHILS % (MANUAL) 0 % (0-2); EOSINOPHILS % (MANUAL) 6 % (0-4); LYMPHOCYTES % (MANUAL) 15 % (20-46); METAMYELOCYTES % 1 % (0-0); MONOCYTES % (MANUAL) 5 % (5-12); PLATELET ESTIMATE GIANT PLATELET SEEN; POLYCHROMASIA 1+
[2023-08-22 09:21] LABS: ANISOCYTOSIS 3+; HYPOCHROMASIA 2+; OVALOCYTES 1+; TARGET CELLS 1+
[2023-08-22] MEDS: BENZOCAINE 20% 57 GM CAN MC ONE (10:50)
[2023-08-22] MEDS: diphenhydrAMINE 50 MG/ML VIAL ONE (10:50)
[2023-08-22] MEDS: MIDAZOLAM 5 MG/5 ML VIAL ONE (10:50)
[2023-08-22] MEDS: fentaNYL citrate 0.05 MG/ML VIAL ONE ×2 (10:50→11:21)
[2023-08-22] MEDS: MIDAZOLAM 2 MG/2 ML VIAL ONE (11:21)
[2023-08-22] MEDS: PROPOFOL 200 MG/20 ML VIAL IV ONE ×2 (11:21→11:57)
[2023-08-22] MEDS ORDERED: ONDANSETRON 4 MG/2 ML VIAL IVP PRN (11:35)
[2023-08-22] MEDS: LACTATED RINGERS 1,000 ML IV SCH (11:35)
[2023-08-22] MEDS ORDERED: HYDROmorphone 1 MG/ML AMP IVP PRN (11:35)
[2023-08-22] MEDS: GLYCOPYRROLATE 0.2 MG/ML VIAL ONE (11:37)
[2023-08-22] MEDS: SENNA 8.6 MG TAB PO SCH (13:00)
[2023-08-22] MEDS: ERYTHROMYCIN 100 MG in NACL 0.9% 100 ML IV SCH (13:51)
[2023-08-22] MEDS: POLYETHYLENE GLYCOL 17 GM/PKT PO SCH (20:15)
[2023-08-23] VITALS: BP 106/62; PULSE 81; RESP 18; TEMP 97.4; O2SAT 95
[2023-08-23 04:00] VITALS: BP 122/60; PULSE 75; RESP 18; TEMP 97.6; O2SAT 98
[2023-08-23 06:25] LABS: BASOPHILS % (AUTO) 0.4 % (0.0-2.0); EOSINOPHILS # (AUTO) 0.2 K/uL (0-0.4); EOSINOPHILS % (AUTO) 6.1 % (0.0-4.0); HEMATOCRIT 25.4 % (36-48); HEMOGLOBIN 8.4 g/dL (12.0-16.0); LYMPHOCYTES # (AUTO) 1.1 K/uL (2.5-16.5); LYMPHOCYTES % (AUTO) 26.5 % (20.5-51.1); MEAN CORPUSCULAR HEMOGLOBIN 27 pg (27-31); MEAN CORPUSCULAR HGB CONC 33 g/dL (33-37); MEAN CORPUSCULAR VOLUME 80.7 fL (80-94); MONOCYTES # (AUTO) 0.3 K/uL (0.8-1.0); MONOCYTES % (AUTO) 7.4 % (1.7-9.3); NEUTROPHILS # (AUTO) 2.4 K/uL (1.8-7.7); NEUTROPHILS % (AUTO) 59.6 % (42.2-75.2); PLATELET COUNT (AUTO) 252 K/uL (140-450); RED BLOOD CELL COUNT(AUTO) 3.15 MIL/uL (4.20-5.40); RED CELL DISTRIBUTION WIDTH 21.9 % (11.6-13.7)
[2023-08-23 06:33] LABS: ANION GAP 13.5 (8-16); CALCIUM 7.9 mg/dL (8.5-10.1); CARBON DIOXIDE 23.9 mmol/L (21-32); CREATININE 0.5 mg/dL (0.6-1.3); POTASSIUM 3.4 mmol/L (3.5-5.1)
[2023-08-23 07:56] VITALS: BP 120/69; PULSE 80; RESP 18; TEMP 97.6; O2SAT 99
[2023-08-23 08:00] VITALS: PULSE 97; RESP 18; O2SAT 95
[2023-08-23] MEDS: LACTULOSE 20 GM/30 ML UDC PO SCH (09:55)
[2023-08-23] MEDS: POLYETHYLENE GLYCOL 17 GM/PKT ONE ×3 (10:01→20:37)
[2023-08-23] MEDS: SENNA 8.6 MG TAB ONE ×3 (10:01→18:10)
[2023-08-23] MEDS: KCL 20 MEQ IN 100 mL PREMIX 100 ML IV ONE (11:43)
[2023-08-23] MEDS: KCL 20 MEQ IN 100 mL PREMIX 100 ML IV SCH (11:47)
[2023-08-23] MEDS: SENNA 8.6 MG TAB PO SCH (13:01)
[2023-08-23 16:00] VITALS: BP 124/66; RESP 18; TEMP 98; O2SAT 97
[2023-08-23 20:00] VITALS: BP 115/62; PULSE 94; RESP 18; TEMP 97.5; O2SAT 100
[2023-08-24 06:51] LABS: BASOPHILS % (AUTO) 0.4 % (0.0-2.0); EOSINOPHILS # (AUTO) 0.2 K/uL (0-0.4); EOSINOPHILS % (AUTO) 7.1 % (0.0-4.0); HEMATOCRIT 25.7 % (36-48); HEMOGLOBIN 8.3 g/dL (12.0-16.0); LYMPHOCYTES # (AUTO) 1.4 K/uL (2.5-16.5); LYMPHOCYTES % (AUTO) 42.3 % (20.5-51.1); MEAN CORPUSCULAR HEMOGLOBIN 26 pg (27-31); MEAN CORPUSCULAR HGB CONC 32 g/dL (33-37); MEAN CORPUSCULAR VOLUME 81.7 fL (80-94); MONOCYTES # (AUTO) 0.4 K/uL (0.8-1.0); MONOCYTES % (AUTO) 13.4 % (1.7-9.3); NEUTROPHILS # (AUTO) 1.2 K/uL (1.8-7.7); NEUTROPHILS % (AUTO) 36.8 % (42.2-75.2); PLATELET COUNT (AUTO) 276 K/uL (140-450); RED BLOOD CELL COUNT(AUTO) 3.15 MIL/uL (4.20-5.40); WHITE BLOOD COUNT (AUTO) 3.3 K/uL (4.8-10.8)
[2023-08-24 07:23] LABS: ANION GAP 9.1 (8-16); CALCIUM 7.7 mg/dL (8.5-10.1); CREATININE 0.4 mg/dL (0.6-1.3); POTASSIUM 3.1 mmol/L (3.5-5.1)
[2023-08-24 07:44] VITALS: PULSE 89; RESP 20; O2SAT 99
[2023-08-24 07:45] LABS: RED CELL DISTRIBUTION WIDTH 22.5 % (11.6-13.7)
[2023-08-24 08:00] VITALS: BP 118/68; PULSE 89; RESP 18; TEMP 97.1; O2SAT 100
[2023-08-24] MEDS: POLYETHYLENE GLYCOL 17 GM/PKT ONE (09:35)
[2023-08-24] MEDS ORDERED: POTASSIUM CHL 20 MEQ/NACL 0.9% 1,000 ML IV SCH (10:00)
[2023-08-24] MEDS ORDERED: POTASSIUM CHLORIDE 10 MEQ TABER PO SCH (10:01)
[2023-08-24] MEDS: SENNA 8.6 MG TAB ONE (11:12)
[2023-08-24] MEDS: POTASSIUM CHLORIDE 10 MEQ TABER PO ONE (11:16)
[2023-08-24] MEDS: ACETAMINOPHEN 100 ML IV ONE (11:25)
[2023-08-24] MEDS: PROPOFOL 200 MG/20 ML VIAL IV ONE ×5 (11:28→12:42)
[2023-08-24] MEDS: MIDAZOLAM 2 MG/2 ML VIAL ONE (11:56)
[2023-08-24] MEDS: fentaNYL citrate 0.05 MG/ML VIAL ONE (11:56)
[2023-08-24] MEDS: ACETAMINOPHEN 325 MG TAB PO PRN (14:12)
[2023-08-24] MEDS: MORPHINE SULFATE 2 MG/ML SYR IVP PRN (15:21)
[2023-08-24 16:00] VITALS: BP 125/72; PULSE 93; RESP 19; TEMP 98.5; O2SAT 100
[2023-08-24] MEDS: PANTOPRAZOLE 40 MG TABEC PO SCH (18:58)
[2023-08-24 20:00] VITALS: BP 127/82; PULSE 96; RESP 19; TEMP 98.1; O2SAT 99
[2023-08-24] MEDS: AMITRIPTYLINE 25 MG TAB PO SCH (20:49)
[2023-08-24] MEDS: GABAPENTIN 100 MG CAP PO SCH (20:53)
[2023-08-25 06:52] LABS: BASOPHILS % (AUTO) 0.2 % (0.0-2.0); EOSINOPHILS # (AUTO) 0.1 K/uL (0-0.4); EOSINOPHILS % (AUTO) 1.2 % (0.0-4.0); HEMATOCRIT 27.3 % (36-48); HEMOGLOBIN 8.8 g/dL (12.0-16.0); LYMPHOCYTES # (AUTO) 1.6 K/uL (2.5-16.5); MEAN CORPUSCULAR HEMOGLOBIN 27 pg (27-31); MEAN CORPUSCULAR HGB CONC 32 g/dL (33-37); MEAN CORPUSCULAR VOLUME 82.9 fL (80-94); MONOCYTES # (AUTO) 0.5 K/uL (0.8-1.0); MONOCYTES % (AUTO) 5.3 % (1.7-9.3); NEUTROPHILS # (AUTO) 7.6 K/uL (1.8-7.7); NEUTROPHILS % (AUTO) 77.3 % (42.2-75.2); PLATELET COUNT (AUTO) 286 K/uL (140-450); RED BLOOD CELL COUNT(AUTO) 3.29 MIL/uL (4.20-5.40); RED CELL DISTRIBUTION WIDTH 23.1 % (11.6-13.7); WHITE BLOOD COUNT (AUTO) 9.8 K/uL (4.8-10.8)
[2023-08-25 07:29] LABS: ANION GAP 11.7 (8-16); CARBON DIOXIDE 25.8 mmol/L (21-32); POTASSIUM 3.5 mmol/L (3.5-5.1)
[2023-08-25 07:55] LABS: CALCIUM 7.9 mg/dL (8.5-10.1); CREATININE 0.6 mg/dL (0.6-1.3)
[2023-08-25 08:00] VITALS: BP 124/79; PULSE 96; RESP 19; TEMP 97.6; O2SAT 99
[2023-08-25] MEDS ORDERED: PANT40EC56 PO (12:05)
[2023-08-25] MEDS ORDERED: AMIT25TA29 PO (12:05)
[2023-08-25] MEDS ORDERED: GABA-636 PO (12:05)
[2023-08-25 12:49] VITALS: BP 112/76; PULSE 74; RESP 18; TEMP 97.9
[2023-08-26] MEDS ORDERED: SODIUM FERRIC GLUCONATE 125 MG in NACL 0.9% 100 ML IV SCH (09:00)
== END 2023-08-25 17:15 | disposition home or self-care (01) | DRG 380 ==
LOC: MED 17:55 → MTU 22:14 → MED 22:18 → MTU 08-21 06:27
PROVIDERS: ADMIT Internal Medicine; ATTEND Internal Medicine
PROC: 30233N1 Transfusion of Nonautologous Red Blood Cells into Peripheral Vein, Percutaneous Approach (ICD-10-PCS; principal; 2023-08-20)
PROC: 0D768ZZ Dilation of Stomach, Via Natural or Artificial Opening Endoscopic (ICD-10-PCS; 2023-08-22)
PROC: 0D7A8ZZ Dilation of Jejunum, Via Natural or Artificial Opening Endoscopic (ICD-10-PCS; 2023-08-22)
PROC: 0DJD8ZZ Inspection of Lower Intestinal Tract, Via Natural or Artificial Opening Endoscopic (ICD-10-PCS; 2023-08-24)
PROC: 0DJ08ZZ Inspection of Upper Intestinal Tract, Via Natural or Artificial Opening Endoscopic (ICD-10-PCS; 2023-08-24 12:00)
DX: K31.1 Adult hypertrophic pyloric stenosis (principal); K26.4 Chronic or unspecified duodenal ulcer with hemorrhage; D62 Acute posthemorrhagic anemia; E87.20 Acidosis, unspecified; E86.0 Dehydration; G89.29 Other chronic pain; Z91.199 Patient's noncompliance with other medical treatment and regimen due to unspecified reason; Z79.899 Other long term (current) drug therapy
CPT/HCPCS: 36415; 36430; 80048; 80053; 81003; 83605; 83690; 84484; 85018; 85025; 85610; 85730; 86140; 86886; 86900; 86901; 86920; 87081; 89055; 93005; 96361; 96374; 99291; C1769; C9113; J1200; J1364; J2250; J2270; J2405; J2704; J2916; J3010; J3480; J3490; J7030; P9016; Q9967

== ENCOUNTER 2023-12-28 19:23 | Emergency (ER) | payer OTHER ==
[~2023-12-28] VITALS: Ht 154.9 cm; Wt 47.2 kg
[~2023-12-28 19:23] MED LIST changes: +AMIT25TA29 PO; +GABA-636 PO; -PANT40EC PO; +SUCR-3 PO; -SUCR-34 PO
[2023-12-28 19:27] VITALS: BP 94/67; PULSE 100; RESP 20; TEMP 99.1; O2SAT 99
[2023-12-28 19:50] LABS: APPEARANCE,URINE CLEAR (CLEAR); BILIRUBIN,URINE 2+ (NEGATIVE); BLOOD, URINE NEGATIVE (NEGATIVE); COLOR,URINE YELLOW (YELLOW); LEUKOCYTE ESTERASE ,URINE TRACE (NEGATIVE); NITRITE, URINE NEGATIVE (NEGATIVE); PROTEIN,URINE 1+ (NEGATIVE); UGLUCOSE NEGATIVE (NEGATIVE)
[2023-12-28 20:06] LABS: RBC,URINE 0-5 /HPF (0-5)
[2023-12-28 20:07] LABS: BACTERIA,URINE 3+ /HPF (None Seen); ICTOTEST NEGATIVE (NEGATIVE); MUCUS,URINE 3+ /LPF (None Seen)
[2023-12-28] MEDS: PROCHLORPERAZINE 10 MG/2 ML VIAL IVP ONE (20:15)
[2023-12-28] MEDS: diphenhydrAMINE 50 MG/ML VIAL IVP ONE (20:17)
[2023-12-28] MEDS: PANTOPRAZOLE 40 MG INJ VIAL IVP ONE (20:18)
[2023-12-28 20:32] LABS: BASOPHILS % (AUTO) 0.8 % (0.0-2.0); EOSINOPHILS % (AUTO) 1.1 % (0.0-4.0); HEMATOCRIT 25.7 % (36-48); HEMOGLOBIN 7.6 g/dL (12.0-16.0); LYMPHOCYTES # (AUTO) 1.1 K/uL (2.5-16.5); LYMPHOCYTES % (AUTO) 36.4 % (20.5-51.1); MEAN CORPUSCULAR HEMOGLOBIN 24 pg (27-31); MEAN CORPUSCULAR HGB CONC 30 g/dL (33-37); MEAN CORPUSCULAR VOLUME 81.2 fL (80-94); MONOCYTES # (AUTO) 0.2 K/uL (0.8-1.0); MONOCYTES % (AUTO) 8.4 % (1.7-9.3); NEUTROPHILS # (AUTO) 1.6 K/uL (1.8-7.7); NEUTROPHILS % (AUTO) 53.3 % (42.2-75.2); PLATELET COUNT (AUTO) 304 K/uL (140-450); RED BLOOD CELL COUNT(AUTO) 3.16 MIL/uL (4.20-5.40); RED CELL DISTRIBUTION WIDTH 16.1 % (11.6-13.7)
[2023-12-28 20:48] LABS: ALBUMIN 2.2 g/dL (3.4-5.0); ANION GAP 10.8 (8-16); CALCIUM 7.9 mg/dL (8.5-10.1); CARBON DIOXIDE 27.1 mmol/L (21-32); CREATININE 0.5 mg/dL (0.6-1.3); POTASSIUM 3.9 mmol/L (3.5-5.1); TOTAL BILIRUBIN 0.2 mg/dL (0.0-1.0); TOTAL PROTEIN, SERUM 5.5 g/dL (6.4-8.2)
[2023-12-28] MEDS ORDERED: cefTRIAXone 1,000 MG VIAL ONE (21:19)
[2023-12-28] MEDS: MORPHINE SULFATE 2 MG/ML SYR IVP ONE (21:26)
[2023-12-28] MEDS ORDERED: AMOX1TAB8 PO (23:39)
[2023-12-28] MEDS ORDERED: SUCR-3 PO (23:39)
[2023-12-28] MEDS ORDERED: FAMO-90 PO (23:39)
[2023-12-28] MEDS ORDERED: PANT40EC56 PO (23:39)
[2023-12-28] MEDS ORDERED: ACET-9527 PO (23:39)
[2023-12-28 23:59] VITALS: BP 96/60; PULSE 84; RESP 14; TEMP 98.5; O2SAT 100
== END 2023-12-28 23:58 | disposition home or self-care (01) ==
LOC: MED 19:23
DX: N39.0 Urinary tract infection, site not specified (principal); D64.9 Anemia, unspecified; K29.70 Gastritis, unspecified, without bleeding; Z87.738 Personal history of other specified (corrected) congenital malformations of digestive system; Z87.11 Personal history of peptic ulcer disease; Z90.49 Acquired absence of other specified parts of digestive tract; Z98.890 Other specified postprocedural states; Z79.899 Other long term (current) drug therapy; Z88.8 Allergy status to other drugs, medicaments and biological substances; Z91.013 Allergy to seafood
CPT/HCPCS: 36415; 80053; 81001; 81025; 83690; 85025; 87086; 96365; 96375; 99284; J0696; J0780; J1200; J2270; J2470